=== PATIENT | female | born 1975 | race African-American/Black ===

== ENCOUNTER → 2020-04-18 10:49 | Outpatient (CLI) | payer OTHER, SELFPAY ==
--- NOTE | ~2020-04-18 | XR_ITS ---
EXAMINATION: XR chest 2V 04/18/2020 11:08 INDICATION: Cough PROCEDURE: 2 view chest COMPARISON: Comparison to multiple prior studies sequentially, with oldest reviewed study dated 07/11. FINDINGS: The lungs are clear. The cardiomediastinal silhouette is within normal limits. There are no pleural effusions. There is no pneumothorax suspected. IMPRESSION: 1: NO ACUTE CARDIOPULMONARY DISEASE. Reviewed, dictated and finalized at location A.
== END ==
PROVIDERS: PCP Family Medicine; Visit Provider Nurse Practitioner Family
DX: R05 Cough (principal)
CPT/HCPCS: 71046

== ENCOUNTER 2020-07-01 06:05 | Observation (INO) | payer OTHER, SELFPAY ==
[2020-07-01] VITALS (34 sets, daily range): BP systolic 106–155; BP diastolic 76–113; PULSE 51–70; RESP 12–19; TEMP 36.3–36.8; O2SAT 97–100; BMI 29.3
--- NOTE | ~2020-07-01 | CT_ITS ---
EXAMINATION: CT brain wo con EXAM DATE: 07/01/2020 13:46 INDICATION: Numbness and tingling right side of the body. Right paresthesia. TECHNIQUE: Spiral CT of the head was performed without contrast. Axial, coronal and sagittal images were reviewed. The dose-length product (DLP) for this examination was 605.33 mGy-cm. The exposure w as tailored according to patient size, and iterative reconstruction (ASIR) was used as additional dos e reduction technique. Comparison is made to prior examination from 06/18/2018. FINDINGS: There is no acute intraparenchymal hemorrhage. No evidence of intraparenchymal brain mass lesion. No evidence of acute infarction. There is no mass effect or midline shift. The ventricles are normal in size. There are no extra-axial collections. There are no acute calvarial fractures. T he orbits are unremarkable. Soft tissue is unremarkable. Right ethmoid osteoma. Mildly enhanced ve ssels from CT performed earlier. IMPRESSION: 1. Unremarkable head CT examination. Reviewed, dictated and finalized at location A. F MARKETING OFFICER
--- NOTE | ~2020-07-01 | CT_ITS ---
EXAMINATION: CTA chest abdomen pelvis EXAM DATE: 07/01/2020 10:32 INDICATION: Chest pain, radiating to back, abdomen. TECHNIQUE: Spiral CT of the chest, abdomen and pelvis was performed following intravenous injection o f 100 mL Omnipaque 350. Axial, coronal and sagittal images were reviewed. Coronal maximum intensity pixel images of chest reviewed. The dose-length product (DLP) for this examination was 1092.85 mGy- cm. The exposure was tailored according to patient size (auto mA exposure control), and iterative re construction (ASIR) was used as additional dose reduction technique. Comparison is made to prior exam ination from 2011. FINDINGS: CHEST: The aorta is normal in caliber. There are several right middle, right lower lobe nodules 4 mm or less, granulomas unchanged compared to 2012. No central pulmonary emboli. There are no pleural o r pericardial effusions. Tracheobronchial tree is patent. There is no mediastinal, hilar or axill shanda lymphadenopathy. There is no pneumothorax. Heart normal in size. No evidence of coronary ar terial calcification. ABDOMEN PELVIS: The liver, spleen, adrenal glands and pancreas are unremarkable. Gallbladder is unre markable. No biliary obstruction. Portal and splenic veins are patent. Kidneys enhance symmetrical ly. There is no hydronephrosis. The prostate is unremarkable. The bladder is unremarkable. There is no retroperitoneal or pelvic lymphadenopathy. The appendix is normal. The stomach and small bowel are unremarkable. There is expected amount of c olonic stool. No free intraperitoneal gas. There are no osteoblastic or osteolytic lesions identi fied. IMPRESSION: 1. No acute chest, abdomen or pelvis findings. Reviewed, dictated and finalized at location A. SUPERVISOR
--- NOTE | ~2020-07-01 | XR_ITS ---
EXAMINATION: XR chest 1V portable EXAM DATE: 07/01/2020 06:43 INDICATION: Midsternal chest pain. TECHNIQUE: Portable AP frontal chest x-ray was obtained. Comparison is made to prior examination from 04/18/2020. FINDINGS: The lungs are clear. There are no pleural effusions. The cardiomediastinal silhouette is within normal limits. There is no pneumothorax suspected. The bones and soft tissues are unremarkab le. IMPRESSION: Normal chest x-ray exam. Reviewed, dictated and finalized at location A. STANT PROFESSOR OF ANTHROPOLOGY IMPRESSION: Normal chest x-ray exam.
--- NOTE | 2020-07-01 06:18 | ECG_ITS ---
Measurements Intervals Banner Rate: 66 P: 72 DC: 162 QRS: 24 QRSD: 88 T: 129 QT: 413 QTc: 434 Interpretive Statements SINUS RHYTHM POSSIBLE LEFT ATRIAL ENLARGEMENT CANNOT RULE OUT SEPTAL INFARCT, AGE INDETERMINATE ST-T WAVE ABNORMALITY IN LATERAL LEADS- CONSIDER ISCHEMIA BASELINE WANDER- V1, V3-V4 ABNORMAL ECG Electronically Signed On 07-01-2020 10:03:22 OCCUPATIONAL THERAPY SPECIALIST by Quinten Renteria D.O.
--- NOTE | 2020-07-01 06:43 | ED.GENADULT ---
HPI - General Adult General Chief complaint: Chest Pain <Shad Mathew DO - Last Filed: 07/01/20 19:04> Stated complaint: chest pain <Shad Mathew DO - Last Filed: 07/01/20 19:04> Time Seen by Provider: 07/01/20 06:08 <Shad Mathew DO - Last Filed: 07/01/20 19:04> Source: RN notes reviewed <Shad Mathew DO - Last Filed: 07/01/20 19:04> History of Present Illness HPI narrative: Patient presents emergency department from home for chest pain. Patient states for the past 2 days she has had chest pain is been midsternal and radiates into the right lower chest. Patient also notes pain radiating to the right arm states the pain is worse with movement. She reports shortness of breath that started today. Denies any fevers or chills cough nausea vomiting diarrhea or any other symptoms states she last took aspirin last night for the pain <Shad Mathew DO - Last Filed: 07/01/20 19:04> Related Data Home medications: Home Medications Medication Instructions Recorded Confirmed No Home Medications 07/01/20 07/01/20 <Shad Mathew DO - Last Filed: 07/01/20 19:04> Allergies/adverse reactions: Allergies Allergy/AdvReac Type Severity Reaction Status Date / Time amoxicillin Allergy Mild Unknown Verified 02/07/20 14:42 Cephalosporins Allergy Unknown Unknown Verified 02/07/20 14:42 ketorolac Allergy Unknown Unknown Verified 02/07/20 14:42 Penicillins Allergy Unknown Unknown Verified 02/07/20 14:42 clarithromycin AdvReac Intermediate GI Verified 02/07/20 14:42 <Shad Mathew DO - Last Filed: 07/01/20 19:04> Review of Systems Review of Systems: Narrative: Gen.: Denies fevers or chills Eyes: Denies eye pain or visual change ENT: Denies congestion Respiratory: Denies cough, reports shortness of breath CV: See HPI GI: Denies abdominal pain nausea, emesis or diarrhea denies burning, urgency, frequency or hematuria Musculoskeletal: Denies back pain or muscle pain Neuro: Denies numbness, tingling, weakness or focal weakness Skin: Denies rash Except as documented, all other systems reviewed and negative <Shad Mathew, DO - Last Filed: 07/01/20 19:04> [facility] Past Medical History Medical History: Medical History (Updated 07/01/20 @ 17:59 by Erica Bunn MD) Anxiety Asthma GERD (gastroesophageal reflux disease) Hypertension Hypertension Major depressive disorder, single episode, unspecified <Shad Mathew DO - Last Filed: 07/01/20 19:04> Surgical History Surgical History: Surgical History (Updated 07/01/20 @ 14:37 by Olesya Elizondo NP) H/O section X3 H/O: hysterectomy History of back surgery X5 History of carpal tunnel release Bilaterally S/P cubital tunnel release Bilateral <Shad Mathew, DO - Last Filed: 07/01/20 19:04> Family History Family History: Family History Mother Diabetes mellitus Hypertension Father Diabetes mellitus Hypertension <Shad Mathew, DO - Last Filed: 07/01/20 19:04> Social History Social History: Social History (Updated 07/01/20 @ 14:41 by Olesya Elizondo NP) Social History: She smokes A pack a cigarettes a day. 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 She is . She has 3 children. She is a full code and desires to have her is a durable power litigation attorney associate for healthcare. She does not use alcohol marijuana or illicit drugs. Years smoked: 20 Smoking status: Current every day smoker Alcohol intake: never Substance use: never Occupation/Education: occupation Spiritual care concerns: No <Shad Mathew DO - Last Filed: 07/01/20 19:04> Exam Narrative: Exam Narrative: APPEARANCE: No acute distress, nontoxic, resting in bed EYES: EOMI HEENT: Normocephalic, atraumatic, OMM RESPIRATORY: No
[2020-07-01 06:47] LABS: Basophils Absolute Auto 0.1 K/mm3 (0.0-0.1); Basophils Percent Auto 0.7 % (0.2-1.2); Eosinophils Percent Auto 0.6 % (0-4.4); Hematocrit 41.5 % (37.0-47.0); Hemoglobin 13.9 g/dL (12.0-15.0); Immature Granulocyte Absolute 0.03 K/mm3 (0.00-0.031); Immature Granulocyte Percent A 0.4 % (0-0.5); Lymphocytes Absolute Auto 3.59 K/mm3 (0.9-3.2); Lymphocytes Percent Auto 50.6 % (18.3-44.2); Mean Corpuscular HGB Conc 33.5 g/dl (32-36); Mean Corpuscular Hemoglobin 30.2 pg (26-34); Mean Corpuscular Volume 90.2 fl (80-100); Mean Platelet Volume 11.5 fl (7.4-10.4); Monocytes Absolute Auto 0.4 K/mm3 (0.1-0.6); Monocytes Percent Auto 5.6 % (2.6-8.5); Neutrophils Percent Auto 42.1 % (45.5-73.1); Platelet Count Result 214 k/mm3 (150-375); Red Cell Distribution Width 12.1 % (11.5-14.5); White Blood Count 7.1 K/mm3 (4.5-10.0)
[2020-07-01 07:09] LABS: Anion Gap 7 mmol/L (8-16); Blood Urea Nitrogen 16 mg/dL (7-17); Carbon Dioxide 26 mmol/L (22-30); Chloride 108 mmol/L (98-107); Estimated CRCL calculation 98 ml/min; Estimated Glomerular Filt Rate > 60; Glucose 92 mg/dL (65-105); Potassium 4.1 mmol/L (3.4-5.0); Sodium 141 mmol/L (137-145)
[2020-07-01 07:21] LABS: Troponin I < 0.012 ng/mL (0.000-0.034)
[2020-07-01 07:45] LABS: Alanine Aminotransferase 15 U/L (4-35); Alkaline Phosphatase 84 U/L (38-126); Aspartate Amino Transferase 21 U/L (14-36); Bilirubin,Total 0.6 mg/dL (0.2-1.3); Lipase 92 U/L (23-300)
[2020-07-01 07:50] LABS: INR 0.9; Prothrombin Time 13.2 Seconds (11.1-14.7)
[2020-07-01 07:51] LABS: Partial Thromboplastin Time 24.7 SECONDS (22.3-36.8)
[2020-07-01 09:57] LABS: Troponin I < 0.012 ng/mL (0.000-0.034)
[2020-07-01] MEDS: NITROGLYCERIN SL 0.4 MG TABLET SUBLINGUAL (11:35)
[2020-07-01 12:52] LABS: Troponin I < 0.012 ng/mL (0.000-0.034)
[2020-07-01] MEDS: NICOTINE (*PBKC) 21 MG PATCH 1 PATCH TRANSDERM (14:06)
--- NOTE | 2020-07-01 14:26 | PM.IMHP ---
H&P: HPI History of Present Illness Date/Time: 07/01/20 14:26 Chief complaint: Chest Pain, Parestesia Narrative: Lore Jacobs is a 44 year old female who came in with multiple complaints. She lives at home with her . The patient stated that she has had multiple body ache and that she was checked for covid 19 did check you joint her per see center for this past Friday and still has not gotten her results. She has not had any fever chills. But she has felt some heaviness in her chest. She has been complaining of right arm and right leg pain and heaviness. She does have a history of having asthma and hypertension. The patient complained of having numbness and tingling to her right arm and right lower extremity. She has reproductive pain to her right upper quadrant. She is also complaining of neck pain that radiates down to her right arm. She has been having this chest pain for at least 2 days that is midsternal radiates down her right lower chest and right arm. She has not had any cough no nausea vomiting. She still does continue to smoke a half pack a cigarettes a day. She has not tried anything [id number] except for an aspirin. She does have a history of having anxiety as well. Cannot rule out septal infarction age indeterminate. ST T-wave abnormality in lateral leads consider ischemia. However patient's previous EKG from 2012 had the same read. EKG was abnormal cardiology has been consulted for the abdominal EKG. Head CT was unremarkable. He chest abdomen pelvis CT a no acute chest abdominal or pelvis abdominal finding. She has not had any sick contacts or been around anybody that was positive for COVID. Patient was admitted/placed into observation on the date of service 07/01/2020 Review of Systems Review of Systems: All systems reviewed & are unremarkable except as noted in HPI and below Constitutional: Constitutional: Reports as per HPI and Reports no additional constitutional complaints Eyes: Eyes: Reports as per HPI and Reports no additional eye complaints ENT: Reports system reviewed and no additional complaints, except as documented and Reports Normal hearing present Cardiovascular: Cardiovascular: Reports no additional cardiovascular complaints Respiratory: Respiratory: Reports no additional respiratory complaints and Reports no additional respiratory complaints Gastrointestinal: Gastrointestinal: Reports as per HPI and Reports no additional gastrointestinal complaints Musculoskeletal: Musculoskeletal: Reports no additional musculoskeletal complaints Integumentary/Breasts: Skin/Breast: Reports system reviewed and no additional complaints, except as docu and Reports as per HPI Neurologic: Reports system reviewed and no additional complaints, except as documented, Reports as per HPI and Reports Normal hearing present Psychiatric: Psychiatric: Reports no additional psychiatric complaints and Reports as per HPI Endocrine: Endocrine: Reports no additional endocrine complaints Hematologic/Lymphatic: Hematologic/Lymphatic: Reports no additional hematologic/lymphatic complaints Allergic/Immunologic: Allergic/Immunologic: Reports no additional allergic/immunologic complaints PMF Past Medical History Medical History (Updated 07/01/20 @ 14:52 by Olesya Elizondo NP) Anxiety Asthma GERD (gastroesophageal reflux disease) Hypertension Hypertension Major depressive disorder, single episode, unspecified Surgical History Surgical History (Updated 07/01/20 @ 14:37 by Olesya Elizondo NP) H/O section X3 H/O: hysterectomy History of back surgery X5 History of carpal tunnel release Bilaterally S/P cubital tunnel release Bilateral Family History Family History Mother Diabetes mellitus Hypertension Father Diabetes mellitus Hypertension Social History Social History (Updated 07/01/20 @ 14:41 by Olesya Elizondo NP)
--- NOTE | 2020-07-01 15:01 | PC.NURSE ---
This patient, Lore Jacobs, was admitted to IMU Room 212-01. Patient/family oriented to hospital policies and general routines including ID bracelet, bed and alarms, visiting hours, pain management, procedures, bathroom and other care routines, personal items, smoking policy, room service/diet, and visiting hours. Information on how to activate the Rapid Response Team has been discussed. Patient/Family are encouraged to report perceived risks to care and to ask questions if they do not understand what they are told or what they should do.
--- NOTE | 2020-07-01 17:44 | PC.NURSE ---
Patient left AMA at 1700. Paperwork signed and placed in chart, IV removed, manager monitoring removed. Olesya Elizondo NP notified.
== END 2020-07-01 14:15 | disposition left against medical advice (07) ==
LOC: ANHED 08:04 → ANHIMU 13:31
PROVIDERS: Emergency Medicine; Admitting Provider Internal Medicine; Emergency Provider General Practice; PCP Family Medicine; Visit Provider Internal Medicine
DX: R07.9 Chest pain, unspecified (principal); R06.02 Shortness of breath; Z20.828 Contact with and (suspected) exposure to other viral communicable diseases; F41.9 Anxiety disorder, unspecified; J45.909 Unspecified asthma, uncomplicated; K21.9 Gastro-esophageal reflux disease without esophagitis; I10 Essential (primary) hypertension; F32.9 Major depressive disorder, single episode, unspecified; F17.210 Nicotine dependence, cigarettes, uncomplicated; R10.9 Unspecified abdominal pain; M54.2 Cervicalgia; R20.2 Paresthesia of skin; R94.31 Abnormal electrocardiogram [ECG] [EKG]
CPT/HCPCS: 36415; 70450; 71045; 71275; 74174; 80048; 80076; 83690; 84484; 85025; 85380; 85610; 85730; 93005; 96374; 99285; A9270; G0378; J0131; Q9967

== ENCOUNTER 2020-08-14 07:28 | Inpatient (IN) | payer OTHER, SELFPAY ==
[2020-08-14] VITALS (19 sets, daily range): BP systolic 128–139; BP diastolic 75–109; PULSE 52–94; RESP 10–20; TEMP 36.1–36.7; O2SAT 97–100; BMI 30.6
--- NOTE | ~2020-08-14 | XR_ITS ---
EXAMINATION: XR abdomen obstructive series DATE: 08/15/2020 07:43 INDICATION: Small bowel obstruction TECHNIQUE: Supine and upright views of the abdomen. FINDINGS: Comparison to 08/14/2020 The visualized lung parenchyma is normal.. There is a nonspecific bowel gas pattern with single dilat ed small bowel loop in the right mid abdomen.. Gas and stool are seen throughout the colon to the lev el of the rectum. There is no free air. NG tube in the stomach. There is contrast in the gallbladder , likely vicarious excretion of contrast from recent CT examination. IMPRESSION: 1. Nonspecific bowel gas pattern. Reviewed, dictated and finalized at location A. OWS SYSTEMS ADMINISTRATOR
--- NOTE | ~2020-08-14 | XR_ITS ---
SMALL BOWEL SERIES ONLY INDICATION: Small bowel obstruction TECHNIQUE: Serial plain films and fluoroscopic spot films are performed following oral demonstration of thin barium. COMPARISON: Comparison to multiple prior studies sequentially, with oldest reviewed study dated 11/2020. FINDINGS: Barium was followed sequentially through the small bowel. The mucosal pattern is unremarka ble. There is persistent mild narrowing in the mid small bowel, although no significant obstruction o f flow of contrast. Transit time through small bowel is less than 30 minutes. IMPRESSION: 1: Persistent narrowing of the mid small bowel without obstruction, possibly secondary to stricture or adhesions. Reviewed, dictated and finalized at location A. OPERATIONS SPECIALIST IMPRESSION: 1: Persistent narrowing of the mid small bowel without obstruction, possibly s econdary to stricture or adhesions.
--- NOTE | ~2020-08-14 | XR_ITS ---
XR abdomen obstructive series 08/15/2020 15:15 Indication: Small bowel narrowing noted on recent small bowel series. Evaluate for passage of contras t. Procedure: Supine and upright views of the abdomen Comparison: Comparison to multiple prior studies sequentially, with oldest reviewed study dated 11/30. Findings: There is residual barium in the stomach, small bowel, colon and rectum. No significant orlin l dilation. Evaluation of calcifications limited by lack contrast. Lung bases unremarkable. Heart siz e normal. Impression: 1: Nonobstructive bowel gas pattern with large amount of residual barium throughout the abdomen. Reviewed, dictated and finalized at location A. EL ELASTIC OPERATOR ZIGZAG Impression: 1: Nonobstructive bowel gas pattern with large amount of residual barium throug hout the abdomen.
--- NOTE | ~2020-08-14 | XR_ITS ---
EXAMINATION: XR abdomen NG/feed tube insert DATE: 08/14/2020 09:51 INDICATION: Nasogastric tube placement. TECHNIQUE: An upright view of the abdomen was obtained. COMPARISON: CT abdomen and pelvis 08/31 FINDINGS: The lower abdomen is excluded. There are multiple dilated loops of small bowel. The colon i s decompressed. The nasogastric tube tip is in the stomach. IMPRESSION: 1. Nasogastric tube tip in the stomach. 2. Dilated small bowel, consistent with small bowel obstruction. Reviewed, dictated and finalized at location A. UCTION MATERIAL HANDLER
--- NOTE | ~2020-08-14 | US_ITS ---
EXAMINATION: US right upper quadrant EXAM DATE: 08/15/2020 15:34 INDICATION: Recent epigastric abd pain. TECHNIQUE: Multiple grayscale and Doppler images of the abdomen right upper quadrant were obtained (b y a technologist who performed the scan) and subsequently reviewed. Comparison is made to prior exami nation from 09/09/2017. FINDINGS: The pancreatic head and body are normal in appearance. The pancreatic tail is not visualized. The l iver has normal echogenicity and contour. There are no focal liver lesions identified. There is no evidence of intrahepatic biliary duct dilation. Portal venous flow was seen in the hepatopedal, nor mal direction and has normal Doppler waveform. No right-sided hydronephrosis. Common bile duct measures 3 mm, which is normal. The gallbladder wall is normal in thickness, with ex pected amount of distention. No sonographic evidence of pericholecystic fluid. There is no cholelit hiases. Technologist performing exam reports patient did not demonstrate sonographic Real's sign. Please note that this sign is less reliable in patients who have received pain medication. IMPRESSION: 1. Unremarkable abdominal ultrasound exam. Reviewed, dictated and finalized at location A. PHONE ADVICE NURSE
--- NOTE | ~2020-08-14 | CT_ITS ---
EXAMINATION: CT abdomen pelvis w con DATE: 08/14/2020 08:32 INDICATION: Upper abdominal pain TECHNIQUE: Computed tomography (CT) of the abdomen and pelvis was performed with 100 cc Omnipaque 350 intravenous contrast. The dose-length product was 760.17 mGy-cm. Automated exposure control and iter ative reconstruction technique were employed. COMPARISON: CT dated 07/01/2020. FINDINGS: Heart size is normal. No significant pleural or pericardial effusion. There is dilated smal l bowel with air-fluid levels. The small bowel proximally and distally are decompressed with possible transition site in the proximal small bowel on series 3 image 38 and in the distal small bowel on se dwayne 3 image 136 anteriorly. No evidence for pneumatosis or free air. Small amount of mesenteric flui d. Appendix is unremarkable. Small subcentimeter hypodensity of the liver, most likely benign. The spleen, pancreas, adrenal gland s and kidneys are unremarkable. Gallbladder is present. There is degenerative spondylosis at L4-5. Mi ld osteoarthritis of the hips. IMPRESSION: 1. Small bowel obstruction, possibly closed loop. Dr. Benjamin Malone discussed with Dr. Shad Mathew DO at 08/14/2020 08:40 LAWN SPECIALIST. Reviewed, dictated and finalized at location A. SPECIALIST
--- NOTE | ~2020-08-14 | XR_ITS ---
EXAMINATION: XR abdomen obstructive series DATE: 08/16/2020 09:13 INDICATION: Small bowel obstruction. TECHNIQUE: Upright and supine views of the abdomen on 3 radiographs were obtained. COMPARISON: CT abdomen and pelvis 08/14/2020 FINDINGS: There are no dilated loops of bowel. There is oral contrast in the colon and appendix. No f ree intraperitoneal gas. IMPRESSION: 1. Normal bowel gas pattern. Reviewed, dictated and finalized at location A. EWORKER
--- NOTE | ~2020-08-14 | CT_ITS ---
EXAMINATION: CT abdomen pelvis w con DATE: 08/17/2020 09:59 INDICATION: Abdominal pain. TECHNIQUE: Computed tomography (CT) of the abdomen and pelvis was performed with 100 mL Omnipaque 350 intravenous contrast. Automated exposure control and iterative reconstruction technique were employe d. The dose-length product was 866.54 mGy-cm. COMPARISON: CT abdomen and pelvis 08/14/2020 FINDINGS: The visualized portions of the lung bases demonstrate minimal atelectasis. No pleural effus ion. The heart size is normal. No pericardial effusion. There is a 4 mm cyst in the liver. The gallbl adder, spleen, pancreas, adrenal glands, and kidneys are normal. There are no dilated loops of bowel. The appendix is normal. There are no pathologically enlarged lymph nodes. There is no free intraperi toneal fluid. There is severe lumbar spondylosis. IMPRESSION: 1. No etiology for the patient's symptoms. Reviewed, dictated and finalized at location A. ASSESSOR
--- NOTE | 2020-08-14 07:41 | ED.GENADULT ---
HPI - General Adult General Chief complaint: Abdominal Pain Stated complaint: ABD pain Time Seen by Provider: 08/14/20 07:30 Source: RN notes reviewed History of Present Illness HPI narrative: Patient presents to emergency department from home for abdominal pain. States symptoms began approximately 1-1/2 days ago. The pain is located in the epigastric region and does not radiate described as sharp and stabbing and worsened last night associated with nausea but denies any vomiting states she did develop mild diarrhea this morning patient denies any fevers or chills chest pain shortness of breath or any other symptoms states she took Gaviscon last night for pain with minimal relief Related Data Home Medications Medication Instructions Recorded Confirmed albuterol sulfate INHALATION 08/14/20 estradiol mg 08/14/20 fluticasone propion-salmeterol INHALATION 08/14/20 [Advair HFA] lisinopril 08/14/20 omeprazole 08/14/20 Allergies Allergy/AdvReac Type Severity Reaction Status Date / Time amoxicillin Allergy Intermediate Rash Verified 08/14/20 07:51 Cephalosporins Allergy Intermediate Rash Verified 08/14/20 07:51 Penicillins Allergy Intermediate Rash Verified 08/14/20 07:51 ketorolac AdvReac Intermediate Nausea and Verified 08/14/20 07:51 Vomiting clarithromycin AdvReac Mild GI Verified 08/14/20 07:51 Review of Systems Review of Systems: Narrative: Gen.: Denies fevers or chills ENT: Denies congestion Respiratory: Denies shortness of breath or cough CV: Denies chest pain or palpitations GI: See HPI denies burning, urgency, frequency or hematuria Musculoskeletal: Denies back pain or muscle pain Neuro: Denies numbness, tingling, weakness or focal weakness Skin: Denies rash Except as documented, all other systems reviewed and negative PMFSH Past Medical History Medical History Anxiety Asthma GERD (gastroesophageal reflux disease) Hypertension Hypertension Major depressive disorder, single episode, unspecified Surgical History Surgical History H/O section X3 H/O: hysterectomy History of back surgery X5 History of carpal tunnel release Bilaterally S/P cubital tunnel release Bilateral Family History Family History Mother Diabetes mellitus Hypertension Father Diabetes mellitus Hypertension Social History Social History Social History: She smokes A pack a cigarettes a day. 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 She has 3 children. She is a full code and desires to have her is a durable power graffiti cleaner for healthcare. She does not use alcohol marijuana or illicit drugs. Years smoked: 20 Smoking status: Current every day smoker Alcohol intake: never Substance use: never Gender identity (if verbalized by the patient): Female Spiritual care concerns: No Exam Narrative: Exam Narrative: APPEARANCE: Moderate distress from pain nontoxic, resting in bed HEENT: Normocephalic, atraumatic, OMM RESPIRATORY: No respiratory distress, clear to auscultation bilaterally with no rhonchi wheezing or rales CARDIOVASCULAR: RRR s murmur ABDOMINAL: Soft, nondistended tender palpation diffusely throughout abdomen with increased tenderness in epigastric right upper quadrant no rebound or guarding MUSCULOSKELETAl: Moves all extremities. No clubbing, cyanosis or edema. NEURO: Awake and alert. Following commands, speech normal, no focal deficits SKIN:: Warm, dry. Normal Color PSYCHIATRIC: Normal affect/mood Course Course Emergency Course: Patient states pain is improved at this time patient states that over the past week she has been having rhinorrhea and a mild cough intermitte
[2020-08-14] MEDS: ONDANSETRON INJ 4 MG/2 ML VIAL IV PUSH (08:07)
[2020-08-14] MEDS: SODIUM CHLORIDE 0.9% IV 1,000 ML 999 ML IV CONT (08:07)
[2020-08-14] MEDS: MORPHINE SULFATE (*CRX) 4 MG/ML INJ IV PUSH ×5 (08:07→21:35)
[2020-08-14 08:09] LABS: Basophils Percent Auto 0.4 % (0.2-1.2); Eosinophils Percent Auto 0.1 % (0-4.4); Hematocrit 46.8 % (37.0-47.0); Hemoglobin 15.3 g/dL (12.0-15.0); Immature Granulocyte Absolute 0.04 K/mm3 (0.00-0.031); Immature Granulocyte Percent A 0.4 % (0-0.5); Lymphocytes Absolute Auto 2.58 K/mm3 (0.9-3.2); Lymphocytes Percent Auto 23.5 % (18.3-44.2); Mean Corpuscular HGB Conc 32.7 g/dl (32-36); Mean Corpuscular Hemoglobin 29.7 pg (26-34); Mean Corpuscular Volume 90.9 fl (80-100); Mean Platelet Volume 11.4 fl (7.4-10.4); Monocytes Absolute Auto 0.7 K/mm3 (0.1-0.6); Monocytes Percent Auto 6.7 % (2.6-8.5); Neutrophils Absolute Auto 7.6 K/mm3 (1.3-6.7); Neutrophils Percent Auto 68.9 % (45.5-73.1); Platelet Count Result 229 k/mm3 (150-375); Red Blood Count 5.15 M/mm3 (4.2-5.4); Red Cell Distribution Width 12.4 % (11.5-14.5)
[2020-08-14 08:21] LABS: Alanine Aminotransferase 19 U/L (4-35); Albumin Level 4.6 g/dL (3.5-5.1); Alkaline Phosphatase 88 U/L (38-126); Anion Gap 6 mmol/L (8-16); Aspartate Amino Transferase 24 U/L (14-36); Bilirubin,Total 0.8 mg/dL (0.2-1.3); Blood Urea Nitrogen 13 mg/dL (7-17); Calcium 9.6 mg/dL (8.4-10.2); Carbon Dioxide 31 mmol/L (22-30); Chloride 104 mmol/L (98-107); Estimated CRCL calculation 85 ml/min; Estimated Glomerular Filt Rate > 60; Glucose 111 mg/dL (65-105); Lipase 52 U/L (23-300); Potassium 3.8 mmol/L (3.4-5.0); Sodium 141 mmol/L (137-145)
[2020-08-14 09:09] LABS: Add Urine Microscopic? YES; Appearance Urine Clear (Clear); Bilirubin Urine Negative (Negative); Blood Urine Negative (Negative); Color Urine Yellow (Yellow); Glucose Urine UA Negative (Negative); Ketones Urine Negative (Negative); Leukocyte Esterase Ur Negative LEU/UL (Negative); Mucus Urine Heavy /lpf; Nitrate Urine Negative (Negative); Protein Urine 2+ mg/dL (Negative); Squamous Epithelial Cell Urine Moderate /hpf (Few)
[2020-08-14 09:14] LABS: Specific Grav Ur 1.034 (1.001-1.035)
[2020-08-14] MEDS: PANTOPRAZOLE SODIUM IV 40 MG VIAL IV PUSH (09:17)
[2020-08-14] MEDS: BENZOCAINE/TETRACAINE SPRAY (*SP) 56 ML AEROSOL 1 SPRAY (09:54)
--- NOTE | 2020-08-14 11:23 | PM.CNGS ---
Assessment and Plan Assessment and plan (1) Small bowel obstruction: Code(s): K56.609 - Unspecified intestinal obstruction, unspecified as to partial versus complete obstruction Status: Acute Assessment and Plan: CT scan reviewed and discussed with the patient in detail. There is evidence of a small bowel obstruction, possible closed-loop obstruction. No evidence of pneumatosis or free air. Patient's symptoms have improved some already in the ER and she reportedly had two small bowel movements this morning. She does have a history of multiple abdominal surgeries and she reported that her OBGYN mentioned a significant amount of scar tissue during her last oophorectomy. Etiology is likely to be adhesions. We will continue with conservative management initially, including NG tube decompression, bowel rest, IV fluids, analgesics, and antiemetics. We will continue to monitor with serial abdominal exams and imaging. Will decipher further plan depending on how the patient progresses. I did discuss with the patient that if she does not improve and there is rising suspicion of a closed loop obstruction, then she will require exploratory surgery. Thank you for allowing us to see the patient in consultation and we will continue to follow along with you. (2) Suspected 2019-nCoV infection: Code(s): Z20.822 - Contact with and (suspected) exposure to COVID-19 Status: Acute Assessment and Plan: Symptoms of congestion and shortness of breath over the past week. COVID-19 ordered in the ER and test pending. Continue precautions. (3) Hypertension: Code(s): I10 - Essential (primary) hypertension Status: Chronic (4) Anxiety: Code(s): F41.9 - Anxiety disorder, unspecified Status: Chronic (5) Major depressive disorder, single episode, unspecified: Code(s): F32.9 - Major depressive disorder, single episode, unspecified Status: Chronic (6) GERD (gastroesophageal reflux disease): Qualifiers: Esophagitis presence: esophagitis presence not specified Qualified Code(s): K21.9 - Gastro-esophageal reflux disease without esophagitis Code(s): K21.9 - Gastro-esophageal reflux disease without esophagitis Status: Chronic (7) IBS (irritable bowel syndrome): Code(s): K58.9 - Irritable bowel syndrome without diarrhea Status: Acute Additional Plan Discussed the patient's case and plan of care with Dr. Landry. History of Present Illness Consult details Consult date: 08/14/20 Reason for consult: other (Small bowel obstruction) Requesting physician: Shad Mathew DO Narrative: This is a 44-year-old female who presented to the emergency department with complaints of abdominal pain and nausea. She reports a history of irritable bowel syndrome that causes intermittent mild abdominal pain. She reportedly has not felt well for the past week and attributed her abdominal pain initially to IBS. Last night, around 7:00 p.m. her generalized abdominal pain became more severe and was cramping in nature. This is different than any pain she has had in the past. She also reports associated nausea, but no vomiting, and bloating. She then presented to the emergency department for further evaluation. CT scan of the abdomen and pelvis showed evidence of a small-bowel obstruction, possible closed loop obstruction. Labs revealed a white blood cell count of 11,000 and lactic acid 1.0. Our service was contacted by the ED physician for surgical evaluation of the small bowel obstruction. NG tube was placed in the ED and placement was confirmed with abdominal x-ray. The patient is now being seen in the ER. She reports slight improvement in her abdominal pain and bloating. She is still feeling nauseous, but has not vomited. Denies flatus or BM yesterday, although she reports taking a Dulcolax suppository last night and having 2 very small liquid bowel movements this morning prior
[2020-08-14] MEDS: SODIUM CHLORIDE 0.9% IV 1,000 ML 125 ML IV CONT ×2 (12:00→21:43)
--- NOTE | 2020-08-14 15:02 | PM.IMHP ---
H&P: HPI History of Present Illness Date/Time: 08/14/20 15:02 Chief Complaint: Abdominal pain Narrative: Lore Jacobs is a 44 year old female Who came in with multiple complaints. She lives at home with her . The patient was here on 07/01/2020 where she had complained of chest pain and over troponins were negative. The patient signed out against medical advice at that time. She stated she never did follow-up with her chest pain. Today the patient came in with epigastric pain that did not radiate it was sharp and stabbing. It was worsened during the night. She felt nauseated but did not vomit. She tried Gaviscon last night in it gave her minimal relief. She felt like it was mostly her acid reflux. The patient has been feeling constipated and took a suppository last night had a very small bowel movement. NG tube was placed into the stomach. Patient had dilated small bowel consistent with small-bowel obstruction. Surgery has been consulted and conservative measures . IV fluids were started with Zofran she was also given Protonix and morphine. Patient is being admitted to inpatient services on the date of service of 08/14/2020. Review of Systems Review of Systems: All systems reviewed & are unremarkable except as noted in HPI and below Constitutional: Constitutional: Reports as per HPI and Reports no additional constitutional complaints Eyes: Eyes: Reports as per HPI and Reports no additional eye complaints ENT: Reports system reviewed and no additional complaints, except as documented and Reports Normal hearing present Cardiovascular: Cardiovascular: Reports no additional cardiovascular complaints Respiratory: Respiratory: Reports no additional respiratory complaints and Reports no additional respiratory complaints Gastrointestinal: Gastrointestinal: Reports as per HPI and Reports no additional gastrointestinal complaints Musculoskeletal: Musculoskeletal: Reports no additional musculoskeletal complaints Integumentary/Breasts: Skin/Breast: Reports system reviewed and no additional complaints, except as docu and Reports as per HPI Neurologic: Reports system reviewed and no additional complaints, except as documented, Reports as per HPI and Reports Normal hearing present Psychiatric: Psychiatric: Reports no additional psychiatric complaints and Reports as per HPI Endocrine: Endocrine: Reports no additional endocrine complaints Hematologic/Lymphatic: Hematologic/Lymphatic: Reports no additional hematologic/lymphatic complaints Allergic/Immunologic: Allergic/Immunologic: Reports no additional allergic/immunologic complaints PMFSH Past Medical History Medical History Anxiety Asthma GERD (gastroesophageal reflux disease) Hypertension Hypertension IBS (irritable bowel syndrome) Major depressive disorder, single episode, unspecified Surgical History Surgical History (Updated 08/14/20 @ 15:18 by Olesya Elizondo NP) H/O section X3 H/O: hysterectomy Open partial hysterectomy followed by left salpingo-oophorectomy and eventually right salpingo-oophorectomy. Total of 3 surgeries. History of back surgery X3 History of carpal tunnel release Bilaterally History of laparoscopy x 2 exploratory laparoscopy due to abdominal pain in her 20's with no reported significant findings. Family History Family History Mother Diabetes mellitus Hypertension Father Diabetes mellitus Hypertension Social History Social History Social History: She smokes A pack a cigarettes a day. 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 She is . She has 3 children. She is a full code and desires to have her to be her decision-maker if needed. She does not use alcohol marijuana o
--- NOTE | 2020-08-14 15:34 | PC.NURSE ---
[id number] This patient, Lore Jacobs, was admitted to 3 [facility] Surg Room 300-01. Patient/family oriented to hospital policies and general routines including ID bracelet, bed and alarms, visiting hours, pain management, procedures, bathroom and other care routines, personal items, smoking policy, room service/diet, and visiting hours. Information on how to activate the Rapid Response Team has been discussed. Patient/Family are encouraged to report perceived risks to care and to ask questions if they do not understand what they are told or what they should do.
[2020-08-14 18:50] LABS: SARS-CoV-2 RNA PCR Negative
[2020-08-14] MEDS: FAMOTIDINE 20 MG/2 ML VIAL IV PUSH (21:29)
[2020-08-14] MEDS: NICOTINE (*PBKC) 14 MG PATCH 1 PATCH TRANSDERM (21:29)
[2020-08-15] MEDS: MORPHINE SULFATE (*CRX) 4 MG/ML INJ IV PUSH ×2 (01:35→04:18)
[2020-08-15 01:41] LABS: Glucose Point of Care 82 (65-105)
[2020-08-15 04:59] VITALS: BP 129/78; PULSE 52; RESP 16; TEMP 36.6; O2SAT 98
[2020-08-15 06:00] VITALS: BP 137/82; PULSE 60; RESP 16; TEMP 36.4; O2SAT 97
[2020-08-15] MEDS: SODIUM CHLORIDE 0.9% IV 1,000 ML 125 ML IV CONT (06:06)
[2020-08-15] MEDS: diphenhydrAMINE HCl INJ 50 MG/ML VIAL 25 MG IV PUSH (06:24)
[2020-08-15 06:45] LABS: Basophils Percent Auto 0.6 % (0.2-1.2); Eosinophils Percent Auto 0.4 % (0-4.4); Hematocrit 39.1 % (37.0-47.0); Hemoglobin 12.4 g/dL (12.0-15.0); Immature Granulocyte Absolute 0.02 K/mm3 (0.00-0.031); Immature Granulocyte Percent A 0.3 % (0-0.5); Lymphocytes Absolute Auto 3.38 K/mm3 (0.9-3.2); Lymphocytes Percent Auto 48.1 % (18.3-44.2); Mean Corpuscular HGB Conc 31.7 g/dl (32-36); Mean Corpuscular Hemoglobin 29.5 pg (26-34); Mean Corpuscular Volume 92.9 fl (80-100); Mean Platelet Volume 12.1 fl (7.4-10.4); Monocytes Absolute Auto 0.6 K/mm3 (0.1-0.6); Monocytes Percent Auto 7.8 % (2.6-8.5); Neutrophils Percent Auto 42.8 % (45.5-73.1); Platelet Count Result 201 k/mm3 (150-375); Red Blood Count 4.21 M/mm3 (4.2-5.4); Red Cell Distribution Width 12.6 % (11.5-14.5)
[2020-08-15 07:09] LABS: Alanine Aminotransferase 15 U/L (4-35); Albumin Level 3.7 g/dL (3.5-5.1); Alkaline Phosphatase 65 U/L (38-126); Anion Gap 3 mmol/L (8-16); Aspartate Amino Transferase 27 U/L (14-36); Bilirubin,Total 0.8 mg/dL (0.2-1.3); Blood Urea Nitrogen 11 mg/dL (7-17); Carbon Dioxide 30 mmol/L (22-30); Chloride 108 mmol/L (98-107); Estimated CRCL calculation 85 ml/min; Estimated Glomerular Filt Rate > 60; Glucose 77 mg/dL (65-105); Potassium 3.8 mmol/L (3.4-5.0); Sodium 141 mmol/L (137-145)
[2020-08-15 07:12] LABS: Glucose Point of Care 84 (65-105)
[2020-08-15 08:00] VITALS: PULSE 60; RESP 16; O2SAT 97
[2020-08-15] MEDS: FAMOTIDINE 20 MG/2 ML VIAL IV PUSH (09:07)
[2020-08-15] MEDS: NICOTINE (*PBKC) 14 MG PATCH 1 PATCH TRANSDERM (09:07)
[2020-08-15] MEDS: PANTOPRAZOLE SODIUM IV 40 MG VIAL IV PUSH (09:08)
[2020-08-15 09:35] LABS: Magnesium 2.3 mg/dL (1.6-2.3)
--- NOTE | 2020-08-15 10:52 | PM.PNGS ---
Progress Note: A&P Assessment and Plan (1) Small bowel obstruction: Code(s): K56.609 - Unspecified intestinal obstruction, unspecified as to partial versus complete obstruction Status: Acute Assessment and Plan: Patient still having pain and bowel function this morning. Abdominal x-ray this morning shows normal bowel gas pattern. Will get a gastrografin SBFT today to further assess the obstruction. (2) Suspected 2019-nCoV infection: Code(s): Z20.822 - Contact with and (suspected) exposure to COVID-19 Status: Acute Assessment and Plan: COVID test negative. Resolved. (3) Hypertension: Code(s): I10 - Essential (primary) hypertension Status: Chronic (4) Anxiety: Code(s): F41.9 - Anxiety disorder, unspecified Status: Chronic (5) Major depressive disorder, single episode, unspecified: Code(s): F32.9 - Major depressive disorder, single episode, unspecified Status: Chronic (6) GERD (gastroesophageal reflux disease): Qualifiers: Esophagitis presence: esophagitis presence not specified Qualified Code(s): K21.9 - Gastro-esophageal reflux disease without esophagitis Code(s): K21.9 - Gastro-esophageal reflux disease without esophagitis Status: Chronic (7) IBS (irritable bowel syndrome): Code(s): K58.9 - Irritable bowel syndrome without diarrhea Status: Acute Additional Plan Discussed the plan of care with Dr. Landry. Subjective Subjective Date/Time Seen: 08/15/20 09:30 Patient reports: no new complaints, still having pain, no flatus and no bowel movement Interval history: Patient seen this morning and states she feels about the same as yesterday. Still having the same amount of abdominal pain, rating it at 7/10 on pain scale. Still feeling bloated. Denies flatus or BM. No other complaints at this time. NG with 225 cc output overnight. Review of Systems Review of Systems: All systems reviewed & are unremarkable except as noted in HPI and below Exam Const: General: comfortable, no acute distress, alert and awake Orientation/consciousness: patient oriented x3 Resp: Effort & Inspection: no respiratory distress Auscultation: clear to auscultation bilaterally Cardio: Rate: regular rate Rhythm: regular rhythm GI: Inspection: other (mildly distended) GI Palp: Yes Soft to palpation, Yes Tenderness to palpation present (GI) (diffusely tender throughout), No Guarding due to palpation present (GI) and No Rebound tenderness present Auscultation: absent bowel sounds Skin: General skin exam: normal color Neuro: General: moves all extremities and no focal motor deficits Extrem: General: no clubbing, cyanosis or edema Psych: Appearance: grossly normal Mental Status: mental status grossly normal Affect: normal affect Insight: Good insight present (Psych) Judgement: Good judgement present (Psych) Objective Data Vital Signs Vital Signs: Vital Signs - 24 hr 08/14/20 11:30 08/14/20 12:00 08/14/20 16:23 Temperature 98.1 F 98.1 F Pulse Rate 74 56 L 56 L Respiratory Rate 16 14 14 Blood Pressure 137/75 137/75 Pulse Oximetry 100 100 08/14/20 22:00 08/15/20 04:59 08/15/20 06:00 Temperature 98 F 98 F 97.6 F Pulse Rate 52 L 52 L 60 Respiratory Rate 16 16 16 Blood Pressure 129/78 129/78 137/82 Pulse Oximetry 98 98 97 Intake/Output Intake/Output: Intake & Output 08/12/20 08/13/20 08/14/20 08/15/20 23:59 23:59 23:59 23:59 Intake Total 1950 1020 Output Total 225 Balance 1950 795 Meds/Results Medications: Active Medications Generic Name Dose Route Start Last Admin Trade Name Freq PRN Reason Stop Dose Admin Famotidine 20 mg 08/14/20 21:00 08/15/20 09:07 Famotidine 20 Mg/2 Ml Vial IV PUSH 20 mg Q12HR MORE Administration Hydralazine HCl 10 mg 08/14/20 15:36 Hydralazine Hcl 20 Mg/Ml Vial IV PUSH Q8H PRN Blood Pressure - High Hydromorphone HCl 1 mg 08/15/20 04:4
[2020-08-15] MEDS: HYDROmorphone HCL INJ (*CRX) 1 MG/ML SYR IV PUSH ×4 (12:40→20:39)
[2020-08-15 14:00] VITALS: BP 135/78; PULSE 63; RESP 16; TEMP 36.7; O2SAT 98
--- NOTE | 2020-08-15 14:06 | PM.IMPN ---
Progress Note: A&P Assessment and Plan (1) Complete small bowel obstruction: Code(s): K56.601 - Complete intestinal obstruction, unspecified as to cause Status: Acute Assessment and Plan: THE PATIENT HAS NG TUBE IN PLACE. Surgery has been consulted. Most likely conservative care. Continue with Chloraseptic spray and ice chips only. Pain management and IV fluids. x-ray the abdomen obstructive series was ordered. 08/15/20 14:06 Patient is a 44-year-old female with history open hysterectomy and IBS, presented to emergency department with a complaint abdominal pain and nausea, epigastric pain stable pain is persistent for 1 and half and was worse last night and patient presented emergency department for further evaluation patient had a CT scan of abdomen showed Small bowel obstruction, possibly closed loop. Patient was placed on NG tube for decompression, patient was seen by general surgery team suspect patient may have a partial small-bowel obstruction recommending conservative management with decompression with NG tube, NPO, IV hydration and pain management, this morning patient states pain is persisting nausea is improving, not passing any gas and no BM, denies any fever or chills. Plan is to continue present management in hope the small-bowel obstruction resolved without surgery, (2) Suspected 2019-nCoV infection: Code(s): Z20.822 - Contact with and (suspected) exposure to COVID-19 Status: Acute Assessment and Plan: Patient was placed on droplet isolation. awaiting test results. (3) Major depressive disorder, single episode, unspecified: Code(s): F32.9 - Major depressive disorder, single episode, unspecified Status: Chronic Assessment and Plan: She is not currently on any medications. (4) Hypertension: Code(s): I10 - Essential (primary) hypertension Status: Chronic Assessment and Plan: P.r.n. hydralazine she is NPO. (5) Anxiety: Code(s): F41.9 - Anxiety disorder, unspecified Status: Chronic Assessment and Plan: Continue with p.r.n. Ativan. (6) Tobacco abuse: Code(s): Z72.0 - Tobacco use Status: Acute Assessment and Plan: Continue nicotine patch. Subjective Date/time seen: 08/15/20 14:06 Patient is a 44-year-old female with history open hysterectomy and IBS, presented to emergency department with a complaint abdominal pain and nausea, epigastric pain stable pain is persistent for 1 and half and was worse last night and patient presented emergency department for further evaluation patient had a CT scan of abdomen showed Small bowel obstruction, possibly closed loop. Patient was placed on NG tube for decompression, patient was seen by general surgery team suspect patient may have a partial small-bowel obstruction recommending conservative management with decompression with NG tube, NPO, IV hydration and pain management, this morning patient states pain is persisting nausea is improving, not passing any gas and no BM, denies any fever or chills. Plan is to continue present management in hope the small-bowel obstruction resolved without surgery, Review of Systems Review of Systems: All systems reviewed & are unremarkable except as noted in HPI and below Exam Narrative: Exam Narrative: Moderately obese Patient is comfortable, NAD HEENT: eyes are clear and none icteric LUNGS:CTA HEART: RR S1S2 ABD: Bowel sounds are faint and diffusely tender Lower extremities: no edema SKIN: nonjaundiced Neuro: grossly intact. Objective Data Vital Signs Vital Signs: Vital Signs - 24 hr 08/14/20 16:23 08/14/20 22:00 08/15/20 04:59 Temperature 98.1 F 98 F 98 F Pulse Rate 56 L 52 L 52 L Respiratory Rate 14 16 16 Blood Pressure 137/75 129/78 129/78 Pulse Oximetry 98 98 08/15/20 06:00 08/15/20 08:00 Temperature 97.6 F Pulse Rate 60 60 Respiratory Rate 16 16 Blood Pres
[2020-08-15 22:00] VITALS: BP 155/95; PULSE 52; RESP 16; TEMP 36.7; O2SAT 98
[2020-08-16 06:00] VITALS: BP 154/85; PULSE 58; RESP 16; TEMP 36.9; O2SAT 100
[2020-08-16] MEDS: SODIUM CHLORIDE 0.9% IV 1,000 ML 75 ML IV CONT ×3 (06:16→19:42)
[2020-08-16 06:21] LABS: Hematocrit 38.3 % (37.0-47.0); Hemoglobin 12.5 g/dL (12.0-15.0); Mean Corpuscular HGB Conc 32.6 g/dl (32-36); Mean Corpuscular Hemoglobin 29.5 pg (26-34); Mean Corpuscular Volume 90.3 fl (80-100); Mean Platelet Volume 11.7 fl (7.4-10.4); Platelet Count Result 186 k/mm3 (150-375); Red Blood Count 4.24 M/mm3 (4.2-5.4); Red Cell Distribution Width 11.9 % (11.5-14.5)
[2020-08-16 06:27] LABS: Magnesium 1.9 mg/dL (1.6-2.3)
[2020-08-16 06:39] LABS: Anion Gap 4 mmol/L (8-16); Blood Urea Nitrogen 5 mg/dL (7-17); Calcium 8.5 mg/dL (8.4-10.2); Carbon Dioxide 30 mmol/L (22-30); Chloride 105 mmol/L (98-107); Estimated CRCL calculation 85 ml/min; Estimated Glomerular Filt Rate > 60; Glucose 78 mg/dL (65-105); Potassium 3.6 mmol/L (3.4-5.0); Sodium 139 mmol/L (137-145)
[2020-08-16] MEDS: NICOTINE (*PBKC) 14 MG PATCH 1 PATCH TRANSDERM (09:17)
[2020-08-16] MEDS: PANTOPRAZOLE SODIUM IV 40 MG VIAL IV PUSH (09:17)
[2020-08-16] MEDS: POTASSIUM CHLORIDE 20 MEQ TABLET 40 MEQ PO (09:18)
--- NOTE | 2020-08-16 11:52 | PM.PNGS ---
Progress Note: A&P Assessment and Plan (1) Small bowel obstruction: Code(s): K56.609 - Unspecified intestinal obstruction, unspecified as to partial versus complete obstruction Status: Acute Assessment and Plan: Still having some symptoms of obstruction. Not tolerating clears very well. Will continue clears today and give a Dulcolax suppository. If symptoms are persisting, will get a repeat CT tomorrow AM and determine if surgical exploration is needed. Subjective Subjective Date/Time Seen: 08/16/20 11:52 Interval history: Patient still feels bloated and somewhat nauseated. Had a couple small diarrhea BM's but nothing significant. She is getting up and walking. Still having abdominal pain. Exam GI: Inspection: obesity GI Palp: Yes Tenderness to palpation present (GI) (generalized tenderness to palpation) Objective Data Vital Signs Vital Signs: Vital Signs - 24 hr 08/15/20 14:00 08/15/20 22:00 08/16/20 06:00 Temperature 36.7 C 36.7 C 36.9 C Pulse Rate 63 52 L 58 L Respiratory Rate 16 16 16 Blood Pressure 135/78 155/95 H 154/85 H Pulse Oximetry 98 98 100 Intake/Output Intake/Output: Intake & Output 08/13/20 08/14/20 08/15/20 08/16/20 23:59 23:59 23:59 23:59 Intake Total 1950 2510 1220 Output Total 1000 Balance 1950 1510 1220 Meds/Results Medications: Active Medications Generic Name Dose Route Start Last Admin Trade Name Freq PRN Reason Stop Dose Admin Bisacodyl 10 mg 08/16/20 11:46 Bisacodyl 10 Mg Suppository RECTAL 08/16/20 11:47 ONCE ONE Hydralazine HCl 10 mg 08/14/20 15:36 Hydralazine Hcl 20 Mg/Ml Vial IV PUSH Q8H PRN Blood Pressure - High Sodium Chloride 1,000 mls @ 75 mls/hr 08/14/20 09:10 08/16/20 06:19 Normal Saline Iv IV CONT 75 mls/hr .[id number] MORE Administration Lorazepam 0.5 mg 08/14/20 15:38 Lorazepam Inj (*Crx) 2 Mg/Ml Vial IV PUSH Q6H PRN Anxiety Nicotine 1 patch 08/14/20 15:05 08/16/20 09:17 Nicotine (*Pbkc) 14 Mg Patch TRANSDERM 1 patch QAM MORE Administration Ondansetron HCl 4 mg 08/14/20 09:06 Ondansetron Inj 4 Mg/2 Ml Vial IV PUSH Q4H PRN Nausea Pantoprazole Sodium 40 mg 08/15/20 09:00 08/16/20 09:17 Pantoprazole Sodium Iv 40 Mg Vial IV PUSH 40 mg QAM MORE Administration Phenol 1 spray 08/14/20 14:57 Phenol/Sod Pheno Lamar Cain (*Bkc) MUCOUS MEM PRN PRN Sore Throat Polyethylene Glycol 17 gm 08/16/20 11:51 Polyethylene Glycol 3350 17 Gm Powd.Pack PO 08/16/20 11:52 ONCE ONE Radiology Results: ITS Impressions Abdomen/Pelvis CT 08/14/20 08:34 IMPRESSION: 1. Small bowel obstruction, possibly closed loop. Dr. Benjamin Malone discussed with Dr. Shad Mathew DO at 08/14/2020 08:40 TOURIST AGENT. Small Bowel X-Ray 08/15/20 13:05 IMPRESSION: 1: Persistent narrowing of the mid small bowel without obstruction, possibly secondary to stricture or adhesions. Upper Quadrant Ultrasound 08/15/20 15:38 IMPRESSION: 1. Unremarkable abdominal ultrasound exam. Abdomen X-Ray 08/16/20 09:15 IMPRESSION: 1. Normal bowel gas pattern. Labs Labs: Laboratory Results - last 24 hr 08/16/20 08/16/20 08/16/20 05:55 05:55 05:55 WBC 6.0 RBC 4.24 Hgb 12.5 Hct 38.3 MCV 90.3 MCH 29.5 MCHC 32.6 RDW 11.9 Plt Count 186 MPV 11.7 H Sodium 139 Potassium 3.6 Chloride 105 Carbon Dioxide 30 Anion Gap 4 L BUN 5 L D Creatinine 0.80 Estim Creat Clear Calc 85 Estimated GFR > 60 Glucose 78 Calcium 8.5 Magnesium 1.9 Quality VTE Prophylaxis VTE prophylaxis: mechanical ordered
--- NOTE | 2020-08-16 13:30 | PM.IMPN ---
Progress Note: A&P Assessment and Plan (1) Complete small bowel obstruction: Code(s): K56.601 - Complete intestinal obstruction, unspecified as to cause Status: Acute Assessment and Plan: THE PATIENT HAS NG TUBE IN PLACE. Surgery has been consulted. Most likely conservative care. Continue with Chloraseptic spray and ice chips only. Pain management and IV fluids. x-ray the abdomen obstructive series was ordered. 08/16/20 13:30 Patient is a 44-year-old female with history open hysterectomy and IBS, presented to emergency department with a complaint abdominal pain and nausea, epigastric pain stable pain is persistent for 1 and half and was worse last night and patient presented emergency department for further evaluation patient had a CT scan of abdomen showed Small bowel obstruction, possibly closed loop. Patient was placed on NG tube for decompression, patient was seen by general surgery team suspect patient may have a partial small-bowel obstruction recommending conservative management with decompression with NG tube, NPO, IV hydration and pain management. today / patient still complaints of abdominal pain and unable to tolerate PO though abdominal x-ray does not show any obstruction, she was seen by the surgery team and patient was given suppository, will continue clear liquids and monitor, if symptoms do not improve surgery will repeat CT of scan of abdomen and further recommendation to follow. (2) Suspected 2019-nCoV infection: Code(s): Z20.822 - Contact with and (suspected) exposure to COVID-19 Status: Acute Assessment and Plan: Patient was placed on droplet isolation. awaiting test results. (3) Major depressive disorder, single episode, unspecified: Code(s): F32.9 - Major depressive disorder, single episode, unspecified Status: Chronic Assessment and Plan: She is not currently on any medications. (4) Hypertension: Code(s): I10 - Essential (primary) hypertension Status: Chronic Assessment and Plan: P.r.n. hydralazine she is NPO. (5) Anxiety: Code(s): F41.9 - Anxiety disorder, unspecified Status: Chronic Assessment and Plan: Continue with p.r.n. Ativan. (6) Tobacco abuse: Code(s): Z72.0 - Tobacco use Status: Acute Assessment and Plan: Continue nicotine patch. Subjective Date/time seen: 08/16/20 13:30 Patient is a 44-year-old female with history open hysterectomy and IBS, presented to emergency department with a complaint abdominal pain and nausea, epigastric pain stable pain is persistent for 1 and half and was worse last night and patient presented emergency department for further evaluation patient had a CT scan of abdomen showed Small bowel obstruction, possibly closed loop. Patient was placed on NG tube for decompression, patient was seen by general surgery team suspect patient may have a partial small-bowel obstruction recommending conservative management with decompression with NG tube, NPO, IV hydration and pain management. today 08/16 patient still complaints of abdominal pain and unable to tolerate PO though abdominal x-ray does not show any obstruction, she was seen by the surgery team and patient was given suppository, will continue clear liquids and monitor, if symptoms do not improve surgery will repeat CT of scan of abdomen and further recommendation to follow. Review of Systems Review of Systems: All systems reviewed & are unremarkable except as noted in HPI and below Exam Narrative: Exam Narrative: Moderately obese Patient is comfortable, NAD HEENT: eyes are clear and none icteric LUNGS:CTA HEART: RR S1S2 ABD: Bowel sounds are faint and diffusely tender Lower extremities: no edema SKIN: nonjaundiced Neuro: grossly intact. Objective Data Vital Signs Vital Signs: Vital Signs - 24 hr 08/15/20 14:00 08/15/20 22:00 08/16/20 06:00 Temperatu
[2020-08-16 14:00] VITALS: BP 143/73; PULSE 61; RESP 18; TEMP 37.1; O2SAT 100
[2020-08-16] MEDS: BISACODYL 10 MG SUPPOSITORY RECTAL (14:40)
[2020-08-16] MEDS: polyethylene glycoL 3350 17 GM POWD.PACK PO (14:40)
[2020-08-16 20:00] VITALS: O2SAT 100
[2020-08-16 22:00] VITALS: BP 137/74; PULSE 57; RESP 16; TEMP 36.3; O2SAT 100
[2020-08-17 05:45] VITALS: BP 131/87; PULSE 62; RESP 16; TEMP 36.6; O2SAT 99
[2020-08-17 06:47] LABS: Hematocrit 38.7 % (37.0-47.0); Hemoglobin 12.8 g/dL (12.0-15.0); Mean Corpuscular HGB Conc 33.1 g/dl (32-36); Mean Corpuscular Volume 90.8 fl (80-100); Mean Platelet Volume 11.8 fl (7.4-10.4); Platelet Count Result 192 k/mm3 (150-375); Red Blood Count 4.26 M/mm3 (4.2-5.4); Red Cell Distribution Width 11.9 % (11.5-14.5); White Blood Count 5.5 K/mm3 (4.5-10.0)
[2020-08-17 07:05] LABS: Anion Gap 5 mmol/L (8-16); Blood Urea Nitrogen 4 mg/dL (7-17); Calcium 8.5 mg/dL (8.4-10.2); Carbon Dioxide 29 mmol/L (22-30); Chloride 106 mmol/L (98-107); Estimated CRCL calculation 96 ml/min; Estimated Glomerular Filt Rate > 60; Glucose 81 mg/dL (65-105); Potassium 3.4 mmol/L (3.4-5.0); Sodium 140 mmol/L (137-145)
[2020-08-17] MEDS: NICOTINE (*PBKC) 14 MG PATCH 1 PATCH TRANSDERM (08:16)
[2020-08-17] MEDS: PANTOPRAZOLE SODIUM IV 40 MG VIAL IV PUSH (08:17)
[2020-08-17] MEDS: SODIUM CHLORIDE 0.9% IV 1,000 ML 75 ML IV CONT (08:19)
[2020-08-17] MEDS: POTASSIUM CHLORIDE 20 MEQ TABLET 40 MEQ PO (09:00)
--- NOTE | 2020-08-17 09:15 | PM.PNGS ---
Progress Note: A&P Assessment and Plan (1) Small bowel obstruction: Code(s): K56.609 - Unspecified intestinal obstruction, unspecified as to partial versus complete obstruction Status: Acute Assessment and Plan: Still having obstructive symptoms today. I discussed this with Dr. Landry. Will get a CT scan abd/pelvis stat. Will also make the patient NPO while awaiting CT results in case she requires exploratory surgery today. Subjective Subjective Date/Time Seen: 08/17/20 09:00 Patient reports: still having pain and nausea Interval history: Patient seen this morning. Still having abdominal pain, patient feels even more than yesterday and now the entire central abdomen. Still complaining of bloating and nausea as well, no vomiting. Reports very little flatus and only two very small liquid BMs after suppository yesterday. Review of Systems Review of Systems: All systems reviewed & are unremarkable except as noted in HPI and below Exam Const: General: alert, awake and uncomfortable Orientation/consciousness: patient oriented x3 GI: Inspection: other (mildly distended) GI Palp: Yes Soft to palpation, Yes Tenderness to palpation present (GI) (tender in all quadrants), No Guarding due to palpation present (GI) and No Rebound tenderness present Auscultation: normal bowel sounds Neuro: General: moves all extremities and no focal motor deficits Extrem: General: no clubbing, cyanosis or edema Psych: Appearance: grossly normal Mental Status: mental status grossly normal Speech and movement: Normal speech and movement present Affect: normal affect Attitude: cooperative Thought process: Normal thought process present Insight: Good insight present (Psych) Judgement: Good judgement present (Psych) Objective Data Vital Signs Vital Signs: Vital Signs - 24 hr 08/16/20 14:00 08/16/20 20:00 08/16/20 22:00 Temperature 98.7 F 97.3 F L Pulse Rate 61 57 L Respiratory Rate 18 16 Blood Pressure 143/73 H 137/74 Pulse Oximetry 100 100 100 08/17/20 05:45 Temperature 98 F Pulse Rate 62 Respiratory Rate 16 Blood Pressure 131/87 Pulse Oximetry 99 Intake/Output Intake/Output: Intake & Output 08/14/20 08/15/20 08/16/20 08/17/20 23:59 23:59 23:59 23:59 Intake Total 1950 2510 3210 1200 Output Total 1000 Balance 1950 1510 3210 1200 Meds/Results Medications: Active Medications Generic Name Dose Route Start Last Admin Trade Name Freq PRN Reason Stop Dose Admin Hydralazine HCl 10 mg 08/14/20 15:36 Hydralazine Hcl 20 Mg/Ml Vial IV PUSH Q8H PRN Blood Pressure - High Sodium Chloride 1,000 mls @ 100 mls/hr 08/14/20 09:10 08/17/20 08:19 Normal Saline Iv IV CONT 75 mls/hr .Q10H MORE Administration Lorazepam 0.5 mg 08/14/20 15:38 Lorazepam Inj (*Crx) 2 Mg/Ml Vial IV PUSH Q6H PRN Anxiety Nicotine 1 patch 08/14/20 15:05 08/17/20 08:16 Nicotine (*Pbkc) 14 Mg Patch TRANSDERM 1 patch QAM MORE Administration Ondansetron HCl 4 mg 08/14/20 09:06 Ondansetron Inj 4 Mg/2 Ml Vial IV PUSH Q4H PRN Nausea Pantoprazole Sodium 40 mg 08/15/20 09:00 08/17/20 08:17 Pantoprazole Sodium Iv 40 Mg Vial IV PUSH 40 mg QAM MORE Administration Phenol 1 spray 08/14/20 14:57 Phenol/Sod Pheno Sherwood Cain (*Bkc) MUCOUS MEM PRN PRN Sore Throat Radiology Results: ITS Impressions Abdomen/Pelvis CT 08/14/20 08:34 IMPRESSION: 1. Small bowel obstruction, possibly closed loop. Dr. Benjamin Malone discussed with Dr. Shad Mathew, at 08/14/2020 08:40 EQUIPMENT WASHER. Small Bowel X-Ray 08/15/20 13:05 IMPRESSION: 1: Persistent narrowing of the mid small bowel without obstruction, possibly secondary to stricture or adhesions. Upper Quadrant Ultrasound 08/15/20 15:38 IMPRESSION: 1. Unremarkable abdominal ultrasound exam. Abdomen X-Ray 08/16/20 09:15 IMPRESSION: 1. Normal bowel gas pattern. La
[2020-08-17 09:26] LABS: Magnesium 1.9 mg/dL (1.6-2.3)
--- NOTE | 2020-08-17 09:48 | PC.NURSE ---
to CT per w/c
--- NOTE | 2020-08-17 13:55 | PM.IMPN ---
Progress Note: A&P Assessment and Plan (1) Complete small bowel obstruction: Code(s): K56.601 - Complete intestinal obstruction, unspecified as to cause Status: Acute Assessment and Plan: THE PATIENT HAS NG TUBE IN PLACE. Surgery has been consulted. Most likely conservative care. Continue with Chloraseptic spray and ice chips only. Pain management and IV fluids. x-ray the abdomen obstructive series was ordered. 08/17/20 13:55 Patient is a 44-year-old female with history open hysterectomy and IBS, presented to emergency department with a complaint abdominal pain and nausea, epigastric pain stable pain is persistent for 1 and half and was worse last night and patient presented emergency department for further evaluation patient had a CT scan of abdomen showed Small bowel obstruction, possibly closed loop. Patient was placed on NG tube for decompression, patient was seen by general surgery team suspect patient may have a partial small-bowel obstruction recommending conservative management with decompression with NG tube, NPO, IV hydration and pain management. on 08/16 patient still complained of abdominal pain and unable to tolerate PO though abdominal x-ray did not show any obstruction, she was seen by the surgery team and patient was given suppository and had small loose BM. 08/17 patient still complains of abdominal pain has not had any BM, patient was seen by surgery team and order CT scan of the abdomen which is essentially normal without any sign obstruction, continued clear liquids, will start the patient on [place] 5/325 1 tab every 6 hours as needed, encourage patient to ambulate, will continue to monitor and further recommendation to follow (2) Suspected 2019-nCoV infection: Code(s): Z20.822 - Contact with and (suspected) exposure to COVID-19 Status: Acute Assessment and Plan: Patient was placed on droplet isolation. awaiting test results. (3) Major depressive disorder, single episode, unspecified: Code(s): F32.9 - Major depressive disorder, single episode, unspecified Status: Chronic Assessment and Plan: She is not currently on any medications. (4) Hypertension: Code(s): I10 - Essential (primary) hypertension Status: Chronic Assessment and Plan: P.r.n. hydralazine she is NPO. (5) Anxiety: Code(s): F41.9 - Anxiety disorder, unspecified Status: Chronic Assessment and Plan: Continue with p.r.n. Ativan. (6) Tobacco abuse: Code(s): Z72.0 - Tobacco use Status: Acute Assessment and Plan: Continue nicotine patch. Subjective Date/time seen: 08/17/20 13:55 Patient is a 44-year-old female with history open hysterectomy and IBS, presented to emergency department with a complaint abdominal pain and nausea, epigastric pain stable pain is persistent for 1 and half and was worse last night and patient presented emergency department for further evaluation patient had a CT scan of abdomen showed Small bowel obstruction, possibly closed loop. Patient was placed on NG tube for decompression, patient was seen by general surgery team suspect patient may have a partial small-bowel obstruction recommending conservative management with decompression with NG tube, NPO, IV hydration and pain management. on 08/16 patient still complained of abdominal pain and unable to tolerate PO though abdominal x-ray did not show any obstruction, she was seen by the surgery team and patient was given suppository and had small loose BM. 08/17 patient still complains of abdominal pain has not had any BM, patient was seen by surgery team and order CT scan of the abdomen which is essentially normal without any sign obstruction, continued clear liquids, will start the patient on Prole 5/325 1 tab every 6 hours as needed, encourage patient to ambulate, will continue to monitor and further recommendation to follow Review of Systems
[2020-08-17] MEDS: DICYCLOMINE HCL 10 MG CAPSULE 20 MG PO ×3 (13:57→20:11)
--- NOTE | 2020-08-17 13:59 | PC.NURSE ---
notified Dr Johnson of pt c/o abd pain, instructed to try bentyl first then order norco 5/325 1 q 6 hr prn give if no relief from bentyl.
[2020-08-17 14:00] VITALS: BP 131/86; PULSE 91; RESP 14; TEMP 36.1; O2SAT 98
[2020-08-17 22:00] VITALS: BP 136/82; PULSE 83; RESP 18; TEMP 36.4; O2SAT 99
[2020-08-18] MEDS: SODIUM CHLORIDE 0.9% IV 1,000 ML 50 ML IV CONT (01:40)
[2020-08-18 05:41] VITALS: BP 117/76; PULSE 63; RESP 18; TEMP 36.3; O2SAT 97
[2020-08-18 05:48] LABS: Hematocrit 39.2 % (37.0-47.0); Hemoglobin 12.8 g/dL (12.0-15.0); Mean Corpuscular HGB Conc 32.7 g/dl (32-36); Mean Corpuscular Hemoglobin 29.4 pg (26-34); Mean Corpuscular Volume 89.9 fl (80-100); Mean Platelet Volume 11.4 fl (7.4-10.4); Platelet Count Result 210 k/mm3 (150-375); Red Blood Count 4.36 M/mm3 (4.2-5.4); White Blood Count 5.5 K/mm3 (4.5-10.0)
[2020-08-18 06:06] LABS: Anion Gap 7 mmol/L (8-16); Blood Urea Nitrogen 7 mg/dL (7-17); Calcium 8.5 mg/dL (8.4-10.2); Carbon Dioxide 26 mmol/L (22-30); Chloride 109 mmol/L (98-107); Estimated CRCL calculation 76 ml/min; Estimated Glomerular Filt Rate > 60; Glucose 100 mg/dL (65-105); Potassium 4.1 mmol/L (3.4-5.0); Sodium 142 mmol/L (137-145)
[2020-08-18 06:30] LABS: Magnesium 1.9 mg/dL (1.6-2.3)
--- NOTE | 2020-08-18 07:54 | PM.PNGS ---
Progress Note: A&P Assessment and Plan (1) Small bowel obstruction: Code(s): K56.609 - Unspecified intestinal obstruction, unspecified as to partial versus complete obstruction Status: Acute Assessment and Plan: Advance to soft diet this AM OK to discharge around lunchtime if tolerating diet Recommended soft diet for 1-2 weeks then resume regular diet (2) IBS (irritable bowel syndrome): Code(s): K58.9 - Irritable bowel syndrome without diarrhea Status: Acute Assessment and Plan: Bentyl PRN Subjective Subjective Date/Time Seen: 08/18/20 07:54 Feeling better today. Pain resolved. Passing flatus. Tolerating full liquids. No bloating or nausea. Exam GI: Inspection: non-distended GI Palp: Yes Soft to palpation, Yes Tenderness to palpation present (GI) (mild epigastric tenderness) and No Guarding due to palpation present (GI) Auscultation: normal bowel sounds Objective Data Vital Signs Vital Signs: Vital Signs - 24 hr 08/17/20 14:00 08/17/20 22:00 08/18/20 05:41 Temperature 36.1 C L 36.4 C L 36.3 C L Pulse Rate 91 83 63 Respiratory Rate 14 18 18 Blood Pressure 131/86 136/82 117/76 Pulse Oximetry 98 99 97 Intake/Output Intake/Output: Intake & Output 08/15/20 08/16/20 08/17/20 08/18/20 23:59 23:59 23:59 23:59 Intake Total 2510 3210 3590 250 Output Total 1000 Balance 1510 3210 3590 250 Meds/Results Medications: Active Medications Generic Name Dose Route Start Last Admin Trade Name Freq PRN Reason Stop Dose Admin Hydrocodone Bitart/Acetaminophen 1 tab 08/17/20 13:52 Hydrocodone/Acetaminophen (*Crx) 5-325 Mg Tablet PO Q6H PRN Pain Rated 4-6 Dicyclomine HCl 20 mg 08/17/20 13:00 08/17/20 20:11 Dicyclomine Hcl 10 Mg Capsule PO 20 mg QID MORE Administration Hydralazine HCl 10 mg 08/14/20 15:36 Hydralazine Hcl 20 Mg/Ml Vial IV PUSH Q8H PRN Blood Pressure - High Lorazepam 0.5 mg 08/14/20 15:38 Lorazepam Inj (*Crx) 2 Mg/Ml Vial IV PUSH Q6H PRN Anxiety Nicotine 1 patch 08/14/20 15:05 08/17/20 08:16 Nicotine (*Pbkc) 14 Mg Patch TRANSDERM 1 patch QAM MORE Administration Ondansetron HCl 4 mg 08/14/20 09:06 Ondansetron Inj 4 Mg/2 Ml Vial IV PUSH Q4H PRN Nausea Pantoprazole Sodium 40 mg 08/15/20 09:00 08/17/20 08:17 Pantoprazole Sodium Iv 40 Mg Vial IV PUSH 40 mg QAM MORE Administration Phenol 1 spray 08/14/20 14:57 Phenol/Sod Pheno [place] Cain (*Bkc) MUCOUS MEM PRN PRN Sore Throat Radiology Results: ITS Impressions Small Bowel X-Ray 08/15/20 13:05 IMPRESSION: 1: Persistent narrowing of the mid small bowel without obstruction, possibly secondary to stricture or adhesions. Upper Quadrant Ultrasound 08/15/20 15:38 IMPRESSION: 1. Unremarkable abdominal ultrasound exam. Abdomen X-Ray 08/16/20 09:15 IMPRESSION: 1. Normal bowel gas pattern. Abdomen/Pelvis CT 08/17/20 10:13 IMPRESSION: 1. No etiology for the patient's symptoms. Labs Labs: Laboratory Results - last 24 hr 08/17/20 08/18/20 08/18/20 05:55 05:31 05:31 WBC 5.5 RBC 4.36 Hgb 12.8 Hct 39.2 MCV 89.9 MCH 29.4 MCHC 32.7 RDW 12.0 Plt Count 210 MPV 11.4 H Sodium 142 Potassium 4.1 Chloride 109 H Carbon Dioxide 26 Anion Gap 7 L BUN 7 Creatinine 0.90 Estim Creat Clear Calc 76 Estimated GFR > 60 Glucose 100 Calcium 8.5 Magnesium 1.9 08/18/20 05:31 WBC RBC Hgb Hct MCV MCH MCHC RDW Plt Count MPV Sodium Potassium Chloride Carbon Dioxide Anion Gap BUN Creatinine Estim Creat Clear Calc Estimated GFR Glucose Calcium Magnesium 1.9 Quality VTE Prophylaxis VTE prophylaxis: mechanical ordered
[2020-08-18] MEDS: PANTOPRAZOLE SODIUM IV 40 MG VIAL IV PUSH (08:39)
[2020-08-18] MEDS: DICYCLOMINE HCL 10 MG CAPSULE 20 MG PO ×2 (08:39→12:26)
[2020-08-18] MEDS: NICOTINE (*PBKC) 14 MG PATCH 1 PATCH TRANSDERM (08:39)
--- NOTE | 2020-08-18 11:44 | PM.DS ---
DS: Admitting Diagnosis Admitting Diagnosis Admitting Diagnosis: Abdominal pain DS: Discharge Diagnosis Discharge Diagnosis (1) Complete small bowel obstruction: Code(s): K56.601 - Complete intestinal obstruction, unspecified as to cause Status: Acute Assessment and Plan: THE PATIENT HAS NG TUBE IN PLACE. Surgery has been consulted. Most likely conservative care. Continue with Chloraseptic spray and ice chips only. Pain management and IV fluids. x-ray the abdomen obstructive series was ordered. 08/17/20 13:55 Patient is a 44-year-old female with history open hysterectomy and IBS, presented to emergency department with a complaint abdominal pain and nausea, epigastric pain stable pain is persistent for 1 and half and was worse last night and patient presented emergency department for further evaluation patient had a CT scan of abdomen showed Small bowel obstruction, possibly closed loop. Patient was placed on NG tube for decompression, patient was seen by general surgery team suspect patient may have a partial small-bowel obstruction recommending conservative management with decompression with NG tube, NPO, IV hydration and pain management. on 08/16 patient still complained of abdominal pain and unable to tolerate PO though abdominal x-ray did not show any obstruction, she was seen by the surgery team and patient was given suppository and had small loose BM. 08/17 patient still complains of abdominal pain has not had any BM, patient was seen by surgery team and order CT scan of the abdomen which is essentially normal without any sign obstruction, continued clear liquids, will start the patient on [place] 5/325 1 tab every 6 hours as needed, encourage patient to ambulate, will continue to monitor and further recommendation to follow (2) Suspected 2019-nCoV infection: Code(s): Z20.822 - Contact with and (suspected) exposure to COVID-19 Status: Acute Assessment and Plan: Patient was placed on droplet isolation. awaiting test results. (3) Major depressive disorder, single episode, unspecified: Code(s): F32.9 - Major depressive disorder, single episode, unspecified Status: Chronic Assessment and Plan: She is not currently on any medications. (4) Hypertension: Code(s): I10 - Essential (primary) hypertension Status: Chronic Assessment and Plan: P.r.n. hydralazine she is NPO. (5) Anxiety: Code(s): F41.9 - Anxiety disorder, unspecified Status: Chronic Assessment and Plan: Continue with p.r.n. Ativan. (6) Tobacco abuse: Code(s): Z72.0 - Tobacco use Status: Acute Assessment and Plan: Continue nicotine patch. DS: Summary Hospital Course Reason for hospitalization: Chief Complaint: Abdominal pain Narrative: Lore Jacobs is a 44 year old female Who came in with multiple complaints. She lives at home with her . The patient was here on 07/01/2020 where she had complained of chest pain and over troponins were negative. The patient signed out against medical advice at that time. She stated she never did follow-up with her chest pain. Today the patient came in with epigastric pain that did not radiate it was sharp and stabbing. It was worsened during the night. She felt nauseated but did not vomit. She tried Gaviscon last night in it gave her minimal relief. She felt like it was mostly her acid reflux. The patient has been feeling constipated and took a suppository last night had a very small bowel movement. NG tube was placed into the stomach. Patient had dilated small bowel consistent with small-bowel obstruction. Surgery has been consulted and conservative measures . IV fluids were started with Zofran she was also given Protonix and morphine. Patient is being admitted to inpatient services on the date of service of 08/14/2020. Hospital Course: Patient is a 44-year-old fem
== END 2020-08-18 13:40 | disposition home or self-care (01) | DRG 390 ==
LOC: ANHED 09:24 → ANH3MEDSUR 10:25
PROVIDERS: Admitting Provider Family Medicine; Emergency Provider Emergency Medicine; PCP Family Medicine; Visit Provider Family Medicine
DX: K56.600 Partial intestinal obstruction, unspecified as to cause (principal); K58.9 Irritable bowel syndrome, unspecified; Z20.822 Contact with and (suspected) exposure to COVID-19; I10 Essential (primary) hypertension; F41.9 Anxiety disorder, unspecified; F32.9 Major depressive disorder, single episode, unspecified; K21.9 Gastro-esophageal reflux disease without esophagitis; J45.909 Unspecified asthma, uncomplicated; F17.210 Nicotine dependence, cigarettes, uncomplicated; Z90.710 Acquired absence of both cervix and uterus
CPT/HCPCS: 36415; 74019; 74177; 74250; 76705; 80048; 80053; 81001; 83605; 83690; 83735; 85025; 85027; 96361; 96374; 96375; 96376; 99285; A9270; C9113; C9803; G0378; J1170; J1200; J2270; J2405; J7030; Q9967; U0003

== ENCOUNTER → 2020-08-24 16:51 | Outpatient (CLI) | payer OTHER, SELFPAY ==
--- NOTE | ~2020-08-24 | XR_ITS ---
EXAMINATION: XR abdomen/kub 1V DATE: 08/24/2020 17:18 INDICATION: Unspecified abdominal pain TECHNIQUE: A supine view of the abdomen on 2 radiographs was obtained. COMPARISON: 08/16/2020 FINDINGS: Normal bowel gas pattern with small to moderate amount of colonic stool and no dilated gas-filled loo ps of bowel to suggest obstruction. Unchanged pattern of phleboliths in the pelvis. Lung bases are cl ear. Heart size within normal limits for AP technique. Severe lower lumbar spondylosis. IMPRESSION: 1. Normal bowel gas pattern. Reviewed, dictated and finalized at location A. CARETAKER
--- NOTE | ~2020-08-24 | XR_ITS ---
EXAMINATION: XR chest 2V DATE: 08/24/2020 17:18 INDICATION: Cough. TECHNIQUE: Frontal and lateral views of the chest were obtained. COMPARISON: Chest 2 views 04/18/2020 FINDINGS: The chest demonstrates clear lungs without pneumonia, pleural effusion, or pneumothorax. Th e heart size is normal. IMPRESSION: 1. No acute cardiopulmonary disease. Reviewed, dictated and finalized at location A. TING PLATE SETTER
== END ==
PROVIDERS: PCP Family Medicine; Visit Provider Nurse Practitioner Family
DX: R10.9 Unspecified abdominal pain (principal); R05 Cough
CPT/HCPCS: 71046; 74018

== ENCOUNTER 2020-08-26 09:01 | Outpatient (CLI) | payer OTHER, SELFPAY ==
--- NOTE | 2020-08-26 | ECG_ITS ---
Measurements Intervals [place] Rate: 55 P: 72 ME: 176 QRS: 20 QRSD: 90 T: 180 QT: 445 QTc: 426 Interpretive Statements SINUS BRADYCARDIA LEFT VENTRICULAR HYPERTROPHY AND ST-T CHANGE ST-T WAVE ABNORMALITY IN ANTEROLAT/HIGH LAT LEADS- CONSIDER ISCHEMIA ABNORMAL ECG Electronically Signed On 08-26-2020 15:10:05 ELECTRICAL LINEMAN by Quinten Renteria D.O.
== END 2020-08-26 09:02 | disposition home or self-care (01) ==
PROVIDERS: PCP Family Medicine; Visit Provider Nurse Practitioner Family
DX: R94.31 Abnormal electrocardiogram [ECG] [EKG] (principal)
CPT/HCPCS: 93005

== ENCOUNTER 2020-08-31 17:30 | Emergency (ER) | payer OTHER, SELFPAY ==
[2020-08-31] VITALS (12 sets, daily range): BP systolic 111–172; BP diastolic 82–115; PULSE 54–75; RESP 11–24; TEMP 36.4; O2SAT 97–100
--- NOTE | ~2020-08-31 | CT_ITS ---
EXAMINATION: CT abdomen pelvis w con INDICATION: Abdominal pain TECHNIQUE: Computed tomographic images of the abdomen and pelvis were obtained after the administrati on of 100 cc of Omnipaque 350 intravenous contrast. The dose-length product (DLP) was 812.03 mGy-cm. Automated exposure control and iterative reconstruction technique were employed. COMPARISON: 08/17/2020, 05/14/2012 FINDINGS: A 4 mm nodule of the right lower lobe is consistent with old granulomatous disease. There i s mild atelectasis of the lung bases. The heart size is normal. There is a 4 mm cyst of the right hep atic lobe. The spleen, pancreas, gallbladder, and adrenal glands are normal. The kidneys are unremark able. No pathologically enlarged abdominal or pelvic lymph nodes are identified. There is no free int raperitoneal gas or evidence of bowel obstruction. The appendix is normal. There is severe lumbar spo ndylosis. A fat-containing umbilical hernia is noted. IMPRESSION: 1. No CT correlate for the patient's symptoms. Reviewed, dictated and finalized at location A. OR'S ASSISTANT
--- NOTE | ~2020-08-31 | XR_ITS ---
EXAMINATION: XR chest 2V DATE: 08/31/2020 18:08 INDICATION: Chest pain, history of asthma and hypertension TECHNIQUE: PA and lateral views of the chest are obtained. COMPARISON: 08/24/2020 FINDINGS: The lungs are free of acute opacities. There is no pleural effusion or pneumothorax. The ca rdiomediastinal silhouette is normal. There is mild thoracic spondylosis. IMPRESSION: 1. No acute cardiopulmonary abnormality. Reviewed, dictated and finalized at location A. NISTRATOR OF HOME HEALTH
--- NOTE | 2020-08-31 17:34 | ECG_ITS ---
Measurements Intervals [place] Rate: 59 P: 61 TN: 179 QRS: 8 QRSD: 97 T: 130 QT: 407 QTc: 405 Interpretive Statements SINUS BRADYCARDIA POSSIBLE LEFT ATRIAL ENLARGEMENT CANNOT RULE OUT SEPTAL INFARCT, AGE INDETERMINATE BORDERLINE ST-T WAVE ABNORMALITY- ANTEROLAT/HIGH LAT LEADS ABNORMAL ECG Electronically Signed On 08-31-2020 18:04:10 DOLL EYE SETTER by Quinten Renteria D.O.
[2020-08-31 17:56] LABS: Basophils Absolute Auto 0.1 K/mm3 (0.0-0.1); Basophils Percent Auto 0.8 % (0.2-1.2); Eosinophils Percent Auto 0.5 % (0-4.4); Hemoglobin 14.7 g/dL (12.0-15.0); Immature Granulocyte Absolute 0.01 K/mm3 (0.00-0.031); Immature Granulocyte Percent A 0.2 % (0-0.5); Lymphocytes Absolute Auto 2.85 K/mm3 (0.9-3.2); Lymphocytes Percent Auto 45.7 % (18.3-44.2); Mean Corpuscular HGB Conc 32.7 g/dl (32-36); Mean Corpuscular Hemoglobin 29.8 pg (26-34); Mean Corpuscular Volume 91.1 fl (80-100); Monocytes Absolute Auto 0.4 K/mm3 (0.1-0.6); Monocytes Percent Auto 6.1 % (2.6-8.5); Neutrophils Absolute Auto 2.9 K/mm3 (1.3-6.7); Neutrophils Percent Auto 46.7 % (45.5-73.1); Platelet Count Result 215 k/mm3 (150-375); Red Blood Count 4.94 M/mm3 (4.2-5.4); Red Cell Distribution Width 12.1 % (11.5-14.5); White Blood Count 6.2 K/mm3 (4.5-10.0)
[2020-08-31 18:05] LABS: INR 0.9; Prothrombin Time 12.5 Seconds (11.1-14.7)
[2020-08-31 18:06] LABS: Partial Thromboplastin Time 26.1 SECONDS (22.3-36.8)
[2020-08-31 18:08] LABS: Anion Gap 5 mmol/L (8-16); Blood Urea Nitrogen 16 mg/dL (7-17); Calcium 9.1 mg/dL (8.4-10.2); Carbon Dioxide 25 mmol/L (22-30); Chloride 109 mmol/L (98-107); Estimated CRCL calculation 85 ml/min; Estimated Glomerular Filt Rate > 60; Glucose 128 mg/dL (65-105); Potassium 3.8 mmol/L (3.4-5.0); Sodium 139 mmol/L (137-145)
[2020-08-31 18:21] LABS: Troponin I < 0.012 ng/mL (0.000-0.034)
[2020-08-31 21:10] LABS: Troponin I < 0.012 ng/mL (0.000-0.034)
[2020-08-31] MEDS: BELLADONNA ALK/PHENOB ELIX 10 ML, MAG HYDROX/ALUMINUM HYD/SIMETH 30 ML, LIDOCAINE HCL 2... PO (22:02)
--- NOTE | 2020-08-31 22:14 | ED.CHESTPAIN ---
HPI - Chest Pain General Chief Complaint: Chest Pain Stated Complaint: CHEST PAIN, SOB Time Seen by Provider: 08/31/20 21:08 Source: patient Mode of arrival: ambulatory Limitations: no limitations History of Present Illness HPI narrative: A 45-year-old female presents to the emergency department [facility] with complaints of chest and abdominal pain. Patient states that been going on for the past month or so and has been getting progressively worse. She states initially it was intermittent but now feels more constant. Patient notes that it feels like its radiating from the center of her chest over under her right breast. She does state that the pain feels deeper than her breast tissue. She denies any certain triggers for this or anything that relieves her pain. Related Data Home Medications Medication Instructions Recorded Confirmed Advair HFA 2 puff INHALATION DAILY PRN 08/14/20 08/23/20 albuterol sulfate 2 puff INHALATION Q4H PRN 08/14/20 08/23/20 estradiol 2 mg PO DAILY 08/14/20 08/23/20 lisinopril 5 mg PO DAILY 08/14/20 08/23/20 omeprazole 40 mg PO DAILY 08/14/20 08/23/20 Allergies Allergy/AdvReac Type Severity Reaction Status Date / Time amoxicillin Allergy Intermediate Rash Verified 08/23/20 08:10 Cephalosporins Allergy Intermediate Rash Verified 08/23/20 08:10 Penicillins Allergy Intermediate Rash Verified 08/23/20 08:10 ketorolac AdvReac Intermediate Nausea and Verified 08/23/20 08:10 Vomiting clarithromycin AdvReac Mild GI Verified 08/23/20 08:10 Review of Systems Review of Systems: Narrative: CONSTITUTIONAL: Denies fever, chills, or sweats. EYES: Denies visual changes, redness, or discharge. ENT: Denies rhinorrhea, congestion, sore throat, or otalgia. CARDIOVASCULAR: Endorses chest pain. RESPIRATORY: Denies cough or dyspnea. GASTROINTESTINAL: Denies abdominal pain, nausea, vomiting, or diarrhea. GENITOURINARY: Denies dysuria or hematuria. SKIN: Denies rash or itching. MUSCULOSKELETAL: Denies back pain, joint pain, or myalgia. NEUROLOGIC: Denies headache, numbness, dizziness, or weakness. PSYCHIATRIC: Denies anxiety or depression. [facility] Past Medical History Medical History Anxiety Asthma BMI 29.0-29.9,adult GERD (gastroesophageal reflux disease) Hypertension Hypertension IBS (irritable bowel syndrome) Major depressive disorder, single episode, unspecified Tobacco abuse Surgical History Surgical History H/O section X3 H/O: hysterectomy Open partial hysterectomy followed by left salpingo-oophorectomy and eventually right salpingo-oophorectomy. Total of 3 surgeries. History of back surgery X3 History of carpal tunnel release Bilaterally History of laparoscopy x 2 exploratory laparoscopy due to abdominal pain in her 20's with no reported significant findings. Family History Family History Mother Diabetes mellitus Hypertension Father Diabetes mellitus Hypertension Social History Social History Social History: She smokes A pack a cigarettes a day. 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 She is . She has 3 children. She is a full code and desires to have her to be her decision-maker if needed. She does not use alcohol marijuana or illicit drugs. Years smoked: 20 Smoking status: Current every day smoker Alcohol intake: never Substance use: never Gender identity (if verbalized by the patient): Female Spiritual care concerns: No Exam Narrative: Exam Narrative: GENERAL: Well-appearing, well-nourished, and in no acute distress. HEAD: Normocephalic, atraumatic. EYES: PERRLA and EOMI. ENT: Nares clear, no rhinorrhea or epistaxis. Mucous membranes moist. Oropharynx without
[2020-08-31 22:18] LABS: Lipase 121 U/L (23-300)
[2020-08-31 22:22] LABS: D Dimer 0.37 ug/mL (<0.48)
--- NOTE | 2020-08-31 23:16 | PC.NURSE ---
0258- Report given to Herson CALHOUN
[2020-08-31] MEDS: DICYCLOMINE HCL INJ 20 MG/2 ML VIAL IM (23:21)
--- NOTE | 2020-08-31 23:21 | PC.NURSE ---
Report received from UNIQUE Treviño. Pt resting on stretcher, NSR via monitor. Pt states the GI cocktail has helped her quite a bit with her pain. States continues to have pain, points to epigastric abdomen and right upper quadrant, traveling around to her back.
== END 2020-09-01 00:20 | disposition home or self-care (01) ==
PROVIDERS: Emergency Medicine; Emergency Provider Emergency Medicine; Family Provider Family Medicine; PCP Family Medicine
DX: K21.9 Gastro-esophageal reflux disease without esophagitis (principal); R07.89 Other chest pain; J45.909 Unspecified asthma, uncomplicated; I10 Essential (primary) hypertension; K58.9 Irritable bowel syndrome, unspecified; F17.210 Nicotine dependence, cigarettes, uncomplicated; R00.1 Bradycardia, unspecified; R94.31 Abnormal electrocardiogram [ECG] [EKG]
CPT/HCPCS: 36415; 71046; 74177; 80048; 83690; 84484; 85025; 85380; 85610; 85730; 93005; 96372; 99284; A9270; J0500; Q9967

== ENCOUNTER 2020-09-22 07:23 | Outpatient (CLI) | payer OTHER, SELFPAY ==
--- NOTE | 2020-09-22 07:28 | ECG_ITS ---
Measurements Intervals [place] Rate: 56 P: 78 [place]: 163 QRS: 37 QRSD: 97 T: 162 QT: 453 QTc: 441 Interpretive Statements SINUS BRADYCARDIA POSSIBLE LEFT ATRIAL ENLARGEMENT LEFT VENTRICULAR HYPERTROPHY AND ST-T CHANGE ST-T WAVE ABNORMALITY IN ANTEROLAT/HIGH LAT LEADS- CONSIDER ISCHEMIA BASELINE ARTIFACT- I, III, AVR, AVL ABNORMAL ECG Electronically Signed On 09-22-2020 8:01:28 FARROWING MANAGER by Quinten Renteria D.O.
--- NOTE | 2020-09-22 07:28 | ECHO_ITS ---
Patient Info Name: Lore Jacobs Age: 45 years : 1975 Gender: Female Ht: 67 in Wt: 185 lbs BSA: 2.01 m2 HR: 55 bpm BP: 134 / 92 mmHg Technical Quality: Good Exam Date: 09/22/2020 7:47 AM Exam Location: [facility] Patient Status: Outpatient Admit Date: 09/22/2020 Staff Ordering Physician: Ynes Jackson NP Head Of Business Development: Concetta Maria RDCS Attending Provider: Ynes Jackson NP Referring Physician: Manuel MARIE; Exam Type: CA echo doppler color flow Study Info Indications R94.31 - Abnormal electrocardiogram ECG EKG Complete two-dimensional, color flow and Doppler transthoracic echocardiogram is performed. Summary 1. Complete two-dimensional, color flow and Doppler transthoracic echocardiogram is performed. 2. Left ventricular chamber dimension is normal. 3. Left ventricular systolic function is hyperdynamic, estimated at >70%. 4. The left ventricular diastolic function is grade II diastolic dysfunction. 5. E/e' 9 is minimally elevated. 6. Global longitudinal strain is normal at -22.1%. 7. No pulmonary hypertension, estimated pulmonary arterial systolic pressure is 27 mmHg. Left Ventricle E/e' 9 is minimally elevated. Global longitudinal strain is normal at -22.1%. Left ventricular chamber dimension is normal. Left ventricular systolic function is hyperdynamic, estimated at >70%. The left ventricular diastolic function is grade II diastolic dysfunction. Right Ventricle Right ventricular chamber dimension is normal. Right ventricular systolic function is normal. Left Atria Left atrial chamber dimension is normal. Right Atria Right atrial chamber dimension is normal. Aortic Valve The aortic valve is trileaflet. There is no aortic valve stenosis. There is no aortic valve regurgitation. Pulmonic Valve There is no pulmonic regurgitation. Mitral Valve There is no mitral valve stenosis. There is no mitral valve regurgitation. Tricuspid Valve There is no tricuspid valve regurgitation. No pulmonary hypertension, estimated pulmonary arterial systolic pressure is 27 mmHg. Pericardium/Pleural There is no pericardial effusion. Inferior Vena Cava Normal inferior vena cava with >50% collapse upon inspiration consistent with normal right atrial pressure, 5 mmHg. Aorta The aortic root size at the sinus of Valsalva is normal. Left Ventricular Outflow Tract Name Value Normal LVOT 2D LVOT Diameter 2.0 cm LVOT Doppler LVOT Peak Gradient 4 mmHg LVOT Mean Gradient 3 mmHg LVOT VTI 26 cm LVOT VTI/AV VTI Ratio 0.9 LVOT Stroke Volume 85 ml LVOT CO 4.3 l/min LVOT CI 2.2 l/min/m2 Pulmonic Valve Name Value Normal RVOT Doppler
== END 2020-09-22 07:24 | disposition home or self-care (01) ==
PROVIDERS: Family Provider Family Medicine; PCP Family Medicine; Visit Provider Nurse Practitioner Family
DX: R06.02 Shortness of breath (principal); R94.31 Abnormal electrocardiogram [ECG] [EKG]
CPT/HCPCS: 93005; 93306

== ENCOUNTER 2020-11-28 09:06 | Outpatient (CLI) | payer OTHER, SELFPAY ==
--- NOTE | 2020-12-13 14:25 | WPDHOMESLEEP ---
Sleep Study - Home Unattended Date of Study: 11/28/20 Ordering Provider: Quinten Renteria DO Interpreting Provider: Becky Stuart MD Home Sleep Study Type: Apnea Link Air Height: 1.7 m Weight: 87.543 kg Body Mass Index: 30.2 Neck Circumference (inches): 15 Purcell: 8 Reason for Sleep Study Daytime fatigue, excessive sleepiness Sleep History Lore Jacobs is a 45 year old female with difficulty sleeping well at night. She never sleeps through the night. She is tired the next day. She snores loudly. Her has witnessed her having apneic episodes. This is be going on for years. Her parents both have sleep apnea. She was prescribed Ambien years ago but did not continue to take it because it made her extremely sleepy. She frequently awakens at night with heartburn, belching or coughing. She occasionally awakens from sleep feeling short of breath. She occasionally has trouble sleep with a cold. She occasionally wakes up gasping for breath during the night and has breathing problems at night observed by others. She frequently sweats excessively at night. She occasionally notices her heart pounding or beating irregularly at night. She rarely falls asleep in the day, never involuntarily or while driving. She does not have loss of muscle tone was strong emotion. She occasionally has daytime difficulties due to excessive sleepiness. She does not feel paralyzed on waking or falling asleep. She rarely has vivid dreamlike scenes upon awakening or falling asleep. She has never for a to go to sleep. She rarely has nightmares and rarely remembers her dreams. She does not have racing thoughts. She does occasionally feel sad or depressed. She occasionally has anxiety. She occasionally has muscular tension and notices parts of her body jerking. She occasionally kicks at night. She occasionally has crawling and aching feelings in her legs and leg pain during the night. She occasionally has morning jaw pain. She occasionally grinds her teeth during sleep. She constantly is bothered by pain during the day. She occasionally is awakened by pain at night. She constantly wakes up feeling stiff in the morning with sore achy muscles and pain in the neck and spine. She has memory problems, sexual problems, bowel disturbances, headaches and fatigue. She takes and acids regularly. Normal bedtime is between 10 and 11:00 p.m. falling asleep within a 1/2 hour typically waking at least 3 times at night staying awake between 10 minutes and an hour. She will read to try to fall asleep again. She has lack of libido and wonders if part of this is menopause. She wakes the morning between 330 and 5:00 a.m.. On the weekends she goes to bed between 10 and 11:00 p.m. and also wakes between 3:30 am and 6:00 a.m. she does not take naps. A short nap is not refreshing. She is drowsy in the morning for 3 hours or longer. Habits: Tobacco 1 pack a day. Caffeine daily. Alcohol on occasion. No recreational drugs. [facility] Past Medical History Medical History Anxiety Asthma BMI 29.0-29.9,adult GERD (gastroesophageal reflux disease) Hypertension Hypertension IBS (irritable bowel syndrome) Major depressive disorder, single episode, unspecified Tobacco abuse Surgical History Surgical History H/O section X3 H/O: hysterectomy Open partial hysterectomy followed by left salpingo-oophorectomy and eventually right salpingo-oophorectomy. Total of 3 surgeries. History of back surgery X3 History of carpal tunnel release Bilaterally History of laparoscopy x 2 exploratory laparoscopy due to abdominal pain in her 20's with no reported significant findings. Family History Family History Mother Diabetes mellitus Hypertension Father Diabetes mellitus Hypertension Sibling No proble
[2020-12-13 17:48] VITALS: BMI 30.2
== END 2020-11-28 09:07 | disposition home or self-care (01) ==
LOC: ANHCSM 09:07
PROVIDERS: PCP Family Medicine; Visit Provider Internal Medicine Cardiovascular Disease
DX: G47.33 Obstructive sleep apnea (adult) (pediatric) (principal); G47.10 Hypersomnia, unspecified
CPT/HCPCS: 95806

== ENCOUNTER → 2020-12-29 12:05 | Outpatient (CLI) | payer OTHER, SELFPAY ==
--- NOTE | 2021-01-17 12:40 | WPDSLEEPSTUD ---
Sleep Study Date of Study: 01/02/21 Ordering Provider: Quinten Renteria DO Interpreting Physician: Becky Stuart MD Sleep Study Type: CPAP Titration Height: 1.7 m Weight: 88.451 kg Body Mass Index: 30.5 Neck Circumference (inches): 15 Simms: 4 Reason for Sleep Study Home sleep test 11/28/2020; mild obstructive sleep apnea, AHI 9.4, desaturation 88%; 76% obstructive, 24% centrals; She presents for CPAP titration Sleep History Lore Jacobs is a 45 year old female with difficulty sleeping well at night. She never sleeps through the night. She is tired the next day. She snores loudly. Her has witnessed her having apneic episodes. This is be going on for years. Her parents both have sleep apnea. She was prescribed Ambien years ago but did not continue to take it because it made her extremely sleepy. She frequently awakens at night with heartburn, belching or coughing. She occasionally awakens from sleep feeling short of breath. She occasionally has trouble sleep with a cold. She occasionally wakes up gasping for breath during the night and has breathing problems at night observed by others. She frequently sweats excessively at night. She occasionally notices her heart pounding or beating irregularly at night. She rarely falls asleep in the day, never involuntarily or while driving. She does not have loss of muscle tone was strong emotion. She occasionally has daytime difficulties due to excessive sleepiness. She does not feel paralyzed on waking or falling asleep. She rarely has vivid dreamlike scenes upon awakening or falling asleep. She has never for a to go to sleep. She rarely has nightmares and rarely remembers her dreams. She does not have racing thoughts. She does occasionally feel sad or depressed. She occasionally has anxiety. She occasionally has muscular tension and notices parts of her body jerking. She occasionally kicks at night. She occasionally has crawling and aching feelings in her legs and leg pain during the night. She occasionally has morning jaw pain. She occasionally grinds her teeth during sleep. She constantly is bothered by pain during the day. She occasionally is awakened by pain at night. She constantly wakes up feeling stiff in the morning with sore achy muscles and pain in the neck and spine. She has memory problems, sexual problems, bowel disturbances, headaches and fatigue. She takes and acids regularly. Normal bedtime is between 10 and 11:00 p.m. falling asleep within a 1/2 hour typically waking at least 3 times at night staying awake between 10 minutes and an hour. She will read to try to fall asleep again. She has lack of libido and wonders if part of this is menopause. She wakes the morning between 330 and 5:00 a.m.. On the weekends she goes to bed between 10 and 11:00 p.m. and also wakes between 3:30 am and 6:00 a.m. she does not take naps. A short nap is not refreshing. She is drowsy in the morning for 3 hours or longer. Habits: Tobacco 1 pack a day. Caffeine daily. Alcohol on occasion. No recreational drugs. [facility] Past Medical History Medical History (Updated 01/17/21 @ 12:43 by Becky Stuart MD) Anxiety Asthma BMI 29.0-29.9,adult GERD (gastroesophageal reflux disease) Hypertension Hypertension IBS (irritable bowel syndrome) Major depressive disorder, single episode, unspecified SAMANTHA (obstructive sleep apnea) Tobacco abuse Surgical History Surgical History (Reviewed 01/01/21 @ 08:38 by Janina Bradford [facility]) H/O section X3 H/O: hysterectomy Open partial hysterectomy followed by left salpingo-oophorectomy and eventually right salpingo-oophorectomy. Total of 3 surgeries. History of back surgery X3 History of carpal tunnel release Bilaterally History of laparoscopy x 2 exploratory laparoscopy due to abdominal pain in her 20's with no reported significant findings. Family History Family History (Reviewed 01/01/21 @ 08:38 by Janina Bardales
[2021-01-17 12:42] VITALS: BMI 30.5
== END ==
PROVIDERS: PCP Family Medicine; Visit Provider Internal Medicine Cardiovascular Disease
DX: G47.33 Obstructive sleep apnea (adult) (pediatric) (principal)
CPT/HCPCS: 95811

== ENCOUNTER → 2020-12-30 02:03 | Outpatient (CLI) | payer OTHER, SELFPAY ==
[2020-12-30 19:56] LABS: SARS-CoV-2 RNA PCR Negative
== END ==
PROVIDERS: PCP Family Medicine; Visit Provider Internal Medicine Critical Care Medicine
DX: Z01.812 Encounter for preprocedural laboratory examination (principal); Z20.822 Contact with and (suspected) exposure to COVID-19
CPT/HCPCS: C9803; U0003; U0005

== ENCOUNTER 2021-06-20 07:59 | Emergency (ER) | payer OTHER, SELFPAY ==
--- NOTE | ~2021-06-20 | XR_ITS ---
EXAMINATION: XR chest 2V DATE: 06/20/2021 08:18 INDICATION: Midsternal chest pain. TECHNIQUE: Frontal and lateral views of the chest were obtained. COMPARISON: Chest 2 views 08/31/2020, CT abdomen and pelvis 08/31/2020 FINDINGS: The chest demonstrates clear lungs without pneumonia, pleural effusion, or pneumothorax. Th e heart size is normal. IMPRESSION: 1. No acute cardiopulmonary disease. Reviewed, dictated and finalized at location A. RVISORY CIVIL ENGINEER
--- NOTE | ~2021-06-20 | US_ITS ---
EXAMINATION: US abdomen limited DATE: 06/20/2021 09:10 INDICATION: Right upper quadrant abdominal pain. TECHNIQUE: Multiple grayscale and Doppler ultrasound images of the abdomen were obtained. COMPARISON: CT abdomen and pelvis 08/31/2020 FINDINGS: The visualized portions of the head and body of the pancreas are normal. The liver is kori l without focal lesion. No liver surface nodularity. There is normal flow in main portal vein. The ga llbladder is normal in size. No gallstones or gallbladder wall thickening. There was no sonographic M urphy sign. The common duct is normal and measures 5 mm. IMPRESSION: 1. Normal right upper quadrant ultrasound. Reviewed, dictated and finalized at location A. NDARY EDUCATION PROFESSOR
--- NOTE | 2021-06-20 08:03 | ECG_ITS ---
Measurements Intervals [place] Rate: 85 P: 60 CT: 168 QRS: 9 QRSD: 94 T: 126 QT: 345 QTc: 411 Interpretive Statements SINUS RHYTHM POSSIBLE LEFT ATRIAL ENLARGEMENT LEFT VENTRICULAR HYPERTROPHY AND ST-T CHANGE BORDERLINE ST-T WAVE ABNORMALITY- ANTEROLAT/HIGH LAT LEADS BORDERLINE ECG Electronically Signed On 06-20-2021 12:17:55 LURE MAKER by Quinten Renteria D.O.
[2021-06-20 08:30] VITALS: BP 123/82; PULSE 87; RESP 18; TEMP 36.6; O2SAT 100
--- NOTE | 2021-06-20 08:37 | PC.NURSE ---
Pt states she is a difficult stick to obtain IV access. This RN attempted to gain IV access but was unsuccessful. Having another RN attempt at this time.
[2021-06-20] MEDS: MAG HYDROX/AL HYDROX/SIMETH 30 ML UDC PO (08:44)
[2021-06-20] MEDS: LIDOCAINE HCL 2% VISC SOLN 15 ML UDC 20 ML PO (08:44)
[2021-06-20 09:02] LABS: Basophils Absolute Auto 0.1 K/mm3 (0.0-0.1); Basophils Percent Auto 0.6 % (0.2-1.2); Eosinophils Percent Auto 0.3 % (0-4.4); Hematocrit 42.7 % (37.0-47.0); Hemoglobin 13.6 g/dL (12.0-15.0); Immature Granulocyte Absolute 0.03 K/mm3 (0.00-0.031); Immature Granulocyte Percent A 0.4 % (0-0.5); Lymphocytes Absolute Auto 2.71 K/mm3 (0.9-3.2); Lymphocytes Percent Auto 34.7 % (18.3-44.2); Mean Corpuscular HGB Conc 31.9 g/dl (32-36); Mean Corpuscular Hemoglobin 29.8 pg (26-34); Mean Corpuscular Volume 93.6 fl (80-100); Mean Platelet Volume 11.5 fl (7.4-10.4); Monocytes Absolute Auto 0.6 K/mm3 (0.1-0.6); Monocytes Percent Auto 8.2 % (2.6-8.5); Neutrophils Absolute Auto 4.4 K/mm3 (1.3-6.7); Neutrophils Percent Auto 55.8 % (45.5-73.1); Platelet Count Result 186 k/mm3 (150-375); Red Blood Count 4.56 M/mm3 (4.2-5.4); Red Cell Distribution Width 12.9 % (11.5-14.5); White Blood Count 7.8 K/mm3 (4.5-10.0)
[2021-06-20] MEDS: SODIUM CHLORIDE 0.9% IV 1,000 ML 999 ML IV CONT (09:06)
[2021-06-20 09:10] LABS: Anion Gap 8 mmol/L (8-16); Blood Urea Nitrogen 21 mg/dL (7-17); Calcium 9.5 mg/dL (8.4-10.2); Carbon Dioxide 25 mmol/L (22-30); Chloride 108 mmol/L (98-107); Estimated CRCL calculation 83 ml/min; Estimated Glomerular Filt Rate > 60; Glucose 117 mg/dL (65-110); Potassium 4.2 mmol/L (3.4-5.0); Sodium 141 mmol/L (137-145)
[2021-06-20 09:13] LABS: Alanine Aminotransferase 25 U/L (4-35); Albumin Level 4.4 g/dL (3.5-5.1); Alkaline Phosphatase 54 U/L (38-126); Aspartate Amino Transferase 37 U/L (14-36); Bilirubin,Total 0.9 mg/dL (0.2-1.3); Lipase 63 U/L (23-300)
[2021-06-20 09:16] LABS: INR 0.9; Partial Thromboplastin Time 23.2 SECONDS (22.3-36.8); Prothrombin Time 12.3 Seconds (11.1-14.7)
[2021-06-20 09:21] LABS: Troponin I 0.028 ng/mL (0.000-0.034)
[2021-06-20 09:50] VITALS: PULSE 82; RESP 16; O2SAT 100
[2021-06-20 10:01] VITALS: BP 113/78; PULSE 94; RESP 21; O2SAT 99
[2021-06-20 10:31] VITALS: BP 115/74; PULSE 73; RESP 17; O2SAT 100
--- NOTE | 2021-06-20 10:50 | ED.CHESTPAIN ---
HPI - Chest Pain General Chief Complaint: Chest Pain Stated Complaint: CP Time Seen by Provider: 06/20/21 08:27 Source: patient History of Present Illness HPI narrative: Patient presents with chest pain that radiates to her right axilla and neck. She has had pain for the past few days however is worse this morning so she came to the ER for evaluation. Pain is reproducible with palpation of her chest reports mild association with shortness of breath denies any nausea vomiting or diaphoresis. She denies prior history of blood clots recent hospitalizations or surgeries she denies seeing a family history of cardiac disease. Denies recent cough, congestion, fevers. Related Data Home Medications Medication Instructions Recorded Confirmed albuterol sulfate 2 puff INHALATION Q4H PRN 08/14/20 05/30/21 Allergies Allergy/AdvReac Type Severity Reaction Status Date / Time amoxicillin Allergy Intermediate Rash Verified 05/30/21 08:45 Cephalosporins Allergy Intermediate Rash Verified 05/30/21 08:45 Penicillins Allergy Intermediate Rash Verified 05/30/21 08:45 ketorolac AdvReac Intermediate Nausea and Verified 05/30/21 08:45 Vomiting clarithromycin AdvReac Mild GI Verified 05/30/21 08:45 Review of Systems Review of Systems: CONSTITUTIONAL: Denies fever, chills, or sweats. EYES: Denies visual changes, redness, or discharge. ENT: Denies rhinorrhea, congestion, sore throat, or otalgia. CARDIOVASCULAR: Denies palpitations, or edema. RESPIRATORY: Denies cough GASTROINTESTINAL: Denies abdominal pain, nausea, vomiting, or diarrhea. GENITOURINARY: Denies dysuria or hematuria. SKIN: Denies rash or itching. MUSCULOSKELETAL: Denies back pain, joint pain, or myalgia. NEUROLOGIC: Denies headache, numbness, dizziness, or weakness. PSYCHIATRIC: Denies anxiety or depression. All systems reviewed & are unremarkable except as noted in HPI and below PMFSH Past Medical History Medical History Anxiety Asthma Back pain with history of spinal surgery BMI 29.0-29.9,adult BMI 30.0-30.9,adult BMI 31.0-31.9,adult GERD (gastroesophageal reflux disease) Hypertension Hypertension IBS (irritable bowel syndrome) Major depressive disorder, single episode, unspecified SAMANTHA (obstructive sleep apnea) Tobacco abuse Surgical History Surgical History H/O section X3 H/O: hysterectomy Open partial hysterectomy followed by left salpingo-oophorectomy and eventually right salpingo-oophorectomy. Total of 3 surgeries. History of back surgery X3 History of carpal tunnel release Bilaterally History of laparoscopy x 2 exploratory laparoscopy due to abdominal pain in her 20's with no reported significant findings. Family History Family History Mother Diabetes mellitus Hypertension Heart disease COVID-19 Father Diabetes mellitus Hypertension Heart disease COVID-19 Sibling COVID-19 Social History Social History Social History: She smokes A pack a cigarettes a day. 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 She is . She has 3 children. She is a full code and desires to have her to be her decision-maker if needed. She does not use alcohol marijuana or illicit drugs. 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
[2021-06-20 11:50] LABS: Troponin I 0.022 ng/mL (0.000-0.034)
[2021-06-20 12:25] VITALS: BP 120/83; PULSE 71; RESP 16; O2SAT 100
== END 2021-06-20 12:25 | disposition home or self-care (01) ==
PROVIDERS: Emergency Provider Emergency Medicine; PCP Family Medicine
DX: R07.9 Chest pain, unspecified (principal); F17.210 Nicotine dependence, cigarettes, uncomplicated; J45.909 Unspecified asthma, uncomplicated; K21.9 Gastro-esophageal reflux disease without esophagitis; I10 Essential (primary) hypertension; G47.30 Sleep apnea, unspecified
CPT/HCPCS: 36415; 71046; 76705; 80048; 80076; 83690; 84484; 85025; 85610; 85730; 93005; 96360; 96361; 99284; A9270; J7030

== ENCOUNTER → 2021-07-04 11:09 | Outpatient (CLI) | payer OTHER, SELFPAY ==
--- NOTE | ~2021-07-04 | XR_ITS ---
XR lumbar spine 2-3V 07/04/2021 11:33 Indication: Low back pain Procedure: 3 views lumbar spine Comparison: 08/22/2005 Findings: There is disc narrowing at L4-5 and L5-S1. There is facet degenerative change at these leve ls as well. Vertebral body heights are maintained. No fracture, subluxation or spondylolisthesis. Ped icles intact. Mild levocurvature of the lumbar spine. Sacral foramen are symmetric. Impression: 1: Moderate lower lumbar spondylosis. Reviewed, dictated and finalized at location A. ILE TECHNICIAN Impression: 1: Moderate lower lumbar spondylosis.
== END ==
PROVIDERS: PCP Family Medicine; Visit Provider Nurse Practitioner Family
DX: M47.817 Spondylosis without myelopathy or radiculopathy, lumbosacral region (principal)
CPT/HCPCS: 72100

== ENCOUNTER → 2021-08-07 08:44 | Outpatient (CLI) | payer OTHER, SELFPAY ==
--- NOTE | ~2021-08-07 | MR_ITS ---
EXAMINATION: MR lumbar spine wo con DATE: 08/07/2021 09:19 INDICATION: Lumbar radiculopathy. TECHNIQUE: Magnetic resonance imaging (MRI) of the lumbar spine was performed without intravenous con trast. Sequences included sagittal T2-weighted FSE, sagittal T2-weighted FS FSE, sagittal T1-weighted FSE, and axial T2-weighted FSE. COMPARISON: Lumbar spine MRI 08/27/2018 FINDINGS: There is 3 degrees levocurvature of lumbar spine. Vertebral body heights are normal. There is severely decreased disc height at L4-L5 and moderately decreased disc height at L5-S1. The distal spinal cord signal intensity is normal. The conus medullaris is at L1-L2. The following disc levels a re specifically discussed: L1-L2: The disc does not extend beyond the endplate margin. There is mild bilateral facet joint osteo arthritis. There is no neural foraminal stenosis. There is no central canal stenosis. L2-L3: The disc is mildly bulging. There is mild bilateral facet joint osteoarthritis. There is mild right neural foraminal stenosis. There is mild central canal stenosis. L3-L4: The disc is bulging. There is mild bilateral facet joint osteoarthritis. There is mild bilater al neural foraminal stenosis. There is mild central canal stenosis. L4-L5: The disc is bulging and has an annular fissure. There is severe bilateral facet joint osteoart hritis. There is moderate bilateral neural foraminal stenosis. There is mild central canal stenosis w ith posterior decompression. L5-S1: The disc is bulging and has an annular fissure. There is moderate bilateral facet joint osteoa rthritis. There is moderate bilateral neural foraminal stenosis. There is mild central canal stenosis . IMPRESSION: 1. Severe lumbar spondylosis with worsened disc height loss and improved left lateral recess stenosis at L4-L5 when compared to 08/27/2018. Reviewed, dictated and finalized at location B. E ENGINEER IMPRESSION: 1. Severe lumbar spondylosis with worsened disc height loss and improved left l ateral recess stenosis at L4-L5 when compared to 08/27/2018.
== END ==
PROVIDERS: PCP Family Medicine; Visit Provider Nurse Practitioner Family
DX: M54.16 Radiculopathy, lumbar region (principal); M47.816 Spondylosis without myelopathy or radiculopathy, lumbar region; R29.890 Loss of height
CPT/HCPCS: 72148

== ENCOUNTER → 2021-08-16 07:08 | Outpatient (CLI) | payer OTHER, SELFPAY ==
[2021-08-16 20:56] LABS: SARS-CoV-2 RNA PCR Negative
== END ==
PROVIDERS: PCP Family Medicine; Visit Provider Physician Assistant Medical
DX: R68.89 Other general symptoms and signs (principal)
CPT/HCPCS: C9803; U0003; U0005

== ENCOUNTER 2021-09-18 09:40 | Outpatient (CLI) | payer OTHER, SELFPAY ==
--- NOTE | ~2021-09-18 | XR_ITS ---
XR_CERV2-3V_CR DATE: 09/18/2021 10:21 INDICATION: Neck pain TECHNIQUE: AP, open-mouth, lateral, swimmer views COMPARISON: None FINDINGS: There is straightening of the cervical spine. There is mild levoscoliosis of the cervical a nd upper thoracic spine. There is minimal anterolisthesis at C3-4 and C4-5. There is minimal degenerative spurring anteriorly at C4-5 and C6-7. Cervical interspaces are preserved. No fracture or dislocation or locked facet. No prevertebral soft tissue swelling. IMPRESSION: Mild levoscoliosis of cervical and upper thoracic spine Straightening of the cervical spine which may be due to muscle spasm Minimal anterolisthesis at C3-4 and C4-5 Minimal anterior degenerative spurring at C4-5 and C6-7 Reviewed, dictated and finalized at Location A. Reviewed, dictated and finalized at location A. SERVICE COORDINATOR
== END 2021-09-18 09:41 ==
PROVIDERS: PCP Family Medicine; Visit Provider Nurse Practitioner Family
DX: M54.2 Cervicalgia (principal); M41.82 Other forms of scoliosis, cervical region; M53.82 Other specified dorsopathies, cervical region; M43.12 Spondylolisthesis, cervical region; M77.8 Other enthesopathies, not elsewhere classified
CPT/HCPCS: 72040

== ENCOUNTER 2021-11-26 12:22 | Emergency (ER) | payer OTHER, SELFPAY ==
--- NOTE | ~2021-11-26 | XR_ITS ---
EXAMINATION: XR chest 2V DATE: 11/26/2021 12:36 INDICATION: Right chest pain. TECHNIQUE: Frontal and lateral views of the chest were obtained. COMPARISON: Chest 2 views 06/20/2021 FINDINGS: The chest demonstrates clear lungs without pneumonia, pleural effusion, or pneumothorax. Th e heart size is normal. IMPRESSION: 1. No acute cardiopulmonary disease. Reviewed, dictated and finalized at location B.
--- NOTE | ~2021-11-26 | CT_ITS ---
EXAMINATION: CTA chest PE protocol EXAM DATE: 11/26/2021 14:52 INDICATION: Right-sided chest pain with elevated d-dimer. Nausea. TECHNIQUE: Spiral CTA of the chest (pulmonary arteries) was performed with 100 cc Omnipaque 350 intr avenous contrast injection. Images were acquired during the pulmonary arterial phase. Coronal maxi mum intensity projection 3D-reconstructions were created by the technologist on dedicated workstation . Axial, coronal and sagittal reformatted images were reviewed. The dose-length product (DLP) for t his examination was 440.23 mGy-cm. The exposure was tailored according to patient size (auto mA exp osure control), and iterative reconstruction (ASIR) was used as additional dose reduction technique. Comparison is made to prior examination from 07/01/2020. FINDINGS: Pulmonary arteries are well opacified and without intraluminal filling defects. No thora cic aortic dissection. The lungs are clear. There are no pleural or pericardial effusions. Trach eobronchial tree is patent. There is no mediastinal, hilar or axillary lymphadenopathy. There is no pneumothorax. Heart normal in size. No evidence of coronary arterial calcification. Upper abd omen is unremarkable. There is thoracic spondylosis without osteoblastic or osteolytic lesions iden tified. IMPRESSION: 1. No pulmonary emboli or acute cardiac pulmonary findings. Reviewed, dictated and finalized at location A.
--- NOTE | 2021-11-26 12:24 | ECG_ITS ---
Measurements Intervals [place] Rate: 82 P: 60 NE: 161 QRS: -5 QRSD: 96 T: 123 QT: 346 QTc: 404 Interpretive Statements SINUS RHYTHM POSSIBLE LEFT ATRIAL ENLARGEMENT [-0.1mV P WAVE IN V1/V2] SEPTAL MYOCARDIAL INFARCTION , PROBABLY OLD [40+ ms Q WAVE IN V1/V2] NONSPECIFIC T-WAVE ABNORMALITY COMPARED TO ECG 06/20/2021 08:09:[address] SEGMENT ABNORMALITIES IMPROVED Electronically Signed On 11-26-2021 15:00:12 CDT by Tom Pérez M.D.
[2021-11-26 12:27] VITALS: BP 146/92; PULSE 81; RESP 16; TEMP 35.6; O2SAT 100
[2021-11-26 12:48] LABS: Basophils Absolute Auto 0.1 K/mm3 (0.0-0.1); Basophils Percent Auto 0.7 % (0.2-1.2); Eosinophils Percent Auto 0.3 % (0-4.4); Hematocrit 44.5 % (37.0-47.0); Hemoglobin 14.2 g/dL (12.0-15.0); Immature Granulocyte Absolute 0.02 K/mm3 (0.00-0.031); Immature Granulocyte Percent A 0.3 % (0-0.5); Lymphocytes Absolute Auto 3.32 K/mm3 (0.9-3.2); Lymphocytes Percent Auto 45.2 % (18.3-44.2); Mean Corpuscular HGB Conc 31.9 g/dl (32-36); Mean Corpuscular Volume 94.1 fl (80-100); Mean Platelet Volume 11.2 fl (7.4-10.4); Monocytes Absolute Auto 0.4 K/mm3 (0.1-0.6); Monocytes Percent Auto 5.7 % (2.6-8.5); Neutrophils Absolute Auto 3.5 K/mm3 (1.3-6.7); Neutrophils Percent Auto 47.8 % (45.5-73.1); Platelet Count Result 249 k/mm3 (150-375); Red Blood Count 4.73 M/mm3 (4.2-5.4); Red Cell Distribution Width 12.1 % (11.5-14.5); White Blood Count 7.3 K/mm3 (4.5-10.0)
[2021-11-26 12:59] LABS: Alanine Aminotransferase 25 U/L (4-35); Albumin Level 4.5 g/dL (3.5-5.1); Alkaline Phosphatase 82 U/L (38-126); Anion Gap 8 mmol/L (8-16); Aspartate Amino Transferase 31 U/L (14-36); Bilirubin,Total 0.9 mg/dL (0.2-1.3); Blood Urea Nitrogen 15 mg/dL (7-17); Calcium 8.8 mg/dL (8.4-10.2); Carbon Dioxide 21 mmol/L (22-30); Chloride 110 mmol/L (98-107); Estimated CRCL calculation 78 ml/min; Estimated Glomerular Filt Rate > 60; Glucose 126 mg/dL (65-110); Lipase 106 U/L (23-300); Potassium 3.9 mmol/L (3.4-5.0); Sodium 139 mmol/L (137-145)
[2021-11-26 13:05] LABS: Partial Thromboplastin Time 25.9 SECONDS (22.3-36.8); Prothrombin Time 12.4 Seconds (11.1-14.7)
[2021-11-26 13:08] VITALS: BP 129/91; PULSE 81; PULSE 82; RESP 16; O2SAT 98
[2021-11-26 13:11] LABS: Troponin I < 0.012 ng/mL (0.000-0.034)
[2021-11-26] MEDS: ASPIRIN 81 MG CHEWABLE TABLET 324 MG PO (13:13)
--- NOTE | 2021-11-26 13:32 | ED.CHESTPAIN ---
HPI - Chest Pain General Chief Complaint: Chest Pain Stated Complaint: Chest Pain Time Seen by Provider: 11/26/21 13:09 Source: patient Mode of arrival: ambulatory Limitations: no limitations History of Present Illness HPI narrative: Patient is a 46-year-old female who presents to the ED with report of right-sided chest pain. Patient reports the pain began yesterday afternoon around 3 PM. She reports she has had similar pain in the past. She has been evaluated for this pain in the ED which was previously attributed to her acid reflux. The pain is intermittent and only last for a few seconds at a time. She describes the pain as an aching in her right-sided chest. Today around 8 AM, the pain began to radiate around to her right mid back and up to her right neck, which prompted her to come to the ED. No shortness of breath, cough, nausea, diaphoresis. No fever, chills, abdominal pain, BLE pain or edema. Patient has Hx of HTN and is a smoker. Related Data Home Medications Medication Instructions Recorded Confirmed albuterol sulfate 2 puff INHALATION Q4H PRN 08/14/20 10/18/21 Allergies Allergy/AdvReac Type Severity Reaction Status Date / Time amoxicillin Allergy Intermediate Rash Verified 11/26/21 13:09 Cephalosporins Allergy Intermediate Rash Verified 11/26/21 13:09 Penicillins Allergy Intermediate Rash Verified 11/26/21 13:09 ketorolac AdvReac Intermediate Nausea and Verified 11/26/21 13:09 Vomiting clarithromycin AdvReac Mild GI Verified 11/26/21 13:09 Review of Systems Review of Systems: CONSTITUTIONAL: Denies fever, chills, sweats. CARDIOVASCULAR: Reports R chest pain, into R mid back/R neck. Denies BLE edema. RESPIRATORY: Denies cough or dyspnea. GASTROINTESTINAL: Denies abdominal pain, nausea, vomiting. MUSCULOSKELETAL: Denies BLE pain. NEUROLOGIC: Denies headache, numbness, or weakness. All systems reviewed & are unremarkable except as noted in HPI and below PMFSH Past Medical History Medical History Anxiety Asthma Back pain with history of spinal surgery BMI 29.0-29.9,adult BMI 30.0-30.9,adult BMI 31.0-31.9,adult BMI 33.0-33.9,adult COVID-19 GERD (gastroesophageal reflux disease) Hypertension Hypertension IBS (irritable bowel syndrome) Major depressive disorder, single episode, unspecified SAMANTHA (obstructive sleep apnea) Tobacco abuse Surgical History Surgical History H/O section X3 H/O: hysterectomy Open partial hysterectomy followed by left salpingo-oophorectomy and eventually right salpingo-oophorectomy. Total of 3 surgeries. History of back surgery X3 History of carpal tunnel release Bilaterally History of laparoscopy x 2 exploratory laparoscopy due to abdominal pain in her 20's with no reported significant findings. Family History Family History Mother Diabetes mellitus Hypertension Heart disease COVID-19 Father Diabetes mellitus Hypertension Heart disease COVID-19 Sibling COVID-19 Social History Social History Social History: She smokes A pack a cigarettes a day. 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 She is . She has 3 children. She is a full code and desires to have her to be her decision-maker if needed. She does not use alcohol marijuana or illicit drugs. 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
[2021-11-26 14:11] LABS: D Dimer 0.52 ug/mL (<0.48)
[2021-11-26] MEDS: MAG HYDROX/AL HYDROX/SIMETH 30 ML UDC PO (14:18)
[2021-11-26] MEDS: LIDOCAINE HCL 2% VISC SOLN 15 ML UDC 20 ML PO (14:18)
[2021-11-26 15:17] VITALS: BP 130/93; PULSE 70; RESP 22; O2SAT 99
[2021-11-26 15:43] LABS: Troponin I < 0.012 ng/mL (0.000-0.034)
[2021-11-26 16:10] VITALS: BP 116/70; PULSE 74; RESP 23; O2SAT 99
== END 2021-11-26 16:12 | disposition home or self-care (01) ==
PROVIDERS: Emergency Medicine; Physician Assistant; Emergency Provider Emergency Medicine; PCP Family Medicine
DX: R07.9 Chest pain, unspecified (principal); J45.909 Unspecified asthma, uncomplicated; K21.9 Gastro-esophageal reflux disease without esophagitis; Z86.16 Personal history of COVID-19; I10 Essential (primary) hypertension; K58.9 Irritable bowel syndrome, unspecified; G47.33 Obstructive sleep apnea (adult) (pediatric); F17.210 Nicotine dependence, cigarettes, uncomplicated; R94.31 Abnormal electrocardiogram [ECG] [EKG]
CPT/HCPCS: 36415; 71046; 71275; 80053; 83690; 84484; 85025; 85380; 85610; 85730; 93005; 96365; 99284; A9270; J0131; Q9967

== ENCOUNTER 2022-02-02 14:04 | Observation (INO) | payer OTHER, SELFPAY ==
[2022-02-02] VITALS (40 sets, daily range): BP systolic 93–136; BP diastolic 67–105; PULSE 63–96; RESP 10–25; TEMP 36.2–36.5; O2SAT 94–100
--- NOTE | ~2022-02-02 | XR_ITS ---
EXAMINATION: XR chest 2V DATE: 02/02/2022 14:37 INDICATION: Left-sided chest pain TECHNIQUE: PA and lateral views of the chest are obtained. COMPARISON: 11/26/2021 FINDINGS: The lungs are free of acute opacities. There is no pleural effusion or pneumothorax. The ca rdiomediastinal silhouette is normal. There is mild thoracic spondylosis. IMPRESSION: 1. No acute cardiopulmonary abnormality. Reviewed, dictated and finalized at location A.
--- NOTE | ~2022-02-02 | US_ITS ---
EXAMINATION: US abdomen limited DATE: 02/02/2022 15:25 INDICATION: Abdominal pain. TECHNIQUE: Multiple grayscale and Doppler ultrasound images of limited portions of the abdomen were o btained. COMPARISON: 06/20/2021, CT abdomen and pelvis 08/31/2020. FINDINGS: The head and body of the pancreas are normal. The pancreatic tail is obscured by bowel gas. The liver is echogenic. No surface nodularity. Normal hepatopetal flow in the main portal vein. The gallbladder is normal with no abnormal wall thickening, pericholecystic fluid or stones. The normal c ommon bile duct measures 0.3 cm. There was no sonographic Real sign. IMPRESSION: 1. Steatosis. Reviewed, dictated and finalized at location K. IMPRESSION: 1. Steatosis.
--- NOTE | ~2022-02-02 | CT_ITS ---
EXAMINATION: CT abdomen pelvis w con DATE: 02/02/2022 20:26 INDICATION: abd pain TECHNIQUE: Computed tomography (CT) of the abdomen and pelvis was performed with 100 mL Omnipaque-300 intravenous contrast. Automated exposure control and iterative reconstruction technique were employe d. The dose-length product was 990.45 mGy-cm. COMPARISON: 08/31/2020. FINDINGS: Lower thorax: Unremarkable Liver: Normal. Biliary/Gallbladder: Gallbladder is normal. No bile duct dilation. Pancreas: No mass or duct dilation. Spleen: Normal. Adrenals:No mass. Kidneys: No mass, stone, or hydronephrosis. GI tract: No small or large bowel dilation. Normal appendix. Minimal scattered diverticuli without ev idence of diverticulitis. Mesentery/Peritoneum: No ascites, mass, or free air. Retroperitoneum: No mass. Pelvis: Pelvic organs are within normal limits. Uterus absent. Soft Tissues: Soft tissues and body wall unremarkable. Bones: No acute osseous finding. IMPRESSION: No acute abdominopelvic process. Reviewed, dictated and finalized at location K.
--- NOTE | 2022-02-02 14:05 | ECG_ITS ---
Measurements Intervals Ailey Rate: 101 P: 55 AK: 140 QRS: 4 QRSD: 100 T: 79 QT: 350 QTc: 454 Interpretive Statements SINUS TACHYCARDIA POSSIBLE LEFT ATRIAL ENLARGEMENT [-0.1mV P WAVE IN V1/V2] NONSPECIFIC ST & T-WAVE ABNORMALITY ABNORMAL RHYTHM ECG COMPARED TO ECG 11/26/2021 12:28:29 SLIGHTLY DIFFERENT LEAD POSITION V2 Electronically Signed On 02-03-2022 7:08:54 CDT by Tom Pérez M.D.
[2022-02-02 14:25] LABS: Basophils Absolute Auto 0.1 K/mm3 (0.0-0.1); Basophils Percent Auto 0.9 % (0.2-1.2); Eosinophils Percent Auto 0.2 % (0-4.4); Hematocrit 44.4 % (37.0-47.0); Hemoglobin 14.3 g/dL (12.0-15.0); Immature Granulocyte Absolute 0.02 K/mm3 (0.00-0.031); Immature Granulocyte Percent A 0.3 % (0-0.5); Lymphocytes Absolute Auto 2.88 K/mm3 (0.9-3.2); Lymphocytes Percent Auto 43.4 % (18.3-44.2); Mean Corpuscular HGB Conc 32.2 g/dl (32-36); Mean Corpuscular Hemoglobin 29.2 pg (26-34); Mean Corpuscular Volume 90.8 fl (80-100); Mean Platelet Volume 10.9 fl (7.4-10.4); Monocytes Absolute Auto 0.5 K/mm3 (0.1-0.6); Monocytes Percent Auto 7.4 % (2.6-8.5); Neutrophils Absolute Auto 3.2 K/mm3 (1.3-6.7); Neutrophils Percent Auto 47.8 % (45.5-73.1); Platelet Count Result 273 k/mm3 (150-375); Red Blood Count 4.89 M/mm3 (4.2-5.4); Red Cell Distribution Width 12.2 % (11.5-14.5); White Blood Count 6.6 K/mm3 (4.5-10.0)
--- NOTE | 2022-02-02 14:27 | PC.NURSE ---
Pt reports midsternal radiating chest pain x 1 day. States she has a hx of gerd and recently started Optavia.
--- NOTE | 2022-02-02 14:31 | ED.CHESTPAIN ---
HPI - Chest Pain General Chief Complaint: Chest Pain Stated Complaint: chest pain that began yesterday Time Seen by Provider: 02/02/22 14:21 Source: RN notes reviewed History of Present Illness HPI narrative: Patient presents emergency department from home for chest pain. Patient states she has had lower midsternal chest pain has been constant since yesterday afternoon. The pain is described as a burning and pressure nature states he does radiate left side of her abdomen into her left arm states that she has a history of GERD and has had similar episodes with her GERD before in the past tried taking Maalox on 2 hours ago with no relief states she is on a PPI she denies any fevers or chills shortness of breath nausea vomiting or diarrhea states she does have upper abdominal pain Related Data Allergies Allergy/AdvReac Type Severity Reaction Status Date / Time amoxicillin Allergy Intermediate Rash Verified 12/03/21 07:47 Cephalosporins Allergy Intermediate Rash Verified 12/03/21 07:47 Penicillins Allergy Intermediate Rash Verified 12/03/21 07:47 ketorolac AdvReac Intermediate Nausea and Verified 12/03/21 07:47 Vomiting clarithromycin AdvReac Mild GI Verified 12/03/21 07:47 Review of Systems Review of Systems: Gen.: Denies fevers or chills ENT: Denies congestion Respiratory: Denies shortness of breath or cough CV: Reports chest pain GI: Reports upper abdominal pain denies nausea vomiting or diarrhea Musculoskeletal: Denies back pain or muscle pain Neuro: Denies numbness, tingling, weakness or focal weakness Skin: Denies rash Except as documented, all other systems reviewed and negative [facility] Past Medical History Medical History Anxiety Asthma Back pain with history of spinal surgery BMI 29.0-29.9,adult BMI 30.0-30.9,adult BMI 31.0-31.9,adult BMI 33.0-33.9,adult COVID-19 GERD (gastroesophageal reflux disease) Hypertension Hypertension IBS (irritable bowel syndrome) Major depressive disorder, single episode, unspecified SAMANTHA (obstructive sleep apnea) Tobacco abuse Surgical History Surgical History H/O section X3 H/O: hysterectomy Open partial hysterectomy followed by left salpingo-oophorectomy and eventually right salpingo-oophorectomy. Total of 3 surgeries. History of back surgery X3 History of carpal tunnel release Bilaterally History of laparoscopy x 2 exploratory laparoscopy due to abdominal pain in her 20's with no reported significant findings. Family History Family History Mother Diabetes mellitus Hypertension Heart disease COVID-19 Father Diabetes mellitus Hypertension Heart disease COVID-19 Sibling COVID-19 Social History Social History Social History: She smokes A pack a cigarettes a day. 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 She is . She has 3 children. She is a full code and desires to have her to be her decision-maker if needed. She does not use alcohol marijuana or illicit drugs. 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
[2022-02-02 14:35] LABS: Alanine Aminotransferase 27 U/L (6-35); Albumin Level 4.9 g/dL (3.5-5.1); Alkaline Phosphatase 92 U/L (38-126); Anion Gap 8 mmol/L (8-16); Aspartate Amino Transferase 39 U/L (14-36); Bilirubin,Total 0.7 mg/dL (0.2-1.3); Blood Urea Nitrogen 18 mg/dL (7-17); Calcium 9.3 mg/dL (8.4-10.2); Carbon Dioxide 24 mmol/L (22-30); Chloride 107 mmol/L (98-107); Estimated CRCL calculation 78 ml/min; Estimated Glomerular Filt Rate > 60; Glucose 121 mg/dL (65-110); Lipase 102 U/L (23-300); Potassium 4.5 mmol/L (3.4-5.0); Sodium 139 mmol/L (137-145)
[2022-02-02 14:37] LABS: Prothrombin Time 13.1 Seconds (11.1-14.7)
[2022-02-02 14:38] LABS: Partial Thromboplastin Time 26.2 SECONDS (22.3-36.8)
[2022-02-02 14:46] LABS: Troponin I < 0.012 ng/mL (0.000-0.034)
[2022-02-02] MEDS: MORPHINE SULFATE (*CRX) 2 MG/ML INJ IV PUSH (15:56)
[2022-02-02 17:33] LABS: D Dimer 0.45 ug/mL (<0.48)
[2022-02-02 17:56] LABS: Troponin I 0.013 ng/mL (0.000-0.034)
--- NOTE | 2022-02-02 19:23 | PC.NURSE ---
Report received from UNIQUE Reza. This nurse assumed care of patient at this time.
--- NOTE | 2022-02-02 19:53 | PC.NURSE ---
Pt has hx of hysterectomy.
--- NOTE | 2022-02-02 20:06 | PC.NURSE ---
Patient taken to CT via stretcher.
[2022-02-02] MEDS: MORPHINE SULFATE (*CRX) 4 MG/ML INJ IV PUSH (20:22)
[2022-02-02 21:07] LABS: Troponin I 0.016 ng/mL (0.000-0.034)
--- NOTE | 2022-02-02 22:30 | ADMGEN ---
This patient, Lore Jacobs, was admitted to Medical Room 261-01. Patient/family oriented to hospital policies and general routines including ID bracelet, bed and alarms, visiting hours, pain management, procedures, bathroom and other care routines, personal items, smoking policy, room service/diet, and visiting hours. Information on how to activate the Rapid Response Team has been discussed. Patient/Family are encouraged to report perceived risks to care and to ask questions if they do not understand what they are told or what they should do.
[2022-02-03] VITALS: PULSE 59
--- NOTE | 2022-02-03 01:47 | PM.IMHP ---
H&P: HPI History of Present Illness Date/Time: 02/03/22 01:47 Chief Complaint: Epigastric pain. Narrative: This is a 46-year-old female with past medical history significant for GERD, hypertension, irritable bowel syndrome, major depressive disorder, obstructive sleep apnea, tobacco dependence. Patient presents to the emergency room due to retrosternal chest pain and epigastric pain with radiation on to the throat made worse after ingesting meals patient received a GI cocktail in the emergency room which alleviated symptoms. Patient states that she has GERD and this is burning pain denies any nausea, vomiting, diarrhea, no dizziness, no diaphoresis, no shortness of breath, no cough, no sputum production, no chills, no fevers. Preliminary workup has been essentially nonrevealing. Review of Systems Review of Systems: Retrosternal chest pain Constitutional: Constitutional: Denies chills, Denies fever(s), Denies malaise and Denies night sweats Eyes: Eyes: Denies change in vision ENT: Denies dysphagia, Denies vertigo, Denies dizziness and Denies odynophagia Cardiovascular: Cardiovascular: Reports chest pain, Denies syncope, Denies irregular heart rhythm, Denies lightheadedness, Denies radiating jaw, neck or arm pain, Denies palpitations and Denies dyspnea on exertion Respiratory: Respiratory: Denies chest congestion, Denies cough and Denies excessive phlegm production Gastrointestinal: Gastrointestinal: Reports abdominal pain (Epigastric), Reports dyspepsia, Reports heartburn, Denies diarrhea, Denies nausea and Denies vomiting Genitourinary: Genitourinary: Denies dysuria Musculoskeletal: Musculoskeletal: Denies arthralgias and Denies joint swelling Integumentary/Breasts: Skin/Breast: Denies rash Neurologic: Denies focal weakness and Denies Sensory deficit (Neuro) Psychiatric: Psychiatric: Reports no additional psychiatric complaints and Reports as per HPI Endocrine: Endocrine: Denies cold intolerance, Denies fatigue, Denies flushing, Denies heat intolerance, Denies polyphagia, Denies polydipsia and Denies palpitations Hematologic/Lymphatic: Hematologic/Lymphatic: Reports no additional hematologic/lymphatic complaints and Reports as per HPI Allergic/Immunologic: Allergic/Immunologic: Reports no additional allergic/immunologic complaints and Reports as per HPI [facility] Past Medical History Medical History (Updated 02/03/22 @ 13:30 by South Sorto MD) Anxiety Asthma Back pain with history of spinal surgery BMI 29.0-29.9,adult BMI 30.0-30.9,adult BMI 31.0-31.9,adult BMI 33.0-33.9,adult COVID-19 GERD (gastroesophageal reflux disease) Hypertension Hypertension IBS (irritable bowel syndrome) Major depressive disorder, single episode, unspecified Nausea SAMANTHA (obstructive sleep apnea) Tobacco abuse Surgical History Surgical History H/O section X3 H/O: hysterectomy Open partial hysterectomy followed by left salpingo-oophorectomy and eventually right salpingo-oophorectomy. Total of 3 surgeries. History of back surgery X3 History of carpal tunnel release Bilaterally History of laparoscopy x 2 exploratory laparoscopy due to abdominal pain in her 20's with no reported significant findings. Family History Family History Mother Diabetes mellitus Hypertension Heart disease COVID-19 Father Diabetes mellitus Hypertension Heart disease COVID-19 Sibling COVID-19 Social History Social History Social History: She smokes A pack a cigarettes a day. 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 She is . She has 3 children. She is a full code and desires to have her to be her decision-maker if needed. She does not use alcohol marijuana or illicit drugs
[2022-02-03 04:00] VITALS: PULSE 64
[2022-02-03 05:41] LABS: Basophils Absolute Auto 0.1 K/mm3 (0.0-0.1); Basophils Percent Auto 1.2 % (0.2-1.2); Eosinophils Absolute Auto 0.1 K/mm3 (0-0.3); Hemoglobin 13.5 g/dL (12.0-15.0); Immature Granulocyte Absolute 0.01 K/mm3 (0.00-0.031); Immature Granulocyte Percent A 0.2 % (0-0.5); Lymphocytes Percent Auto 48.6 % (18.3-44.2); Mean Corpuscular HGB Conc 32.1 g/dl (32-36); Mean Corpuscular Hemoglobin 29.3 pg (26-34); Mean Corpuscular Volume 91.3 fl (80-100); Mean Platelet Volume 11.4 fl (7.4-10.4); Monocytes Absolute Auto 0.6 K/mm3 (0.1-0.6); Monocytes Percent Auto 12.1 % (2.6-8.5); Neutrophils Absolute Auto 1.9 K/mm3 (1.3-6.7); Neutrophils Percent Auto 36.9 % (45.5-73.1); Platelet Count Result 240 k/mm3 (150-375); Red Cell Distribution Width 12.4 % (11.5-14.5); White Blood Count 5.1 K/mm3 (4.5-10.0)
[2022-02-03 05:49] LABS: Alanine Aminotransferase 24 U/L (6-35); Albumin Level 4.3 g/dL (3.5-5.1); Alkaline Phosphatase 77 U/L (38-126); Anion Gap 5 mmol/L (8-16); Aspartate Amino Transferase 31 U/L (14-36); Bilirubin,Total 0.5 mg/dL (0.2-1.3); Blood Urea Nitrogen 16 mg/dL (7-17); Calcium 8.6 mg/dL (8.4-10.2); Carbon Dioxide 25 mmol/L (22-30); Chloride 108 mmol/L (98-107); Estimated CRCL calculation 84 ml/min; Estimated Glomerular Filt Rate > 60; Glucose 93 mg/dL (65-110); Potassium 4.5 mmol/L (3.4-5.0); Sodium 138 mmol/L (137-145)
[2022-02-03 06:00] VITALS: BP 118/75; PULSE 65; RESP 21; TEMP 36.4; O2SAT 100
[2022-02-03 08:00] VITALS: PULSE 65
[2022-02-03] MEDS: FAMOTIDINE 20 MG TABLET 40 MG PO (09:23)
--- NOTE | 2022-02-03 09:26 | PC.NURSE ---
pt agreeable to taking pepcid but would like to wait on other PO meds at this time, will continue to monitor
[2022-02-03] MEDS: ACETAMINOPHEN 325 MG TABLET 650 MG PO (13:27)
[2022-02-03] MEDS: CYCLOBENZAPRINE HCL 10 MG TABLET PO (13:27)
--- NOTE | 2022-02-03 13:27 | WPDGICN ---
Assessment and Plan Assessment and plan (1) Abdominal pain, epigastric: Code(s): R10.13 - Epigastric pain Status: Acute Assessment and Plan: probably GI related, cardiac work up in progress egd tomorrow to assess if esophagitis, ulcer, etc on ppi (2) Hypertension: Qualifiers: Hypertension type: essential hypertension Qualified Code(s): I10 - Essential (primary) hypertension Code(s): I10 - Essential (primary) hypertension Status: Chronic Assessment and Plan: on meds (3) Chest pain: Qualifiers: Chest pain type: other chest pain Qualified Code(s): R07.89 - Other chest pain Code(s): R07.9 - Chest pain, unspecified Status: Acute Assessment and Plan: improving (4) Nausea: Code(s): R11.0 - Nausea Status: Acute GI Consult Note Consult date/time: 02/03/22 13:27 Reason for consult: gerd, chest pain HPI: Lore Jacobs is a 46 year old female with history of GERD on omeprazole once daily (last EGD years ago), HTN who came to the hospital with worsening lower midsternal chest pain with radiation to left arm, jaw and shoulder. The pain is described as a burning and pressure nature, similar to GERD symptom but maalox did not help. Cardiac work up thus far negative, she also had some nausea. Review of Systems Review of Systems: Gen.: Denies fevers or chills ENT: Denies congestion Respiratory: Denies shortness of breath or cough CV: Reports chest pain GI: Reports upper abdominal pain denies nausea vomiting or diarrhea Musculoskeletal: Denies back pain or muscle pain Neuro: Denies numbness, tingling, weakness or focal weakness Skin: Denies rash Except as documented, all other systems reviewed and negative Eyes: Eyes: Denies blurry vision Integumentary/Breasts: Skin/Breast: Denies unusual bruising Psychiatric: Psychiatric: Denies anxiety PMFSH Past Medical History Medical History (Updated 02/03/22 @ 13:30 by South Sorto MD) Anxiety Asthma Back pain with history of spinal surgery BMI 29.0-29.9,adult BMI 30.0-30.9,adult BMI 31.0-31.9,adult BMI 33.0-33.9,adult COVID-19 GERD (gastroesophageal reflux disease) Hypertension Hypertension IBS (irritable bowel syndrome) Major depressive disorder, single episode, unspecified Nausea SAMANTHA (obstructive sleep apnea) Tobacco abuse Surgical History Surgical History H/O section X3 H/O: hysterectomy Open partial hysterectomy followed by left salpingo-oophorectomy and eventually right salpingo-oophorectomy. Total of 3 surgeries. History of back surgery X3 History of carpal tunnel release Bilaterally History of laparoscopy x 2 exploratory laparoscopy due to abdominal pain in her 20's with no reported significant findings. Family History Family History Mother Diabetes mellitus Hypertension Heart disease COVID-19 Father Diabetes mellitus Hypertension Heart disease COVID-19 Sibling COVID-19 Social History Social History Social History: She smokes A pack a cigarettes a day. 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 She is . She has 3 children. She is a full code and desires to have her to be her decision-maker if needed. She does not use alcohol marijuana or illicit drugs. 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
--- NOTE | 2022-02-03 13:43 | PM.IMPN ---
Progress Note: A&P Assessment and Plan (1) Abdominal pain, epigastric: Code(s): R10.13 - Epigastric pain Status: Acute Assessment and Plan: Atypical presentation with epigastric pain radiating to the neck and shoulder. Suspect GI etiology Pain is reproducible on exam ACS not suspected. Troponin negative x3 Appreciate GI consultation CT of the abdomen/pelvis with no acute process Plan for EGD tomorrow (2) GERD (gastroesophageal reflux disease): Qualifiers: Esophagitis presence: esophagitis presence not specified Qualified Code(s): K21.9 - Gastro-esophageal reflux disease without esophagitis Code(s): K21.9 - Gastro-esophageal reflux disease without esophagitis Status: Chronic Assessment and Plan: See above Continue protonix Improvement following GI cocktail (3) IBS (irritable bowel syndrome): Code(s): K58.9 - Irritable bowel syndrome without diarrhea Status: Acute Assessment and Plan: No issues at this time Appreciate GI consultation (4) Tobacco abuse: Code(s): Z72.0 - Tobacco use Status: Acute Assessment and Plan: Patient smokes 1 pack per day Continue to reinforce smoking cessation (5) Back pain with history of spinal surgery: Code(s): M54.9 - Dorsalgia, unspecified; Z98.890 - Other specified postprocedural states Status: Acute Assessment and Plan: No acute issues Supportive care Subjective Date/time seen: 02/03/22 13:43 Interval history: Date of service: 02/03/2022 Lore Jacobs is a 46-year-old female with a history of asthma, anxiety, GERD, hypertension, IBS-C, SAMANTHA, and tobacco abuse who is seen in follow-up for epigastric pain. Yesterday she developed epigastric pain that radiated around to her side and to her back and then went up to her left side neck and arm. She has had symptoms like this in the past and has been worked up for cardiac issues but has been told this is related to GERD. She reports frequent symptoms of acid reflux. She states her symptoms are similar at this time. She states her pain is typically worse with meals. She does endorse nausea but denies vomiting. She states she is typically constipated. She did take magnesium citrate and had a bowel movement yesterday. She denies any blood in her stool including dark or tarry stools. Denies hematemesis. She has been NPO and states she is starting a would like to have something to eat. She states her arm and neck pain are nearly resolved at this time. She continues to endorse epigastric pain and tenderness. She denies fevers or chills. Denies shortness breath, cough. No palpitations. Denies swelling in her extremities. She is able to ambulate without difficulty. Review of Systems Review of Systems: All systems reviewed & are unremarkable except as noted in HPI and below Exam Narrative: General: Well-nourished, well-appearing 46-year-old female, sitting up in bed, comfortable, NARD Neuro: awake, alert and oriented x4, speech clear, no focal neuro deficits noted HEENMT: normocephalic, atraumatic, EOMI, sclerae anicteric Respiratory: clear to auscultation bilaterally, nonlabored breathing Cardio: regular rate, regular rhythm with S1-S2 Chest: tender to palpation in lower sternal/upper epigastric region Abdomen: nondistended, normoactive bowel sounds, soft, tender to palpation in epigastric and periumbilical region Extremities: no edema, erythema, or tenderness to palpation, DP pulses 2+ bilaterally Skin: no rashes or lesions, warm and dry Psych: appropriate mood and affect, judgment and insight intact Objective Data Vital Signs Vital Signs: Vital Signs - 24 hr 02/02/22 14:20 02/02/22 15:20 02/02/22 15:30 Temperature 97.7 F Pulse Rate 96 79 83 Respiratory Rate 16 15 17 Blood Pressure 102/68 Pulse Oximetry 99 100 98 Oxygen Delivery 02/02/22 15:45 02/02/22 15:51 02/02/22
[2022-02-03 14:00] VITALS: BP 103/68; PULSE 65; RESP 16; TEMP 36.2; O2SAT 100
[2022-02-03 19:57] VITALS: BP 100/71; PULSE 69; RESP 17; TEMP 35.8; O2SAT 99
[2022-02-03] MEDS: HYDROcodone/acetaminophen (*CRX) 5-325 MG TABLET 1 TAB PO (20:53)
[2022-02-04] VITALS (8 sets, daily range): BP systolic 96–133; BP diastolic 62–87; PULSE 55–99; RESP 16–20; TEMP 35.9–36.6; O2SAT 98–100
[2022-02-04 05:25] LABS: Hematocrit 41.6 % (37.0-47.0); Hemoglobin 13.3 g/dL (12.0-15.0); Mean Corpuscular Hemoglobin 29.6 pg (26-34); Mean Corpuscular Volume 92.7 fl (80-100); Mean Platelet Volume 11.1 fl (7.4-10.4); Platelet Count Result 212 k/mm3 (150-375); Red Blood Count 4.49 M/mm3 (4.2-5.4); Red Cell Distribution Width 12.4 % (11.5-14.5); White Blood Count 5.5 K/mm3 (4.5-10.0)
[2022-02-04 05:42] LABS: Anion Gap 5 mmol/L (8-16); Blood Urea Nitrogen 23 mg/dL (7-17); Calcium 8.6 mg/dL (8.4-10.2); Carbon Dioxide 25 mmol/L (22-30); Chloride 110 mmol/L (98-107); Estimated CRCL calculation 75 ml/min; Estimated Glomerular Filt Rate > 60; Glucose 105 mg/dL (65-110); Potassium 4.9 mmol/L (3.4-5.0); Sodium 140 mmol/L (137-145)
[2022-02-04] MEDS: lisinopriL 10 MG TABLET PO (08:35)
[2022-02-04] MEDS: DULoxetine HCL 20 MG CAPSULE.DR PO (08:35)
[2022-02-04] MEDS: PANTOPRAZOLE 40 MG TABLET PO (08:36)
[2022-02-04] MEDS: FAMOTIDINE 20 MG TABLET 40 MG PO (08:36)
--- NOTE | 2022-02-04 12:01 | PM.IMPN ---
Progress Note: A&P Assessment and Plan (1) Abdominal pain, epigastric: Code(s): R10.13 - Epigastric pain Status: Acute Assessment and Plan: Atypical presentation with epigastric pain radiating to the neck and shoulder. Suspect GI etiology, however very atypical presentation Pain is reproducible on exam ACS less likely. Troponin negative x3. EKG reviewed and appears unremarkable. She is established with Dr. Renteria and reports attempted a stress test several months ago but not able to be completed. Appreciate GI consultation CT of the abdomen/pelvis with no acute process Planning for EGD this afternoon If EGD is unremarkable, will need to consider alternative source including cardiac etiology and would pursue Cardiology consult (2) GERD (gastroesophageal reflux disease): Qualifiers: Esophagitis presence: esophagitis presence not specified Qualified Code(s): K21.9 - Gastro-esophageal reflux disease without esophagitis Code(s): K21.9 - Gastro-esophageal reflux disease without esophagitis Status: Chronic Assessment and Plan: See above Continue protonix (3) IBS (irritable bowel syndrome): Code(s): K58.9 - Irritable bowel syndrome without diarrhea Status: Acute Assessment and Plan: No issues at this time Appreciate GI consultation (4) Tobacco abuse: Code(s): Z72.0 - Tobacco use Status: Acute Assessment and Plan: Patient smokes 1 pack per day Reports she quit smoking on 01/28/22. She has been using CBD cigarettes as an alternative Continue to reinforce smoking cessation (5) Back pain with history of spinal surgery: Code(s): M54.9 - Dorsalgia, unspecified; Z98.890 - Other specified postprocedural states Status: Acute Assessment and Plan: No acute issues Supportive care Subjective Date/time seen: 02/04/22 12:01 Interval history: Date of service: 02/03/2022 Lore Jacobs is a 46-year-old female with a history of asthma, anxiety, GERD, hypertension, IBS-C, SAMANTHA, and tobacco abuse who is seen in follow-up for epigastric pain radiating around to the left shoulder and flank and occasionally down the left arm. She describes this pain as a constant ache which she rates as 3/10 with intermittent stabbing pain that lasts for several minutes. She does endorse nausea today but no emesis. She states that she did start a new diet regimen 1 week ago consisting of a low carb, low sugar, high-protein diet. She denies palpitations or shortness of breath. She denies dizziness, lightheadedness, weakness. She had a normal bowel movement this morning. Review of Systems Review of Systems: All systems reviewed & are unremarkable except as noted in HPI and below Exam Narrative: General: Well-nourished, well-appearing 46-year-old female, sitting up in bed, comfortable, NARD Neuro: awake, alert and oriented x4, speech clear, no focal neuro deficits noted HEENMT: normocephalic, atraumatic, EOMI, sclerae anicteric Respiratory: clear to auscultation bilaterally, nonlabored breathing Cardio: regular rate, regular rhythm with S1-S2 Chest: reproducible pain with palpation of lower sternal/upper epigastric region Abdomen: nondistended, normoactive bowel sounds, soft, tender to palpation in epigastric and periumbilical region Extremities: no edema, erythema, or tenderness to palpation, DP pulses 2+ bilaterally Skin: no rashes or lesions, warm and dry Psych: appropriate mood and affect, judgment and insight intact Objective Data Vital Signs Vital Signs: Vital Signs - 24 hr 02/03/22 14:00 02/03/22 19:57 02/03/22 20:00 Temperature 97.2 F L 96.5 F L Pulse Rate 65 69 Respiratory Rate 16 17 Blood Pressure 103/68 100/71 Pulse Oximetry 100 99 Oxygen Delivery Room Air 02/04/22 04:38 02/04/22 08:40 Temperature 97.8 F Pulse Rate 76 Respiratory Rate 17 Blood Pressure 118/74 Pulse Oximetry 9
[2022-02-04] MEDS: LACTATED RINGERS 1,000 ML 150 ML IV CONT (14:21)
--- NOTE | 2022-02-04 15:08 | WPDANESEPPF ---
Anes - Initial Pre Proc Eval Procedure: Operation Date: 02/04/22 15:30 Proposed Procedures p Esophagogastroduodenoscopy - [place] MD Date/Time: 02/04/22 15:08 Surgeon: Lizzeth Victoria PA-C Pre Op Diagnosis: Epigastric Abdominal Pain Intractable Patient Data Age: 46 Gender: F Height: 1.7 m Weight: 84.3 kg Last Vital Signs Temp 36.1 C L 02/04/22 14:22 Pulse 62 02/04/22 14:22 Resp 20 02/04/22 14:22 BP 96/62 L 02/04/22 14:22 Pulse Ox 100 02/04/22 14:22 O2 Del Method Room Air 02/04/22 14:22 Allergies Allergy/AdvReac Type Severity Reaction Status Date / Time amoxicillin Allergy Intermediate Rash Verified 02/02/22 22:24 Cephalosporins Allergy Intermediate Rash Verified 02/02/22 22:24 Penicillins Allergy Intermediate Rash Verified 02/02/22 22:24 ketorolac AdvReac Intermediate Nausea and Verified 02/02/22 22:24 Vomiting clarithromycin AdvReac Mild GI Verified 02/02/22 22:24 Home Medications Medication Instructions Recorded Confirmed Type lisinopril 10 mg tablet 10 mg PO DAILY #90 tabs 04/12/21 02/02/22 Rx omeprazole 40 mg capsule,delayed 40 mg PO DAILY #90 caps 04/12/21 02/02/22 Rx release cyclobenzaprine 10 mg tablet 10 mg PO TID PRN muscle spasm #90 07/04/21 02/02/22 Rx tabs duloxetine 20 mg capsule,delayed 20 mg PO DAILY #90 caps 07/04/21 02/02/22 Rx release famotidine 40 mg tablet 40 mg PO DAILY #90 tabs 07/04/21 02/02/22 Rx diclofenac sodium 50 mg 50 mg PO DAILY 02/02/22 02/03/22 History tablet,delayed release Laboratory Tests 02/04/22 02/04/22 05:17 05:17 WBC 5.5 K/mm3 K/mm3 (4.5-10.0) RBC 4.49 M/mm3 M/mm3 (4.2-5.4) Hgb 13.3 g/dL g/dL (12.0-15.0) Hct 41.6 % % (37.0-47.0) MCV 92.7 fl fl (80-100) MCH 29.6 pg pg (26-34) MCHC 32.0 g/dl g/dl (32-36) RDW 12.4 % % (11.5-14.5) Plt Count 212 k/mm3 k/mm3 (150-375) MPV 11.1 fl H fl (7.4-10.4) Sodium 140 mmol/L mmol/L (137-145) Potassium 4.9 mmol/L mmol/L (3.4-5.0) Chloride 110 mmol/L H mmol/L (98-107) Carbon Dioxide 25 mmol/L mmol/L (22-30) Anion Gap 5 mmol/L L mmol/L (8-16) BUN 23 mg/dL H mg/dL (7-17) Creatinine 0.90 mg/dL mg/dL (0.7-1.0) Estim Creat Clear Calc 75 ml/min ml/min Estimated GFR > 60 (59 - ) Glucose 105 mg/dL mg/dL (65-110) Calcium 8.6 mg/dL mg/dL (8.4-10.2) Patient hx anesthesia problems: none Family hx anesthesia problems: none Results Review: All pre-operative results and documents have been reviewed as part of the pre-operative evaluation. [facility] Past Medical History Medical History Anxiety Asthma Back pain with history of spinal surgery BMI 29.0-29.9,adult BMI 30.0-30.9,adult BMI 31.0-31.9,adult BMI 33.0-33.9,adult COVID-19 GERD (gastroesophageal reflux disease) Hypertension Hypertension IBS (irritable bowel syndrome) Major depressive disorder, single episode, unspecified Nausea SAMANTHA (obstructive sleep apnea) Tobacco abuse Surgical History Surgical History H/O section X3 H/O: hysterectomy Open partial hysterectomy followed by left salpingo-oophorectomy and eventually right salpingo-oophorectomy. Total of 3 surgeries. History of back surgery X3 History of carpal tunnel release Bilaterally History of laparoscopy x 2 exploratory laparoscopy due to abdominal pain in her 20's with no reported significant findings. Family History Family History Mother Diabetes mellitus Hypertension Heart disease COVID-19 Father Diabetes mellitus Hypertension Heart disease COVID-19 Sibling COVID-19 Social History Social History So
[2022-02-04] MEDS: BENZOCAINE (*SP) 60 ML SPRAY CAN (HURRICAINE) 1 SPRAY MUCOUS MEM (15:58)
[2022-02-04] MEDS: BELLADONNA ALK/PHENOB ELIX 10 ML, MAG HYDROX/ALUMINUM HYD/SIMETH 30 ML, LIDOCAINE HCL 2... PO (20:30)
[2022-02-05 05:09] VITALS: BP 104/73; PULSE 68; RESP 20; TEMP 36.7; O2SAT 99
[2022-02-05 05:44] LABS: Hemoglobin 13.2 g/dL (12.0-15.0); Mean Corpuscular Hemoglobin 29.7 pg (26-34); Mean Corpuscular Volume 90.1 fl (80-100); Mean Platelet Volume 11.3 fl (7.4-10.4); Platelet Count Result 203 k/mm3 (150-375); Red Blood Count 4.44 M/mm3 (4.2-5.4); Red Cell Distribution Width 12.2 % (11.5-14.5); White Blood Count 5.9 K/mm3 (4.5-10.0)
[2022-02-05 06:01] LABS: Anion Gap 5 mmol/L (8-16); Blood Urea Nitrogen 14 mg/dL (7-17); Calcium 8.5 mg/dL (8.4-10.2); Carbon Dioxide 26 mmol/L (22-30); Chloride 109 mmol/L (98-107); Estimated CRCL calculation 75 ml/min; Estimated Glomerular Filt Rate > 60; Glucose 93 mg/dL (65-110); Potassium 4.6 mmol/L (3.4-5.0); Sodium 140 mmol/L (137-145)
[2022-02-05] MEDS: BELLADONNA ALK/PHENOB ELIX 10 ML, MAG HYDROX/ALUMINUM HYD/SIMETH 30 ML, LIDOCAINE HCL 2... PO (07:45)
[2022-02-05] MEDS: PANTOPRAZOLE 40 MG TABLET PO (08:46)
[2022-02-05] MEDS: DULoxetine HCL 20 MG CAPSULE.DR PO (08:46)
[2022-02-05] MEDS: FAMOTIDINE 20 MG TABLET 40 MG PO (08:46)
[2022-02-05] MEDS: lisinopriL 10 MG TABLET PO (08:47)
--- NOTE | 2022-02-05 10:40 | PM.CNCAR ---
Assessment and Plan Assessment and plan (1) Chest pain: Code(s): R07.9 - Chest pain, unspecified Status: Acute Assessment and Plan: [place] r/o by serial troponin and EKG. This is due to heartburn/gastritis. No further cardiac workup needed. (2) Obstructive sleep apnea: Code(s): G47.33 - Obstructive sleep apnea (adult) (pediatric) Status: Acute Assessment and Plan: Advise to use CPAP regularly. F/U with me in 1-2 weeks. (3) History of tobacco use: Code(s): Z87.891 - Personal history of nicotine dependence Status: Acute Assessment and Plan: Counseled regarding smoking cessation. (4) Hypertension: Qualifiers: Hypertension type: essential hypertension Qualified Code(s): I10 - Essential (primary) hypertension Code(s): I10 - Essential (primary) hypertension Status: Chronic Assessment and Plan: Stable. History of Present Illness History of Present Illness Consult date/time: 02/05/22 10:40 Consult reason: chest pain Reason For Visit: Epigastric Abdominal Pain Intractable Narrative: 46 yr old woman who is my regular cardiology patient presented to ED for chest pain. She has a history of hypertension, SAMANTHA, GERD. States she had heartburn in November and again a few days ago prompting her to come in to ER. States pain would come up in to her chest as sharp pain radiating to jaw, and left shoulder and arm, worse upon lying down. She had EGD yesterday that showed gastritic. Reports that in last few months she noted HOWE walking less than 1 block but more limited by chronic back pain which she had 3 surgeries. Admits to snoring, waking up and daytime sleepiness. She smokes 1/3 ppd quit last week. Denies orthopnea, PND, edema, palpitations, dizziness. Cardiovascular Procedures Rand Tacker:: 10/18/20 CTA of heart at [facility]: Normal coronaries with calcium score 0. 5 mm nodule in RLL with left pulm artery enlarged, r/o pulm stenosis. Echo/MUGA:: 09/22/20 Echo: EF >70%, grade II diastolic dysfunction (E/e' 9). Electrophysiology:: 09/22/20 EKG: Sinus bradycardia at 56 bpm, LVH with ST-T change, ST-T abnormality consider anterolat/high lat ischemia. Stress Tests:: 11/28/20 Sleep study: Mod SAMANTHA with desaturation to 88%. Review of Systems Review of Systems: All systems reviewed & are unremarkable except as noted in HPI and below Constitutional: Constitutional: Reports as per HPI, Denies chills and Denies fever(s) Cardiovascular: Cardiovascular: Reports as per HPI, Reports chest pain, Denies leg edema and Denies lightheadedness Respiratory: Respiratory: Reports as per HPI and Denies dyspnea Gastrointestinal: Gastrointestinal: Reports as per HPI and Reports heartburn Genitourinary: Genitourinary: Reports as per HPI and Denies dysuria Musculoskeletal: Musculoskeletal: Reports as per HPI Neurologic: Reports as per HPI, Denies dizziness and Denies syncope PMFSH Past Medical History Medical History Anxiety Asthma Back pain with history of spinal surgery BMI 29.0-29.9,adult BMI 30.0-30.9,adult BMI 31.0-31.9,adult BMI 33.0-33.9,adult COVID-19 GERD (gastroesophageal reflux disease) Hypertension Hypertension IBS (irritable bowel syndrome) Major depressive disorder, single episode, unspecified Nausea SAMANTHA (obstructive sleep apnea) Tobacco abuse Surgical History Surgical History H/O section X3 H/O: hysterectomy Open partial hysterectomy followed by left salpingo-oophorectomy and eventually right salpingo-oophorectomy. Total of 3 surgeries. History of back surgery X3 History of carpal tunnel release Bilaterally History of laparoscopy x 2 exploratory laparoscopy due to abdominal pain in her 20's with no reported significant findings. Family History Family History Mother Diabete
--- NOTE | 2022-02-05 11:33 | WPDANESPN ---
Anes - Prog Note Post-Op Date/Time: 02/05/22 11:33 Cardiovascular status: normal Respiratory status: normal Airway patency: baseline Mental status: baseline Post-Op hydration status: normal Vital Signs: Last Vital Signs Temp 36.7 C 02/05/22 05:09 Pulse 68 02/05/22 05:09 Resp 20 02/05/22 05:09 BP 104/73 02/05/22 05:09 Pulse Ox 99 02/05/22 05:09 O2 Del Method Room Air 02/05/22 07:56 Pain Score (VAS): /10 I/O: Intake & Output 02/04/22 02/05/22 02/05/22 23:59 07:59 15:59 Intake Total 860 290 440 Output Total 700 Balance 860 290 -260 Laboratory Tests 02/05/22 05:32 02/05/22 05:32 02/05/22 02/05/22 05:32 05:32 WBC 5.9 RBC 4.44 Hgb 13.2 Hct 40.0 MCV 90.1 MCH 29.7 MCHC 33.0 RDW 12.2 Plt Count 203 MPV 11.3 H Sodium 140 Potassium 4.6 Chloride 109 H Carbon Dioxide 26 Anion Gap 5 L BUN 14 D Creatinine 0.90 Estim Creat Clear Calc 75 Estimated GFR > 60 Glucose 93 Calcium 8.5 Patient Feedback: Patient satisfied with anesthetic care.
[2022-02-05 14:05] VITALS: BP 94/59; PULSE 60; RESP 18; TEMP 36.3; O2SAT 100
--- NOTE | 2022-02-05 15:07 | PM.DS ---
DS: Admitting Diagnosis Discharge Date 02/05/2022 Admitting Diagnosis Epigastric pain DS: Discharge Diagnosis Discharge Diagnosis (1) Abdominal pain, epigastric: Code(s): R10.13 - Epigastric pain Status: Acute Assessment and Plan: Atypical presentation with epigastric pain radiating to the neck and shoulder. GI etiology most likely. ACS less likely. Troponin negative x3. EKG reviewed and appeared unremarkable. She is established with Dr. Renteria and reports attempted a stress test several months ago but not able to be completed for unclear reasons. Seen in consultation by GI CT of the abdomen/pelvis with no acute process EGD showed mild gastritis for which she will continue taking omeprazole and avoid NSAIDs. Seen in consultation by cardiology. Symptoms felt to be consistent with gastritis. No further cardiac workup needed. (2) GERD (gastroesophageal reflux disease): Qualifiers: Esophagitis presence: esophagitis presence not specified Qualified Code(s): K21.9 - Gastro-esophageal reflux disease without esophagitis Code(s): K21.9 - Gastro-esophageal reflux disease without esophagitis Status: Chronic Assessment and Plan: See above Continue omeprazole. (3) IBS (irritable bowel syndrome): Code(s): K58.9 - Irritable bowel syndrome without diarrhea Status: Acute Assessment and Plan: No issues (4) Tobacco abuse: Code(s): Z72.0 - Tobacco use Status: Acute Assessment and Plan: Patient smokes 1 pack per day Reports she quit smoking on 01/28/22. She has been using CBD cigarettes as an alternative Complete smoking cessation was reinforced. (5) Back pain with history of spinal surgery: Code(s): M54.9 - Dorsalgia, unspecified; Z98.890 - Other specified postprocedural states Status: Acute Assessment and Plan: No acute issues Supportive care DS: Summary Hospital Course Hospital Course: Date of admission: 02/02/2022 Date of discharge: 02/05/2022 Lore Jacobs is a 46-year-old female with a history of asthma, anxiety, GERD, hypertension, IBS-C, SAMANTHA, and tobacco abuse who presented to the emergency department on 02/02/2022 with complaints of epigastric pain radiating around to the left shoulder, neck, left arm, and flank. On presentation to the ED, her vital signs were stable, CBC and BMP unremarkable, troponin negative, and CT a/p with no acute process. She was admitted to the hospitalist service for further evaluation and management when seen in consultation by Gastroenterology and Cardiology. She underwent EGD which revealed mild gastritis. Given her atypical symptom presentation, she was evaluated by Cardiology as well to ensure that ischemic evaluation was not required. Troponins were negative and symptoms were felt to be secondary to GERD/gastritis. Discussed dietary and lifestyle modifications and she will continue taking omeprazole. She will contact her PCP for follow-up within 1 week. 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 She was feeling improved and was eager for discharge home. Given overall improvement, she was determined to no longer require inpatient care and was discharged in hemodynamically stable condition on 02/05/2022. Status at Discharge Functional status at discharge: independent ambulation Overall status at discharge: patient is progressing back to baseline Time Spent with Patient Time attestation: Total time spent providing and/or coordinating discharge services: 45 minutes Time spent: Greater than 30 minutes Exam Narrative: General: Well-nourished, well-appearing 46-year-old female, sitting up in bed, comfortable, NARD Neuro: awake, alert and oriented x4, speech clear, no focal neuro deficits noted HEENMT: normocephalic, atraumatic, EOMI, sclerae anicteric Respiratory: clear to auscultat
== END 2022-02-05 16:20 | disposition home or self-care (01) ==
LOC: ANHED 21:22 → ANH2MED 21:39
PROVIDERS: Internal Medicine Gastroenterology; Admitting Provider Internal Medicine; Emergency Provider Emergency Medicine; PCP Family Medicine; Visit Provider Physician Assistant
PROC: 0DJ08ZZ Inspection of Upper Intestinal Tract, Via Natural or Artificial Opening Endoscopic (ICD-10-PCS; CPT 43235; principal; 2022-02-04 15:30)
DX: R07.9 Chest pain, unspecified (principal); R10.13 Epigastric pain; K29.70 Gastritis, unspecified, without bleeding; J45.909 Unspecified asthma, uncomplicated; K21.9 Gastro-esophageal reflux disease without esophagitis; Z86.16 Personal history of COVID-19; I10 Essential (primary) hypertension; G47.33 Obstructive sleep apnea (adult) (pediatric); F17.210 Nicotine dependence, cigarettes, uncomplicated; K58.9 Irritable bowel syndrome, unspecified; M54.9 Dorsalgia, unspecified; G56.23 Lesion of ulnar nerve, bilateral upper limbs; F41.9 Anxiety disorder, unspecified
CPT/HCPCS: 43239; 36415; 71046; 74177; 76705; 80048; 80053; 81025; 83690; 84484; 85025; 85027; 85380; 85610; 85730; 88305; 93005; 96365; 96375; 96376; 99285; A9270; G0378; J0131; J2001; J2270; J2704; J7120; Q9967

== ENCOUNTER 2022-09-06 06:54 | Emergency (ER) | payer OTHER, SELFPAY ==
--- NOTE | ~2022-09-06 | CT_ITS ---
EXAMINATION: CT abdomen pelvis w con DATE: 09/06/2022 08:26 INDICATION: Abdominal pain TECHNIQUE: Computed tomography (CT) of the abdomen and pelvis was performed with 100 mL Omnipaque-350 intravenous contrast. Automated exposure control and iterative reconstruction technique were employe d. The dose-length product was 990.89 mGy-cm. COMPARISON: 02/02/2022 FINDINGS: Lung bases are clear. Heart size is normal. No pericardial or pleural effusion. Liver, gallbladder, s pleen, pancreas, bilateral adrenal glands and kidneys are normal. There is mild colonic diverticulosi s with a sigmoid predominance. There is no adjacent inflammatory change to suggest diverticulitis. Small bowel and appendix are normal. Bladder is normal. The uterus is not identified and has likely b een surgically resected. No free intraperitoneal gas or fluid. No pathologically enlarged abdominal o r pelvic lymphadenopathy. Prominent metallic streak artifact associated with an anterior spinal fusio n with interbody bone graft cages and anterior plate and screws at both L4-L5 and L5-S1. Likely benig n chronic small sclerotic lesion at the right sacral ala which is minimally changed since 02/05/2014. IMPRESSION: 1. Mild diverticulosis without acute intra-abdominal/pelvic process. Reviewed, dictated and finalized at location B. E BOTTOM WORKER
--- NOTE | ~2022-09-06 | XR_ITS ---
Clinical Indication: Chest pain PA and lateral views of the chest: Comparison: 02/02/2022 Findings: The lungs are clear, without evidence of focal consolidation or pleural effusion. Cardiome diastinal silhouette is within normal limits. Bones and soft tissues are unremarkable. Impression: Normal chest. Reviewed, dictated and finalized at location . METER OPERATOR Impression: Normal chest.
[2022-09-06 06:57] VITALS: BP 134/73; PULSE 80; RESP 23; TEMP 36.6; O2SAT 100
--- NOTE | 2022-09-06 07:00 | ECG_ITS ---
Measurements Intervals [place] Rate: 65 P: 59 [place]: 156 QRS: -4 QRSD: 99 T: 142 QT: 415 QTc: 435 Interpretive Statements SINUS RHYTHM WITH SINUS ARRHYTHMIA POSSIBLE LEFT ATRIAL ENLARGEMENT DELAYED PRECORDIAL R/S TRANSITION LEFT VENTRICULAR HYPERTROPHY AND ST-T CHANGE BORDERLINE ST-T WAVE ABNORMALITY- ANTEROLATERAL LEADS BASELINE ARTIFACT- I, II, III, AVR, AVL, AVF, V5-V6 BORDERLINE ECG COMPARED TO ECG 02/02/2022 14:10:09 SINUS RHYTHM NOW PRESENT SINUS ARRHYTHMIA NOW PRESENT LEFT VENTRICULAR HYPERTROPHY NOW PRESENT ST (T WAVE) DEVIATION NOW PRESENT Electronically Signed On 09-06-2022 8:01:16 FOUNDRY WORKER APPRENTICE by Quinten Renteria D.O.
--- NOTE | 2022-09-06 07:11 | ED.CHESTPAIN ---
HPI - Chest Pain General Chief Complaint: Chest Pain Stated Complaint: pain Time Seen by Provider: 09/06/22 07:09 Source: RN notes reviewed History of Present Illness HPI narrative: Patient presents emergency department from home for epigastric abdominal pain. Patient states that she has a history of chronic GERD she states that approximately 5 days ago she developed nausea and vomiting and not been eating as well. States that this seemed to flared up her GERD pain became worse last night the pain was located in the epigastric region described as burning in nature does not radiate. She denies any fevers or chills she denies any shortness of breath she denies any current vomiting or diarrhea but does note nausea states that she has been taking her medications as prescribed Related Data Home Medications Medication Instructions Recorded Confirmed tramadol 50 mg tablet 50 mg PO Q6H PRN 04/05/22 04/05/22 Allergies Allergy/AdvReac Type Severity Reaction Status Date / Time amoxicillin Allergy Intermediate Rash Verified 09/06/22 07:19 Cephalosporins Allergy Intermediate Rash Verified 09/06/22 07:19 Penicillins Allergy Intermediate Rash Verified 09/06/22 07:19 ketorolac AdvReac Intermediate Nausea and Verified 09/06/22 07:19 Vomiting clarithromycin AdvReac Mild GI Verified 09/06/22 07:19 Review of Systems Review of Systems: Gen.: Denies fevers or chills ENT: Denies congestion Respiratory: Denies shortness of breath or cough CV: Denies chest pain or palpitations GI: See HPI Musculoskeletal: Denies back pain or muscle pain Neuro: Denies numbness, tingling, weakness or focal weakness Skin: Denies rash Except as documented, all other systems reviewed and negative [facility] Past Medical History Medical History Anxiety Asthma Back pain with history of spinal surgery BMI 29.0-29.9,adult BMI 30.0-30.9,adult BMI 31.0-31.9,adult BMI 33.0-33.9,adult COVID-19 GERD (gastroesophageal reflux disease) Hypertension Hypertension IBS (irritable bowel syndrome) Major depressive disorder, single episode, unspecified Nausea SAMANTHA (obstructive sleep apnea) Tobacco abuse Surgical History Surgical History H/O section X3 H/O: hysterectomy Open partial hysterectomy followed by left salpingo-oophorectomy and eventually right salpingo-oophorectomy. Total of 3 surgeries. History of back surgery X3 History of carpal tunnel release Bilaterally History of laparoscopy x 2 exploratory laparoscopy due to abdominal pain in her 20's with no reported significant findings. Family History Family History Mother Diabetes mellitus Hypertension Heart disease COVID-19 Father Diabetes mellitus Hypertension Heart disease COVID-19 Sibling COVID-19 Social History Social History Social History: She smokes A pack a cigarettes a day. 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 She is . She has 3 children. She is a full code and desires to have her to be her decision-maker if needed. She does not use alcohol marijuana or illicit drugs. 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
[2022-09-06] MEDS: SODIUM CHLORIDE 0.9% IV 1,000 ML 999 ML IV CONT (07:38)
[2022-09-06] MEDS: ONDANSETRON INJ 4 MG/2 ML VIAL IV PUSH (07:38)
[2022-09-06 07:53] LABS: Alanine Aminotransferase 60 U/L (6-35); Albumin Level 4.3 g/dL (3.5-5.1); Alkaline Phosphatase 91 U/L (38-126); Anion Gap 4 mmol/L (8-16); Aspartate Amino Transferase 48 U/L (14-36); Bilirubin,Total 0.6 mg/dL (0.2-1.3); Blood Urea Nitrogen 9 mg/dL (7-17); Calcium 8.6 mg/dL (8.4-10.2); Carbon Dioxide 29 mmol/L (22-30); Chloride 105 mmol/L (98-107); Estimated CRCL calculation 86 ml/min; Estimated Glomerular Filt Rate > 60; Glucose 102 mg/dL (65-110); Lipase 81 U/L (23-300); Potassium 3.8 mmol/L (3.4-5.0); Sodium 138 mmol/L (137-145)
[2022-09-06 07:54] LABS: Prothrombin Time 12.3 Seconds (11.1-14.7)
[2022-09-06 07:56] LABS: Partial Thromboplastin Time 24.8 SECONDS (22.3-36.8)
[2022-09-06 08:04] LABS: Troponin I < 0.012 ng/mL (0.000-0.034)
[2022-09-06 08:06] VITALS: PULSE 61; RESP 20; O2SAT 100
[2022-09-06 08:07] LABS: Basophils Percent Auto 0.5 % (0.2-1.2); Eosinophils Percent Auto 0.2 % (0-4.4); Hematocrit 42.7 % (37.0-47.0); Hemoglobin 13.8 g/dL (12.0-15.0); Immature Granulocyte Absolute 0.01 K/mm3 (0.00-0.031); Immature Granulocyte Percent A 0.2 % (0-0.5); Lymphocytes Absolute Auto 2.47 K/mm3 (0.9-3.2); Lymphocytes Percent Auto 60.1 % (18.3-44.2); Mean Corpuscular HGB Conc 32.3 g/dl (32-36); Mean Corpuscular Hemoglobin 28.5 pg (26-34); Mean Corpuscular Volume 88.2 fl (80-100); Mean Platelet Volume 11.9 fl (7.4-10.4); Monocytes Absolute Auto 0.4 K/mm3 (0.1-0.6); Monocytes Percent Auto 8.8 % (2.6-8.5); Neutrophils Absolute Auto 1.2 K/mm3 (1.3-6.7); Neutrophils Percent Auto 30.2 % (45.5-73.1); Platelet Count Result 196 k/mm3 (150-375); Red Blood Count 4.84 M/mm3 (4.2-5.4); Red Cell Distribution Width 12.5 % (11.5-14.5); White Blood Count 4.1 K/mm3 (4.5-10.0)
[2022-09-06 08:26] LABS: Influenza A QL RT-PCR Positive (Negative); Influenza B QL RT-PCR Negative (Negative); SARS-CoV-2 RNA PCR Negative
[2022-09-06 10:01] VITALS: BP 109/75; PULSE 56; RESP 17; O2SAT 100
[2022-09-06] MEDS: MORPHINE SULFATE (*CRX) 2 MG/ML INJ IV PUSH (10:34)
[2022-09-06 10:40] LABS: Troponin I < 0.012 ng/mL (0.000-0.034)
[2022-09-06 11:15] VITALS: PULSE 62; RESP 18; O2SAT 99
== END 2022-09-06 11:17 | disposition home or self-care (01) ==
PROVIDERS: Family Medicine; Emergency Provider Emergency Medicine; PCP Family Medicine
DX: J10.1 Influenza due to other identified influenza virus with other respiratory manifestations (principal); R10.13 Epigastric pain; Z20.822 Contact with and (suspected) exposure to COVID-19; I10 Essential (primary) hypertension; K21.9 Gastro-esophageal reflux disease without esophagitis; K58.9 Irritable bowel syndrome, unspecified; G47.33 Obstructive sleep apnea (adult) (pediatric); Z86.16 Personal history of COVID-19; Z90.711 Acquired absence of uterus with remaining cervical stump; Z90.722 Acquired absence of ovaries, bilateral; Z90.79 Acquired absence of other genital organ(s); F17.210 Nicotine dependence, cigarettes, uncomplicated; K57.90 Diverticulosis of intestine, part unspecified, without perforation or abscess without bleeding; R94.31 Abnormal electrocardiogram [ECG] [EKG]; I51.7 Cardiomegaly
CPT/HCPCS: 36415; 71046; 74177; 80053; 83690; 84484; 85025; 85610; 85730; 87636; 93005; 96360; 96374; 96375; 99284; A9270; J2270; J2405; J7030; Q9967

== ENCOUNTER 2022-09-11 13:28 | Outpatient (CLI) | payer OTHER, SELFPAY ==
--- NOTE | ~2022-09-11 | MR_ITS ---
MRI of the lumbar spine Clinical History: Radiculopathy Technique: Axial T2-weighted images, and sagittal T1-weighted, T2-weighted, and T2 fat-sat images wer e acquired. Following intravenous administration of 19 cc MultiHance gadolinium, T1-weighted fat-sat imaging was performed in the axial and sagittal planes. COMPARISON: 08/07/2021 Findings: There is anterior fusion hardware from L4 through S1, with associated susceptibility artifa ct in these regions. No acute fracture or sublocation seen. No bone marrow signal abnormality identif ied, outside the areas of susceptibility artifact. At L1-L2, there is no disc bulge or herniation. There is mild facet joint hypertrophy. No spinal randal l stenosis or neural foraminal narrowing. At L2-L3, there is no disc bulge or herniation. There is minimal facet joint hypertrophy. No spinal c anal stenosis or neural foraminal narrowing. At L3-L4, there is minimal disc bulge. No spinal canal stenosis or neural foraminal narrowing. At L4-L5, there is no disc bulge or herniation. There is left hemilaminectomy. No spinal canal stenos is. There is probable mild bilateral neural foraminal narrowing. At L5-S1, there is no disc bulge or herniation. No spinal canal stenosis. There is probable moderate to advanced bilateral neural foraminal narrowing, right worse than left. Paravertebral soft tissues are unremarkable. No abnormal postcontrast enhancement identified. Impression: Anterior fusion changes from L4 through S1, as detailed above, with associated left L4 hemilaminectom y. Probable moderate to advanced bilateral neural foraminal narrowing at L5-S1. Mild bilateral neural foraminal narrowing at L4-L5. Reviewed, dictated and finalized at [facility]. GE MASTER ANALYST Impression: Anterior fusion changes from L4 through S1, as detailed above, with associated left L4 hemilaminectomy. Probable moderate to advanced bilateral neural foraminal narrowing at L5-S1. Mild bilateral neural foraminal narrowing at L4-L5.
== END 2022-09-11 13:29 ==
PROVIDERS: PCP Family Medicine
DX: M48.061 Spinal stenosis, lumbar region without neurogenic claudication (principal); M54.16 Radiculopathy, lumbar region; Z98.1 Arthrodesis status
CPT/HCPCS: 72158; A9577

== ENCOUNTER 2022-10-02 11:41 | Emergency (ER) | payer OTHER, SELFPAY ==
--- NOTE | ~2022-10-02 | CT_ITS ---
EXAMINATION: CT lumbar spine wo con DATE: 10/02/2022 13:07 INDICATION: Back pain. Status post lumbar fusion in April. TECHNIQUE: Computed tomography (CT) of the lumbar spine was performed without intravenous contrast. T he dose-length product was 969.86 mGy-cm. COMPARISON: None FINDINGS: Status post anterior fusion at L4-5 and L5-S1 with placement of prosthetic disc devices at these levels. There is a left L5 hemilaminectomy. Vertebral body heights are maintained. There are en dplate degenerative changes at L5-S1 causing bilateral neural foraminal narrowing, right greater than left. There is mild levocurvature of the lumbar spine. No significant paraspinal soft tissue abnorma lity. Surgical hardware appears to be intact without evidence for loosening. IMPRESSION: 1. Postsurgical changes consistent with fusion at L4-S1 with left L5 hemilaminectomy. 2: Bilateral neural foraminal narrowing at L5-S1, right greater than left. Reviewed, dictated and finalized at location B. 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 Postsurgical changes consistent with fusion at L4-S1 with left L5 hemilamine ctomy. 2: Bilateral neural foraminal narrowing at L5-S1, right greater than left.
[2022-10-02 11:43] VITALS: BP 146/102; PULSE 89; RESP 18; TEMP 36.7; O2SAT 98
[2022-10-02] MEDS: HYDROmorphone HCL INJ (*CRX) 1 MG/ML SYR IV PUSH (13:28)
[2022-10-02] MEDS: diazePAM INJ (*CRX) 10 MG/2 ML SYRINGE 2.5 MG IV PUSH (13:28)
[2022-10-02] MEDS: ONDANSETRON INJ 4 MG/2 ML VIAL IV PUSH (13:28)
--- NOTE | 2022-10-02 13:48 | ED.BACK ---
HPI - Back Pain/Injury General Chief Complaint: Back Pain/Injury Stated Complaint: back pain Time Seen by Provider: 10/02/22 12:10 Source: patient Mode of arrival: wheelchair Limitations: no limitations History of Present Illness HPI Narrative: 47-year-old with a history of chronic low back pain here with complaints of back pain since yesterday. Patient's states he had multiple surgeries in the lower back saw her neurosurgeon In [facility] a week ago was doing fine , all off a sudden started to have severe pain in the lower back , denies any trauma or lifting , denies any bladder or bowel problems , no numbness in the legs .She states she is on diclofenac and cyclobenzaprine. Related Data Home Medications Medication Instructions Recorded Confirmed tramadol 50 mg tablet 50 mg PO Q6H PRN 04/05/22 04/05/22 Allergies Allergy/AdvReac Type Severity Reaction Status Date / Time amoxicillin Allergy Intermediate Rash Verified 10/02/22 11:47 Cephalosporins Allergy Intermediate Rash Verified 10/02/22 11:47 Penicillins Allergy Intermediate Rash Verified 10/02/22 11:47 ketorolac AdvReac Intermediate Nausea and Verified 10/02/22 11:47 Vomiting clarithromycin AdvReac Mild GI Verified 10/02/22 11:47 Review of Systems Review of Systems: All systems reviewed & are unremarkable except as noted in HPI and below Constitutional: Constitutional: Reports no additional constitutional complaints Eyes: Eyes: Reports no additional eye complaints ENT: Reports system reviewed and no additional complaints, except as documented Cardiovascular: Cardiovascular: Reports no additional cardiovascular complaints Respiratory: Respiratory: Reports no additional respiratory complaints Gastrointestinal: Gastrointestinal: Reports no additional gastrointestinal complaints Musculoskeletal: Musculoskeletal: Reports as per HPI Integumentary/Breasts: Skin/Breast: Reports system reviewed and no additional complaints, except as docu PMFSH Past Medical History Medical History Anxiety Asthma Back pain with history of spinal surgery BMI 29.0-29.9,adult BMI 30.0-30.9,adult BMI 31.0-31.9,adult BMI 33.0-33.9,adult COVID-19 GERD (gastroesophageal reflux disease) Hypertension Hypertension IBS (irritable bowel syndrome) Major depressive disorder, single episode, unspecified Nausea SAMANTHA (obstructive sleep apnea) Tobacco abuse Surgical History Surgical History H/O section X3 H/O: hysterectomy Open partial hysterectomy followed by left salpingo-oophorectomy and eventually right salpingo-oophorectomy. Total of 3 surgeries. History of back surgery X3 History of carpal tunnel release Bilaterally History of laparoscopy x 2 exploratory laparoscopy due to abdominal pain in her 20's with no reported significant findings. Family History Family History Mother Diabetes mellitus Hypertension Heart disease COVID-19 Father Diabetes mellitus Hypertension Heart disease COVID-19 Sibling COVID-19 Social History Social History Social History: She smokes A pack a cigarettes a day. 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 She is . She has 3 children. She is a full code and desires to have her to be her decision-maker if needed. She does not use alcohol marijuana or illicit drugs. Smoking packs per day: 1 Smoking cigarettes per day: 20.0 Years smoked: 20 Smoking pack-years: 20.00 Smoking status: Former smoker Tobacco type: cigarettes Second hand tobacco smoke exposure: No Smoking end date: 01/28/22 Alcohol intake: never Substance use: never Substance use type: does not use Living arrangements: with family Occupation/Educat
[2022-10-02 14:36] VITALS: BP 138/60; PULSE 70; RESP 12; O2SAT 96
== END 2022-10-02 14:37 | disposition home or self-care (01) ==
PROVIDERS: Emergency Provider Family Medicine; PCP Family Medicine
DX: M54.50 Low back pain, unspecified (principal); Z87.891 Personal history of nicotine dependence; F41.9 Anxiety disorder, unspecified; J45.909 Unspecified asthma, uncomplicated; K21.9 Gastro-esophageal reflux disease without esophagitis; I10 Essential (primary) hypertension; F32.9 Major depressive disorder, single episode, unspecified; Z86.16 Personal history of COVID-19
CPT/HCPCS: 72131; 96374; 96375; 99284; J1100; J1170; J2405; J3360

== ENCOUNTER 2022-12-09 11:03 | Emergency (ER) | payer OTHER, SELFPAY ==
--- NOTE | ~2022-12-09 | US_ITS ---
EXAMINATION: US venous doppler LE DATE: 12/09/2022 14:06 INDICATION: Chest pain TECHNIQUE: Grayscale ultrasound images without and with compression and Doppler ultrasound images of the right lower extremity veins were obtained. COMPARISON: None. FINDINGS: The visualized portions of right common femoral vein, profunda (deep) femoral vein, femoral vein, pop liteal vein, peroneal trunk, posterior tibial veins, peroneal veins, gastrocnemius vein and greater s aphenous vein outflow are patent. IMPRESSION: 1. No deep venous thrombosis in the right lower limb. Reviewed, dictated and finalized at location B.
--- NOTE | ~2022-12-09 | XR_ITS ---
Clinical Indication: Chest pain PA and lateral views of the chest: Comparison: 09/06/2022 Findings: The lungs are clear, without evidence of focal consolidation or pleural effusion. Cardiome diastinal silhouette is within normal limits. Bones and soft tissues are unremarkable. Impression: Normal chest. Reviewed, dictated and finalized at location . Impression: Normal chest.
--- NOTE | ~2022-12-09 | CT_ITS ---
EXAMINATION: CTA chest PE protocol DATE: 12/09/2022 15:01 INDICATION: right chest pain TECHNIQUE: Computed tomography angiography (CTA) of the chest was performed with 100 mL Omnipaque-350 intravenous contrast timed to evaluate the pulmonary arteries. Coronal maximum intensity projection 3D-reconstructions were created by the technologist. The dose-length product (DLP) was 461.19 mGy-cm. Automated exposure control and iterative reconstruction technique were employed. COMPARISON: X-ray chest, same date. FINDINGS: Lung parenchyma and airways: Mild dependent atelectasis. Pleura: Unremarkable. Thoracic inlet, axillae and chest wall: Unremarkable. Thoracic aorta: Normal. Mediastinum: Normal. Heart and pericardium: Normal. Coronary artery calcifications: Absent. Upper abdomen: No significant finding. Subcentimeter hypodensity in the right liver lobe, too small t o characterize but likely represents a cyst. Bones: No acute osseous finding. Pulmonary arteries: Study quality: Adequate. No pulmonary emboli detected. IMPRESSION: No CT evidence of acute pulmonary embolus. No acute thoracic process detected. Reviewed, dictated and finalized at location K.
--- NOTE | 2022-12-09 11:08 | ECG_ITS ---
Measurements Intervals [place] Rate: 80 P: 58 SD: 169 QRS: 3 QRSD: 92 T: 171 QT: 382 QTc: 443 Interpretive Statements SINUS RHYTHM POSSIBLE LEFT ATRIAL ENLARGEMENT CANNOT RULE OUT SEPTAL INFARCT, AGE INDETERMINATE VOLTAGE CRITERIA FOR LVH ST-T WAVE ABNORMALITY IN LAT/HIGH LAT LEADS- CONSIDER ISCHEMIA ABNORMAL ECG COMPARISON TO PRIOR ECG 09-06-22 7:05 NO SIGNIFICANT CHANGES Electronically Signed On 12-09-2022 11:31:07 CDT by Quinten Renteria D.O.
[2022-12-09 11:31] VITALS: BP 124/84; PULSE 79; RESP 14; TEMP 36.4; O2SAT 98
[2022-12-09 11:36] LABS: Basophils Percent Auto 0.6 % (0.2-1.2); Eosinophils Percent Auto 0.4 % (0-4.4); Hematocrit 40.6 % (37.0-47.0); Hemoglobin 13.1 g/dL (12.0-15.0); Immature Granulocyte Absolute 0.04 K/mm3 (0.00-0.031); Immature Granulocyte Percent A 0.6 % (0-0.5); Lymphocytes Percent Auto 34.9 % (18.3-44.2); Mean Corpuscular HGB Conc 32.3 g/dl (32-36); Mean Corpuscular Hemoglobin 29.2 pg (26-34); Mean Corpuscular Volume 90.4 fl (80-100); Mean Platelet Volume 11.1 fl (7.4-10.4); Monocytes Absolute Auto 0.6 K/mm3 (0.1-0.6); Monocytes Percent Auto 8.8 % (2.6-8.5); Neutrophils Absolute Auto 3.9 K/mm3 (1.3-6.7); Neutrophils Percent Auto 54.7 % (45.5-73.1); Platelet Count Result 262 k/mm3 (150-375); Red Blood Count 4.49 M/mm3 (4.2-5.4); Red Cell Distribution Width 12.8 % (11.5-14.5); White Blood Count 7.2 K/mm3 (4.5-10.0)
[2022-12-09 11:55] LABS: Alanine Aminotransferase 42 U/L (6-35); Albumin Level 4.6 g/dL (3.5-5.1); Alkaline Phosphatase 91 U/L (38-126); Anion Gap 7 mmol/L (8-16); Aspartate Amino Transferase 39 U/L (14-36); Bilirubin,Total 0.6 mg/dL (0.2-1.3); Blood Urea Nitrogen 15 mg/dL (7-17); Calcium 9.4 mg/dL (8.4-10.2); Carbon Dioxide 28 mmol/L (22-30); Chloride 103 mmol/L (98-107); Estimated CRCL calculation 86 ml/min; Estimated Glomerular Filt Rate > 60; Glucose 87 mg/dL (65-110); Lipase 39 U/L (23-300); Sodium 138 mmol/L (137-145)
[2022-12-09 11:56] LABS: Prothrombin Time 13.2 Seconds (11.1-14.7)
[2022-12-09 11:57] LABS: Partial Thromboplastin Time 29.6 SECONDS (22.3-36.8)
[2022-12-09 12:13] LABS: Troponin I < 0.012 ng/mL (0.000-0.034)
[2022-12-09 13:22] VITALS: BP 126/87; PULSE 80; RESP 19; O2SAT 100
[2022-12-09 13:31] VITALS: BP 129/91; PULSE 70; RESP 20; O2SAT 97
[2022-12-09 13:33] VITALS: PULSE 71; O2SAT 97
[2022-12-09] MEDS: MORPHINE SULFATE (*CRX) 4 MG/ML INJ IV PUSH (14:16)
[2022-12-09] MEDS: ONDANSETRON INJ 4 MG/2 ML VIAL IV PUSH (14:16)
--- NOTE | 2022-12-09 14:37 | ED.CHESTPAIN ---
HPI - Chest Pain General Chief Complaint: Chest Pain Stated Complaint: chest pain Time Seen by Provider: 12/09/22 13:12 Source: patient and RN notes reviewed Mode of arrival: ambulatory Limitations: no limitations History of Present Illness HPI narrative: This is a 47 year old female with history of chronic back issues s/p laminectomy 1 week ago at [facility]. She reports right anterior chest pain yesterday. This pain is worse with movement. She also reports mild shortness of breath. She denies cough, fever, chills, nausea or vomiting. She also reports is not worse with eating. She has not taken any medication today. She reports that her back has some pink drainage but she discussed with her surgeon. She has appointment this week. She also reports right leg pain that has been intermittent since her surgery. She denies any pain today. She is concerned for PE. Related Data Allergies Allergy/AdvReac Type Severity Reaction Status Date / Time amoxicillin Allergy Intermediate Rash Verified 12/09/22 13:32 Cephalosporins Allergy Intermediate Rash Verified 12/09/22 13:32 Penicillins Allergy Intermediate Rash Verified 12/09/22 13:32 ketorolac AdvReac Intermediate Nausea and Verified 12/09/22 13:32 Vomiting clarithromycin AdvReac Mild GI Verified 12/09/22 13:32 Review of Systems Constitutional: Constitutional: Denies weakness Cardiovascular: Cardiovascular: Denies syncope, Denies rapid heart rate, Denies irregular heart rhythm, Denies leg edema and Denies dyspnea Respiratory: Respiratory: Denies chest congestion, Denies hemoptysis, Denies excessive phlegm production and Reports dyspnea Gastrointestinal: Gastrointestinal: Denies abdominal pain, Denies hematochezia, Reports heartburn (chronic), Denies diarrhea and Denies vomiting Genitourinary: Genitourinary: Denies hematuria and Denies dysuria Musculoskeletal: Musculoskeletal: Denies joint swelling, Denies loss of height and Denies muscle weakness Neurologic: Denies syncope, Denies focal weakness and Denies weakness PMFSH Past Medical History Medical History Anxiety Asthma Back pain with history of spinal surgery BMI 29.0-29.9,adult BMI 30.0-30.9,adult BMI 31.0-31.9,adult BMI 33.0-33.9,adult COVID-19 GERD (gastroesophageal reflux disease) Hypertension Hypertension IBS (irritable bowel syndrome) Major depressive disorder, single episode, unspecified Nausea SAMANTHA (obstructive sleep apnea) Tobacco abuse Surgical History Surgical History H/O section X3 H/O: hysterectomy Open partial hysterectomy followed by left salpingo-oophorectomy and eventually right salpingo-oophorectomy. Total of 3 surgeries. History of back surgery X3 History of carpal tunnel release Bilaterally History of laparoscopy x 2 exploratory laparoscopy due to abdominal pain in her 20's with no reported significant findings. Family History Family History Mother Diabetes mellitus Hypertension Heart disease COVID-19 Lung cancer Father Diabetes mellitus Hypertension Heart disease COVID-19 Sibling COVID-19 Social History Social History Social History: She smokes A pack a cigarettes a day. 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 She is . She has 3 children. She is a full code and desires to have her to be her decision-maker if needed. She does not use alcohol marijuana or illicit drugs. Smoking packs per day: 1 Smoking cigarettes per day: 20.0 Years smoked: 20 Smoking pack-years: 20.00 Smoking status: Current some day smoker Tobacco type: cigarettes Second hand tobacco smoke exposure: No Smoking end date: 01/28/22 Alcohol intake: current Substance
[2022-12-09 15:08] LABS: Troponin I < 0.012 ng/mL (0.000-0.034)
[2022-12-09 15:40] VITALS: BP 113/97; PULSE 68; RESP 18; O2SAT 100
== END 2022-12-09 15:41 | disposition home or self-care (01) ==
PROVIDERS: Emergency Medicine; Emergency Provider General Practice; PCP Family Medicine
DX: R07.9 Chest pain, unspecified (principal); Z98.890 Other specified postprocedural states; J45.909 Unspecified asthma, uncomplicated; I10 Essential (primary) hypertension; K21.9 Gastro-esophageal reflux disease without esophagitis; K58.9 Irritable bowel syndrome, unspecified; G47.33 Obstructive sleep apnea (adult) (pediatric); F17.210 Nicotine dependence, cigarettes, uncomplicated; Z90.711 Acquired absence of uterus with remaining cervical stump; Z90.79 Acquired absence of other genital organ(s); Z90.722 Acquired absence of ovaries, bilateral; Z86.16 Personal history of COVID-19; R94.31 Abnormal electrocardiogram [ECG] [EKG]
CPT/HCPCS: 36415; 71046; 71275; 80053; 83690; 84484; 85025; 85380; 85610; 85730; 93005; 93971; 96374; 96375; 99284; J2270; J2405; Q9967

== ENCOUNTER 2023-01-24 19:30 | Emergency (ER) | payer OTHER, SELFPAY ==
[2023-01-24] VITALS (11 sets, daily range): BP systolic 109–188; BP diastolic 71–110; PULSE 72–91; RESP 15–24; TEMP 36.4; O2SAT 97–100
--- NOTE | ~2023-01-24 | CT_ITS ---
EXAMINATION: CT brain wo con DATE: 01/24/2023 21:15 INDICATION: tingling to R arm/face . TECHNIQUE: Computed tomography (CT) of the head was performed without intravenous contrast. The mA wa s adjusted according to patient size. Iterative reconstruction technique was employed. The dose-lengt h product was 681.00 mGy-cm. COMPARISON: 07/01/2020. FINDINGS: No acute intracranial hemorrhage or extra-axial fluid collection. No hydrocephalus, mass, or herniation. No acute ischemic infarct. Unremarkable dural venous sinus attenuation. No acute osseous abnormality. The aerated spaces are clear. Empty sella. Right ethmoid osteoma IMPRESSION: No acute intracranial process. Reviewed, dictated and finalized at location K.
--- NOTE | ~2023-01-24 | XR_ITS ---
EXAMINATION: XR chest 2V Exam Date/Time: 01/24/2023 20:09 CDT HISTORY: MID STERNAL CHEST PAIN THAT RADIATES TO RIGHT BREAST 1 WK Comparison: 12/09/2022. RESULT: Lines, tubes, and devices: None. Lungs and pleura: Clear. Cardiomediastinal silhouette: Stable. Other: No acute osseous or upper abdominal finding. IMPRESSION: No acute cardiopulmonary process. Reviewed, dictated and finalized at location K.
--- NOTE | 2023-01-24 19:32 | ECG_ITS ---
Measurements Intervals [place] Rate: 85 P: 62 IN: 174 QRS: 14 QRSD: 102 T: 128 QT: 337 QTc: 403 Interpretive Statements SINUS RHYTHM POSSIBLE LEFT ATRIAL ENLARGEMENT [-0.1mV P WAVE IN V1/V2] SEPTAL MYOCARDIAL INFARCTION , OF INDETERMINATE AGE [40+ ms Q WAVE IN V1/V2] MODERATE T-WAVE ABNORMALITY, CONSIDER LATERAL ISCHEMIA [-0.1+ mV T WAVE IN I/aVL/V5/V6] ABNORMAL ECG NO PREVIOUS ECG AVAILABLE FOR COMPARISON Electronically Signed On 01-25-2023 9:14:34 CDT by Tom Miranda M.D.
[2023-01-24 20:03] LABS: Basophils Percent Auto 0.5 % (0.2-1.2); Eosinophils Absolute Auto 0.1 K/mm3 (0-0.3); Eosinophils Percent Auto 0.7 % (0-4.4); Hematocrit 40.5 % (37.0-47.0); Immature Granulocyte Absolute 0.02 K/mm3 (0.00-0.031); Immature Granulocyte Percent A 0.2 % (0-0.5); Lymphocytes Percent Auto 46.4 % (18.3-44.2); Mean Corpuscular HGB Conc 32.1 g/dl (32-36); Mean Corpuscular Hemoglobin 28.9 pg (26-34); Mean Platelet Volume 11.1 fl (7.4-10.4); Monocytes Absolute Auto 0.5 K/mm3 (0.1-0.6); Monocytes Percent Auto 6.3 % (2.6-8.5); Neutrophils Absolute Auto 3.9 K/mm3 (1.3-6.7); Neutrophils Percent Auto 45.9 % (45.5-73.1); Platelet Count Result 262 k/mm3 (150-375); Red Cell Distribution Width 12.7 % (11.5-14.5); White Blood Count 8.4 K/mm3 (4.5-10.0)
[2023-01-24 20:19] LABS: INR 0.9; Prothrombin Time 12.6 Seconds (11.1-14.7)
[2023-01-24 20:20] LABS: Partial Thromboplastin Time 25.4 SECONDS (22.3-36.8)
[2023-01-24 20:24] LABS: Troponin I < 0.012 ng/mL (0.000-0.034)
--- NOTE | 2023-01-24 21:48 | ED.CHESTPAIN ---
HPI - Chest Pain General Chief Complaint: Chest Pain <Anyi Avalos MD - Last Filed: 01/25/23 21:16> Stated Complaint: chest pain, GERD <Anyi Avalos MD - Last Filed: 01/25/23 21:16> Time Seen by Provider: 01/24/23 19:53 <Anyi Avalos MD - Last Filed: 01/25/23 21:16> History of Present Illness HPI narrative: Patient presenting with chest pain on her right breast that she has had multiple times in the past, and which is attributed to GERD for which she is getting endoscopy with GI soon, she had been seen recently for this a few weeks ago, and had had a CTA that was normal at that time. She also has history of panic attacks. She has had numerous work-ups for chest pain in the past that have been unremarkable, no new symptoms other than when they happen, she was feeling slightly anxious and short of breath, and felt some tingling to her right arm and face, which is largely resolved. She has had similar symptoms in the past. No family history of strokes. <Anyi Avalos MD - Last Filed: 01/25/23 21:16> Related Data Allergies/Adverse Reactions: Allergies Allergy/AdvReac Type Severity Reaction Status Date / Time No Known Allergies Allergy Verified 01/25/23 01:19 <Anyi Avalos MD - Last Filed: 01/25/23 21:16> Review of Systems Review of Systems: CONST: No fever. HEENT: Tingling of face C/V: Chest pain RESP: No cough GI: No abdominal : No dysuria. M/S: No joint pain. SKIN: No rash. NEURO: Tingling of right arm PSYCH: Anxiety <Anyi Avalos MD - Last Filed: 01/25/23 21:16> [facility] Past Medical History Medical History: Medical History (Updated 01/24/23 @ 21:58 by Anyi Avalos MD) Anxiety GERD (gastroesophageal reflux disease) <Anyi Avalos MD - Last Filed: 01/25/23 21:16> Exam Narrative: EXAMINATION OF ORGAN SYSTEMS/BODY AREAS: Constitutional: Vital signs per nursing GENERAL:[No acute distress, non-toxic appearing.] HEAD: Normal with no signs of head trauma. EYES: EOMI, conjunctiva normal, PERRL ENT: Hearing grossly intact, no facial asymmetry LUNGS: Nonlabored breathing. CTAB HEART: [Regular rate and rhythm], normal and equal pulses bilateral ABD: [Soft], [nontender to palpation] BACK: No tenderness to back, incision c/d/i EXT: Normal range of motion SKIN: [No rashes or lesions.] NEURO: [Alert and oriented x 3. normal/equal strength/sensation to BUE, face; slight weakness/pain to BLE which is chronic / due to recent laminectomy/fusion surgery.] PSYCH: Normal affect <Anyi Avalos MD - Last Filed: 01/25/23 21:16> Course Vital Signs Vital signs: Vital Signs Temperature 97.5 F L 01/24/23 19:36 Pulse Rate 91 01/24/23 19:36 Respiratory Rate 20 01/24/23 19:36 Blood Pressure 188/101 H 01/24/23 19:36 Pulse Oximetry 99 01/24/23 19:36 Oxygen Delivery Room Air 01/24/23 19:36 Temperature 97.5 F L 01/24/23 19:36 Pulse Rate 82 01/25/23 02:14 Respiratory Rate 16 01/25/23 02:14 Blood Pressure 138/78 01/25/23 02:14 Pulse Oximetry 100 01/25/23 02:14 Oxygen Delivery Room Air 01/24/23 19:36 <Anyi Avalos MD - Last Filed: 01/25/23 21:16> Vital Signs Temperature 97.5 F L 01/24/23 19:36 Pulse Rate 91 01/24/23 19:36 Respiratory Rate 20 01/24/23 19:36 Blood Pressure 188/101 H 01/24/23 19:36 Pulse Oximetry 99 01/24/23 19:36 Oxygen Delivery Room Air 01/24/23 19:36 Temperature 97.5 F L 01/24/23 19:36 Pulse Rate 82 01/25/23 02:14 Respiratory Rate 16 01/25/23 02:14 Blood Pressure 138/78 01/25/23 02:14 Pulse Oximetry 100 01/25/23 02:14 Oxygen Delivery Room Air 01/24/23 19:36 <Robin Monsivais MD - Last Filed: 01/25/23 01:22> MDM - Chest Pain MDM Narrative Medical decision making narrative: Patient with history of anxiety/panic attacks, chest pain, back pain with multiple spine surgeries, presenting here chest pain x1wk, R sided tingling of arm and face. On exam patien
[2023-01-24 23:27] LABS: Alanine Aminotransferase 23 U/L (6-35); Albumin Level 4.7 g/dL (3.5-5.1); Alkaline Phosphatase 89 U/L (38-126); Anion Gap 8 mmol/L (8-16); Aspartate Amino Transferase 39 U/L (14-36); Bilirubin,Total 0.8 mg/dL (0.2-1.3); Blood Urea Nitrogen 13 mg/dL (7-17); Carbon Dioxide 28 mmol/L (22-30); Chloride 105 mmol/L (98-107); Estimated CRCL calculation 87 ml/min; Estimated Glomerular Filt Rate > 60; Glucose 109 mg/dL (65-110); Lipase 137 U/L (23-300); Potassium 3.9 mmol/L (3.4-5.0); Sodium 141 mmol/L (137-145)
[2023-01-25] MEDS: BELLADONNA ALK/PHENOB ELIX 10 ML, MAG HYDROX/ALUMINUM HYD/SIMETH 30 ML, LIDOCAINE HCL 2... PO (00:45)
[2023-01-25 02:14] VITALS: BP 138/78; PULSE 82; RESP 16; O2SAT 100
== END 2023-01-25 02:15 | disposition home or self-care (01) ==
PROVIDERS: Emergency Medicine; Emergency Provider Emergency Medicine
DX: R07.9 Chest pain, unspecified (principal); K21.9 Gastro-esophageal reflux disease without esophagitis; F41.0 Panic disorder [episodic paroxysmal anxiety]; R94.31 Abnormal electrocardiogram [ECG] [EKG]
CPT/HCPCS: 36415; 70450; 71046; 80053; 83690; 84484; 85025; 85610; 85730; 93005; 99284; A9270

== ENCOUNTER → 2023-01-31 07:56 | Outpatient (CLI) | payer OTHER, SELFPAY ==
--- NOTE | ~2023-01-31 | XR_ITS ---
Cervical Spine: AP, lateral, open-mouth views Clinical History: Pain Findings: The normal lordotic curve is maintained. The vertebral bodies and posterior elements appea r intact. There are minimal degenerative disc changes in the cervical spine. Pre-vertebral soft tissu es are unremarkable. Impression: . Minimal scattered degenerative disc changes. Reviewed, dictated and finalized at [facility]. Impression: . Minimal scattered degenerative disc changes.
== END ==
PROVIDERS: PCP Family Medicine; Visit Provider Nurse Practitioner Family
DX: R20.2 Paresthesia of skin (principal); M54.2 Cervicalgia
CPT/HCPCS: 72040

== ENCOUNTER 2023-02-05 00:25 | Day surgery (SDC) | payer OTHER, SELFPAY ==
[2023-01-28 09:09] VITALS: BMI 32.1
[2023-02-05 08:06] VITALS: BP 103/79; PULSE 98; RESP 18; TEMP 36.2; O2SAT 100
[2023-02-05] MEDS: LACTATED RINGERS 1,000 ML 150 ML IV CONT (08:18)
--- NOTE | 2023-02-05 09:04 | PM.HPGS ---
History of Present Illness History of Present Illness Consent: Risks, benefits, and alternatives have been discussed and questions answered. Patient agrees to proceed with procedure. Chief complaint: GERD Narrative: Lore Jacobs is a 47 year old female with non-cardiac chest with radiation to rt chest sometimes after eating certain meals, she has been in ER several times and cardiac work up negative. She had EGD 1 year ago with only mild gastritis without other findings, no celiac. She is taking ppi twice daily but still intermittent chest discomfort. Ultrasound and CT scan a/p no major findings, normal GB. Liver enzymes and lipase normal. Review of Systems Constitutional: Constitutional: Denies headache(s) and Denies weakness Eyes: Eyes: Denies blurry vision ENT: Reports Normal hearing present, Denies headache(s) and Denies neck pain Cardiovascular: Cardiovascular: Denies chest pain and Denies dyspnea Respiratory: Respiratory: Denies dyspnea Gastrointestinal: Gastrointestinal: Reports no additional gastrointestinal complaints Genitourinary: Genitourinary: Denies dysuria Musculoskeletal: Musculoskeletal: Denies neck pain Integumentary/Breasts: Skin/Breast: Denies dry skin Neurologic: Reports Normal hearing present, Denies headache(s) and Denies weakness Psychiatric: Psychiatric: Denies anxiety Endocrine: Endocrine: Denies change in body appearance Hematologic/Lymphatic: Hematologic/Lymphatic: Denies easy bleeding Allergic/Immunologic: Allergic/Immunologic: Denies urticaria PMFSH Past Medical History Medical History (Updated 02/05/23 @ 09:06 by [place] Sort[place] MD) Anxiety Anxiety Asthma Back pain with history of spinal surgery BMI 29.0-29.9,adult BMI 30.0-30.9,adult BMI 31.0-31.9,adult BMI 33.0-33.9,adult COVID-19 GERD (gastroesophageal reflux disease) GERD (gastroesophageal reflux disease) Hypertension Hypertension IBS (irritable bowel syndrome) Major depressive disorder, single episode, unspecified Nausea Non-cardiac chest pain SAMANTHA (obstructive sleep apnea) Tobacco abuse Surgical History Surgical History H/O section X3 H/O: hysterectomy Open partial hysterectomy followed by left salpingo-oophorectomy and eventually right salpingo-oophorectomy. Total of 3 surgeries. History of back surgery X3 History of carpal tunnel release Bilaterally History of laparoscopy x 2 exploratory laparoscopy due to abdominal pain in her 20's with no reported significant findings. Family History Family History Mother Diabetes mellitus Hypertension Heart disease COVID-19 Lung cancer Father Diabetes mellitus Hypertension Heart disease COVID-19 Sibling COVID-19 Social History Social History (Updated 01/29/23 @ 13:15 by Olesya Dumont MA) Social History: She smokes A pack a cigarettes a day. 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 She is . She has 3 children. She is a full code and desires to have her to be her decision-maker if needed. She does not use alcohol marijuana or illicit drugs. Smoking packs per day: 0.5 Smoking cigarettes per day: 10.0 Years smoked: 20 Smoking pack-years: 10.00 Smoking status: Light tobacco smoker Tobacco type: cigarettes Second hand tobacco smoke exposure: No Smoking end date: 01/28/22 Alcohol intake: current Alcohol use details: occasional Substance use: never Substance use type: does not use Lack of Transportation: No Lack of Food: Never True Current Housing: I Have Housing Concerned About Future Housing: No Difficulty Paying Gas/Electric Bills: No Difficulty Paying for Meds: No Currently Unemployed: No Education: Trade/Vocational Certificate Difficulty w/ Childcare or Family Care: No Living arrangement
[2023-02-05] MEDS: BENZOCAINE (*SP) 60 ML SPRAY CAN (HURRICAINE) 1 SPRAY MUCOUS MEM (09:09)
[2023-02-05 09:22] VITALS: BP 115/86; PULSE 103; RESP 30; O2SAT 100
[2023-02-05 09:32] VITALS: BP 116/86; PULSE 98; RESP 20; O2SAT 98
[2023-02-05 09:42] VITALS: BP 108/76; PULSE 88; RESP 23; O2SAT 99
== END 2023-02-05 09:44 | disposition home or self-care (01) ==
PROVIDERS: PCP Family Medicine; Visit Provider Internal Medicine Gastroenterology
PROC: 0DJ08ZZ Inspection of Upper Intestinal Tract, Via Natural or Artificial Opening Endoscopic (ICD-10-PCS; CPT 43235; principal; 2023-02-05 09:30)
DX: K29.50 Unspecified chronic gastritis without bleeding (principal); K21.9 Gastro-esophageal reflux disease without esophagitis; I10 Essential (primary) hypertension; G47.33 Obstructive sleep apnea (adult) (pediatric); F41.9 Anxiety disorder, unspecified; F32.9 Major depressive disorder, single episode, unspecified; F17.210 Nicotine dependence, cigarettes, uncomplicated; Z79.51 Long term (current) use of inhaled steroids
CPT/HCPCS: 43239; 88305; J2704; J7120

== ENCOUNTER → 2023-02-14 09:35 | Outpatient (CLI) | payer OTHER, SELFPAY ==
--- NOTE | ~2023-02-14 | MR_ITS ---
EXAMINATION: MR brain/brain stem wo con DATE: 02/14/2023 10:18 INDICATION: Right facial numbness and tingling. TECHNIQUE: Magnetic resonance imaging (MRI) of the brain and brainstem was performed without intraven ous contrast. COMPARISON: Head CT 01/24/2023 FINDINGS: There is an empty sella. There are scattered areas of nonspecific increased T2-weighted sig nal intensity in the cerebral white matter, which is within normal limits for the patient's age. Ther e is no intracranial hemorrhage, acute infarction, or abnormal intracranial mass lesion. The ventricl es are normal in size. The paranasal sinuses are clear. The orbits are normal. The mastoid air cells are normal. IMPRESSION: 1. No etiology for the patient's symptoms. Reviewed, dictated and finalized at location A.
== END ==
PROVIDERS: PCP Nurse Practitioner Family; Visit Provider Nurse Practitioner Family
DX: R20.0 Anesthesia of skin (principal)
CPT/HCPCS: 70551

== ENCOUNTER 2023-03-06 07:25 | Outpatient (CLI) | payer OTHER, SELFPAY ==
--- NOTE | ~2023-03-06 | NM_ITS ---
EXAMINATION: NM hepatobiliary wo pharm DATE: 03/06/2023 10:03 INDICATION: Other chest pain COMPARISON: None. TECHNIQUE: 5.1 mCi Tc-99m mebrofenin (Choletec) was administered intravenously. Scintigraphic images of the abdomen were obtained for one hour. At the 1 hour time point, the patient drank 8 oz Ensure, and imaging was continued for 60 minutes. Gallbladder ejection fraction was calculated by the technol ogist. FINDINGS: There is normal clearance of radiotracer from the blood pool. There is homogeneous tracer u ptake by the liver. Activity progresses to the bowel and gallbladder. The gallbladder ejection fract ion (GBEF) is 87%. Note that with this technique, normal GBEF >= 33%. IMPRESSION: 1. Normal hepatobiliary scan. Reviewed, dictated and finalized at location A.
== END 2023-03-06 07:26 | disposition home or self-care (01) ==
PROVIDERS: PCP Nurse Practitioner Family; Visit Provider Nurse Practitioner
DX: R07.89 Other chest pain (principal)
CPT/HCPCS: 78226; A9537

== ENCOUNTER → 2023-04-01 08:42 | Outpatient (CLI) | payer OTHER, SELFPAY ==
--- NOTE | ~2023-04-01 | MR_ITS ---
EXAMINATION: MR cervical spine wo con DATE: 04/01/2023 09:20 INDICATION: Cervical radiculopathy. TECHNIQUE: Magnetic resonance imaging (MRI) of the cervical spine was performed without intravenous c ontrast. COMPARISON: Cervical spine MRI 10/07/2017 FINDINGS: There is 11 degrees levoscoliosis of cervicothoracic spine. Vertebral body heights and inte rvertebral disc heights are normal. The spinal cord signal intensity is normal. There is an empty tracy la. The following disc levels are specifically discussed: C2-C3: The disc does not extend beyond the endplate margin. There is mild right uncovertebral joint o steoarthritis. There is mild bilateral facet joint osteoarthritis. There is no neural foraminal steno sis. There is no central canal stenosis. C3-C4: There is a central protrusion. There is mild bilateral uncovertebral joint osteoarthritis. The re is no facet joint osteoarthritis. There is mild bilateral neural foraminal stenosis. There is no c entral canal stenosis. C4-C5: The disc is bulging. There is moderate right and mild left uncovertebral joint osteoarthritis. There is no facet joint osteoarthritis. There is mild bilateral neural foraminal stenosis. There is mild central canal stenosis. C5-C6: The disc is bulging with superimposed central extrusion. There is mild bilateral uncovertebral joint osteoarthritis. There is mild bilateral facet joint osteoarthritis. There is mild bilateral ne ural foraminal stenosis. There is mild central canal stenosis. C6-C7: The disc is bulging with superimposed central extrusion. There is mild bilateral uncovertebral joint osteoarthritis. There is no facet joint osteoarthritis. There is no neural foraminal stenosis. There is mild central canal stenosis. C7-T1: The disc does not extend beyond the endplate margin. There is no uncovertebral joint osteoarth ritis. There is mild bilateral facet joint osteoarthritis. There is no neural foraminal stenosis. The re is no central canal stenosis. IMPRESSION: 1. Mild cervical spondylosis, stable from 10/07/2017. Reviewed, dictated and finalized at location A.
== END ==
DX: M54.12 Radiculopathy, cervical region (principal); M43.02 Spondylolysis, cervical region
CPT/HCPCS: 72141

== ENCOUNTER 2023-04-29 13:09 | Outpatient (CLI) | payer OTHER, SELFPAY ==
--- NOTE | 2023-04-29 15:00 | NEURO_ITS ---
Impression: # Complains of upper extremities pain. # Normal motor and sensory Nerve Conduction Study. # NORMAL Needle/EMG exam including proximal muscles. # Clinical correlation recommended. Nerve Conduction Studies Anti Sensory Summary Table Stim Site NR Peak (ms) P-T Amp (?V) Site1 Site2 Delta-P (ms) Dist (cm) Behzad (m/s) Left Median Anti Sensory (2-3nd Digit) Wrist 2.9 82.8 Wrist 2-3nd Digit 2.9 14.0 48 Wrist 2.9 83.8 Wrist 2-3nd Digit 2.9 14.0 48 Right Median Anti Sensory (2-3nd Digit) Wrist 2.8 73.4 Wrist 2-3nd Digit 2.8 14.0 50 Wrist 2.8 79.6 Wrist 2-3nd Digit 2.8 14.0 50 Left Radial Anti Sensory (Base 1st Digit) Wrist 2.0 44.9 Wrist Base 1st Digit 2.0 0.0 Right Radial Anti Sensory (Base 1st Digit) Wrist 2.3 33.5 Wrist Base 1st Digit 2.3 0.0 Left Ulnar Anti Sensory (5th Digit) Wrist 2.6 61.7 Wrist 5th Digit 2.6 14.0 54 Right Ulnar Anti Sensory (5th Digit) Wrist 2.5 83.9 Wrist 5th Digit 2.5 14.0 56 Motor Summary Table Stim Site NR Onset (ms) O-P Amp (mV) Site1 Site2 Delta-0 (ms) Dist (cm) Behzad (m/s) Left Median Motor (Abd Poll Brev) Wrist 2.4 9.2 Elbow Wrist 4.9 29.0 59 Elbow 7.3 7.2 Right Median Motor (Abd Poll Brev) Wrist 2.7 11.7 Elbow Wrist 4.9 29.0 59 Elbow 7.6 4.5 Left Ulnar Motor (Abd Dig Minimi) Wrist 2.7 7.5 A Elbow Wrist 5.3 30.0 57 A Elbow 8.0 5.2 Right Ulnar Motor (Abd Dig Minimi) Wrist 2.7 6.8 A Elbow Wrist 5.3 30.0 57 A Elbow 8.0 4.4 F Wave Studies NR F-Lat (ms) L-R F-Lat (ms) Left Median (Mrkrs) (Abd Poll Brev) 26.11 1.02 Right Median (Mrkrs) (Abd Poll Brev) 27.14 1.02 Left Ulnar (Mrkrs) (Abd Dig Min) 25.99 1.87 Right Ulnar (Mrkrs) (Abd Dig Min) 27.87 1.87 EMG Side Muscle Nerve Root Ins Act Fibs Amp Dur Recrt Comment Right 1stDorInt Ulnar C8-T1 Nml Nml Nml Nml Nml Right Ext Indicis Radial (Post Int) C7-8 Nml Nml Nml Nml Nml Right Ext Digitorum Radial (Post Int) C7-8 Nml Nml Nml Nml Nml Right BrachioRad Radial C5-6 Nml Nml Nml Nml Nml Right PronatorTeres Median C6-7 Nml Nml Nml Nml Nml Right Abd Poll Brev Median C8-T1 Nml Nml Nml Nml Nml Left 1stDorInt Ulnar C8-T1 Nml Nml Nml Nml Nml Left Ext Indicis Radial (Post Int) C7-8 Nml Nml Nml Nml Nml Left Ext Digitorum Radial (Post Int) C7-8 Nml Nml Nml Nml Nml Left BrachioRad Radial C5-6 Nml Nml Nml Nml Nml Left PronatorTeres Median C6-7 Nml Nml Nml Nml Nml Left Abd Poll Brev Median C8-T1 Nml Nml Nml Nml Nml Right Biceps Musculocut C5-6 Nml Nml Nml Nml Nml Right Triceps Radial C6-7-8 Nml Nml Nml Nml Nml Right Deltoid Axillary C5-6 Nml Nml Nml Nml Nml Left Biceps Musculocut C5-6 Nml Nml Nml Nml Nml Left Triceps Radial C6-7-8 Nml Nml Nml Nml Nml Left Deltoid Axillary C5-6 Nml Nml Nml Nml Nml MTDD
== END 2023-04-29 13:10 | disposition home or self-care (01) ==
LOC: ANHNEURO 13:13
DX: M54.12 Radiculopathy, cervical region (principal)
CPT/HCPCS: 95886; 95911

== ENCOUNTER 2023-06-27 11:59 | Emergency (ER) | payer OTHER, SELFPAY ==
[2023-06-27] VITALS (21 sets, daily range): BP systolic 91–133; BP diastolic 66–96; PULSE 67–98; RESP 12–26; TEMP 36.6; O2SAT 94–100
--- NOTE | ~2023-06-27 | XR_ITS ---
Clinical Indication: Chest pain PA and lateral views of the chest: Comparison: 01/24/2023 Findings: The lungs are clear, without evidence of focal consolidation or pleural effusion. Cardiome diastinal silhouette is within normal limits. Bones and soft tissues are unremarkable. Impression: Normal chest. Reviewed, dictated and finalized at location . LRY MODEL MAKER Impression: Normal chest.
--- NOTE | 2023-06-27 12:00 | ECG_ITS ---
Measurements Intervals [place] Rate: 88 P: 55 MN: 164 QRS: -5 QRSD: 91 T: 123 QT: 357 QTc: 434 Interpretive Statements SINUS RHYTHM POSSIBLE LEFT ATRIAL ENLARGEMENT DELAYED PRECORDIAL R/S TRANSITION LEFT VENTRICULAR HYPERTROPHY WITH ST-T CHANGE BASELINE WANDER- AVR, AVL, AVF, V1-V6 BORDERLINE ECG COMPARED TO ECG 12/09/2022 11:12:38 NO SIGNIFICANT CHANGES Electronically Signed On 06-28-2023 16:16:43 DEDICATED DRIVER by Quinten Renteria D.O.
--- NOTE | 2023-06-27 12:10 | PC.NURSE ---
patient requesting blood work to be done when she gets to treatment room.
[2023-06-27 13:19] LABS: Basophils Absolute Auto 0.1 K/mm3 (0.0-0.1); Basophils Percent Auto 0.7 % (0.2-1.2); Eosinophils Percent Auto 0.4 % (0-4.4); Hematocrit 46.7 % (37.0-47.0); Hemoglobin 14.6 g/dL (12.0-15.0); Immature Granulocyte Absolute 0.03 K/mm3 (0.00-0.031); Immature Granulocyte Percent A 0.4 % (0-0.5); Lymphocytes Absolute Auto 3.19 K/mm3 (0.9-3.2); Lymphocytes Percent Auto 43.6 % (18.3-44.2); Mean Corpuscular HGB Conc 31.3 g/dl (32-36); Mean Corpuscular Hemoglobin 28.9 pg (26-34); Mean Corpuscular Volume 92.3 fl (80-100); Mean Platelet Volume 10.9 fl (7.4-10.4); Monocytes Absolute Auto 0.5 K/mm3 (0.1-0.6); Monocytes Percent Auto 7.4 % (2.6-8.5); Neutrophils Absolute Auto 3.5 K/mm3 (1.3-6.7); Neutrophils Percent Auto 47.5 % (45.5-73.1); Platelet Count Result 291 k/mm3 (150-375); Red Blood Count 5.06 M/mm3 (4.2-5.4); Red Cell Distribution Width 13.2 % (11.5-14.5); White Blood Count 7.3 K/mm3 (4.5-10.0)
[2023-06-27 13:36] LABS: Prothrombin Time 13.1 Seconds (11.1-14.7)
[2023-06-27 13:37] LABS: Partial Thromboplastin Time 25.8 SECONDS (22.3-36.8)
[2023-06-27 13:38] LABS: Alanine Aminotransferase 29 U/L (6-35); Albumin Level 4.9 g/dL (3.5-5.1); Alkaline Phosphatase 89 U/L (38-126); Anion Gap 9 mmol/L (8-16); Aspartate Amino Transferase 32 U/L (14-36); Bilirubin,Total 0.8 mg/dL (0.2-1.3); Blood Urea Nitrogen 18 mg/dL (7-17); Calcium 9.8 mg/dL (8.4-10.2); Carbon Dioxide 28 mmol/L (22-30); Chloride 104 mmol/L (98-107); Estimated CRCL calculation 70 ml/min; Estimated Glomerular Filt Rate > 60; Glucose 101 mg/dL (65-110); Lipase 145 U/L (23-300); Potassium 3.9 mmol/L (3.4-5.0); Sodium 141 mmol/L (137-145)
[2023-06-27 13:47] LABS: Troponin I < 0.012 ng/mL (0.000-0.034)
[2023-06-27] MEDS: MAG HYDROX/AL HYDROX/SIMETH 30 ML UDC PO (15:32)
[2023-06-27 16:33] LABS: Troponin I < 0.012 ng/mL (0.000-0.034)
--- NOTE | 2023-06-27 16:34 | ED.CHESTPAIN ---
HPI - Chest Pain General Chief Complaint: Chest Pain Stated Complaint: chest pain Time Seen by Provider: 06/27/23 14:58 Source: patient, RN notes reviewed and old records reviewed Mode of arrival: ambulatory Limitations: no limitations History of Present Illness HPI narrative: This is a 47 year old female with history of chronic pain syndrome, GERD, atypical chest pain who presents for evaluation of chest pain. Patient states last night developed midsternal chest pain. She describes pain has ache. she has had this pain before in the past. She states she does have GERD that she has been diagnosed with when she comes to ER with this pain. She is also reports feeling acid going into her throat now. She reports pain radiating from right shoulder and neck down her right arm. She reports she has been having that pain since her back surgery. She has been referred by her surgeon to Dr. Bloom to assess this pain. She reports her pain seems to be bothering her more last night so she is unsure if it is her chronic pain or something new. She denies cough , fever, nausea, vomiting, shortness of breath. Related Data Allergies Allergy/AdvReac Type Severity Reaction Status Date / Time amoxicillin Allergy Intermediate Rash Verified 06/09/23 07:51 Cephalosporins Allergy Intermediate Rash Verified 06/09/23 07:51 Penicillins Allergy Intermediate Rash Verified 06/09/23 07:51 ketorolac AdvReac Intermediate Nausea and Verified 06/09/23 07:51 Vomiting clarithromycin AdvReac Mild GI Verified 06/09/23 07:51 Review of Systems Constitutional: Constitutional: Denies weakness Cardiovascular: Cardiovascular: Reports chest pain, Denies syncope, Denies rapid heart rate, Denies irregular heart rhythm, Denies leg edema, Reports radiating jaw, neck or arm pain and Denies dyspnea Respiratory: Respiratory: Denies chest congestion, Denies hemoptysis, Denies excessive phlegm production and Denies dyspnea Gastrointestinal: Gastrointestinal: Reports abdominal pain (chronic), Denies hematochezia, Denies diarrhea and Denies vomiting Genitourinary: Genitourinary: Denies hematuria and Denies dysuria Musculoskeletal: Musculoskeletal: Reports back pain (chronic), Denies joint swelling, Denies loss of height and Denies muscle weakness Neurologic: Denies syncope, Denies focal weakness, Reports numbness (chronic) and Denies weakness PMF Past Medical History Medical History (Updated 06/28/23 @ 00:00 by Juanita Daramses) Anxiety Anxiety Asthma Back pain with history of spinal surgery BMI 29.0-29.9,adult BMI 30.0-30.9,adult BMI 31.0-31.9,adult BMI 33.0-33.9,adult COVID-19 Folliculitis GERD (gastroesophageal reflux disease) GERD (gastroesophageal reflux disease) Hypertension Hypertension IBS (irritable bowel syndrome) Major depressive disorder, single episode, unspecified Nausea Non-cardiac chest pain SAMANTHA (obstructive sleep apnea) Tobacco abuse Surgical History Surgical History H/O section X3 H/O: hysterectomy Open partial hysterectomy followed by left salpingo-oophorectomy and eventually right salpingo-oophorectomy. Total of 3 surgeries. History of back surgery X3 History of carpal tunnel release Bilaterally History of laparoscopy x 2 exploratory laparoscopy due to abdominal pain in her 20's with no reported significant findings. Family History Family History Mother Diabetes mellitus Hypertension Heart disease COVID-19 Lung cancer Father Diabetes mellitus Hypertension Heart disease COVID-19 Sibling COVID-19 Social History Social History Social History: She smokes A pack a cigarettes a day. 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 She is . She has 3 children. She is a full code
== END 2023-06-27 16:56 | disposition home or self-care (01) ==
PROVIDERS: Emergency Provider General Practice; PCP Family Medicine
DX: R07.89 Other chest pain (principal); I10 Essential (primary) hypertension; F17.210 Nicotine dependence, cigarettes, uncomplicated
CPT/HCPCS: 36415; 71046; 80053; 83690; 84484; 85025; 85610; 85730; 93005; 99284; A9270

== ENCOUNTER 2023-07-03 17:07 | Emergency (ER) | payer OTHER, SELFPAY ==
[2023-07-03] VITALS (7 sets, daily range): BP systolic 121–134; BP diastolic 74–91; PULSE 57–80; RESP 13–24; TEMP 36.1; O2SAT 96–100
--- NOTE | ~2023-07-03 | XR_ITS ---
XR chest 2V DATE: 07/03/2023 17:36 INDICATION: Intermittent right-sided stabbing chest pain TECHNIQUE: PA and lateral views COMPARISON: 06/27/2023 2 view chest FINDINGS: Normal heart size. No hilar or mediastinal enlargement. No pulmonary infiltrate or consolid ation, pleural effusion or pulmonary vascular congestion or pneumothorax. Scoliosis and degenerative spurring of the thoracic spine. IMPRESSION: No active cardiopulmonary disease Reviewed, dictated and finalized at location A. RY MIXER
--- NOTE | 2023-07-03 17:09 | ECG_ITS ---
Measurements Intervals [place] Rate: 74 P: 62 AL: 180 QRS: 12 QRSD: 91 T: 145 QT: 398 QTc: 442 Interpretive Statements SINUS RHYTHM POSSIBLE LEFT ATRIAL ENLARGEMENT LEFT VENTRICULAR HYPERTROPHY WITH ST-T CHANGES ST-T WAVE ABNORMALITY IN ANTERIOR LEADS- CONSIDER ISCHEMIA BASELINE ARTIFACT- I, II, AVR, V2 ABNORMAL ECG COMPARED TO ECG 06/27/2023 12:08:11 NO SIGNIFICANT CHANGES Electronically Signed On 07-03-2023 20:03:18 SUPERVISOR [employer]INTERING [employer]ANT by Quinten Renteria D.O.
--- NOTE | 2023-07-03 17:23 | ED.CHESTPAIN ---
HPI - Chest Pain General Chief Complaint: Chest Pain Stated Complaint: pain to middle chest and right side Time Seen by Provider: 07/03/23 17:14 Source: patient Mode of arrival: ambulatory Limitations: no limitations History of Present Illness HPI narrative: This is a 47 year old female that presents to the ER for chest pain. Ongoing over the last several hours. Reports a sharp stabbing chest pain. Also some burning chest pain. Reports history of GERD. She takes Omeprazole twice daily for this. Reports she does follow with cardiology and has had imaging showing no CAD in the last couple of years. Also reports right sided mid back pain that is worse with movement. Unsure if she maybe pulled a muscle. Denies fever, cough, shortness of breath or lower extremity edema. Related Data Allergies Allergy/AdvReac Type Severity Reaction Status Date / Time amoxicillin Allergy Intermediate Rash Verified 07/03/23 17:15 Cephalosporins Allergy Intermediate Rash Verified 07/03/23 17:15 Penicillins Allergy Intermediate Rash Verified 07/03/23 17:15 ketorolac AdvReac Intermediate Nausea and Verified 07/03/23 17:15 Vomiting clarithromycin AdvReac Mild GI Verified 07/03/23 17:15 Review of Systems Review of Systems: CONSTITUTIONAL: Denies fever CARDIOVASCULAR: Reports chest pain. Denies edema. RESPIRATORY: Denies cough or dyspnea. GASTROINTESTINAL: Reports abdominal pain. Denies nausea, vomiting, or diarrhea. All systems reviewed & are unremarkable except as noted in HPI and below PMFSH Past Medical History Medical History (Updated 07/03/23 @ 21:43 by Annie Krause PA-C) Anxiety Anxiety Asthma Back pain with history of spinal surgery BMI 29.0-29.9,adult BMI 30.0-30.9,adult BMI 31.0-31.9,adult BMI 33.0-33.9,adult COVID-19 Folliculitis GERD (gastroesophageal reflux disease) GERD (gastroesophageal reflux disease) Hypertension Hypertension IBS (irritable bowel syndrome) Major depressive disorder, single episode, unspecified Nausea Non-cardiac chest pain SAMANTHA (obstructive sleep apnea) Tobacco abuse Surgical History Surgical History H/O section X3 H/O: hysterectomy Open partial hysterectomy followed by left salpingo-oophorectomy and eventually right salpingo-oophorectomy. Total of 3 surgeries. History of back surgery X3 History of carpal tunnel release Bilaterally History of laparoscopy x 2 exploratory laparoscopy due to abdominal pain in her 20's with no reported significant findings. Family History Family History Mother Diabetes mellitus Hypertension Heart disease COVID-19 Lung cancer Father Diabetes mellitus Hypertension Heart disease COVID-19 Sibling COVID-19 Social History Social History Social History: She smokes A pack a cigarettes a day. 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 She is . She has 3 children. She is a full code and desires to have her to be her decision-maker if needed. She does not use alcohol marijuana or illicit drugs. Smoking packs per day: 0.5 Smoking cigarettes per day: 10.0 Years smoked: 20 Smoking pack-years: 10.00 Smoking status: Current some day smoker Tobacco type: cigarettes Second hand tobacco smoke exposure: No Smoking end date: 01/28/22 Alcohol intake: current Alcohol use details: occasional Substance use: never Substance use type: does not use Lack of Transportation: No Lack of Food: Never True Current Housing: I Have Housing Concerned About Future Housing: No Difficulty Paying Gas/Electric Bills: No Difficulty Paying for Meds: No Currently Unemployed: No Education: Trade/Vocational Certificate Difficulty w/ Childcare or Family Care: No Living arrangements: with fa
[2023-07-03 17:26] LABS: Basophils Absolute Auto 0.1 K/mm3 (0.0-0.1); Basophils Percent Auto 0.9 % (0.2-1.2); Eosinophils Percent Auto 0.4 % (0-4.4); Hematocrit 40.5 % (37.0-47.0); Immature Granulocyte Absolute 0.01 K/mm3 (0.00-0.031); Immature Granulocyte Percent A 0.1 % (0-0.5); Lymphocytes Absolute Auto 3.56 K/mm3 (0.9-3.2); Lymphocytes Percent Auto 50.6 % (18.3-44.2); Mean Corpuscular HGB Conc 32.1 g/dl (32-36); Mean Corpuscular Hemoglobin 29.3 pg (26-34); Mean Corpuscular Volume 91.2 fl (80-100); Mean Platelet Volume 11.2 fl (7.4-10.4); Monocytes Absolute Auto 0.4 K/mm3 (0.1-0.6); Monocytes Percent Auto 6.1 % (2.6-8.5); Neutrophils Percent Auto 41.9 % (45.5-73.1); Platelet Count Result 225 k/mm3 (150-375); Red Blood Count 4.44 M/mm3 (4.2-5.4); Red Cell Distribution Width 12.8 % (11.5-14.5)
[2023-07-03] MEDS: FAMOTIDINE 20 MG/2 ML VIAL IV PUSH (18:16)
[2023-07-03] MEDS: PANTOPRAZOLE SODIUM IV 40 MG VIAL IV PUSH (18:16)
[2023-07-03 18:42] LABS: Prothrombin Time 13.4 Seconds (11.1-14.7)
[2023-07-03 18:44] LABS: Alanine Aminotransferase 19 U/L (6-35); Albumin Level 3.7 g/dL (3.5-5.1); Alkaline Phosphatase 78 U/L (38-126); Anion Gap 10 mmol/L (8-16); Aspartate Amino Transferase 25 U/L (14-36); Bilirubin,Total 0.5 mg/dL (0.2-1.3); Blood Urea Nitrogen 14 mg/dL (7-17); Calcium 8.6 mg/dL (8.4-10.2); Carbon Dioxide 22 mmol/L (22-30); Chloride 111 mmol/L (98-107); Estimated CRCL calculation 87 ml/min; Estimated Glomerular Filt Rate > 60; Glucose 95 mg/dL (65-110); Lipase 114 U/L (23-300); Partial Thromboplastin Time 26.7 SECONDS (22.3-36.8); Potassium 3.5 mmol/L (3.4-5.0); Sodium 143 mmol/L (137-145)
[2023-07-03 18:47] LABS: D Dimer 0.43 ug/mL (<0.48)
[2023-07-03 18:56] LABS: Troponin I < 0.012 ng/mL (0.000-0.034)
[2023-07-03 20:56] LABS: Troponin I < 0.012 ng/mL (0.000-0.034)
[2023-07-03] MEDS: ACETAMINOPHEN 500 MG TABLET 1000 MG PO (20:58)
== END 2023-07-03 22:04 | disposition home or self-care (01) ==
PROVIDERS: Emergency Medicine; Emergency Provider Physician Assistant; PCP Family Medicine
DX: R07.89 Other chest pain (principal); I10 Essential (primary) hypertension; J45.909 Unspecified asthma, uncomplicated; K58.9 Irritable bowel syndrome, unspecified; K21.9 Gastro-esophageal reflux disease without esophagitis; G47.33 Obstructive sleep apnea (adult) (pediatric); F32.9 Major depressive disorder, single episode, unspecified; F41.9 Anxiety disorder, unspecified; F17.210 Nicotine dependence, cigarettes, uncomplicated; Z90.711 Acquired absence of uterus with remaining cervical stump; Z90.722 Acquired absence of ovaries, bilateral; Z90.79 Acquired absence of other genital organ(s); Z79.85 Long-term (current) use of injectable non-insulin antidiabetic drugs; R94.31 Abnormal electrocardiogram [ECG] [EKG]; I51.7 Cardiomegaly
CPT/HCPCS: 36415; 71046; 80053; 83690; 84484; 85025; 85380; 85610; 85730; 93005; 96374; 96375; 99284; A9270; C9113

== ENCOUNTER 2023-07-15 09:59 | Outpatient (CLI) | payer OTHER, SELFPAY ==
--- NOTE | ~2023-07-15 | CT_ITS ---
CT of the Abdomen and Pelvis: Indication: Abdominal pain Technique: 2.5 mm axial scans were obtained through the abdomen and pelvis following intravenous adm inistration of 100 cc of Omnipaque 350. Dose reduction technique was used on this scan by utilizing a utomated exposure control and iterative reconstruction technique. The dose-length product (DLP) was 1 021.04 mGy-cm. COMPARISON: 09/06/2022 Findings: Scans through the lung bases are unremarkable. The liver, spleen, pancreas, gallbladder, adrenals and kidneys are within normal limits. No evidence of aortic aneurysm. No lymphadenopathy. No bowel obstruction or bowel wall thickening. There is no evidence to suggest acute appendicitis. Images through the pelvis were performed. Urinary bladder unremarkable. No pelvic mass seen. No ascit es. Impression: No significant abnormalities seen. Reviewed, dictated and finalized at [facility]. YARD WORKER Impression: No significant abnormalities seen.
== END 2023-07-15 10:00 | disposition home or self-care (01) ==
PROVIDERS: PCP Family Medicine; Visit Provider Nurse Practitioner Family
DX: R10.11 Right upper quadrant pain (principal); M54.9 Dorsalgia, unspecified
CPT/HCPCS: 74177; Q9967

== ENCOUNTER 2023-10-13 09:35 | Outpatient (CLI) | payer OTHER, SELFPAY ==
--- NOTE | ~2023-10-13 | MR_ITS ---
EXAMINATION: MR brain/brain stem wo/w con DATE: 10/13/2023 10:21 INDICATION: Anesthesia of skin. Right sided tingling. TECHNIQUE: Magnetic resonance imaging (MRI) of the brain and brainstem was performed without and with 19 mL MultiHance intravenous contrast. COMPARISON: Brain MRI 02/14/2023 FINDINGS: There is an empty sella. There is no intracranial hemorrhage, acute infarction, or abnormal intracranial mass lesion. The ventricles are normal in size. There is mild mucosal thickening in the ethmoid sinuses. The orbits are normal. The mastoid air cells are normal. IMPRESSION: 1. No etiology for the patient's symptoms. Reviewed, dictated and finalized at location E. K ANNOUNCER
== END 2023-10-13 09:36 ==
PROVIDERS: PCP Student in an Organized Health Care Education/Training Program; Visit Provider Student in an Organized Health Care Education/Training Program
DX: R20.0 Anesthesia of skin (principal)
CPT/HCPCS: 70553; A9577

== ENCOUNTER 2023-10-16 10:29 | Emergency (ER) | payer OTHER, SELFPAY ==
--- NOTE | ~2023-10-16 | XR_ITS ---
EXAMINATION: XR chest 2V DATE: 10/16/2023 10:59 INDICATION: Midline chest pain TECHNIQUE: PA and lateral views of the chest are obtained. COMPARISON: 07/03/2023 FINDINGS: The lungs are free of acute opacities. No pleural effusion or pneumothorax. The cardiomedia stinal silhouette is normal. There is moderate thoracic spondylosis. IMPRESSION: 1. No acute cardiopulmonary abnormality. Reviewed, dictated and finalized at location L. LLE TEACHER
[2023-10-16 10:32] VITALS: BP 127/97; PULSE 82; RESP 20; TEMP 36.6; O2SAT 100
--- NOTE | 2023-10-16 10:32 | ECG_ITS ---
Measurements Intervals [place] Rate: 78 P: 58 HI: 173 QRS: -1 QRSD: 88 T: 130 QT: 383 QTc: 437 Interpretive Statements SINUS RHYTHM LEFT ATRIAL ENLARGEMENT LEFT VENTRICULAR HYPERTROPHY AND ST-T CHANGE BORDERLINE T WAVE ABNORMALITY- ANTEROLATERAL LEADS BORDERLINE ECG COMPARED TO ECG 07/03/2023 17:16:26 NO SIGNIFICANT CHANGES Electronically Signed On 10-16-2023 10:40:20 PIPE ASSEMBLY WORKER by Quinten Renteria D.O.
[2023-10-16 10:48] LABS: Basophils Percent Auto 0.6 % (0.2-1.2); Eosinophils Percent Auto 0.3 % (0-4.4); Hematocrit 44.2 % (37.0-47.0); Hemoglobin 14.1 g/dL (12.0-15.0); Immature Granulocyte Absolute 0.01 K/mm3 (0.00-0.031); Immature Granulocyte Percent A 0.2 % (0-0.5); Lymphocytes Absolute Auto 3.33 K/mm3 (0.9-3.2); Lymphocytes Percent Auto 53.7 % (18.3-44.2); Mean Corpuscular HGB Conc 31.9 g/dl (32-36); Mean Corpuscular Hemoglobin 29.3 pg (26-34); Mean Corpuscular Volume 91.7 fl (80-100); Mean Platelet Volume 11.4 fl (7.4-10.4); Monocytes Absolute Auto 0.4 K/mm3 (0.1-0.6); Monocytes Percent Auto 6.6 % (2.6-8.5); Neutrophils Absolute Auto 2.4 K/mm3 (1.3-6.7); Neutrophils Percent Auto 38.6 % (45.5-73.1); Platelet Count Result 222 k/mm3 (150-375); Red Blood Count 4.82 M/mm3 (4.2-5.4); Red Cell Distribution Width 12.9 % (11.5-14.5); White Blood Count 6.2 K/mm3 (4.5-10.0)
[2023-10-16 10:59] LABS: INR 0.9; Partial Thromboplastin Time 26.3 SECONDS (22.3-36.8)
[2023-10-16 11:03] LABS: Alanine Aminotransferase 22 U/L (6-35); Albumin Level 4.6 g/dL (3.5-5.1); Alkaline Phosphatase 88 U/L (38-126); Anion Gap 6 mmol/L (8-16); Aspartate Amino Transferase 32 U/L (14-36); Blood Urea Nitrogen 21 mg/dL (7-17); Calcium 9.6 mg/dL (8.4-10.2); Carbon Dioxide 30 mmol/L (22-30); Chloride 104 mmol/L (98-107); Estimated CRCL calculation 70 ml/min; Estimated Glomerular Filt Rate > 60; Glucose 133 mg/dL (65-110); Lipase 117 U/L (23-300); Potassium 3.9 mmol/L (3.4-5.0); Sodium 140 mmol/L (137-145)
[2023-10-16 11:14] LABS: Troponin I < 0.012 ng/mL (0.000-0.034)
[2023-10-16 13:08] VITALS: PULSE 73; O2SAT 98
[2023-10-16 13:11] VITALS: BP 106/86; PULSE 77; RESP 18; O2SAT 99
[2023-10-16 13:16] VITALS: BP 113/86; PULSE 70; RESP 23; O2SAT 100
--- NOTE | 2023-10-16 13:23 | ED.CHESTPAIN ---
HPI - Chest Pain General Chief Complaint: Chest Pain Stated Complaint: chest pain Time Seen by Provider: 10/16/23 13:06 History of Present Illness HPI narrative: Patient is a 48-year-old female with history of GERD, migraines, multiple prior back surgeries here today with chest pain. She states that the chest pains been ongoing since Friday. She notes that it was initially located midsternal radiating to the right side. This is very typical low for her presentation of flares of her acid reflux. She states that she takes protonix twice daily and for the last 10 days was also prescribed Pepcid by her primary care doctor. She states she has presented to the emergency department several times for this in the past, received a cardiac workup which is unremarkable and discharged home. She notes what prompted her visit today is that it seemed to radiate to her left side which is unusual for her. She has been experiencing some intermittent dizziness, facial numbness, lightheadedness. She has been experiencing this for some time and is currently following with a neurologist. She had a brain MRI on Friday which she is awaiting the results for. She has had a prior endoscopy by Dr. James. She additionally follows with Dr. Cardoso from Cardiology and had a prior outpatient cardiac workup which was unremarkable in the past. No cough, congestion, fever, chills. No abdominal pain. Related Data Allergies Allergy/AdvReac Type Severity Reaction Status Date / Time amoxicillin Allergy Intermediate Rash Verified 10/16/23 13:13 Cephalosporins Allergy Intermediate Rash Verified 10/16/23 13:13 Penicillins Allergy Intermediate Rash Verified 10/16/23 13:13 ketorolac AdvReac Intermediate Nausea and Verified 10/16/23 13:13 Vomiting clarithromycin AdvReac Mild GI Verified 10/16/23 13:13 Review of Systems Review of Systems: All systems reviewed & are unremarkable except as noted in HPI and below PMFSH Past Medical History Medical History Anxiety Anxiety Asthma Back pain with history of spinal surgery BMI 29.0-29.9,adult BMI 30.0-30.9,adult BMI 31.0-31.9,adult BMI 33.0-33.9,adult COVID-19 Folliculitis GERD (gastroesophageal reflux disease) GERD (gastroesophageal reflux disease) Hypertension Hypertension IBS (irritable bowel syndrome) Major depressive disorder, single episode, unspecified Nausea Non-cardiac chest pain SAMANTHA (obstructive sleep apnea) Tobacco abuse Surgical History Surgical History H/O section X3 H/O: hysterectomy Open partial hysterectomy followed by left salpingo-oophorectomy and eventually right salpingo-oophorectomy. Total of 3 surgeries. History of back surgery X3 History of carpal tunnel release Bilaterally History of laparoscopy x 2 exploratory laparoscopy due to abdominal pain in her 20's with no reported significant findings. Family History Family History Mother Diabetes mellitus Hypertension Heart disease COVID-19 Lung cancer Father Diabetes mellitus Hypertension Heart disease COVID-19 Sibling COVID-19 Social History Social History Social History: She smokes A pack a cigarettes a day. 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 She has 3 children. She is a full code and desires to have her to be her decision-maker if needed. She does not use alcohol marijuana or illicit drugs. Smoking packs per day: 0.5 Smoking cigarettes per day: 10.0 Years smoked: 20 Smoking pack-years: 10.00 Smoking status: Current some day smoker Tobacco type: cigarettes Second hand tobacco smoke exposure: No Smoking end date: 01/28/22 Alcohol intake: current Alcohol use details: occasional
[2023-10-16 13:31] VITALS: BP 108/85; PULSE 72; RESP 17; O2SAT 99
[2023-10-16] MEDS: BELLADONNA ALK/PHENOB ELIX 10 ML, MAG HYDROX/ALUMINUM HYD/SIMETH 30 ML, LIDOCAINE HCL 2... PO (14:20)
--- NOTE | 2023-10-16 14:28 | ECG_ITS ---
Measurements Intervals [place] Rate: 65 P: 58 ND: 178 QRS: 9 QRSD: 93 T: 177 QT: 443 QTc: 461 Interpretive Statements SINUS RHYTHM POSSIBLE LEFT ATRIAL ENLARGEMENT LEFT VENTRICULAR HYPERTROPHY WITH ST-T CHANGE CANNOT RULE OUT SEPTAL INFARCT, AGE INDETERMINATE ST-T WAVE ABNORMALITY IN ANTEROLATERAL LEADS- CONSIDER ISCHEMIA ABNORMAL ECG COMPARED TO ECG 10/16/2023 10:35:22 NO SIGNIFICANT CHANGES Electronically Signed On 10-16-2023 14:53:58 IMMIGRATION ASSOCIATE by Quinten Renteria D.O.
[2023-10-16] MEDS: SUCRALFATE SUSP 100 MG/ML 10 ML UDC 1000 MG PO (14:39)
[2023-10-16 14:42] LABS: Troponin I < 0.012 ng/mL (0.000-0.034)
[2023-10-16 15:15] VITALS: PULSE 59; RESP 17; O2SAT 100
== END 2023-10-16 15:58 | disposition home or self-care (01) ==
PROVIDERS: Emergency Provider Student in an Organized Health Care Education/Training Program; PCP Student in an Organized Health Care Education/Training Program
DX: K21.9 Gastro-esophageal reflux disease without esophagitis (principal); R07.89 Other chest pain; R10.13 Epigastric pain; I10 Essential (primary) hypertension; F17.210 Nicotine dependence, cigarettes, uncomplicated
CPT/HCPCS: 36415; 71046; 80053; 83690; 84484; 85025; 85610; 85730; 93005; 99284; A9270

== ENCOUNTER 2023-11-10 14:08 | Outpatient (CLI) | payer OTHER, SELFPAY ==
--- NOTE | ~2023-11-10 | XR_ITS ---
Lumbosacral Spine: AP and lateral views Clinical History: Pain Findings: The normal lordotic curve is maintained. No acute fracture or subluxation seen. There is an terior interbody fusion extending from L4 through S1. Remaining disc spaces are preserved. Facet join ts are intact. The sacroiliac joints are normally outlined. Impression: Anterior and interbody fusion from L4 through S1. Reviewed, dictated and finalized at location . Impression: Anterior and interbody fusion from L4 through S1.
--- NOTE | ~2023-11-10 | XR_ITS ---
XR sacrum coccyx min 2V DATE: 11/10/2023 14:39 INDICATION: Pain TECHNIQUE: AP, angled AP, lateral views COMPARISON: None FINDINGS: Osteopenia. Status post anterior and interbody spinal fusion at L4-5 and L5-S1. No fracture or dislocation or bone destruction of the sacrum is evident. Mild osteitis pubis. The sacroiliac joints are intact, without apparent erosive change or ankylosis. IMPRESSION: Status post anterior and interbody spinal fusion at L4-5 and L5-S1 Mild osteitis pubis Osteopenia Reviewed, dictated and finalized at location B.
== END 2023-11-10 14:09 ==
PROVIDERS: PCP Family Medicine; Visit Provider Physician Assistant
DX: M53.3 Sacrococcygeal disorders, not elsewhere classified (principal); M54.50 Low back pain, unspecified; Z98.1 Arthrodesis status; M86.8X8 Other osteomyelitis, other site; M85.89 Other specified disorders of bone density and structure, multiple sites
CPT/HCPCS: 72100; 72220

== ENCOUNTER 2023-11-17 09:37 | Outpatient (CLI) | payer OTHER, SELFPAY ==
--- NOTE | 2023-11-17 09:45 | ECHO_ITS ---
Patient Info Name: Lore Jacobs Age: 48 years : 1975 Gender: Female Ht: 67 in Wt: 210 lbs BSA: 2.16 m2 HR: 70 bpm BP: 122 / 96 mmHg Technical Quality: Fair Exam Date: 11/17/2023 9:53 AM Exam Location: [facility] Lab Patient Status: Outpatient Admit Date: 11/17/2023 Staff Ordering Physician: Quinten Renteria DO [employer] Bever[employer] Service Manager: Concetta Maria RDCS Attending Provider: Quinten Renteria DO Referring Physician: Dexter MASSEY; Exam Type: CA echo dop color flow w con Study Info Indications R01.1 - Cardiac murmur, unspecified Complete two-dimensional, color flow and Doppler transthoracic echocardiogram is performed with contrast to opacify the left ventricle and to improve the deliniation of the left ventricle endocardial borders. Contrast/Agitated Saline Contrast/Ag. Saline: Definity Amount: 2.00 ml Administered By: Concetta Maria RDCS New IV Access: Antecubital Space and Left Site Condition: IV removed, Site dressing applied and No extravasation Summary 1. Definity contrast administered improved wall motion interpretation. 2. Left ventricular chamber dimension is normal. 3. Left ventricular systolic function is hyperdynamic, estimated at >70%. 4. There is moderate concentric increased left ventricular wall thickness. 5. The left ventricular diastolic function is grade I diastolic dysfunction. 6. E/e' 9 is minimally elevated. 7. No pulmonary hypertension, estimated pulmonary arterial systolic pressure is 17 mmHg. Left Ventricle E/e' 9 is minimally elevated. Definity contrast administered improved wall motion interpretation. Left ventricular chamber dimension is normal. Left ventricular systolic function is hyperdynamic, estimated at >70%. There is moderate concentric increased left ventricular wall thickness. The left ventricular diastolic function is grade I diastolic dysfunction. Right Ventricle Right ventricular systolic function is normal and with normal TAPSE 2.3 cm. Right ventricular chamber dimension is normal. Left Atria Left atrial chamber dimension is normal. Right Atria Right atrial chamber dimension is normal. Aortic Valve The aortic valve is trileaflet. There is no aortic valve stenosis. There is no aortic valve regurgitation. Pulmonic Valve There is no pulmonic regurgitation. Mitral Valve There is no mitral valve stenosis. There is no mitral valve regurgitation. Tricuspid Valve There is no tricuspid valve regurgitation. No pulmonary hypertension, estimated pulmonary arterial systolic pressure is 17 mmHg. Pericardium/Pleural There is no pericardial effusion. Inferior Vena Cava Normal inferior vena cava with >50% collapse upon inspiration consistent with normal right atrial pressure, 5 mmHg. Aorta The aortic root size at the sinus of Valsalva is normal. Left Ventricular Outflow Tract Name Value Normal LVOT 2D LVOT Diameter 1.88 cm LVOT Doppler LVOT Peak Gradient 9 mmHg LVOT Mean Gradient 6 mmHg LVOT VTI 34.44 cm LVOT VTI/AV VTI Ratio 0.91 LVOT Stroke Volume 95.84 ml LVOT CO
[2023-11-17] MEDS: PERFLUTREN LIPID MICROSPHERES 1.5 ML VIAL DILUTED TO 10 ML TOTAL VOLUME IV PUSH (10:50)
--- NOTE | 2023-11-17 11:24 | IVDEFINITY ---
Prior to administration of IV Definity the patient was educated on the risks and benefits of the imaging enhancing agent including potential adverse side effects. The patient verbalized understanding. Allergies were verified. No exclusion criteria were identified and at least one of the following inclusion criteria were met: 1) physician request, 2) patient technically difficult to image (per the [place] [employer] guidelines of two or more segments not discernable within the apical view), or 3) questionable left ventricular function. ?
== END 2023-11-17 09:38 | disposition home or self-care (01) ==
PROVIDERS: PCP Family Medicine; Visit Provider Internal Medicine Cardiovascular Disease
DX: R01.1 Cardiac murmur, unspecified (principal)
CPT/HCPCS: C8929; Q9957

== ENCOUNTER 2023-11-24 07:57 | Outpatient (CLI) | payer OTHER, SELFPAY ==
[2023-11-24 08:39] LABS: Rheumatoid Factor < 12.0 IU/ML (<12)
[2023-11-24 08:39] LABS: CRP < 0.5 mg/dL (<1.0)
[2023-11-24 08:46] LABS: Erythrocyte Sedimentation Rate 22 mm/hr (0-20)
== END 2023-11-24 07:58 | disposition home or self-care (01) ==
LOC: ANHLAB 07:58
PROVIDERS: PCP Family Medicine; Visit Provider Anesthesiology Pain Medicine
DX: M79.18 Myalgia, other site (principal); M54.9 Dorsalgia, unspecified
CPT/HCPCS: 36415; 85652; 86038; 86140; 86430

== ENCOUNTER 2024-02-05 12:08 | Outpatient (CLI) | payer OTHER, MEDICARE, SELFPAY ==
--- NOTE | ~2024-02-05 | XR_ITS ---
XR hip RT min 2V Ordering provider: Jose Carlos More MD History: . M25.551 - Pain in right hip . Comparison: December 13, 2016 FINDINGS: BONES: No acute fracture or dislocation. HIP JOINT SPACES: Normal. SACROILIAC JOINT SPACES/LUMBAR SPINE: The sacroiliac joint spaces are normal. Postoperative changes o f the visualized lower lumbar spine. PUBIC SYMPHYSIS: Normal. SOFT TISSUES: Normal. IMPRESSION: No acute osseous abnormality pelvis and right hip. Reviewed, dictated and finalized at location A.
== END 2024-02-05 12:09 ==
PROVIDERS: PCP Anesthesiology Pain Medicine; Visit Provider Anesthesiology Pain Medicine
DX: M25.551 Pain in right hip (principal); R20.0 Anesthesia of skin
CPT/HCPCS: 73502

== ENCOUNTER 2024-02-11 08:33 | Outpatient (CLI) | payer OTHER, MEDICARE, SELFPAY ==
--- NOTE | ~2024-02-11 | MR_ITS ---
EXAMINATION: MR hip RT wo con, MR hip LT wo con DATE: 02/11/2024 09:40 INDICATION: Low back pain and bilateral hip pain and clicking TECHNIQUE: 1. Magnetic resonance imaging (MRI) of the right hip was performed without intravenous contrast. Sequ ences included full-field axial PD-weighted FS FSE and T1-weighted FSE, coronal of the pelvis with PD -weighted FS FSE, T2-weighted FSE and T1-weighted FSE, small field of view of the right hip with axi al PD-weighted FS FSE, sagittal PD-weighted FS FSE, coronal PD-weighted FS FSE and coronal T2 weight ed FSE. Additional radial T1-weighted FGR oriented orthogonal to the acetabular rim were obtained for evaluation of the labrum. 2. MRI of the left hip was performed without intravenous contrast. Sequences included small field of view of the left hip with axial PD-weighted FS FSE, sagittal PD-weighted FS FSE, coronal PD-weighted FS FSE and coronal T2 weighted FSE. Additional radial T1-weighted FGR oriented orthogonal to the ac etabular rim were obtained for evaluation of the labrum. COMPARISON: None FINDINGS: Bones/labrum/cartilage: Alignment is normal. Metallic magnetic field artifact associated with anterior plate and screw fixati on for lower cervical anterior spinal fusion from L4-S1. No fracture, avascular necrosis or pathologi c marrow replacing process. At the left hip the left acetabular labrum is diminutive, partially replaced by marginal osteophytes along the rim of the acetabulum likely related to chronic degeneration but without discrete tear. The re is mild osteoarthritis with nonuniform partial-thickness cartilage loss most prominent at the supe rolateral aspect of the joint space. Similar appearance to the contralateral right acetabular labrum which also appears small and partiall y replaced by marginal osteophytes along the acetabulum. There is a small chondral fissure at the cho ndral labral junction at the 12:00 position of the superolateral right acetabulum. Additional mild pa rtial-thickness cartilage loss with nonuniform joint space narrowing most prominent at the anterior a nd posterior margins of the right hip joint space. Fluid: Symmetric physiologic amount of fluid within both hip joints. Increased fluid signal overlying the bi lateral greater trochanters consistent with mild bilateral trochanteric bursitis, right slightly more prominent than left. Soft tissues: Normal and symmetric muscle bulk and signal in the pelvis and visualized proximal thighs. The iliopso as, gluteal and proximal hamstring tendons are normal. The uterus is not identified and has likely be en surgically resected. There are a few diverticula without adjacent inflammatory stranding along the sigmoid colon. Normal appendix. Limited evaluation of visceral organs of the pelvis is otherwise unr emarkable. No pathologically enlarged pelvic/inguinal lymphadenopathy. IMPRESSION: 1. Mild bilateral hip osteoarthritis with likely chronic labral degeneration partially replaced by ma rginal osteophytes along the rims of both acetabula. 2. Mild bilateral trochanteric bursitis, right greater than left. Reviewed, dictated and finalized at location B. IMPRESSION: 1. Mild bilateral hip osteoarthritis with likely chronic labral degeneration pa rtially replaced by marginal osteophytes along the rims of both acetabula. 2. Mild bilateral trochanteric bursitis, right greater than left.
== END 2024-02-11 08:34 ==
PROVIDERS: PCP Anesthesiology Pain Medicine; Visit Provider Anesthesiology Pain Medicine
DX: M54.42 Lumbago with sciatica, left side (principal); R20.0 Anesthesia of skin; G89.29 Other chronic pain; M16.0 Bilateral primary osteoarthritis of hip; M71.552 Other bursitis, not elsewhere classified, left hip; M71.551 Other bursitis, not elsewhere classified, right hip
CPT/HCPCS: 73721

== ENCOUNTER 2024-02-27 14:30 | Outpatient (RCR) | payer OTHER, MEDICARE, SELFPAY ==
--- NOTE | 2023-12-10 10:18 | OPREHPOC ---
Outpatient Therapy Plan of Care This is a Multidisciplinary Plan of Care that may contain components documented by all disciplines (PT, OT, and ST.) PT Problem 1 PT Problem #1 Knowledge Deficit PT Goal 1 Goal *indep with HEP Target Visit 10 PT Problem 2 PT Problem #2 Pain PT Goal 1 Goal 1* pain rating at the worst of 7/10 2* self assessment Oswestry rating of 60% limitation in activity 3* pt report sleeping tolerance of 3 hours/time Target Visit 10 PT Problem 3 PT Problem #3 Impaired Functional Mobility PT Goal 1 Goal increase strength to improve mobility skills: 1* pt perform sitting ball exercises x 15 reps with good stability of trunk 2* pt perform 20 reps of mat strengthening exercises 3* 2 minute walking test distance of 275' 4* pain rating of 6/10 after 2 minute walking test Target Visit 10 PT Problem 4 PT Problem #4 Impaired Flexibility PT Goal 1 Goal increase flexibility to improve position of trunk and mobility hamstring length with supine SLR 1* R 45' 2* L 45' pt perform 3 reps without an increase in pain 3* supine R hip flexion to 100' 4* supine L hip flexion to 100' 5* supine R hip IR 6* supine L hip IR Target Visit 10
--- NOTE | 2023-12-10 10:18 | PTOPEVAL1 ---
Assessment and note entered by Gabi Rodriges, PT Evaluation Information Assessment Status Evaluation Diagnosis fibromyalgia, chronic pain syndrome Onset few months ago Subjective Information chronic pain, started back again under pain management treatment few months ago; started therapy for pain management techniques; have had PT in the past, but was always before surgeries and was not very helpful at that time; did traction before surgery and hurt; have a treadmill at home, try to walk 1-2 x/ day, 5-10 minutes; have inversion table at home, used few times, before surgery, not help and sold it; Activity: do not work outside of home/disabled; able to perform light home tasks and self care-- increase time and increase pain; son and assist with home tasks; Reported Pain Level Pain Score 7: Self Report Additional Pain Score Comments pain range in the past week 5-10/10; so bad over the weekend, could not get out bed; bilateral low back and intermittent radicular pain into both LE's to feet; knees sore and hurt increase pain: stand few minutes, sit 10-15 minutes; walk ~ 150'; decrease pain: lie down, heat/ice, taking cyclobenzaprene, extra strength tylenol; home stim unit sleep few hours at a time; Assessment PT Clinical Summary Lore has the diagnosis of chronic pain, fibromyalgia. Her self assessment Oswestry rating of 74% limitation in activity tolerance. She reports decrease tolerances with sit, stand, walk and sleeping. Family assist her with home tasks. She is not working due to pain. Her medical history includes lumbar surgery x 5 and under the care of pain management at this time . With the evaluation: 2 minute walking test distance of 200' with increase pain to 8/10; stands with increased lumbar lordosis and curvature of her spine--L trunk forward rotation; pain is increased with standing extension more than flexion, and R an
--- NOTE | 2023-12-17 14:11 | PCPTNOTE ---
Patient called & cancelled scheduled appointment for 12/18/23 due to being sick.
--- NOTE | 2023-12-23 16:26 | PCPTNOTE ---
Patient called & cancelled scheduled appointment this date due to being sick.
--- NOTE | 2024-01-14 10:51 | PCPTNOTE ---
pt called and canceled today's appt due to having a flat tire on her car.
--- NOTE | 2024-01-19 13:33 | PCPTNOTE ---
LATE entry: discussed pt with BINDU Cortez on 01-16-24; add electrical stim to plan of treatment.
--- NOTE | 2024-01-27 08:13 | PCPTNOTE ---
Pt canceled todays appt due to open sore.
--- NOTE | 2024-02-03 11:59 | PCPTNOTE ---
Pt canceled due to illness.
--- NOTE | 2024-02-05 11:53 | OPREHPOC ---
Outpatient Therapy Plan of Care This is a Multidisciplinary Plan of Care that may contain components documented by all disciplines (PT, OT, and ST.) PT Problem 1 PT Problem #1 Knowledge Deficit PT Goal 1 Goal *indep with HEP Target Visit 14 Progress Met Comment 02-05-24 progress goal met; continue to progress HEP with aquatic and land exercises PT Goal 2 Target Visit 14 PT Problem 2 PT Problem #2 Pain PT Goal 1 Goal 1* pain rating at the worst of 7/10 2* self assessment Oswestry rating of 60% limitation in activity 3* pt report sleeping tolerance of 3 hours/time Target Visit 14 Progress Not Met Comment 02-05-24 progress goals not met continue towards goals PT Goal 2 Target Visit 14 PT Problem 3 PT Problem #3 Impaired Functional Mobil PT Goal 1 Goal increase strength to improve mobility skills: 1* pt perform sitting ball exercises x 15 reps with good stability of trunk 2* pt perform 20 reps of mat strengthening exercises 3* 2 minute walking test distance of 275' 4* pain rating of 6/10 after 2 minute walking test Target Visit 14 Progress Not Met Comment 02-05-24 progress goals not met; # 3 improved to 230' continue towards goals PT Goal 2 Target Visit 14 PT Problem 4 PT Problem #4 Impaired Flexibility PT Goal 1 Goal increase flexibility to improve position of trunk and mobility hamstring length with supine SLR 1* R 45' 2* L 45' pt perform 3 reps without an increase in pain 3* supine R hip flexion to 100' 4* supine L hip flexion to 100'
--- NOTE | 2024-02-05 11:53 | PTOPPROG ---
Assessment and note entered by Gabi Rodriges, PT Progress Report Assessment Status Progress Diagnosis fibromyalgia, chronic pain syndrome Onset few months ago Subjective Information feel like the stretches and ball exercises are helping, not as tight, but still have pain; past few days have been dizzy- passed out and had some numbness over R side- face, arm and leg; have had to cancel because sick and not feeling well; want to continue therapy for water exercises; to have MRI of L hip and xray of R hip; PAIN: range in the past week 5-10/10 increase pain: yard work, more activity, more house work decrease pain: lie down and rest in bed; heat, ice home stim unit; reported sleeping tolerance 2 hours at time, due to pain, wake up and change positions; always tired; Assessment PT Clinical Summary Lore has received 8 PT sessions. She called and canceled 5 appointments, due to illness-- sinus infection and pneumonia. Today, she is having dizziness and numbness over her R side- face, arm and leg. Compared to the initial evaluation: pain rating is the same at 5-10/10; self assessment Oswestry is the same at 74% limitation in activity level; reported sleeping tolerance is same at 2 hours/ time; continues to have pain and tightness over both hips with flexion and IR motions and hamstring stretching; 2 minute walking test distance increase from 200' to 230', with pain increase to 7/10; Education for home exercise program. Lore has had only 1 aquatic session, due to canceling. The goals were partially met. Continue PT, to schedule for aquatic treatments. She is to continue with her land exercises at home --mat and on ball. Plan of Care Interventions Aquatic Therapy,Manual Therapy,Patient/Caregiver Education,Therapeutic Activities,Therapeutic Exercise Other Interventions erlin, ONUR PT Services Indicated Yes Treatment Frequency and 1-2x/wk for 6 visits
--- NOTE | 2024-02-24 15:00 | PCPTNOTE ---
Pt canceled due to receiving injections yesterday.
--- NOTE | 2024-03-05 14:45 | PCPTNOTE ---
pt called and canceled today's appt due to illness.
--- NOTE | 2024-03-08 15:14 | PCPTNOTE ---
pt called and canceled today's reeval due to illness.
--- NOTE | 2024-03-12 11:58 | PCPTNOTE ---
This treatment is being continued on visit number [id number]. Please see documentation on both accounts to view progress. Completed interventions, outcomes, and problems have been marked as Inactive to facilitate the copying of the Care plan routine for recurring accounts.
== END 2024-03-09 12:46 | disposition home or self-care (01) ==
LOC: ANHPT 14:30
PROVIDERS: PCP Family Medicine; Visit Provider Anesthesiology Pain Medicine
DX: M79.7 Fibromyalgia (principal); G89.4 Chronic pain syndrome
CPT/HCPCS: 97014; 97110; 97113; 97140; 97162; 97530; G0283

== ENCOUNTER 2024-03-13 07:31 | Emergency (ER) | payer OTHER, MEDICARE, SELFPAY ==
--- NOTE | ~2024-03-13 | XR_ITS ---
EXAMINATION: XR lumbar spine 2-3V DATE: 03/13/2024 08:34 INDICATION: Low back pain radiating down right leg. TECHNIQUE: 3 views of lumbar spine were obtained. COMPARISON: Lumbar spine radiograph 11/10/2023 FINDINGS: Bone alignment is normal. There are changes of anterior fusion procedures at L4-L5 and L5-S 1 with anterior plates and screws. Vertebral body heights are normal. Intervertebral disc heights are normal. There are endplate osteophytes at most levels. There is multilevel mild facet joint osteoart hritis. IMPRESSION: 1. Mild lumbar spondylosis. 2. Anterior fusion procedures at L4-L5 and L5-S1. Reviewed, dictated and finalized at location A.
[2024-03-13 07:32] VITALS: BP 120/79; PULSE 94; RESP 20; O2SAT 100
[2024-03-13] MEDS: diazePAM (*CRX) 5 MG TABLET PO (08:51)
[2024-03-13] MEDS: KETOROLAC (*BKC) 60 MG/2 ML VIAL IM (08:51)
[2024-03-13 09:30] VITALS: BP 132/80; PULSE 78; RESP 16; TEMP 36.6; O2SAT 100
--- NOTE | 2024-03-13 09:51 | ED.BACK ---
HPI - Back Pain/Injury General Chief Complaint: Back Pain/Injury Stated Complaint: lower back pain Time Seen by Provider: 03/13/24 08:03 History of Present Illness HPI Narrative: Patient is a 48-year-old female who presents ER with back pain. Right-sided. History of fusion in the past. Her mother is currently ill and she had been helping lift her up which caused a flare of her discomfort. She has not been taking her diclofenac at home but has been taking Tylenol. No new numbness or tingling going down the legs. She does see pain management. Denies fevers or chills or sweats. No difficulty with urination/defecation. Related Data Allergies Allergy/AdvReac Type Severity Reaction Status Date / Time amoxicillin Allergy Intermediate Rash Verified 03/13/24 07:32 Cephalosporins Allergy Intermediate Rash Verified 03/13/24 07:32 Penicillins Allergy Intermediate Rash Verified 03/13/24 07:32 ketorolac AdvReac Intermediate Nausea and Verified 03/13/24 07:32 Vomiting clarithromycin AdvReac Mild GI Verified 03/13/24 07:32 Review of Systems Review of Systems: All systems reviewed & are unremarkable except as noted in HPI and below Constitutional: Constitutional: Reports no additional constitutional complaints Cardiovascular: Cardiovascular: Reports no additional cardiovascular complaints Respiratory: Respiratory: Reports no additional respiratory complaints Musculoskeletal: Musculoskeletal: Reports back pain, Denies arthralgias and Denies joint swelling PMFSH Past Medical History Medical History Anxiety Anxiety Asthma Back pain with history of spinal surgery Bronchitis COVID-19 Folliculitis GERD (gastroesophageal reflux disease) GERD (gastroesophageal reflux disease) Hypertension Hypertension IBS (irritable bowel syndrome) Major depressive disorder, single episode, unspecified Nausea Neck pain Non-cardiac chest pain SAMANTHA (obstructive sleep apnea) Tobacco abuse Surgical History Surgical History H/O section X3 H/O: hysterectomy Open partial hysterectomy followed by left salpingo-oophorectomy and eventually right salpingo-oophorectomy. Total of 3 surgeries. History of back surgery X3 History of carpal tunnel release Bilaterally History of laparoscopy x 2 exploratory laparoscopy due to abdominal pain in her 20's with no reported significant findings. Family History Family History Mother Diabetes mellitus Hypertension Heart disease COVID-19 Lung cancer Father Diabetes mellitus Hypertension Heart disease COVID-19 Sibling COVID-19 Social History Social History Social History: She smokes A pack a cigarettes a day. 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 She is . She has 3 children. She is a full code and desires to have her to be her decision-maker if needed. She does not use alcohol marijuana or illicit drugs. Smoking packs per day: 0.5 Smoking cigarettes per day: 10.0 Years smoked: 20 Smoking pack-years: 10.00 Smoking status: Former smoker Tobacco type: cigarettes Second hand tobacco smoke exposure: No Smoking end date: 01/28/22 Alcohol intake: current Alcohol use details: occasional Substance use: never Substance use type: does not use Do You Feel Safe in your Home?: Yes Lack of Transportation: No Lack of Food: Never True Current Housing: I Have Housing Concerned About Future Housing: No Difficulty Paying Gas/Electric Bills: No Difficulty Paying for Meds: No Currently Unemployed: No Education: Trade/Vocational Certificate Difficulty w/ Childcare or Family Care: No Living arrangements: with family Occupation/Education: [email or web address]
[2024-03-13 10:52] VITALS: BP 128/68; PULSE 76; RESP 16; TEMP 36.7; O2SAT 100
== END 2024-03-13 10:53 | disposition home or self-care (01) ==
PROVIDERS: Emergency Provider Emergency Medicine; PCP Family Medicine
DX: M54.9 Dorsalgia, unspecified (principal); G89.29 Other chronic pain; J45.909 Unspecified asthma, uncomplicated; I10 Essential (primary) hypertension; K21.9 Gastro-esophageal reflux disease without esophagitis; K58.9 Irritable bowel syndrome, unspecified; M79.7 Fibromyalgia; G47.33 Obstructive sleep apnea (adult) (pediatric); Z98.1 Arthrodesis status; Z86.16 Personal history of COVID-19; Z87.891 Personal history of nicotine dependence; Z90.711 Acquired absence of uterus with remaining cervical stump; Z90.79 Acquired absence of other genital organ(s); Z90.722 Acquired absence of ovaries, bilateral; Z79.899 Other long term (current) drug therapy
CPT/HCPCS: 72100; 96372; 99283; A9270; J1885

== ENCOUNTER 2024-04-08 19:42 | Observation (INO) | payer OTHER, MEDICARE, SELFPAY ==
--- NOTE | ~2024-04-08 | NM_ITS ---
EXAMINATION: NM dick stress w perfusion DATE: 04/09/2024 09:43 CDT INDICATION: Chest pain TECHNIQUE: Rest images were obtained following intravenous administration of 11.3 mCi Tc99m tetrofosm in (Myoview). The patient was infused intravenously with Lexiscan (regadenoson). Then, 34 mCi Tc99m t etrofosmin (Myoview) was administered intravenously, and stress images were obtained. Data was recons tructed into short axis and horizontal and vertical long axis SPECT images. Gated SPECT images were a lso obtained. COMPARISON: None. FINDINGS: There is no definite reversible or fixed perfusion abnormality to suggest ischemia or infar ction. There is no segmental wall motion abnormality. Left ventricular ejection fraction measures 4 7%. IMPRESSION: 1. No definite ischemia or infarct. 2. Global hypokinesis with decreased left ventricular ejection fraction measuring 47%. Reviewed, dictated and finalized at location B. IMPRESSION: 1. No definite ischemia or infarct. 2. Global hypokinesis with decreased left ventricular ejection fraction measuri ng 47%.
--- NOTE | ~2024-04-08 | XR_ITS ---
EXAMINATION: XR chest 2V DATE: 04/08/2024 20:11 INDICATION: Chest pain. Shortness of breath. TECHNIQUE: Frontal and lateral views of the chest were obtained. COMPARISON: Chest 2 view 10/16/2023 FINDINGS: There is no pneumonia, pleural effusion, or pneumothorax. The heart size is normal. IMPRESSION: 1. No acute cardiopulmonary disease. Reviewed, dictated and finalized at location A.
--- NOTE | 2024-04-08 19:46 | ECG_ITS ---
Test Date: 2024-04-08 19:53:54 Measurements Intervals [place] Rate: 106 P: 70 ME: 144 QRS: 14 QRSD: 94 T: 90 QT: 327 QTc: 435 Interpretive Statements SINUS TACHYCARDIA LEFT ATRIAL ENLARGEMENT [-0.15mV P WAVE IN V1/V2] NONSPECIFIC ST AND T-WAVE ABNORMALITY ABNORMAL ECG No previous ECG available for comparison Electronically Signed On 04-09-2024 07:34:23 CDT by Tom Pérez M.D.
[2024-04-08 19:52] VITALS: BP 143/99; RESP 18; TEMP 36.3; O2SAT 100
[2024-04-08 20:11] LABS: Basophils Absolute Auto 0.1 K/mm3 (0.0-0.1); Basophils Percent Auto 0.7 % (0.2-1.2); Eosinophils Percent Auto 0.4 % (0-4.4); Hematocrit 43.5 % (37.0-47.0); Hemoglobin 14.5 g/dL (12.0-15.0); Immature Granulocyte Absolute 0.02 K/mm3 (0.00-0.031); Immature Granulocyte Percent A 0.2 % (0-0.5); Lymphocytes Absolute Auto 3.75 K/mm3 (0.9-3.2); Lymphocytes Percent Auto 44.9 % (18.3-44.2); Mean Corpuscular HGB Conc 33.3 g/dl (32-36); Mean Corpuscular Hemoglobin 30.9 pg (26-34); Mean Corpuscular Volume 92.6 fl (80-100); Mean Platelet Volume 10.9 fl (7.4-10.4); Monocytes Absolute Auto 0.6 K/mm3 (0.1-0.6); Monocytes Percent Auto 7.1 % (2.6-8.5); Neutrophils Absolute Auto 3.9 K/mm3 (1.3-6.7); Neutrophils Percent Auto 46.7 % (45.5-73.1); Platelet Count Result 232 k/mm3 (150-375); White Blood Count 8.4 K/mm3 (4.5-10.0)
[2024-04-08 20:21] LABS: Alanine Aminotransferase 25 U/L (6-35); Albumin Level 4.8 g/dL (3.5-5.1); Alkaline Phosphatase 75 U/L (38-126); Anion Gap 11 mmol/L (4-12); Aspartate Amino Transferase 34 U/L (14-36); Bilirubin,Total 0.7 mg/dL (0.2-1.3); Blood Urea Nitrogen 13 mg/dL (7-17); Calcium 9.9 mg/dL (8.4-10.2); Carbon Dioxide 26 mmol/L (22-30); Chloride 102 mmol/L (98-107); Estimated CRCL calculation 52 ml/min; Estimated Glomerular Filt Rate 53; Glucose 99 mg/dL (65-110); Lipase 108 U/L (23-300); Potassium 3.5 mmol/L (3.4-5.0); Sodium 139 mmol/L (137-145)
[2024-04-08 20:23] LABS: INR 0.9; Partial Thromboplastin Time 26.2 Seconds (22.3-36.8); Prothrombin Time 12.7 Seconds (11.1-14.7)
[2024-04-08 20:32] LABS: Troponin I 0.016 ng/mL (0.000-0.034)
--- NOTE | 2024-04-08 21:53 | ED.CHESTPAIN ---
HPI - Chest Pain General Chief Complaint: Chest Pain <Kai Marr PA-C - Last Filed: 04/09/24 02:38> Stated Complaint: chest pain, SOB <Kai Marr PA-C - Last Filed: 04/09/24 02:38> Time Seen by Provider: 04/08/24 21:27 <Kai Marr PA-C - Last Filed: 04/09/24 02:38> Source: patient <RINA Marie Last Filed: 04/09/24 02:38> Mode of arrival: ambulatory <RINA Marie Last Filed: 04/09/24 02:38> Limitations: no limitations <RINA Marie Last Filed: 04/09/24 02:38> History of Present Illness HPI narrative: This is a 48-year-old female with PMH of HTN who presents to the ED for chief complaint of intermittent chest pain since yesterday evening. Patient states that the pain is midsternal radiates somewhat to the left and somewhat to the right. Denies any association with exertion. States that she has had multiple family members sick and in the hospital which has been very stressful for her. Patient reports that she has had shortness of breath today and she thought it may just be her asthma. She tried an albuterol inhaler with no relief. Denies any recent illness, fevers, chills, syncope, nausea, vomit, abdominal pain, cough. <RINA Marie Last Filed: 04/09/24 02:38> Related Data Home Medications: Home Medications Medication Instructions Recorded Confirmed milnacipran 100 mg tablet 50 mg PO BID 03/26/24 04/09/24 alprazolam 1 mg tablet 1 mg PO DAILY PRN Anxiety 04/09/24 04/09/24 cholecalciferol (vitamin D3) 1,250 50,000 unit PO WEEKLY 04/09/24 04/09/24 mcg (50,000 unit) capsule fluticasone 250 mcg-salmeterol 50 1 inh inhalation DAILY 04/09/24 04/09/24 mcg/dose blistr powdr for inhalation (Advair Diskus) naltrexone 4.5 mg capsule 4.5 mg PO DAILY 04/09/24 04/09/24 ubrogepant 50 mg tablet (Ubrelvy) 50 mg PO DAILY PRN Migraine 04/09/24 04/09/24 Headache <Kai Marr PA-C - Last Filed: 04/09/24 02:38> Allergies/Adverse Reactions: Allergies Allergy/AdvReac Type Severity Reaction Status Date / Time amoxicillin Allergy Intermediate Rash Verified 03/26/24 09:57 Cephalosporins Allergy Intermediate Rash Verified 03/26/24 09:57 Penicillins Allergy Intermediate Rash Verified 03/26/24 09:57 ketorolac AdvReac Intermediate Nausea and Verified 03/26/24 09:57 Vomiting clarithromycin AdvReac Mild GI Verified 03/26/24 09:57 <RINA Marie Last Filed: 04/09/24 02:38> Review of Systems Review of Systems: All systems as dictated in HPI <Kai Marr PA-C - Last Filed: 04/09/24 02:38> [facility] Past Medical History Medical History: Medical History Anxiety Anxiety Asthma Back pain with history of spinal surgery Bronchitis COVID-19 Elevated glucose Folliculitis GERD (gastroesophageal reflux disease) GERD (gastroesophageal reflux disease) Hypertension Hypertension IBS (irritable bowel syndrome) Major depressive disorder, single episode, unspecified Nausea Neck pain Non-cardiac chest pain SAMANTHA (obstructive sleep apnea) Small bowel obstruction Tobacco abuse Ulnar neuropathy of both upper extremities <RINA Marie Last Filed: 04/09/24 02:38> Surgical History Surgical History: Surgical History H/O section X3 H/O: hysterectomy Open partial hysterectomy followed by left salpingo-oophorectomy and eventually right salpingo-oophorectomy. Total of 3 surgeries. History of back surgery X3 History of carpal tunnel release Bilaterally History of laparoscopy x 2 exploratory laparoscopy due to abdominal pain in her 20's with no reported significant findings. <RINA Marie Last Filed: 04/09/24 02:38> Family History Family History: Family History Mother Diabetes mellitus Hypertension Heart disease COVI
[2024-04-08 22:00] LABS: D Dimer 0.45 ug/mL (<0.48)
[2024-04-08 22:14] VITALS: PULSE 90; RESP 14
[2024-04-08] MEDS: IPRATROPIUM 0.5 MG/ALBUTEROL SULFATE 2.5 MG AMPUL.NEB 3 ML INHALATION (22:14)
[2024-04-08 22:25] VITALS: PULSE 90; RESP 24
[2024-04-08 22:36] VITALS: BP 121/81; PULSE 87; RESP 15; O2SAT 98
[2024-04-09] VITALS (10 sets, daily range): BP systolic 119–142; BP diastolic 73–81; PULSE 61–104; RESP 15–18; TEMP 36.4–36.8; O2SAT 98–100; BMI 29.5
--- NOTE | 2024-04-09 | ECHOL_ITS ---
Patient Info Name: Lore Jacobs Age: 48 years : 1975 Gender: Female Ht: 67 in Wt: 188 lbs BSA: 2.03 m2 HR: 61 bpm BP: 119 / 73 mmHg Heart Rhythm: Sinus Rhythm Technical Quality: Good Exam Date: 04/09/2024 11:46 AM Exam Location: Echo Lab Patient Status: Inpatient Admit Date: 04/09/2024 Staff Ordering Physician: Quinten Renteria DO Senior Software Analyst: Karrie George RDCS Attending Provider: Lisette Castellon DO Referring Physician: Dexter MASSEY; Exam Type: CA echo limited w contrast Study Info Indications - assess EF R06.02 - Shortness of breath Limited two-dimensional transthoracic echocardiogram is performed with contrast. Contrast/Agitated Saline Contrast/Ag. Saline: Definity Amount: 2.00 ml Administered By: Karrie George RDCS Existing IV Access: Yes IV Access Condition: patent with no signs of infiltration Summary 1. Limited echocardiogram to assess EF and wall motion abnormalities. 2. Definity contrast administered improved wall motion interpretation. 3. Left ventricular chamber dimension is normal. 4. Left ventricular systolic function is hyperdynamic, estimated at >70%. Left Ventricle The left ventricular diastolic function is indeterminate as it was not assessed. Limited echocardiogram to assess EF and wall motion abnormalities. Definity contrast administered improved wall motion interpretation. Left ventricular chamber dimension is normal. Left ventricular systolic function is hyperdynamic, estimated at >70%. Ventricles Name Value Normal LV Fractional Shortening/Ejection Fraction 2D/MM LV Diastolic Volume (4C MOD) 47 ml LV EF (4C MOD) 78 % LV Diastolic Volume (2C MOD) 39 ml LV EF (2C MOD) 77 % LV Diastolic Volume (BP MOD) 44 ml 46-106 LV Diastolic Volume Index (BP MOD) 22 ml/m2 29-61 LV Systolic Volume (BP MOD) 10 ml 14-42 LV Systolic Volume Index (BP MOD) 5 ml/m2 8-24 LV EF (BP MOD) 78 % 54-74 LV Diastolic Length (4C) 7.9 cm LV Systolic Length (4C) 6.1 cm LV Stroke Volume (4C MOD) 37 ml Report Signatures
--- NOTE | 2024-04-09 | EST_ITS ---
Patient Info Name: Lore Jacobs Age: 48 years : 1975 Gender: Female Ht: 67 in Wt: 188 lbs BSA: 2.03 m2 HR: 62 bpm BP: 130 / 86 mmHg Exam Date: 04/09/2024 8:47 AM Exam Location: Echo Lab Patient Status: Outpatient Admit Date: 04/09/2024 Staff Ordering Physician: Quinten Renteria DO Attending Provider: Lisette Castellon DO Exercise Technologist: Karrie George RDCS Exercise Physician: Quinten Renteria DO Exam Type: CA stress dick w NM Study Info A regadenoson stress test was performed. Summary 1. 1. Negative lexiscan stress test for ischemic ST changes by ECG criteria. 2. 2. Stable hemodynamics throughout the test. 3. 3. Nuclear scan to follow and will be reported separately. Please correlate with it. 4. 4. Patient informed of the above results. Protocol: Lexiscan Stress ECG Details Stage: REST Duration (min): 1 min : 1 sec HR (bpm): 62 SBP (mmHg): 130 DBP (mmHg): 86 Stage: REST Duration (min): 12 min : 16 sec HR (bpm): 90 SBP (mmHg): 130 DBP (mmHg): 86 Stage: STAGE 1 Duration (min): 1 min : 0 sec HR (bpm): 93 SBP (mmHg): 139 DBP (mmHg): 88 Stage: RECOVERY Duration (min): 1 min : 0 sec HR (bpm): 94 SBP (mmHg): 139 DBP (mmHg): 88 Stage: RECOVERY Duration (min): 2 min : 0 sec HR (bpm): 90 SBP (mmHg): 139 DBP (mmHg): 88 Stage: RECOVERY Duration (min): 3 min : 0 sec HR (bpm): --- SBP (mmHg): 103 DBP (mmHg): 83 Stage: RECOVERY Duration (min): 3 min : 9 sec HR (bpm): 88 SBP (mmHg): 103 DBP (mmHg): 83 Rest HR: 90 bpm Peak HR: 101 bpm Rest Sys BP: 130 mmHg Peak Sys BP: 139 mmHg Max Pred HR: 170 bpm % Max Pred HR: 59 % Target HR: 145 bpm Max RPP: 14,039 bpm*mmHg Termination Reason: Completed protocol Cardiac Symptoms: Shortness of breath Total Time: 1 min : 0 sec Rest Joyce BP: 86 mmHg Peak Joyce BP: 88 mmHg Total Dose: 0.4 mg Resting ECG Sinus rhythm. Stress ECG No ST changes. Arrhythmias None. Report Signatures
[2024-04-09 00:05] LABS: Influenza A QL RT-PCR Negative (Negative); Influenza B QL RT-PCR Negative (Negative); RSV RNA, RT-PCR Negative (Negative); SARS-CoV-2 RNA PCR Negative (Negative)
[2024-04-09 00:06] LABS: Troponin I 0.021 ng/mL (0.000-0.034)
--- NOTE | 2024-04-09 00:09 | ECG_ITS ---
Test Date: 2024-04-09 01:11:12 Measurements Intervals Conroy Rate: 75 P: 66 MD: 164 QRS: 27 QRSD: 89 T: 103 QT: 395 QTc: 443 Interpretive Statements SINUS RHYTHM WITH SINUS ARRHYTHMIA POSSIBLE LEFT ATRIAL ENLARGEMENT [-0.1mV P WAVE IN V1/V2] POSSIBLE LEFT VENTRICULAR HYPERTROPHY [VOLTAGE CRITERIA PLUS LAE OR QRS WIDENING] NONSPECIFIC T-WAVE ABNORMALITY ABNORMAL ECG Compared to ECG 04/08/2024 19:53:54 NO SIGNIFICANT CHANGE Electronically Signed On 04-09-2024 07:38:41 CDT by Tom Pérez M.D.
[2024-04-09] MEDS: ASPIRIN 81 MG CHEWABLE TABLET 324 MG PO (01:40)
[2024-04-09] MEDS: NITROGLYCERIN SL 0.4 MG TABLET SUBLINGUAL (03:05)
[2024-04-09] MEDS: MUPIROCIN 2% OINT 22 GM TUBE 1 APPLIC TOPICAL (03:05)
[2024-04-09] MEDS: ONDANSETRON INJ 4 MG/2 ML VIAL IV PUSH (03:18)
[2024-04-09] MEDS: SODIUM CHLORIDE 0.9% IV 500 ML 999 ML IV CONT (03:18)
[2024-04-09] MEDS: MORPHINE SULFATE (*CRX) 4 MG/ML INJ IV PUSH (03:26)
[2024-04-09 03:39] LABS: Troponin I 0.016 ng/mL (0.000-0.034)
--- NOTE | 2024-04-09 04:36 | ADMGEN ---
This patient, Lore Jacobs, was admitted to IMU Room 202-01. Patient/family oriented to hospital policies and general routines including ID bracelet, bed and alarms, visiting hours, pain management, procedures, bathroom and other care routines, personal items, smoking policy, room service/diet, and visiting hours. Information on how to activate the Rapid Response Team has been discussed. Patient/Family are encouraged to report perceived risks to care and to ask questions if they do not understand what they are told or what they should do.
--- NOTE | 2024-04-09 07:53 | PM.CNCAR ---
Assessment and Plan Assessment and plan (1) Chest pain: Code(s): R07.9 - Chest pain, unspecified Status: Acute Assessment and Plan: Could be musculoskeletal. She has been ruled out for LA by serial troponin and EKG. Obtain lexiscan myoview stress test. If normal, no further cardiac workup is needed. (2) Hypertension: Qualifiers: Hypertension type: essential hypertension Qualified Code(s): I10 - Essential (primary) hypertension Code(s): I10 - Essential (primary) hypertension Status: Chronic Assessment and Plan: Stable. (3) SAMANTHA (obstructive sleep apnea): Code(s): G47.33 - Obstructive sleep apnea (adult) (pediatric) Status: Acute Assessment and Plan: Encouraged to use CPAP regularly. History of Present Illness History of Present Illness Consult date/time: 04/09/24 07:53 Reason For Visit: Chest pain Narrative: 48 yr old woman who is my regular cardiology patient presents to ER for chest pain and sob. She has a history of hypertension, SAMANTHA, quit smoking January 2022. States 2 days ago she had more chest ache mid chest radiating to both sides worse with palpation and associated with sob. Reports she has HOWE walking less than 1 block but more limited by chronic back pain which she had 3 surgeries. Admits to snoring, waking up and daytime sleepiness. Denies orthopnea, PND, edema, palpitations, dizziness. 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: Normal coronaries with calcium score 0. 5 mm nodule in RLL with left pulm artery enlarged, r/o pulm stenosis. Echo/MUGA:: 09/22/20 Echo: EF >70%, grade II diastolic dysfunction (E/e' 9). Electrophysiology:: 10/16/23 EKG: Sinus rhythm, LVH with ST-T change, ST-T wave abnormality- consider anterolat ischemia. 09/22/20 EKG: Sinus bradycardia at 56 bpm, LVH with ST-T change, ST-T abnormality consider anterolat/high lat ischemia. Stress Tests:: 11/28/20 Sleep study: Mod SAMANTHA with desaturation to 88%. Review of Systems Review of Systems: All systems reviewed & are unremarkable except as noted in HPI and below Constitutional: Constitutional: Reports as per HPI, Denies chills and Denies fever(s) Cardiovascular: Cardiovascular: Reports as per HPI, Reports chest pain, Denies irregular heart rhythm and Denies lightheadedness Respiratory: Respiratory: Reports as per HPI and Reports dyspnea Gastrointestinal: Gastrointestinal: Reports as per HPI and Denies abdominal pain Genitourinary: Genitourinary: Reports as per HPI and Denies dysuria Musculoskeletal: Musculoskeletal: Reports as per HPI Neurologic: Reports as per HPI, Denies dizziness and Denies syncope [facility] Past Medical History Medical History Anxiety Anxiety Asthma Back pain with history of spinal surgery Bronchitis COVID-19 Elevated glucose Folliculitis GERD (gastroesophageal reflux disease) GERD (gastroesophageal reflux disease) Hypertension Hypertension IBS (irritable bowel syndrome) Major depressive disorder, single episode, unspecified Nausea Neck pain Non-cardiac chest pain SAMANTHA (obstructive sleep apnea) Small bowel obstruction Tobacco abuse Ulnar neuropathy of both upper extremities Surgical History Surgical History H/O section X3 H/O: hysterectomy Open partial hysterectomy followed by left salpingo-oophorectomy and eventually right salpingo-oophorectomy. Total of 3 surgeries. History of back surgery X3 History of carpal tunnel release Bilaterally History of laparoscopy x 2 exploratory laparoscopy due to abdominal pain in her 20's with no reported significant findings. Family History Family History Mother Diabetes mellitus Hypertension Heart disease COVID-19 Lung cancer Father Diabetes mellitus Hypertension Heart disease COVID-19 Sibling C
--- NOTE | 2024-04-09 08:00 | PC.NURSE ---
Pt to nuclear medicine via wheelchair for stress test.
--- NOTE | 2024-04-09 09:43 | PC.NURSE ---
Pt returned from [facility] via wheelchair.
[2024-04-09] MEDS: PERFLUTREN LIPID MICROSPHERES 1.5 ML VIAL DILUTED TO 10 ML TOTAL VOLUME IV PUSH (12:45)
--- NOTE | 2024-04-09 14:23 | IVDEFINITY ---
Prior to administration of IV Definity the patient was educated on the risks and benefits of the imaging enhancing agent including potential adverse side effects. The patient verbalized understanding. Allergies were verified. No exclusion criteria were identified and at least one of the following inclusion criteria were met: 1) physician request, 2) patient technically difficult to image (per the [place] [employer]chocardi[employer] guidelines of two or more segments not discernable within the apical view), or 3) questionable left ventricular function. ?
--- NOTE | 2024-04-09 15:58 | PC.NURSE ---
Dr. Renteria called with results of echocardiogram and he said the patient can discharge from a cardiac standpoint.
--- NOTE | 2024-04-09 16:35 | PM.DS ---
DS: Admitting Diagnosis Discharge Date 04/09/2024 Admitting Diagnosis Chest Discomfort DS: Discharge Diagnosis Discharge Diagnosis (1) Hypertension: Qualifiers: Hypertension type: essential hypertension Qualified Code(s): I10 - Essential (primary) hypertension Code(s): I10 - Essential (primary) hypertension Status: Chronic Plan Chest Discomfort DS: Summary Time Spent with Patient Time attestation: Total time spent providing and/or coordinating discharge services: DS: Data Data Completed and Pending Labs on day of discharge: Labs from last 24 hours 04/09/24 04/08/24 04/08/24 03:08 23:22 20:03 WBC 8.4 RBC 4.70 Hgb 14.5 Hct 43.5 MCV 92.6 MCH 30.9 MCHC 33.3 RDW 13.0 Plt Count 232 MPV 10.9 H Immature Gran % (Auto) 0.2 Neut % (Auto) 46.7 Lymph % (Auto) 44.9 H Pratt % (Auto) 7.1 Eos % (Auto) 0.4 Baso % (Auto) 0.7 Lymph # (Auto) 3.75 H Pratt # (Auto) 0.6 Eos # (Auto) 0.0 Baso # (Auto) 0.1 Abs Immat Gran (auto) 0.02 Absolute Neuts (auto) 3.9 Absolute Nucleated RBC 0.000 Nucleated RBC % 0.0 PT 12.7 INR 0.9 APTT 26.2 D-Dimer 0.45 Sodium 139 Potassium 3.5 Chloride 102 Carbon Dioxide 26 Anion Gap 11 BUN 13 D Creatinine 1.30 H Estim Creat Clear Calc 52 Estimated GFR 53 L Glucose 99 Calcium 9.9 Total Bilirubin 0.7 AST 34 ALT 25 Alkaline Phosphatase 75 Troponin I 0.016 D 0.021 D 0.016 Total Protein 8.0 Albumin 4.8 Lipase 108 Influenza A (RT-PCR) Negative Influenza B (RT-PCR) Negative RSV (RT-PCR) Negative SARS-CoV-2 RNA (RT-PCR) Negative Discharge Plan Discharge Attending physician on discharge: Robin Day Consulting providers: Quinten Renteria Discharging Clinician: Rosalba Frgeoso Anticipated Discharge Date/Time: 04/09/24 16:30 Patient Disposition: Home, Self-Care Activity: as tolerated Diet: heart healthy Patient Instructions: Antibiotic Form, Chest Pain (DC), How to Stop Smoking (DC) Stand Alone Forms: General Discharge Information Follow-up/Referrals: Miki Anderson MD [Primary Care Provider] - 1 Week Discharge Medications: Continued albuterol sulfate 90 mcg/actuation HFA aerosol inhaler 2 puff INHALATION Q4H PRN (Reason: Shortness Of Breath) Qty: 8.5 1RF milnacipran 100 mg tablet 50 mg PO BID cyclobenzaprine 10 mg tablet 10 mg PO TID PRN (Reason: muscle spasm) Qty: 90 0RF diclofenac sodium 75 mg tablet,delayed release (DR/EC) 75 mg PO BID Qty: 60 2RF fluticasone propion-salmeterol [Advair Diskus] 250-50 mcg/dose blister with device 1 inh inhalation DAILY alprazolam 1 mg tablet 1 mg PO DAILY PRN (Reason: Anxiety) cholecalciferol (vitamin D3) 1,250 mcg (50,000 unit) capsule 50,000 unit PO WEEKLY Rx Instructions: takes on Friday Ubrelvy 50 mg tablet 50 mg PO DAILY PRN (Reason: Migraine Headache) naltrexone 4.5 mg capsule 4.5 mg PO DAILY lisinopril-hydrochlorothiazide 10-12.5 mg tablet 1 tablet PO DAILY Qty: 90 1RF Zepbound 5 mg/0.5 mL pen injector 5 mg subcut WEEKLY Qty: 2 3RF Rx Instructions: takes on Wednesdays Date of admission: 04/09/24 01:59 Primary Care Provider: Miki Anderson Admitting Provider: Lisette Castellon Attending physician on admission: Lisette Castellon Condition: Stable
--- NOTE | 2024-04-09 16:41 | PM.SD2 ---
Same Day Admit/Disch: HPI History of Present Illness Chief complaint: Chest pain Narrative: This is a 48-year-old female with PMH of HTN who presents to the ED for chief complaint of intermittent chest pain since the day before she presented. Patient stated that the pain is midsternal radiates somewhat to the left and somewhat to the right. Denied any association with exertion. Pt also reported she had multiple family members sick and in the hospital which has been very stressful for her. Patient also reported that she had shortness of breath earlier and she thought it may just be her asthma. She tried an albuterol inhaler with no relief so she presented to the ER for evaluation. [facility] Past Medical History Medical History Anxiety Anxiety Asthma Back pain with history of spinal surgery Bronchitis COVID-19 Elevated glucose Folliculitis GERD (gastroesophageal reflux disease) GERD (gastroesophageal reflux disease) Hypertension Hypertension IBS (irritable bowel syndrome) Major depressive disorder, single episode, unspecified Nausea Neck pain Non-cardiac chest pain SAMANTHA (obstructive sleep apnea) Small bowel obstruction Tobacco abuse Ulnar neuropathy of both upper extremities Surgical History Surgical History H/O section X3 H/O: hysterectomy Open partial hysterectomy followed by left salpingo-oophorectomy and eventually right salpingo-oophorectomy. Total of 3 surgeries. History of back surgery X3 History of carpal tunnel release Bilaterally History of laparoscopy x 2 exploratory laparoscopy due to abdominal pain in her 20's with no reported significant findings. Family History Family History Mother Diabetes mellitus Hypertension Heart disease COVID-19 Lung cancer Father Diabetes mellitus Hypertension Heart disease COVID-19 Sibling COVID-19 Social History Social History Social History: She smokes A pack a cigarettes a day. 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 She is . She has 3 children. She is a full code and desires to have her to be her decision-maker if needed. She does not use alcohol marijuana or illicit drugs. Smoking packs per day: 0.5 Smoking cigarettes per day: 10.0 Years smoked: 25 Smoking pack-years: 12.50 Smoking status: Current every day smoker Tobacco type: cigarettes Second hand tobacco smoke exposure: No Smoking end date: 01/28/22 Alcohol intake: never Alcohol use details: occasional Substance use: never Substance use type: does not use Do You Feel Safe in your Home?: Yes Lack of Transportation: No Lack of Food: Never True Current Housing: I Have Housing Concerned About Future Housing: No Difficulty Paying Gas/Electric Bills: No Difficulty Paying for Meds: No Currently Unemployed: No Education: Bachelor's Degree Difficulty w/ Childcare or Family Care: No Living arrangements: with family Occupation/Education: unemployed 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 Gender identity (if verbalized by the patient): Female Sexual Orientation (if Verbalized by the Patient): Straight or Heterosexual Spiritual care concerns: No Same Day Admit/Disch: Med Pre-admit Medications Home Medications Medication Instructions Recorded Confirmed Type albuterol sulfate 90 mcg/actuation 2 puff inhalation Q4H PRN 01/29/23 04/09/24 Rx aerosol inhaler Shortness Of Breath #8.5 grams lisinopril 10 1 tablet PO DAILY #90 tabs 10/07/23 04/09/24 Rx mg-hydrochlorothiazide 12.5 mg tablet tirzepatide (weight loss) 5 mg/0.5 5 mg (0.5 mL) subcut WEEKLY #2 mL 03/19/24 04/09/24 Rx mL subcutaneous pen injec
== END 2024-04-09 17:30 | disposition home or self-care (01) ==
LOC: ANHED 04-09 02:38 → ANHIMU 04-09 03:23
PROVIDERS: Emergency Medicine; Admitting Provider Internal Medicine; Emergency Provider Physician Assistant; PCP Family Medicine; Visit Provider Internal Medicine
DX: R07.89 Other chest pain (principal); R94.31 Abnormal electrocardiogram [ECG] [EKG]; R06.02 Shortness of breath; I10 Essential (primary) hypertension; G47.33 Obstructive sleep apnea (adult) (pediatric); J45.909 Unspecified asthma, uncomplicated; Z87.891 Personal history of nicotine dependence
CPT/HCPCS: 36415; 71046; 78452; 80053; 83690; 84484; 85025; 85380; 85610; 85730; 87637; 93005; 93017; 93308; 94640; 96361; 96374; 96375; 99285; A9270; A9502; G0378; J2270; J2405; J2785; J7040; Q9957

== ENCOUNTER 2024-06-22 07:12 | Day surgery (SDC) | payer OTHER, MEDICARE, SELFPAY ==
[2024-06-15 12:37] VITALS: BMI 27.4
--- NOTE | ~2024-06-22 | XR_ITS ---
EXAMINATION: XR fluoroscopy no charge DATE: 06/22/2024 08:23 INDICATION: Sacroiliitis. TECHNIQUE: 20 intraoperative fluoroscopic views of the pelvis were obtained. I was not present. Fluor oscopy exposure time was 20 seconds. COMPARISON: MRI 02/11/2024 FINDINGS: There are changes of anterior fusion procedure in lumbosacral spine. There are needles in t he bilateral sacroiliac joints. IMPRESSION: 1. Weldon in the bilateral sacroiliac joints. Reviewed, dictated and finalized at location A. DESIGN
--- NOTE | 2024-06-22 05:03 | WPDHPUPDATE1 ---
History and Physical Update Update Date/Time: 06/22/24 05:03 History and Physical has been reviewed, including an updated exam of the patient. There are NO changes in the patient's condition. Risks, benefits, and alternatives have been discussed and questions answered. Patient agrees to proceed with procedure.
--- NOTE | 2024-06-22 05:05 | P.OP_ITS ---
Procedure Note - Detailed Date of Procedure 06/22/24 Pre-op Diagnosis Sacroiliitis Post-op Diagnosis Same Procedure Performed bilateral Sacroiliac Joint Steroid Injection under Fluoroscopic Guidance and with Contrast Control. Surgeon Jose Carlos More MD Transmission Technician None Anesthesia Local Description of Procedure INFORMED CONSENT: Risks, benefits and alternatives to the procedure were discussed in detail with the patient who expressed explicit understanding and consent to proceed. Patient was informed verbally and in written form regarding the risks associated with the procedure including the low risk of serious infection, bleeding/bruising, allergic reaction, nerve or organ injury, paralysis, procedural site pain or discomfort, worsening pain and/or mobility, failure to treat and/or disfigurement. The patient expressed explicit understanding and consent to proceed. All materials required for the procedure were available prior to procedure start. Site and side were marked prior to procedure and confirmed in the presence of the patient. PROCEDURE IN DETAIL: The patient was brought to the procedural suite and placed in the prone position. Patient was made comfortable with use of pillows under the head/chest, hips and ankles. Skin overlying the injection site on the affected side(s) was prepared broadly with ChloraPrep applicator and draped in a sterile manner. Aseptic technique was used throughout. The right SI joint was identified in the AP view and contralateral oblique angulation with caudal tilt was utilized to optimize visualization of the inferior and medial joint line representing the posterior portion of the joint. Local anesthesia was established by infiltration with approximately 5 mL of 2% lidocaine via a 1-1/2 inch 27-gauge needle. A 22-gauge 3.5 inch Quincke spinal needle was advanced until the needle entered the inferior third of the joint space approximately 1cm cephalad from its most inferior point. In the AP view, 0.5 mL of Omnipaque 300 contrast medium was injected after negative aspiration for CSF, blood or other bodily fluid, showing appropriate intra-articular spread of contrast without evidence of intravascular, perineural or intrathecal placement. A 1.5 mL solution containing 3 mg of betamethasone in 0.5% PF bupivacaine was injected after repeat negative aspiration. Appropriate spread of the injectate was confirmed with washout of previous injected contrast. No parasthesias were elicited. Needle was removed completely intact without difficulty. The same exact procedure was repeated for all remaining levels on the contralateral side, left SI joint, modified as necessary to accommodate for the new target location with identical findings/results and no evidence of complication. Images were saved and documented in the patient chart. Patient's skin was cleansed and sterile bandage applied. The patient tolerated the procedure well. The patient was transported to the recovery area in stable condition where they were observed for an appropriate amount of time prior to discharge, without evidence of complication. The patient was instructed to avoid excessive activity for the next 48 hours, including climbing and frequent use of stairs. Showers only for 48 hours. They were instructed not to drive or operate heavy machinery for 24 hours. They are to monitor for severe headaches, fevers, chills, night sweats, erythema/swelling at the site or any other signs of infection, bleeding/bruising, bowel or bladder changes as well as new pain, weakness or numbness in the upper or lower extremity. Should they notice these changes, they are instructed to call our office immediately or report directly to the nearest Emergency Department if no answer or if after posted office hours. COMPLICATIONS: None COMMENTS: None CONTRAST WASTED: 29mL Omnipaque 300. Complications No immediate complications Condition Stable Disposition Same day [facility] Billing Surgery - Charge Forward: Surgery Billing
[2024-06-22 07:46] VITALS: BP 138/102; PULSE 86; RESP 16; TEMP 36; O2SAT 100
[2024-06-22 08:15] VITALS: BP 144/105; PULSE 86; RESP 18; O2SAT 96
[2024-06-22] MEDS: BETAMETHASONE SODIUM PHOSPHATE PF INJ 6 MG/ML VIAL INFILTRATE (08:18)
[2024-06-22] MEDS: BUPivacaine HCL 0.5% 10 ML AMP INFILTRATE (08:20)
[2024-06-22 08:21] VITALS: BP 138/92; PULSE 86; RESP 14; O2SAT 96
[2024-06-22 08:26] VITALS: BP 123/95; PULSE 77; RESP 16; O2SAT 98
== END 2024-06-22 08:42 | disposition home or self-care (01) ==
PROVIDERS: PCP Family Medicine; Visit Provider Anesthesiology Pain Medicine
PROC: (CPT 27096; principal; 2024-06-22 08:30)
DX: M46.1 Sacroiliitis, not elsewhere classified (principal)
CPT/HCPCS: 27096 ×2; 99199; G0260

== ENCOUNTER 2024-07-03 08:35 | Outpatient (CLI) | payer OTHER, MEDICARE, SELFPAY ==
--- NOTE | ~2024-07-03 | MR_ITS ---
EXAMINATION: MR lumbar spine wo con DATE: 07/03/2024 09:01 INDICATION: Postlaminectomy syndrome, not elsewhere classified. Low back pain. TECHNIQUE: Magnetic resonance imaging (MRI) of the lumbar spine was performed without intravenous con trast. COMPARISON: Lumbar spine MRI 09/11/2022 FINDINGS: There is 3 degrees levocurvature of lumbar spine. There is 4 mm retrolisthesis of L3 on L4. Vertebral body heights are normal. There are changes of anterior fusion procedure from L4 to S1 with interbody devices and anterior plate and screws. There is mildly decreased disc height at L2-L3 and moderately decreased disc height at L3-L4. The distal spinal cord signal intensity is normal. The con us medullaris is at L1. The following disc levels are specifically discussed: L1-L2: The disc does not extend beyond the endplate margin. There is mild bilateral facet joint osteo arthritis. There is no neural foraminal stenosis. There is no central canal stenosis. L2-L3: The disc is bulging. There is mild bilateral facet joint osteoarthritis. There is mild bilater al neural foraminal stenosis. There is mild central canal stenosis. L3-L4: The disc is bulging with superimposed left central extrusion with 1.8 cm inferior extension to the infrapedicular level of L3. There is severe right and mild left facet joint osteoarthritis. Ther e is mild bilateral neural foraminal stenosis. There is mild central canal stenosis. L4-L5: There is mild right facet joint hypertrophy. There is no neural foraminal stenosis. There is n o central canal stenosis. There is posterior decompression. L5-S1: There is mild bilateral facet joint hypertrophy. There is mild right neural foraminal stenosis . There is mild central canal stenosis. IMPRESSION: 1. Moderate lumbar spondylosis with interval worsening at L3-L4. 2. Anterior fusion procedure from L4 to S1. Reviewed, dictated and finalized at location A. [employer]
== END 2024-07-03 08:36 | disposition home or self-care (01) ==
PROVIDERS: PCP Family Medicine; Visit Provider Anesthesiology Pain Medicine
DX: M96.1 Postlaminectomy syndrome, not elsewhere classified (principal); M43.06 Spondylolysis, lumbar region; Z98.1 Arthrodesis status
CPT/HCPCS: 72148

== ENCOUNTER 2024-08-22 13:59 | Observation (INO) | payer OTHER, MEDICARE, SELFPAY ==
--- NOTE | ~2024-08-22 | XR_ITS ---
CHEST RADIOGRAPH, PA AND LATERAL CLINICAL HISTORY: cp . COMPARISON: 04/08/2024 TECHNIQUE: PA and lateral views of the chest. FINDINGS The cardiomediastinal silhouette is unremarkable. The lungs are clear. Visualized osseous structures and soft tissues are unremarkable. IMPRESSION: No focal infiltrate or effusion. Reviewed, dictated and finalized at location A. R PURIFIER OPERATOR
--- NOTE | 2024-08-22 14:01 | ECG_ITS ---
Test Date: 2024-08-22 14:07:43 Measurements Intervals [place] Rate: 93 P: 61 [place]: 164 QRS: 3 QRSD: 89 T: 99 QT: 334 QTc: 416 Interpretive Statements SINUS RHYTHM WITH SINUS ARRHYTHMIA LEFT ATRIAL ENLARGEMENT [-0.15mV P WAVE IN V1/V2] SEPTAL MYOCARDIAL INFARCTION , OF INDETERMINATE AGE [40+ ms Q WAVE IN V1/V2] MODERATE T-WAVE ABNORMALITY, CONSIDER LATERAL ISCHEMIA [-0.1+ mV T WAVE IN I/aVL/V5/V6] ABNORMAL ECG Electronically Signed On 08-22-2024 15:35:05 CHAIN FORMING MACHINE OPERATOR by Tom Miranda M.D.
[2024-08-22 14:04] VITALS: BP 123/94; PULSE 102; RESP 16; TEMP 36.6; O2SAT 100
[2024-08-22 14:16] LABS: Basophils Absolute Auto 0.1 K/mm3 (0.0-0.1); Basophils Percent Auto 0.7 % (0.2-1.2); Eosinophils Absolute Auto 0.1 K/mm3 (0-0.3); Eosinophils Percent Auto 0.6 % (0-4.4); Hematocrit 45.4 % (37.0-47.0); Immature Granulocyte Absolute 0.02 K/mm3 (0.00-0.031); Immature Granulocyte Percent A 0.2 % (0-0.5); Lymphocytes Absolute Auto 4.36 K/mm3 (0.9-3.2); Lymphocytes Percent Auto 51.6 % (18.3-44.2); Mean Corpuscular Hemoglobin 30.6 pg (26-34); Mean Corpuscular Volume 92.7 fl (80-100); Mean Platelet Volume 11.1 fl (7.4-10.4); Monocytes Absolute Auto 0.6 K/mm3 (0.1-0.6); Monocytes Percent Auto 6.6 % (2.6-8.5); Neutrophils Absolute Auto 3.4 K/mm3 (1.3-6.7); Neutrophils Percent Auto 40.3 % (45.5-73.1); Platelet Count Result 239 k/mm3 (150-375); Red Cell Distribution Width 12.2 % (11.5-14.5); White Blood Count 8.5 K/mm3 (4.5-10.0)
[2024-08-22 14:25] LABS: Alanine Aminotransferase 24 U/L (6-35); Albumin Level 4.8 g/dL (3.5-5.1); Alkaline Phosphatase 94 U/L (38-126); Anion Gap 6 mmol/L (4-12); Aspartate Amino Transferase 28 U/L (14-36); Bilirubin,Total 0.8 mg/dL (0.2-1.3); Blood Urea Nitrogen 16 mg/dL (7-17); Calcium 9.7 mg/dL (8.4-10.2); Carbon Dioxide 30 mmol/L (22-30); Chloride 102 mmol/L (98-107); Estimated Glomerular Filt Rate > 60; Glucose 100 mg/dL (65-110); Lipase 127 U/L (23-300); Potassium 3.9 mmol/L (3.4-5.0); Sodium 138 mmol/L (137-145)
[2024-08-22 14:27] LABS: INR 0.9; Prothrombin Time 12.8 Seconds (11.1-14.7)
[2024-08-22 14:28] LABS: Partial Thromboplastin Time 24.2 Seconds (22.3-36.8)
[2024-08-22 14:37] LABS: Troponin I 0.015 ng/mL (0.000-0.034)
--- NOTE | 2024-08-22 16:02 | ED_ITS ---
HPI - Chest Pain General Chief Complaint: Chest Pain <Annie Krause PA-C - Last Filed: 08/23/24 00:10> Stated Complaint: cp <Annie Krause PA-C - Last Filed: 08/23/24 00:10> Time Seen by Provider: 08/22/24 16:02 <Annie Krause PA-C - Last Filed: 08/23/24 00:10> Focused HPI: This is a 48-year-old female that presents to the emergency department for chest discomfort. Reports she is currently a fibromyalgia flare. Is having a lot of back pain. Over the last couple of days she started to develop some substernal chest tightness and burning pain. This concerned her and prompted her to be seen. Reports multiple previous visits for similar symptoms. GENERAL: Well-appearing, well-nourished, and in no acute distress. HEAD: Normocephalic, atraumatic. CHEST: Clear to auscultation. ?No respiratory distress. HEART: Regular rate and rhythm.? NEURO: ?Alert and oriented x3. Patient screened in triage and initial orders placed.? ?Additional care and disposition to be based upon?diagnostic testing and treatment. <Annie Krause PA-C - Last Filed: 08/23/24 00:10> History of Present Illness HPI narrative: Agree with the above following additions/corrections: Patient presents with chest pain which she describes as left-sided and substernal occuring for approximately 1 week. It slightly worsened today. It was initially 6/10 in severity but now approximately 4/10 severity. However, occurring nearly constantly. She attributes this to her known history of fibromyalgia or her GERD for which she started taking omeprazole a few days ago. She does also note that she is having some radiating pain into her bilateral arms and neck and attributes this to her history of spinal issues. She has had 5 spinal surgeries and is due to see another specialist on Friday. She states this causes chronic numbness in her face. No associated shortness of breath. She has been nauseated no vomiting and again, she attributes this to her GERD. She has also experienced intermittent diaphoresis but she thought this was possibly related to perimenopause/menopause. No prior DVT or PE. Has not appreciated any lower extremity edema. No cough including no hemoptysis. Denies any lower extremity edema. She states she had labs through her primary care physician Dr. Cooper few months ago and these were normal. She had similar symptoms in March of 2024 and notes that she was admitted here for further workup which included an echo and stress test. No prior cardiac catheterization performed. She has seen her mechanical engineering manager Dr. Renteria within the past year. Does not take/does not have NTG. Cardiac risk factors: Hypertension (on lisinopril/hydrochlorothiazide). No history of hyperlipidemia, diabetes mellitus. No prior MO/CVA. She does smoke less than half pack per day. She does have a possible family history as well as her father had a triple bypass, she thinks possibly at approximately age 65. < Shannan Mccain MD - Last Filed: 08/22/24 21:20> Related Data Home Medications: Home Medications ?Medication ?Instructions ?Recorded ?Confirmed ?Last Taken ?Type alprazolam 1 mg tablet 1 mg PO DAILY PRN Anxiety 04/09/24 06/22/24 06/22/24 History cholecalciferol (vitamin D3) 1,250 50,000 unit PO WEEKLY 04/09/24 06/22/24 Unknown History mcg (50,000 unit) capsule <Annie Krause PA-C - Last Filed: 08/23/24 00:10> Allergies/Adverse Reactions: Allergies Allergy/AdvReac Type Severity Reaction Status Date / Time amoxicillin Allergy Intermediate Rash Verified 07/19/24 08:03 Cephalosporins Allergy Intermediate Rash Verified 07/19/24 08:03 Penicillins Allergy Intermediate Rash Verified 07/19/24 08:03 ketorolac AdvReac Intermediate Nausea and Verified 07/19/24 08:03 Vomiting clarithromycin AdvReac Mild GI Verified 07/19/24 08:03 <Annie Krause PA-C - Last Filed: 08/23/24 00:10> Review of Systems 2 Review of Systems: All systems reviewed & are unremarkable except as noted in HPI and below <Annie Krause PA-C - Last Filed: 08/23/24 00:10> PMFSH Past Medical History Medical History: Medical History (Updated 08/23/24 @ 00:10 by Annie Krause PA-C) Fibromyalgia Elevated glucose Bronchitis Folliculitis Non-cardiac chest pain Neck pain Nausea COVID-19 Back pain with history of spinal surgery SAMANTHA (obstructive sleep apnea) Tobacco abuse IBS (irritable bowel syndrome) Small bowel obstruction Anxiety Asthma Major depressive disorder, single episode, unspecified Ulnar neuropathy of both upper extremities GERD (gastroesophageal reflux disease) Hypertension <Annie Krause PA-C - Last Filed: 08/23/24 00:10> Surgical History Surgical History: Surgical History (Updated 08/22/24 @ 21:06 by Shannan Mccain MD) History of laparoscopy x 2 exploratory laparoscopy due to abdominal pain in her 20's with no reported significant findings. History of back surgery X3 (total 5 spinal surgeries) History of carpal tunnel release Bilaterally H/O section X3 H/O: hysterectomy Open partial hysterectomy followed by left salpingo-oophorectomy and eventually right salpingo-oophorectomy. Total of 3 surgeries. <Annie Krause PA-C - Last Filed: 08/23/24 00:10> Family History Family History: Family History Mother Diabetes mellitus Hypertension Heart disease COVID-19 Lung cancer Father Diabetes mellitus Hypertension Heart disease COVID-19 S/P triple vessel bypass, Onset Age: 65 Sibling COVID-19 <Annie Krause PA-C - Last Filed: 08/23/24 00:10> Social History Social History: Social History Social History: She is . She has 3 children. She is a full code and desires to have her to be her decision-maker if needed. She does not use alcohol marijuana or illicit drugs. Smoking packs per day: 0.5 Smoking cigarettes per day: 10.0 Years smoked: 20 Smoking pack-years: 10.00 Smoking status: Current every day smoker Tobacco type: cigarettes Second hand tobacco smoke exposure: No Smoking end date: 01/28/22 Alcohol intake: current Alcohol use details: SOCIALLY Substance use: current Substance use type: marijuana Last use: 06/14/2024 Do You Feel Safe in your Home?: Yes Lack of Transportation: No Lack of Food: Never True Current Housing: I Have Housing Concerned About Future Housing: No Difficulty Paying Gas/Electric Bills: No Difficulty Paying for Meds: No Currently Unemployed: No Education: Bachelor's Degree Difficulty w/ Childcare or Family Care: No Living arrangements: with family Occupation/Education: unemployed 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 Gender identity (if verbalized by the patient): Female Sexual Orientation (if Verbalized by the Patient): Straight or Heterosexual Spiritual care concerns: No <Annie Krause PA-C - Last Filed: 08/23/24 00:10> Exam 2 Narrative: GENERAL: Well-appearing, well-nourished, and in no acute distress. HEAD: Normocephalic, atraumatic. EYES: Non injected, non icteric ENT: Nares clear, no rhinorrhea or epistaxis. NECK: Supple. CHEST: Speaking in full sentences. No respiratory distress. Lungs clear to auscultation bilaterally without appreciable wheezes or crackles. HEART: Regular rate and rhythm. . ABDOMEN: Soft, nondistended. EXTREMITIES: Normal range of motion. No bilateral l ower extremity edema. SKIN: Warm, dry, no rash. NEURO: No focal deficits. Alert and oriented x3. PSYCH: Normal mood and affect. <Shannan Mccain MD - Last Filed: 08/22/24 21:20> Course Vital Signs Vital signs: Vital Signs Temperature 97.9 F 08/22/24 14:04 Pulse Rate 102 H 08/22/24 14:04 Respiratory Rate 16 08/22/24 14:04 Blood Pressure 123/94 H 08/22/24 14:04 Pulse Oximetry 100 08/22/24 14:04 Oxygen Delivery Room Air 08/22/24 14:04 Temperature 98.0 F 08/22/24 17:21 Pulse Rate 79 08/22/24 21:24 Respiratory Rate 15 08/22/24 21:24 Blood Pressure 102/84 08/22/24 21:24 Pulse Oximetry 98 08/22/24 21:24 Oxygen Delivery Room Air 08/22/24 18:57 <Annie Krause PA-C - Last Filed: 08/23/24 00:10> Vital Signs Temperature 97.9 F 08/22/24 14:04 Pulse Rate 102 H 08/22/24 14:04 Respiratory Rate 16 08/22/24 14:04 Blood Pressure 123/94 H 08/22/24 14:04 Pulse Oximetry 100 08/22/24 14:04 Oxygen Delivery Room Air 08/22/24 14:04 Temperature 98.0 F 08/22/24 17:21 Pulse Rate 79 08/22/24 21:24 Respiratory Rate 15 08/22/24 21:24 Blood Pressure 102/84 08/22/24 21:24 Pulse Oximetry 98 08/22/24 21:24 Oxygen Delivery Room Air 08/22/24 18:57 <Shannan Mccain MD - Last Filed: 08/22/24 21:20> MDM - Chest Pain MDM Narrative Medical decision making narrative: Patient presents with chest pain approximately 1 week's duration but slightly worse today. Does radiate into her bilateral arms and neck and is associated with nausea and diaphoresis. She attributed many the symptoms to her known history of GERD, fibromyalgia. And history of spinal surgeries. In the emergency department, she is afebrile with vital signs notable for mild tachycardia and hypertension (elevated DBP) that resolved on subsequent assessment. Had reviewed the EKG when the Physician who signed 2nd EKG which flagged as possible acute MO was given the EKG. We reviewed this together given possible elevation in septal leads however ultimately felt to not meet STEMI criteria and does appear similar to previous. HEART SCORE History 2 highly suspicious 1 moderately suspicious 0 slightly suspicious History score [address] depression/elevation not due to LBBB, LVH, or digoxin [address] depression but LBBB, LVH, nonspecific repolarization changes 0 normal ECG score 1 Age 2 >/= 65 1 45-64 0 <45 Age score 1 Risk factors (HTN, hypercholesterolemia, DM, obesity with BMI >30, current smoker or cessation </=3mo), positive fam hx with parent or sibling with CVD before age 65, atherosclerotic disease (prior MO, PCI/CABG, CVA/TIA, or peripheral arterial disease) 2 >/= 3 risk factors or history of atherosclerotic dz 1 - 1-2 risk factors 0 no known risk factors Risk factor score 2 (HTN, smoking, fam hx) Initial Troponin 2 >3 times normal limit 1 1-3 times normal limit 0 less than or equal to normal limit Troponin score 0 (though first 0.015 and second 0.016). Total HEART Score 5 Although patient has several reasons why she is having symptoms (fibromyalgia, spinal issues/surgeries, and GERD), It is possible that this chest pain represents unstable angina. Discussed with Dr Renteria who felt Possible LVH with ST/T wave changes in high lateral leads but also did not feel it met STEMI critieria. Reasonable to admit as observation status given HEART score, however, to monitor for troponin 6 hour and consideration of possible heart cath tomorrow. In the interim, no need to heparinize though. D-dimer is slightly elevated however, YEARS Algorithm : No Clinical signs of DVT: No Hemoptysis: No PE is most likely diagnosis: No D-dimer >1000ng/mL: No Result: PE Excluded; will not pursue further work up for this. 3rd troponin still negative although again, slightly increasing. Patient discussed with on-call hospitalist attending Dr Clark. Will require IMU admission given heart score. <Shannan Mccain MD - Last Filed: 08/22/24 21:20> Differential Diagnosis Differential diagnosis: Likely stable angina, unstable angina pectoris, atypical chest pain, st elevation myocardial infarction, chest pain, biliary colic and other (GERD) < Shannan Mccain MD - Last Filed: 08/22/24 21:20> Medical Records Data Medical records narrative: Previous work up per review of Dr Renteria's note: 10/18/20 CTA of heart at [facility]: Normal coronaries with calcium score 0. 5 mm nodule in RLL with left pulm artery enlarged, r/o pulm stenosis. 09/22/20 Echo: EF >70%, grade II diastolic dysfunction (E/e' 9). Electrophysiology:: 10/16/23 EKG: Sinus rhythm, LVH with ST-T change, ST-T wave abnormality- consider anterolat ischemia. 09/22/20 EKG: Sinus bradycardia at 56 bpm, LVH with ST-T change, ST-T abnormality consider anterolat/high lat ischemia. 11/28/20 Sleep study: Mod SAMANTHA with desaturation to 88%. ECHO from 04/09/24 shows: Summary 1. Limited echocardiogram to assess EF and wall motion abnormalities. 2. Definity contrast administered improved wall motion interpretation. 3. Left ventricular chamber dimension is normal. 4. Left ventricular systolic function is hyperdynamic, estimated at >70%. < Shannan Mccain MD - Last Filed: 08/22/24 21:20> Lab Data Attestation: I reviewed the patient's lab results. <Shannan Mccain MD - Last Filed: 08/22/24 21:20> Result diagrams: 08/22/24 14:11 08/22/24 14:11 <Annie Krause PA-C - Last Filed: 08/23/24 00:10> Labs: Lab Results 08/22/24 08/22/24 08/22/24 Range/Units 14:11 17:27 19:27 WBC 8.5 (4.5-10.0) K/mm3 RBC 4.90 (4.2-5.4) M/mm3 Hgb 15.0 (12.0-15.0) g/dL Hct 45.4 (37.0-47.0) % MCV 92.7 (80-100) fl MCH 30.6 (26-34) pg MCHC 33.0 (32-36) g/dl RDW 12.2 (11.5-14.5) % Plt Count 239 (150-375) k/mm3 MPV 11.1 H (7.4-10.4) fl Immature Gran % (Auto) 0.2 (0-0.5) % Neut % (Auto) 40.3 L (45.5-73.1) % Lymph % (Auto) 51.6 H (18.3-44.2) % [place] % (Auto) 6.6 (2.6-8.5) % Eos % (Auto) 0.6 (0-4.4) % Baso % (Auto) 0.7 (0.2-1.2) % Lymph # (Auto) 4.36 H (0.9-3.2) K/mm3 [place] # (Auto) 0.6 (0.1-0.6) K/mm3 Eos # (Auto) 0.1 (0-0.3) K/mm3 Baso # (Auto) 0.1 (0.0-0.1) K/mm3 Abs Immat Gran (auto) 0.02 (0.00-0.031) K/mm3 Absolute Neuts (auto) 3.4 (1.3-6.7) K/mm3 Absolute Nucleated RBC 0.000 (0.0-0.012) K/mm3 Nucleated RBC % 0.0 (0.0-0.2) % PT 12.8 (11.1-14.7) Seconds INR 0.9 APTT 24.2 (22.3-36.8) Seconds D-Dimer 0.62 H (<0.48) ug/mL Sodium 138 (137-145) mmol/L Potassium 3.9 (3.4-5.0) mmol/L Chloride 102 (98-107) mmol/L Carbon Dioxide 30 (22-30) mmol/L Anion Gap 6 (4-12) mmol/L BUN 16 (7-17) mg/dL Creatinine 0.84 (0.7-1.0) mg/dL Estim Creat Clear Calc Not Reportable Estimated GFR > 60 (59 - ) Glucose 100 (65-110) mg/dL Calcium 9.7 (8.4-10.2) mg/dL Total Bilirubin 0.8 (0.2-1.3) mg/dL AST 28 (14-36) U/L ALT 24 (6-35) U/L Alkaline Phosphatase 94 (38-126) U/L Troponin I 0.015 0.016 (0.000-0.034) ng/mL Total Protein 8.0 (6.3-8.2) g/dL Albumin 4.8 (3.5-5.1) g/dL Lipase 127 (23-300) U/L 08/22/24 Range/Units 20:23 WBC (4.5-10.0) K/mm3 RBC (4.2-5.4) M/mm3 Hgb (12.0-15.0) g/dL Hct (37.0-47.0) % MCV (80-100) fl MCH (26-34) pg MCHC (32-36) g/dl RDW (11.5-14.5) % Plt Count (150-375) k/mm3 MPV (7.4-10.4) fl Immature Gran % (Auto) (0-0.5) % Neut % (Auto) (45.5-73.1) % Lymph % (Auto) (18.3-44.2) % [place] % (Auto) (2.6-8.5) % Eos % (Auto) (0-4.4) % Baso % (Auto) (0.2-1.2) % Lymph # (Auto) (0.9-3.2) K/mm3 [place] # (Auto) (0.1-0.6) K/mm3 Eos # (Auto) (0-0.3) K/mm3 Baso # (Auto) (0.0-0.1) K/mm3 Abs Immat Gran (auto) (0.00-0.031) K/mm3 Absolute Neuts (auto) (1.3-6.7) K/mm3 Absolute Nucleated RBC (0.0-0.012) K/mm3 Nucleated RBC % (0.0-0.2) % PT (11.1-14.7) Seconds INR APTT (22.3-36.8) Seconds D-Dimer (<0.48) ug/mL Sodium (137-145) mmol/L Potassium (3.4-5.0) mmol/L Chloride (98-107) mmol/L Carbon Dioxide (22-30) mmol/L Anion Gap (4-12) mmol/L BUN (7-17) mg/dL Creatinine (0.7-1.0) mg/dL Estim Creat Clear Calc Estimated GFR (59 - ) Glucose (65-110) mg/dL Calcium (8.4-10.2) mg/dL Total Bilirubin (0.2-1.3) mg/dL AST (14-36) U/L ALT (6-35) U/L Alkaline Phosphatase (38-126) U/L Troponin I 0.019 (0.000-0.034) ng/mL Total Protein (6.3-8.2) g/dL Albumin (3.5-5.1) g/dL Lipase (23-300) U/L <Annie Krause PA-C - Last Filed: 08/23/24 00:10> Lab Results 08/22/24 08/22/24 08/22/24 Range/Units 14:11 17:27 19:27 WBC 8.5 (4.5-10.0) K/mm3 RBC 4.90 (4.2-5.4) M/mm3 Hgb 15.0 (12.0-15.0) g/dL Hct 45.4 (37.0-47.0) % MCV 92.7 (80-100) fl MCH 30.6 (26-34) pg MCHC 33.0 (32-36) g/dl RDW 12.2 (11.5-14.5) % Plt Count 239 (150-375) k/mm3 MPV 11.1 H (7.4-10.4) fl Immature Gran % (Auto) 0.2 (0-0.5) % Neut % (Auto) 40.3 L (45.5-73.1) % Lymph % (Auto) 51.6 H (18.3-44.2) % [place] % (Auto) 6.6 (2.6-8.5) % Eos % (Auto) 0.6 (0-4.4) % Baso % (Auto) 0.7 (0.2-1.2) % Lymph # (Auto) 4.36 H (0.9-3.2) K/mm3 [place] # (Auto) 0.6 (0.1-0.6) K/mm3 Eos # (Auto) 0.1 (0-0.3) K/mm3 Baso # (Auto) 0.1 (0.0-0.1) K/mm3 Abs Immat Gran (auto) 0.02 (0.00-0.031) K/mm3 Absolute Neuts (auto) 3.4 (1.3-6.7) K/mm3 Absolute Nucleated RBC 0.000 (0.0-0.012) K/mm3 Nucleated RBC % 0.0 (0.0-0.2) % PT 12.8 (11.1-14.7) Seconds INR 0.9 APTT 24.2 (22.3-36.8) Seconds D-Dimer 0.62 H (<0.48) ug/mL Sodium 138 (137-145) mmol/L Potassium 3.9 (3.4-5.0) mmol/L Chloride 102 (98-107) mmol/L Carbon Dioxide 30 (22-30) mmol/L Anion Gap 6 (4-12) mmol/L BUN 16 (7-17) mg/dL Creatinine 0.84 (0.7-1.0) mg/dL Estim Creat Clear Calc Not Reportable Estimated GFR > 60 (59 - ) Glucose 100 (65-110) mg/dL Calcium 9.7 (8.4-10.2) mg/dL Total Bilirubin 0.8 (0.2-1.3) mg/dL AST 28 (14-36) U/L ALT 24 (6-35) U/L Alkaline Phosphatase 94 (38-126) U/L Troponin I 0.015 0.016 (0.000-0.034) ng/mL Total Protein 8.0 (6.3-8.2) g/dL Albumin 4.8 (3.5-5.1) g/dL Lipase 127 (23-300) U/L 08/22/24 Range/Units 20:23 WBC (4.5-10.0) K/mm3 RBC (4.2-5.4) M/mm3 Hgb (12.0-15.0) g/dL Hct (37.0-47.0) % MCV (80-100) fl MCH (26-34) pg MCHC (32-36) g/dl RDW (11.5-14.5) % Plt Count (150-375) k/mm3 MPV (7.4-10.4) fl Immature Gran % (Auto) (0-0.5) % Neut % (Auto) (45.5-73.1) % Lymph % (Auto) (18.3-44.2) % [place] % (Auto) (2.6-8.5) % Eos % (Auto) (0-4.4) % Baso % (Auto) (0.2-1.2) % Lymph # (Auto) (0.9-3.2) K/mm3 [place] # (Auto) (0.1-0.6) K/mm3 Eos # (Auto) (0-0.3) K/mm3 Baso # (Auto) (0.0-0.1) K/mm3 Abs Immat Gran (auto) (0.00-0.031) K/mm3 Absolute Neuts (auto) (1.3-6.7) K/mm3 Absolute Nucleated RBC (0.0-0.012) K/mm3 Nucleated RBC % (0.0-0.2) % PT (11.1-14.7) Seconds INR APTT (22.3-36.8) Seconds D-Dimer (<0.48) ug/mL Sodium (137-145) mmol/L Potassium (3.4-5.0) mmol/L Chloride (98-107) mmol/L Carbon Dioxide (22-30) mmol/L Anion Gap (4-12) mmol/L BUN (7-17) mg/dL Creatinine (0.7-1.0) mg/dL Estim Creat Clear Calc Estimated GFR (59 - ) Glucose (65-110) mg/dL Calcium (8.4-10.2) mg/dL Total Bilirubin (0.2-1.3) mg/dL AST (14-36) U/L ALT (6-35) U/L Alkaline Phosphatase (38-126) U/L Troponin I 0.019 (0.000-0.034) ng/mL Total Protein (6.3-8.2) g/dL Albumin (3.5-5.1) g/dL Lipase (23-300) U/L <Shannan Mccain MD - Last Filed: 08/22/24 21:20> Imaging Data Radiologist's impression: Impressions Chest X-Ray 08/22/24 14:37 IMPRESSION: No focal infiltrate or effusion. <Shannan Mccain MD - Last Filed: 08/22/24 21:20> ECG Data EKG #1: Attestation: I personally reviewed and interpreted this ECG as follows: < Shannan Mccain MD - Last Filed: 08/22/24 21:20> ECG completion date: 08/22/24 <Shannan Mccain MD - Last Filed: 08/22/24 21:20> ECG completion time: 14:07 <Shannan Mccain MD - Last Filed: 08/22/24 21:20> Prior ECG tracings: available for review <Shannan Mccain MD - Last Filed: 08/22/24 21:20> Interpretation: Normal sinus rhythm at a rate of 93 beats per minute. There is some R to R variation consistent with sinus arrhythmia, likely due to respiratory variation. CA interval 164. QRS 89. QT/QTC 334/385. No T-wave inversions. < Shannan Mccain MD - Last Filed: 08/22/24 21:20> EKG #2: Attestation: I personally reviewed and interpreted this ECG as follows: < Shannan Mccain MD - Last Filed: 08/22/24 21:20> ECG completion date: 08/22/24 <Shannan Mccain MD - Last Filed: 08/22/24 21:20> ECG completion time: 17:35 <Shannan Mccain MD - Last Filed: 08/22/24 21:20> Prior ECG tracings: available for review (EKGS from 04/09/24 and earlier from today are reviewed) <Shannan Mccain MD - Last Filed: 08/22/24 21:20> Interpretation: Normal sinus rhythm at a rate of 75 beats per minute. CA interval 163. QRS 93. QT/QTC 386/415. Pre populated algorithm suggests possible left ventricular hypertrophy but S wave depth in V1 + tallest R wave height in V5-6 is <35mm ; R wave in lead I + S wave in lead III is = 25mm thus equivocal. Suggestion of acute MO by algorithm however these changes have been previously seen. <Shannan Mccain MD - Last Filed: 08/22/24 21:20> Critical Care Time Critical Care Time Critical Care Time: No <Annie Krause PA-C - Last Filed: 08/23/24 00:10> Discharge Plan Discharge Clinical Impression: Chest pain Qualifiers: Chest pain type: unspecified Qualified Code(s): R07.9 - Chest pain, unspecified <Annie Krause PA-C - Last Filed: 08/23/24 00:10> Patient Disposition: Still a Patient <RINA Bain Last Filed: 08/23/24 00:10> Condition: Stable <Annie Krause PA-C - Last Filed: 08/23/24 00:10>
[2024-08-22 17:21] VITALS: BP 107/77; PULSE 83; RESP 16; TEMP 36.7; O2SAT 100
--- NOTE | 2024-08-22 17:28 | ECG_ITS ---
Test Date: 2024-08-22 17:35:43 Measurements Intervals [place] Rate: 75 P: 67 NM: 163 QRS: 8 QRSD: 93 T: 103 QT: 386 QTc: 432 Interpretive Statements SINUS RHYTHM LEFT ATRIAL ENLARGEMENT [-0.15mV P WAVE IN V1/V2] POSSIBLE LEFT VENTRICULAR HYPERTROPHY [VOLTAGE CRITERIA PLUS LAE OR QRS WIDENING] POSSIBLE SEPTAL MYOCARDIAL INFARCTION , PROBABLY RECENT [30 ms Q WAVE IN V1/V2] ACUTE ND Compared to ECG 08/22/2024 14:07:43 Sinus arrhythmia no longer present T-wave abnormality no longer present Possible ischemia no longer present Myocardial infarct finding still present Electronically Signed On 08-23-2024 21:55:50 PROGRAM SERVICES ASSISTANT by Olivia Rodriguez M.D.
[2024-08-22 17:54] LABS: Troponin I 0.016 ng/mL (0.000-0.034)
[2024-08-22 18:57] VITALS: PULSE 68; O2SAT 100
--- NOTE | 2024-08-22 19:10 | PC.NURSE ---
this rn called lab to add on d- dimer.
[2024-08-22] MEDS: ASPIRIN 81 MG CHEWABLE TABLET 324 MG PO (20:11)
[2024-08-22 20:15] LABS: D Dimer 0.62 ug/mL (<0.48)
--- NOTE | 2024-08-22 20:25 | ECG_ITS ---
Test Date: 2024-08-22 20:31:43 Measurements Intervals [place] Rate: 60 P: 64 [place]: 164 QRS: 24 QRSD: 90 T: 83 QT: 423 QTc: 423 Interpretive Statements SINUS RHYTHM POSSIBLE LEFT ATRIAL ENLARGEMENT [-0.1mV P-WAVE IN V1/V2] POSSIBLE LEFT VENTRICULAR HYPERTROPHY [VOLTAGE CRITERIA PLUS LAE OR QRS WIDENING] POSSIBLE SEPTAL MYOCARDIAL INFARCTION , PROBABLY RECENT [30 ms Q WAVE IN V1/V2] ACUTE [place] Compared to ECG 08/22/2024 17:35:43 No significant changes Electronically Signed On 08-23-2024 21:36:04 [employer]OVE BOTTOM WORKER by Olivia Rodriguez M.D.
[2024-08-22] MEDS: LORazepam (*CRX) 0.5 MG TABLET PO (20:28)
[2024-08-22] MEDS: BELLADONNA ALK/PHENOB ELIX 10 ML, MAG HYDROX/ALUMINUM HYD/SIMETH 30 ML, LIDOCAINE 2% VI... PO (20:29)
[2024-08-22 20:48] LABS: Troponin I 0.019 ng/mL (0.000-0.034)
--- NOTE | 2024-08-22 20:55 | P.HP_ITS ---
H&P: HPI History of Present Illness Date/Time: 08/22/24 20:55 Chief Complaint: Chest pain Narrative: This is a 48-year-old female with past medical history significant for fibromyalgia, tobacco dependence, chronic low back pain, spinal fusion, GERD, COPD/emphysema, hypertension. Patient presents to the emergency room with history of chest pain which he has retrosternal with radiation to shoulder and arm this has been ongoing for 4-5 days, patient denies any fevers, rigors, chills, cough, nausea, vomiting. Patient received nitroglycerin in the emergency room which relieved the pain however pain is reproducible at physical exam. Preliminary workup has been essentially nonrevealing. CHEST RADIOGRAPH, PA AND LATERAL CLINICAL HISTORY: cp . COMPARISON: 04/08/2024 TECHNIQUE: PA and lateral views of the chest. FINDINGS The cardiomediastinal silhouette is unremarkable. The lungs are clear. Visualized osseous structures and soft tissues are unremarkable. IMPRESSION: No focal infiltrate or effusion. Review of Systems Review of Systems: Chest pain, back pain. [facility] Past Medical History Medical History (Updated 08/22/24 @ 23:57 by Hermes Clark MD) Fibromyalgia Elevated glucose Bronchitis Folliculitis Non-cardiac chest pain Neck pain Nausea COVID-19 Back pain with history of spinal surgery SAMANTHA (obstructive sleep apnea) Tobacco abuse IBS (irritable bowel syndrome) Small bowel obstruction Anxiety Asthma Major depressive disorder, single episode, unspecified Ulnar neuropathy of both upper extremities GERD (gastroesophageal reflux disease) Hypertension Surgical History Surgical History (Updated 08/22/24 @ 21:06 by Shannan Mccain MD) History of laparoscopy x 2 exploratory laparoscopy due to abdominal pain in her 20's with no reported significant findings. History of back surgery X3 (total 5 spinal surgeries) History of carpal tunnel release Bilaterally H/O section X3 H/O: hysterectomy Open partial hysterectomy followed by left salpingo-oophorectomy and eventually right salpingo-oophorectomy. Total of 3 surgeries. Family History Family History Mother Diabetes mellitus Hypertension Heart disease COVID-19 Lung cancer Father Diabetes mellitus Hypertension Heart disease COVID-19 S/P triple vessel bypass, Onset Age: 65 Sibling COVID-19 Social History Social History Social History: She is . She has 3 children. She is a full code and desires to have her to be her decision-maker if needed. She does not use alcohol marijuana or illicit drugs. Smoking packs per day: 0.5 Smoking cigarettes per day: 10.0 Years smoked: 20 Smoking pack-years: 10.00 Smoking status: Current every day smoker Tobacco type: cigarettes Second hand tobacco smoke exposure: No Smoking end date: 01/28/22 Alcohol intake: current Alcohol use details: SOCIALLY Substance use: current Substance use type: marijuana Last use: 06/14/2024 Do You Feel Safe in your Home?: Yes Lack of Transportation: No Lack of Food: Never True Current Housing: I Have Housing Concerned About Future Housing: No Difficulty Paying Gas/Electric Bills: No Difficulty Paying for Meds: No Currently Unemployed: No Education: Bachelor's Degree Difficulty w/ Childcare or Family Care: No Living arrangements: with family Occupation/Education: unemployed 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 Gender identity (if verbalized by the patient): Female Sexual Orientation (if Verbalized by the Patient): Straight or Heterosexual Spiritual care concerns: No Meds Home Medications and Allergies Home Medications ?Medication ?Instructions ?Recorded ?Confirmed ?Type alprazolam 1 mg tablet 1 mg PO DAILY PRN Anxiety 04/09/24 06/22/24 History cholecalciferol (vitamin D3) 1,250 50,000 unit PO WEEKLY 04/09/24 06/22/24 History mcg (50,000 unit) capsule albuterol sulfate 90 mcg/actuation 2 puff inhalation Q4H PRN 04/21/24 06/22/24 Rx aerosol inhaler Shortness Of Breath #8.5 grams fluticasone 250 mcg-salmeterol 50 1 inh inhalation DAILY #60 ea 04/21/24 06/22/24 Rx mcg/dose blistr powdr for inhalation (Advair Diskus) atogepant 30 mg tablet (Qulipta) 30 mg PO DAILY #90 tabs 05/19/24 06/22/24 Rx ubrogepant 50 mg tablet (Ubrelvy) 50 mg PO DAILY PRN Migraine 05/19/24 06/22/24 Rx Headache #30 tabs lisinopril 10 1 tablet PO DAILY #90 tabs 05/21/24 06/22/24 Rx mg-hydrochlorothiazide 12.5 mg tablet tirzepatide (weight loss) 5 mg/0.5 5 mg (0.5 mL) subcut WEEKLY #2 mL 06/08/24 06/22/24 Rx mL subcutaneous pen injector sumatriptan 20 mg/actuation nasal 20 mg intranasal ONCE #6 ea 06/10/24 06/22/24 Rx spray diclofenac sodium 75 mg 75 mg PO BID #60 tabs 06/27/24 Rx tablet,delayed release naltrexone 4.5 mg capsule 4.5 mg PO DAILY 30 days #30 caps 07/07/24 Rx cyclobenzaprine 10 mg tablet 10 mg PO TID PRN muscle spasm #90 08/11/24 Rx tabs Allergies Allergy/AdvReac Type Severity Reaction Status Date / Time amoxicillin Allergy Intermediate Rash Verified 07/19/24 08:03 Cephalosporins Allergy Intermediate Rash Verified 07/19/24 08:03 Penicillins Allergy Intermediate Rash Verified 07/19/24 08:03 ketorolac AdvReac Intermediate Nausea and Verified 07/19/24 08:03 Vomiting clarithromycin AdvReac Mild GI Verified 07/19/24 08:03 Vital Signs Vital Signs - 24 hr 08/22/24 14:04 08/22/24 17:21 08/22/24 18:57 Temperature 97.9 F 98.0 F Pulse Rate 102 H 83 68 Respiratory Rate 16 16 Blood Pressure 123/94 H 107/77 Pulse Oximetry 100 100 Oxygen Delivery Room Air 08/22/24 18:57 Temperature Pulse Rate Respiratory Rate Blood Pressure Pulse Oximetry 100 Oxygen Delivery Room Air Exam Narrative: Patient is laying in a stretcher Const: General: comfortable, no acute distress, well developed, alert, awake and average body habitus Nutritional Appearance: average body habitus Orientation/consciousness: patient oriented x3 HENMT: Head: normal to inspection, normocephalic and atraumatic Ears: hearing grossly normal bilaterally Face/Nose/Sinus: normal facial exam Face and sinus: normal facial exam Eyes: General: appearance normal, both eyes and all related structures Pupils: Equal, round and reactive pupils present EOM: EOMs intact bilaterally Neck: Neck: full ROM, no lymphadenopathy and no JVD Thyroid: thyroid normal Lymphatic: no lymphadenopathy noted Resp: Effort & Inspection: normal respiratory effort and able to speak in complete sentences Auscultation: clear to auscultation bilaterally Cardio: Jugular venous distension: no JVD Rate: regular rate Rhythm: regular rhythm Heart sounds: S1 normal heart sound present and S2 normal heart sound present GI: GI Palp: Yes Soft to palpation and Yes No hepatosplenomegaly present : General: Yes deferred Skin: Rashes: no rashes Wounds: no wounds Neuro: General: patient oriented x3 and CN's II-XI intact bilaterally Cranial nerves: Yes CN's II-XII intact bilaterally and Yes Equal, round and reactive pupils present Cognition (Neuro): normal cognition Speech: normal speech Gait exam (Neuro): Assisted gait required other (Cane) and Assistive device used (Cane) Extrem: General: normal to inspection, full ROM, no joint enlargement and no pedal edema H&P: Results Labs Labs: Short CBC 08/22/24 Range/Units 14:11 WBC 8.5 (4.5-10.0) K/mm3 Hgb 15.0 (12.0-15.0) g/dL Hct 45.4 (37.0-47.0) % Plt Count 239 (150-375) k/mm3 BMP 08/22/24 14:11 Sodium 138 Potassium 3.9 Chloride 102 Carbon Dioxide 30 BUN 16 Creatinine 0.84 Glucose 100 Calcium 9.7 Cardiac Enzymes 08/22/24 08/22/24 08/22/24 Range/Units 14:11 17:27 20:23 Troponin I 0.015 0.016 0.019 (0.000-0.034) ng/mL Liver Function 08/22/24 Range/Units 14:11 Total Bilirubin 0.8 (0.2-1.3) mg/dL AST 28 (14-36) U/L ALT 24 (6-35) U/L Alkaline Phosphatase 94 (38-126) U/L Albumin 4.8 (3.5-5.1) g/dL Assessment and Plan Assessment and plan (1) Chest pain: Code(s): R07.9 - Chest pain, unspecified Status: Acute Assessment and Plan: Patient placed in observation in IMU Troponins x3 are undetectable Supportive care EKG reviewed by me (2) Hypertension: Qualifiers: Hypertension type: essential hypertension Qualified Code(s): I10 - Essential (primary) hypertension Code(s): I10 - Essential (primary) hypertension Status: Chronic Assessment and Plan: Resume home meds Continue to monitor (3) Myofascial pain syndrome: Code(s): M79.18 - Myalgia, other site Status: Acute Assessment and Plan: Continue home meds (4) Migraines: Qualifiers: Migraine type: migraine (< 15 days per month) without aura Status migrainosus presence: without status migrainosus Intractability: not intractable Qualified Code(s): G43.009 - Migraine without aura, not intractable, without status migrainosus Code(s): G43.909 - Migraine, unspecified, not intractable, without status migrainosus Status: Acute Assessment and Plan: Supportive care (5) Lumbosacral spondylosis: Qualifiers: Spinal osteoarthritis complication: with radiculopathy Qualified Code(s): M47.27 - Other spondylosis with radiculopathy, lumbosacral region Code(s): M47.817 - Spondylosis without myelopathy or radiculopathy, lumbosacral region Status: Acute Assessment and Plan: Patient is status post spinal fusion (6) SAMANTHA (obstructive sleep apnea): Code(s): G47.33 - Obstructive sleep apnea (adult) (pediatric) Status: Acute Assessment and Plan: CPAP at nighttime (7) Tobacco dependence: Code(s): F17.200 - Nicotine dependence, unspecified, uncomplicated Status: Acute Assessment and Plan: Nicotine patch as needed (8) COPD with emphysema: Code(s): J43.9 - Emphysema, unspecified Status: Acute Assessment and Plan: Continue home meds Not actively wheezing Hospitalist MIPS Advance Care Plan I have confirmed that the patient's Advanced Care Plan is present, code status is documented, or surrogate decision maker is listed in patient medical record.: Yes Medication Reconciliation I have utilized all available resources to obtain, update and review the patients current medications (includes all prescriptions, OTC, herbals, cannabis, and nutritional supplements).: Yes
[2024-08-22] MEDS: NITROGLYCERIN SL 0.4 MG TABLET SUBLINGUAL (21:02)
[2024-08-22 21:24] VITALS: BP 102/84; PULSE 79; RESP 15; O2SAT 98
[2024-08-23] VITALS (7 sets, daily range): BP systolic 96–125; BP diastolic 54–84; PULSE 64–93; RESP 12–18; TEMP 36.4; O2SAT 96–99; BMI 28.5
[2024-08-23 05:37] LABS: Troponin I 0.016 ng/mL (0.000-0.034)
--- NOTE | 2024-08-23 06:07 | ADMGEN ---
This patient, Lore Jacobs, was admitted to Intensive Care Unit-8 (IMU overflow) at 0553. Patient/family oriented to hospital policies and general routines including ID bracelet, bed and alarms, visiting hours, pain management, procedures, bathroom and other care routines, personal items, smoking policy, room service/diet, and visiting hours. Information on how to activate the Rapid Response Team has been discussed. Patient/Family are encouraged to report perceived risks to care and to ask questions if they do not understand what they are told or what they should do.
--- NOTE | 2024-08-23 07:55 | P.CONCA_ITS ---
Assessment and Plan Assessment and plan (1) Chest pain: Code(s): R07.9 - Chest pain, unspecified Status: Acute Assessment and Plan: Probably musculoskeletal as it is reproducible by palpation, and possibly fibromyalgia. VT r/o by serial troponin and EKG. December d/c home from cardiology standpoint and f/u with me in 1 week to obtain outpatient CTA of heart at [facility]. (2) Hypertension: Qualifiers: Hypertension type: essential hypertension Qualified Code(s): I10 - Essential (primary) hypertension Code(s): I10 - Essential (primary) hypertension Status: Chronic Assessment and Plan: Stable. History of Present Illness History of Present Illness Consult date/time: 08/23/24 07:55 Reason For Visit: chest pain, HEART score 5 Narrative: 48 yr old woman who is my regular cardiology patient presents to ER for chest pain. She has a history of hypertension, SAMANTHA, quit smoking January 2022. States for past 1 week she is having intermittent mid chest pain and radiates to right side of chest and back. She thinks it's fibromyalgia. Reports she has HOWE walking less than 1 block but more limited by chronic back pain which she had 3 surgeries. Admits to snoring, waking up and daytime sleepiness. Denies orthopnea, PND, edema, palpitations, dizziness. Cardiovascular Procedures Embedded Software Architect:: 10/18/20 CTA of heart at [facility]: Normal coronaries with calcium score 0. 5 mm nodule in RLL with left pulm artery enlarged, r/o pulm stenosis. Echo/MUGA:: 09/22/20 Echo: EF >70%, grade II diastolic dysfunction (E/e' 9). Electrophysiology:: 10/16/23 EKG: Sinus rhythm, LVH with ST-T change, ST-T wave abnormality- consider anterolat ischemia. 09/22/20 EKG: Sinus bradycardia at 56 bpm, LVH with ST-T change, ST-T abnormality consider anterolat/high lat ischemia. Stress Tests:: 11/28/20 Sleep study: Mod SAMANTHA with desaturation to 88%. Review of Systems 2 Review of Systems: All systems reviewed & are unremarkable except as noted in HPI and below Constitutional: Constitutional: Reports as per HPI, Denies chills and Denies fever(s) Cardiovascular: Cardiovascular: Reports as per HPI, Reports chest pain and Denies irregular heart rhythm Respiratory: Respiratory: Reports as per HPI and Denies dyspnea Gastrointestinal: Gastrointestinal: Reports as per HPI and Denies abdominal pain Genitourinary: Genitourinary: Reports as per HPI and Denies dysuria Musculoskeletal: Musculoskeletal: Reports as per HPI, Reports back pain and Reports arthralgias Neurologic: Reports as per HPI, Denies dizziness and Denies syncope [facility] Past Medical History Medical History (Updated 08/23/24 @ 00:10 by Annie Krause PA-C) Fibromyalgia Elevated glucose Bronchitis Folliculitis Non-cardiac chest pain Neck pain Nausea COVID-19 Back pain with history of spinal surgery SAMANTHA (obstructive sleep apnea) Tobacco abuse IBS (irritable bowel syndrome) Small bowel obstruction Anxiety Asthma Major depressive disorder, single episode, unspecified Ulnar neuropathy of both upper extremities GERD (gastroesophageal reflux disease) Hypertension Surgical History Surgical History (Updated 08/22/24 @ 21:06 by Shannan Mccain MD) History of laparoscopy x 2 exploratory laparoscopy due to abdominal pain in her 20's with no reported significant findings. History of back surgery X3 (total 5 spinal surgeries) History of carpal tunnel release Bilaterally H/O section X3 H/O: hysterectomy Open partial hysterectomy followed by left salpingo-oophorectomy and eventually right salpingo-oophorectomy. Total of 3 surgeries. Family History Family History Mother Diabetes mellitus Hypertension Heart disease COVID-19 Lung cancer Father Diabetes mellitus Hypertension Heart disease COVID-19 S/P triple vessel bypass, Onset Age: 65 Sibling COVID-19 Social History Social History Social History: She is . She has 3 children. She is a full code and desires to have her to be her decision-maker if needed. She does not use alcohol marijuana or illicit drugs. Smoking packs per day: 0.5 Smoking cigarettes per day: 10.0 Years smoked: 20 Smoking pack-years: 10.00 Smoking status: Current some day smoker Tobacco type: cigarettes Second hand tobacco smoke exposure: No Smoking end date: 01/28/22 Alcohol intake: current Alcohol use details: SOCIALLY Substance use: current Substance use type: marijuana Last use: 11-12 days ago Do You Feel Safe in your Home?: Yes Lack of Transportation: No Lack of Food: Never True Current Housing: I Have Housing Concerned About Future Housing: No Difficulty Paying Gas/Electric Bills: No Difficulty Paying for Meds: No Currently Unemployed: No Education: Trade/Vocational Certificate Difficulty w/ Childcare or Family Care: No Living arrangements: with family Occupation/Education: unemployed 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 Gender identity (if verbalized by the patient): Female Sexual Orientation (if Verbalized by the Patient): Straight or Heterosexual Spiritual care concerns: No Meds Home Medications and Allergies Home Medications ?Medication ?Instructions ?Recorded ?Confirmed ?Type alprazolam 1 mg tablet 1 mg PO DAILY PRN Anxiety 04/09/24 08/23/24 History cholecalciferol (vitamin D3) 1,250 50,000 unit PO WEEKLY 04/09/24 08/23/24 History mcg (50,000 unit) capsule albuterol sulfate 90 mcg/actuation 2 puff inhalation Q4H PRN 04/21/24 08/23/24 Rx aerosol inhaler Shortness Of Breath #8.5 grams fluticasone 250 mcg-salmeterol 50 1 inh inhalation DAILY #60 ea 04/21/24 08/23/24 Rx mcg/dose blistr powdr for inhalation (Advair Diskus) atogepant 30 mg tablet (Qulipta) 30 mg PO DAILY #90 tabs 05/19/24 08/23/24 Rx ubrogepant 50 mg tablet (Ubrelvy) 50 mg PO DAILY PRN Migraine 05/19/24 08/23/24 Rx Headache #30 tabs lisinopril 10 1 tablet PO DAILY #90 tabs 05/21/24 08/23/24 Rx mg-hydrochlorothiazide 12.5 mg tablet tirzepatide (weight loss) 5 mg/0.5 5 mg (0.5 mL) subcut WEEKLY #2 mL 06/08/24 08/23/24 Rx mL subcutaneous pen injector sumatriptan 20 mg/actuation nasal 20 mg intranasal ONCE #6 ea 06/10/24 08/23/24 Rx spray diclofenac sodium 75 mg 75 mg PO BID #60 tabs 06/27/24 08/23/24 Rx tablet,delayed release naltrexone 4.5 mg capsule 4.5 mg PO DAILY 30 days #30 caps 07/07/24 08/23/24 Rx cyclobenzaprine 10 mg tablet 10 mg PO TID PRN muscle spasm #90 08/11/24 08/23/24 Rx tabs omeprazole 40 mg capsule,delayed 40 mg PO DAILY 08/23/24 08/23/24 History release Allergies Allergy/AdvReac Type Severity Reaction Status Date / Time amoxicillin Allergy Intermediate Rash Verified 07/19/24 08:03 Cephalosporins Allergy Intermediate Rash Verified 07/19/24 08:03 Penicillins Allergy Intermediate Rash Verified 07/19/24 08:03 ketorolac AdvReac Intermediate Nausea and Verified 07/19/24 08:03 Vomiting clarithromycin AdvReac Mild GI Verified 07/19/24 08:03 Vital Signs Vital Signs - 24 hr 08/22/24 14:04 08/22/24 17:21 08/22/24 18:57 Temperature 97.9 F 98.0 F Pulse Rate 102 H 83 68 Respiratory Rate 16 16 Blood Pressure 123/94 H 107/77 Pulse Oximetry 100 100 Oxygen Delivery Room Air 08/22/24 18:57 08/22/24 21:24 08/23/24 00:19 Temperature Pulse Rate 79 93 Respiratory Rate 15 15 Blood Pressure 102/84 100/84 Pulse Oximetry 100 98 96 Oxygen Delivery Room Air 08/23/24 03:23 08/23/24 05:13 08/23/24 06:00 Temperature Pulse Rate 64 79 64 Respiratory Rate 15 15 12 Blood Pressure 96/70 L 100/76 102/68 Pulse Oximetry 99 98 97 Oxygen Delivery 08/23/24 06:00 08/23/24 06:02 Temperature Pulse Rate 64 76 Respiratory Rate 15 Blood Pressure 100/54 L Pulse Oximetry 97 Oxygen Delivery Exam 2 Const: General: cooperative, healthy appearing and comfortable Resp: Auscultation: clear to auscultation bilaterally, no crackles, no rales, no rhonchi and no wheezes Cardio: Rate: regular rate Rhythm: regular rhythm Heart sounds: no murmurs Peripheral pulses: dorsalis pedis present GI: GI Palp: No abdominal tenderness and Yes Soft to palpation Neuro: General: oriented to person, oriented to place and oriented to time Extrem: Right lower extremity: no edema Left lower extremity: no edema Results Labs and Meds 08/22/24 14:11 08/22/24 14:11 Lab results: Cardiac Enzymes 08/22/24 08/22/24 08/22/24 Range/Units 14:11 17:27 20:23 AST 28 (14-36) U/L Troponin I 0.015 0.016 0.019 (0.000-0.034) ng/mL 08/23/24 Range/Units 05:09 AST (14-36) U/L Troponin I 0.016 (0.000-0.034) ng/mL Coagulation 08/22/24 Range/Units 14:11 PT 12.8 (11.1-14.7) Seconds APTT 24.2 (22.3-36.8) Seconds CBC 08/22/24 Range/Units 14:11 WBC 8.5 (4.5-10.0) K/mm3 RBC 4.90 (4.2-5.4) M/mm3 Hgb 15.0 (12.0-15.0) g/dL Hct 45.4 (37.0-47.0) % Plt Count 239 (150-375) k/mm3 Lymph # (Auto) 4.36 H (0.9-3.2) K/mm3 Mcmullen # (Auto) 0.6 (0.1-0.6) K/mm3 Eos # (Auto) 0.1 (0-0.3) K/mm3 Baso # (Auto) 0.1 (0.0-0.1) K/mm3 Comprehensive Metabolic Panel 08/22/24 Range/Units 14:11 Sodium 138 (137-145) mmol/L Potassium 3.9 (3.4-5.0) mmol/L Chloride 102 (98-107) mmol/L Carbon Dioxide 30 (22-30) mmol/L BUN 16 (7-17) mg/dL Creatinine 0.84 (0.7-1.0) mg/dL Glucose 100 (65-110) mg/dL Calcium 9.7 (8.4-10.2) mg/dL AST 28 (14-36) U/L ALT 24 (6-35) U/L Alkaline Phosphatase 94 (38-126) U/L Total Protein 8.0 (6.3-8.2) g/dL Albumin 4.8 (3.5-5.1) g/dL Patient Weight 08/23/24 23:59 Weight 82.7 kg
[2024-08-23] MEDS: ACETAMINOPHEN 325 MG TABLET 650 MG PO (08:06)
--- NOTE | 2024-08-23 08:31 | PM.DS ---
DS: Admitting Diagnosis Discharge Date Chest pain - noncardiac Admitting Diagnosis chest pain DS: Discharge Diagnosis Discharge Diagnosis (1) Chest pain: Code(s): R07.9 - Chest pain, unspecified Status: Acute (2) Fibromyalgia: Code(s): M79.7 - Fibromyalgia Status: Acute (3) GERD (gastroesophageal reflux disease): Qualifiers: Esophagitis presence: esophagitis presence not specified Qualified Code(s): K21.9 - Gastro-esophageal reflux disease without esophagitis Code(s): K21.9 - Gastro-esophageal reflux disease without esophagitis Status: Acute DS: Summary Hospital Course Reason for hospitalization: chest pain Hospital Course: 48-year-old female with history of fibromyalgia, smoking, GERD and COPD presented last night to ER with chief complaint of chest pain. Patient states that chest pain has been going on for 1 week almost daily on and off. Pain is in the middle of his chest and then radiates to her right side. She states the pain has been variable in severity with some time 3/10 and sometimes 8 out 10. She also described pain to be in different qualities at different times including burning sharp achy. Worse with deep breathing and coughing sometimes. She states that she has chronic all over pain for fibromyalgia but this pain was different hence she was concerned and came to the hospital. She denies any loss of consciousness shortness of breath nausea vomiting or abdominal pain. No sweating. Workup in the ER essentially negative with normal labs and unremarkable EKG. serial troponins were done and were negative for. Chest pain was reproducible on exam as patient was tender on her right sternocostal junction. She also admitted that she has GERD and can be symptomatic from the. Cardiology was consulted and patient was evaluated by Dr. Renteria believe the patient's pain was musculoskeletal as it was reproducible on exam and FL had been ruled out by serial troponin and EKG. He recommended discharge with follow-up as an outpatient in 1 week to obtain CTA of the chest for further evaluation. Patient is on room air and in no distress and feels better. I discussed discharge with the patient and plan for follow-up. She is in agreement and feels quite comfortable that she did not had any heart attack. Patient will be discharged today and no changes in the medications have been weaned. Patient has PPI already prescribed for her GERD. Patient will follow-up with Dr. Cardoso in 1 week. patient was counseled and encouraged to quit smoking completely.. She was asked to return back to ER if chest pain worsens or reoccurs with Different features Time spent discussing smoking cessation with patient: 3 to 10 minutes Status at Discharge Functional status at discharge: independent ambulation Overall status at discharge: patient is back to baseline Time Spent with Patient Time attestation: Total time spent providing and/or coordinating discharge services: Time spent: Less than 30 minutes Exam Narrative: General: Pt is alert awake and in NAD Lungs/Chest: Trachea central Clear BS B/L, No crackles or wheezing. tender to palpation and right costal sternal area and right side of the chest. Cardiac: RRR. Normal S1 S2. No murmurs Circulation: Pedal pulses are intact and symmetrical. Abdomen: Normal bowel sounds.. Soft. NT. ND. Extremities: No clubbing, cyanosis or edema. Warm : Bernal in place Neurologic: Follows commands. Moves all 4 extremities PERRL Skin: No Rash DS: Data Data Completed and Pending Labs on day of discharge: Labs from last 24 hours 08/23/24 08/22/24 08/22/24 05:09 20:23 19:27 WBC RBC Hgb Hct MCV MCH MCHC RDW Plt Count MPV Immature Gran % (Auto) Neut % (Auto) Lymph % (Auto) [place] % (Auto) Eos % (Auto) Baso % (Auto) Lymph # (Auto) [place] # (Auto) Eos # (Auto) Baso # (Auto) Abs Immat Gran (auto) Absolute Neuts (auto) Absolute Nucleated RBC Nucleated RBC % PT INR APTT D-Dimer 0.62 H Sodium Potassium Chloride Carbon Dioxide Anion Gap BUN Creatinine Estim Creat Clear Calc Estimated GFR Glucose Calcium Total Bilirubin AST ALT Alkaline Phosphatase Troponin I 0.016 0.019 Total Protein Albumin Lipase 08/22/24 08/22/24 17:27 14:11 WBC 8.5 RBC 4.90 Hgb 15.0 Hct 45.4 MCV 92.7 MCH 30.6 MCHC 33.0 RDW 12.2 Plt Count 239 MPV 11.1 H Immature Gran % (Auto) 0.2 Neut % (Auto) 40.3 L Lymph % (Auto) 51.6 H [place] % (Auto) 6.6 Eos % (Auto) 0.6 Baso % (Auto) 0.7 Lymph # (Auto) 4.36 H [place] # (Auto) 0.6 Eos # (Auto) 0.1 Baso # (Auto) 0.1 Abs Immat Gran (auto) 0.02 Absolute Neuts (auto) 3.4 Absolute Nucleated RBC 0.000 Nucleated RBC % 0.0 PT 12.8 INR 0.9 APTT 24.2 D-Dimer Sodium 138 Potassium 3.9 Chloride 102 Carbon Dioxide 30 Anion Gap 6 BUN 16 Creatinine 0.84 Estim Creat Clear Calc Not Reportable Estimated GFR > 60 Glucose 100 Calcium 9.7 Total Bilirubin 0.8 AST 28 ALT 24 Alkaline Phosphatase 94 Troponin I 0.016 0.015 Total Protein 8.0 Albumin 4.8 Lipase 127 Discharge Plan Discharge Attending physician on discharge: Miles Hernandez Consulting providers: Quinten Renteria Discharging Clinician: Miles Hernandez Anticipated Discharge Date/Time: 08/23/24 08:33 Patient Disposition: Home, Self-Care Activity: as tolerated Diet: as tolerated Patient Instructions: Antibiotic Form, Chest Pain (DC) Patient Language: Kiswahili Stand Alone Forms: General Discharge Information Follow-up/Referrals: Quinten Renteria, [Physician] - Discharge Medications: Continued Qulipta 30 mg tablet 30 mg PO DAILY Qty: 90 1RF Ubrelvy 50 mg tablet 50 mg PO DAILY PRN (Reason: Migraine Headache) Qty: 30 1RF tirzepatide (weight loss) 5 mg/0.5 mL pen injector 5 mg subcut WEEKLY Qty: 2 3RF Rx Instructions: takes on TUESDAYS sumatriptan 20 mg/actuation spray,non-aerosol 20 mg intranasal ONCE Qty: 6 1RF Rx Instructions: into one nostril; if headache remains, may repeat dose into other nostril once after at least 2 hours alprazolam 1 mg tablet 1 mg PO DAILY PRN (Reason: Anxiety) cholecalciferol (vitamin D3) 1,250 mcg (50,000 unit) capsule 50,000 unit PO WEEKLY Rx Instructions: takes on Friday omeprazole 40 mg capsule,delayed release(DR/EC) 40 mg PO DAILY albuterol sulfate 90 mcg/actuation HFA aerosol inhaler 2 puff INHALATION Q4H PRN (Reason: Shortness Of Breath) Qty: 8.5 1RF fluticasone propion-salmeterol [Advair Diskus] 250-50 mcg/dose blister with device 1 inh inhalation DAILY Qty: 60 0RF lisinopril-hydrochlorothiazide 10-12.5 mg tablet 1 tablet PO DAILY Qty: 90 1RF diclofenac sodium 75 mg tablet,delayed release (DR/EC) 75 mg PO BID Qty: 60 2RF naltrexone 4.5 mg capsule 4.5 mg PO DAILY MDD 1 30 Days Qty: 30 12RF Rx Instructions: Take 1 tab p.o. q.day for pain. cyclobenzaprine 10 mg tablet 10 mg PO TID PRN (Reason: muscle spasm) Qty: 90 0RF Date of admission: 08/22/24 20:54 Primary Care Provider: Miki Anderson Admitting Provider: Hermes Clark V. Attending physician on admission: Hermes Clark V. Condition: Stable Quality VTE Prophylaxis VTE prophylaxis: mechanical ordered Hospitalist MIPS Heart Failure (Exclusion) Patient has history of Heart Transplant or Left Ventricular Assistive Device?: No IF YES, STOP HERE Heart Failure (Qualifier) Patient has current or prior documentation of LVEF less than or equal to 40%, or mod/servere depressed LVSF?: No IF NO, STOP HERE If Yes, Heart Failure (Qualifier) Patient was prescribed or already taking an Angiotensin-Converting Enzyme (MARISABEL) Inhibitor, or Antiotensin Receptor Noy (ARB): No Patient was prescribed or already taking bisoprolol, carvedilol, or sustained release metoprolol succinate: No If Medications not prescribed/taking Reason patient not prescribed/taking MARISABEL or ARB: Medical reasons: allergy, intolerance, contraindication or other Reason patient not prescribed/taking bisoprolol, carvedilol, or sustained realease metoprolol succinate: Medical reasons: allergy, intolerance, contraindication or other
== END 2024-08-23 09:18 | disposition home or self-care (01) ==
LOC: ANHED 18:36 → ANHIMU 21:20 → ANHICU 08-23 06:49 → ANHIMU 08-24 07:21
PROVIDERS: Emergency Medicine; Admitting Provider Internal Medicine; Emergency Provider Student in an Organized Health Care Education/Training Program; PCP Family Medicine; Visit Provider Internal Medicine
DX: R07.9 Chest pain, unspecified (principal); I10 Essential (primary) hypertension; M79.7 Fibromyalgia; G43.009 Migraine without aura, not intractable, without status migrainosus; M47.27 Other spondylosis with radiculopathy, lumbosacral region; G47.33 Obstructive sleep apnea (adult) (pediatric); F17.210 Nicotine dependence, cigarettes, uncomplicated; K21.9 Gastro-esophageal reflux disease without esophagitis; J43.9 Emphysema, unspecified; J45.909 Unspecified asthma, uncomplicated; Z86.16 Personal history of COVID-19; Z79.51 Long term (current) use of inhaled steroids; Z79.899 Other long term (current) drug therapy; Z90.710 Acquired absence of both cervix and uterus; Z90.13 Acquired absence of bilateral breasts and nipples; Z98.1 Arthrodesis status; Z98.890 Other specified postprocedural states; Z99.89 Dependence on other enabling machines and devices
CPT/HCPCS: 36415; 71046; 80053; 83690; 84484; 85025; 85380; 85610; 85730; 93005; 99285; A9270; G0378

== ENCOUNTER 2024-10-28 11:18 | Emergency (ER) | payer OTHER, MEDICARE, SELFPAY ==
--- NOTE | ~2024-10-28 | XR_ITS ---
XR chest 2V Ordering provider: Sil Ladd MD History: 49 years Female with . cp WITH LBP . Comparison: August 22, 2024 FINDINGS: MEDIASTINUM: The cardiac silhouette is not enlarged. LUNGS: No infiltrates, effusions or pneumothorax. OTHER: No free air under the diaphragm. IMPRESSION: No acute cardiopulmonary pathology. Reviewed, dictated and finalized at location A.
[2024-10-28 11:27] VITALS: BP 142/88; PULSE 97; RESP 13; TEMP 36.6; O2SAT 99
--- NOTE | 2024-10-28 11:34 | ECG_ITS ---
Test Date: 2024-10-28 11:32:22 Measurements Intervals Cope Rate: 93 P: 65 MI: 144 QRS: 13 QRSD: 99 T: 118 QT: 354 QTc: 442 Interpretive Statements SINUS RHYTHM POSSIBLE LEFT ATRIAL ENLARGEMENT [-0.1mV P WAVE IN V1/V2] POSSIBLE LEFT VENTRICULAR HYPERTROPHY [VOLTAGE CRITERIA PLUS LAE OR QRS WIDENING] POSSIBLE SEPTAL MYOCARDIAL INFARCTION , OF INDETERMINATE AGE [30 ms Q WAVE IN V1/V2] MODERATE T-WAVE ABNORMALITY, CONSIDER LATERAL ISCHEMIA [-0.1+ mV T WAVE IN I/aVL/V5/V6] Compared to ECG 08/22/2024 20:31:43 T-wave abnormality relatively unchanged Myocardial infarct finding still present Electronically Signed On 10-28-2024 13:20:00 CDT by Magdi Hatch M.D.
[2024-10-28 11:39] VITALS: O2SAT 100
[2024-10-28 11:46] LABS: Basophils Absolute Auto 0.1 K/mm3 (0.0-0.1); Basophils Percent Auto 0.8 % (0.2-1.2); Eosinophils Percent Auto 0.5 % (0-4.4); Hemoglobin 12.8 g/dL (12.0-15.0); Immature Granulocyte Absolute 0.02 K/mm3 (0.00-0.031); Immature Granulocyte Percent A 0.3 % (0-0.5); Lymphocytes Absolute Auto 2.09 K/mm3 (0.9-3.2); Lymphocytes Percent Auto 35.2 % (18.3-44.2); Mean Corpuscular Hemoglobin 29.3 pg (26-34); Mean Corpuscular Volume 91.5 fl (80-100); Mean Platelet Volume 10.9 fl (7.4-10.4); Monocytes Absolute Auto 0.3 K/mm3 (0.1-0.6); Monocytes Percent Auto 5.6 % (2.6-8.5); Neutrophils Absolute Auto 3.4 K/mm3 (1.3-6.7); Neutrophils Percent Auto 57.6 % (45.5-73.1); Platelet Count Result 253 k/mm3 (150-375); Red Blood Count 4.37 M/mm3 (4.2-5.4); Red Cell Distribution Width 12.4 % (11.5-14.5); White Blood Count 5.9 K/mm3 (4.5-10.0)
[2024-10-28 12:08] LABS: Alanine Aminotransferase 20 U/L (6-35); Albumin Level 4.7 g/dL (3.5-5.1); Alkaline Phosphatase 64 U/L (38-126); Anion Gap 9 mmol/L (4-12); Aspartate Amino Transferase 31 U/L (14-36); Bilirubin,Total 0.9 mg/dL (0.2-1.3); Blood Urea Nitrogen 14 mg/dL (7-17); Calcium 9.6 mg/dL (8.4-10.2); Carbon Dioxide 25 mmol/L (22-30); Chloride 105 mmol/L (98-107); Estimated CRCL calculation 82 ml/min; Estimated Glomerular Filt Rate > 60; Glucose 125 mg/dL (65-110); Lipase 59 U/L (23-300); Potassium 4.3 mmol/L (3.4-5.0); Sodium 139 mmol/L (137-145)
[2024-10-28 12:11] LABS: Troponin I < 0.012 ng/mL (0.000-0.034)
--- NOTE | 2024-10-28 12:16 | ED_ITS ---
HPI - Neuro Symptoms/Deficit General Chief Complaint: Neuro Symptoms/Deficit Stated Complaint: Numbness in face, pain left side of neck, CP Time Seen by Provider: 10/28/24 12:15 Source: patient Mode of arrival: ambulatory Limitations: no limitations History of Present Illness HPI Narrative: 49 YEARS OLD FEMALE WITH HISTORY OF FIBROMYALGIA, LOWER BACK LUMBAR FUSION 7 WEEKS AGO, STRESS AND ANXIETY, CURRENTLY ON HYDROCODONE, CELEBREX AND CYCLOBENZAPRINE. PATIENT ALSO ON XANAX, DID NOT TAKE IT TODAY. CAME TO THE ED BY PRIVATE CAR FROM HOME COMPLAINING OF CHEST TENDERNESS MOVING ACROSS THE CHEST STARTED LAST NIGHT LASTED FOR 1 HOUR THEN IS GONE. HISTORY OF CHRONIC CHEST PAIN SECONDARY TO FIBROMYALGIA THIS MORNING DEVELOPED NUMBNESS OF THE WHOLE FACE, TIPS OF THE FINGERS AND TOES BILATERALLY. STILL HAVE IT, DID NOT TAKE HER REGULAR DOSE OF XANAX, HAD SIMILAR SYMPTOMS SECONDARY TO ANXIETY AND DEPRESSION. SHE DENIES ANY FEVER, CHILLS, NAUSEA, VOMITING OR FOCAL WEAKNESS. Related Data Home Medications ?Medication ?Instructions ?Recorded ?Confirmed ?Last Taken ?Type alprazolam 1 mg tablet 1 mg PO DAILY PRN Anxiety 04/09/24 10/07/24 06/22/24 History cholecalciferol (vitamin D3) 1,250 50,000 unit PO WEEKLY 04/09/24 10/07/24 Unknown History mcg (50,000 unit) capsule omeprazole 40 mg capsule,delayed 40 mg PO DAILY 08/23/24 10/07/24 Unknown History release Allergies Allergy/AdvReac Type Severity Reaction Status Date / Time amoxicillin Allergy Intermediate Rash Verified 10/28/24 11:21 Cephalosporins Allergy Intermediate Rash Verified 10/28/24 11:21 Penicillins Allergy Intermediate Rash Verified 10/28/24 11:21 ketorolac AdvReac Intermediate Nausea and Verified 10/28/24 11:21 Vomiting clarithromycin AdvReac Mild GI Verified 10/28/24 11:21 Review of Systems 2 Review of Systems: All systems reviewed & are unremarkable except as noted in HPI and below PMFSH Past Medical History Medical History Fibromyalgia GERD (gastroesophageal reflux disease) Elevated glucose Bronchitis Folliculitis Non-cardiac chest pain Neck pain Nausea COVID-19 Back pain with history of spinal surgery SAMANTHA (obstructive sleep apnea) Tobacco abuse IBS (irritable bowel syndrome) Small bowel obstruction Anxiety Asthma Major depressive disorder, single episode, unspecified Ulnar neuropathy of both upper extremities Hypertension Surgical History Surgical History History of laparoscopy x 2 exploratory laparoscopy due to abdominal pain in her 20's with no reported significant findings. History of back surgery X3 (total 5 spinal surgeries) History of carpal tunnel release Bilaterally H/O section X3 H/O: hysterectomy Open partial hysterectomy followed by left salpingo-oophorectomy and eventually right salpingo-oophorectomy. Total of 3 surgeries. Family History Family History Mother Diabetes mellitus Hypertension Heart disease COVID-19 Lung cancer Father Diabetes mellitus Hypertension Heart disease COVID-19 S/P triple vessel bypass, Onset Age: 65 Sibling COVID-19 Social History Social History Social History: She is . She has 3 children. She is a full code and desires to have her to be her decision-maker if needed. She does not use alcohol marijuana or illicit drugs. Smoking packs per day: 0.5 Smoking cigarettes per day: 10.0 Years smoked: 20 Smoking pack-years: 10.00 Smoking status: Former smoker Tobacco type: cigarettes Second hand tobacco smoke exposure: No Smoking end date: 01/28/22 Alcohol intake: current Alcohol use details: SOCIALLY Substance use: current Substance use type: marijuana Last use: 11-12 days ago Do You Feel Safe in your Home?: Yes Lack of Transportation: No Lack of Food: Never True Current Housing: I Have Housing Concerned About Future Housing: No Difficulty Paying Gas/Electric Bills: No Difficulty Paying for Meds: No Currently Unemployed: No Education: Trade/Vocational Certificate Difficulty w/ Childcare or Family Care: No Living arrangements: with family Occupation/Education: unemployed Additional occupation/education comments: 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 Gender identity (if verbalized by the patient): Female Sexual Orientation (if Verbalized by the Patient): Straight or Heterosexual Spiritual care concerns: No Exam 2 Narrative: GENERAL APPEARANCE: WELL-DEVELOPED, WELL-NOURISHED SKIN: NORMAL COLOR HEAD: NORMOCEPHALIC, NONTRAUMATIC EYES: CLEAR CONJUNCTIVA ENT: OROPHARYNX NORMAL, EARS NORMAL, NOSE NORMAL NECK: SUPPLE, NONTENDER CHEST AND RESPIRATORY: AIRWAY PATENT, NO RESPIRATORY DISTRESS, NO ACCESSORY MUSCLE USE, DIFFUSE MODERATE TENDERNESS ACROSS THE CHEST AND ALL OVER THE BACK WITH LIGHT PALPATION, NO BRUISES, NO SWELLING OR RASH HEART: REGULAR RATE/RHYTHM ABDOMEN: SOFT, NONTENDER, NO ORGANOMEGALY, QUIET BOWEL SOUNDS VASCULAR: NORMAL PERIPHERAL PULSES, NORMAL CAPILLARY REFILL. 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 IS NORMAL TESTED, NO GROSS MOTOR DEFICIT Course Vital Signs Vital signs: Vital Signs Temperature 36.6 C 10/28/24 11:27 Pulse Rate 97 10/28/24 11:27 Respiratory Rate 13 10/28/24 11:27 Blood Pressure 142/88 H 10/28/24 11:27 Pulse Oximetry 99 10/28/24 11:27 Oxygen Delivery Room Air 10/28/24 11:27 Temperature 36.6 C 10/28/24 11:27 Pulse Rate 84 10/28/24 12:23 Respiratory Rate 14 10/28/24 12:23 Blood Pressure 136/90 10/28/24 12:23 Pulse Oximetry 100 10/28/24 12:23 Oxygen Delivery Room Air 10/28/24 11:27 MDM - Neuro Symptoms/Deficit MDM Narrative Medical decision making narrative: PATIENT PRESENTS WITH MULTIPLE SYMPTOMS VITAL SIGNS SHOWING INSIGNIFICANT ABNORMALITY, PHYSICAL EXAMINATION SHOWING DIFFUSE TENDERNESS ACROSS THE CHEST AND BACK BILATERALLY CONSISTENT WITH FIBROMYALGIA AND CHRONIC CHEST PAIN DIFFERENTIAL DIAGNOSIS INCLUDE ANXIETY LIKE SYMPTOMS, FIBROMYALGIA FLARE, ELECTROLYTE IMBALANCE, DEHYDRATION BLOOD WORKUP TODAY INCLUDES CBC, CMP, TROPONIN SHOWED NO SIGNIFICANT ABNORMALITY CHEST X-RAY SHOWED NO ACUTE ABNORMALITIES EKG ON ARRIVAL SHOWED NORMAL SINUS RHYTHM AT 60 BEATS PER MINUTE, LEFT ATRIAL ENLARGEMENT, LEFT VENTRICULAR HYPERTROPHY, POSSIBLE SEPTAL MYOCARDIAL INFARCTION OF INDETERMINATE AGE. NO SIGNIFICANT CHANGES COMPARED TO THE EKG ON AUGUST 2024 DIAGNOSIS ANXIETY LIKE SYMPTOMS, FIBROMYALGIA RELATED SYMPTOMS THE PT WAS DISCHARGED TO HOME.THE PT,S CONDITION UPON DISCHARGE WAS FAIR,EDUCATION WAS PROVIDED TO THE PT IN REFERENCE TO THE FINAL IMPRESSION,DISCHARGE STUDY RESULTS,TREATMENT,PROGNOSIS AND NEED FOR FOLLOW UP . Differential Diagnosis Differential diagnosis: Likely other ( ABOVE) Medical Records Attestation: I reviewed the patient's medical records. Lab Data Attestation: I reviewed the patient's lab results. 10/28/24 11:38 10/28/24 11:38 Labs: Lab Results 10/28/24 Range/Units 11:38 WBC 5.9 (4.5-10.0) K/mm3 RBC 4.37 (4.2-5.4) M/mm3 Hgb 12.8 (12.0-15.0) g/dL Hct 40.0 (37.0-47.0) % MCV 91.5 (80-100) fl MCH 29.3 (26-34) pg MCHC 32.0 (32-36) g/dl RDW 12.4 (11.5-14.5) % Plt Count 253 (150-375) k/mm3 MPV 10.9 H (7.4-10.4) fl Immature Gran % (Auto) 0.3 (0-0.5) % Neut % (Auto) 57.6 (45.5-73.1) % Lymph % (Auto) 35.2 (18.3-44.2) % [place] % (Auto) 5.6 (2.6-8.5) % Eos % (Auto) 0.5 (0-4.4) % Baso % (Auto) 0.8 (0.2-1.2) % Lymph # (Auto) 2.09 (0.9-3.2) K/mm3 [place] # (Auto) 0.3 (0.1-0.6) K/mm3 Eos # (Auto) 0.0 (0-0.3) K/mm3 Baso # (Auto) 0.1 (0.0-0.1) K/mm3 Abs Immat Gran (auto) 0.02 (0.00-0.031) K/mm3 Absolute Neuts (auto) 3.4 (1.3-6.7) K/mm3 Absolute Nucleated RBC 0.000 (0.0-0.012) K/mm3 Nucleated RBC % 0.0 (0.0-0.2) % PT 12.8 (11.1-14.7) Seconds INR 0.9 APTT 25.2 (22.3-36.8) Seconds Sodium 139 (137-145) mmol/L Potassium 4.3 (3.4-5.0) mmol/L Chloride 105 (98-107) mmol/L Carbon Dioxide 25 (22-30) mmol/L Anion Gap 9 (4-12) mmol/L BUN 14 (7-17) mg/dL Creatinine 0.81 (0.7-1.0) mg/dL Estim Creat Clear Calc 82 ml/min Estimated GFR > 60 (59 - ) Glucose 125 H (65-110) mg/dL Calcium 9.6 (8.4-10.2) mg/dL Total Bilirubin 0.9 (0.2-1.3) mg/dL AST 31 (14-36) U/L ALT 20 (6-35) U/L Alkaline Phosphatase 64 (38-126) U/L Troponin I < 0.012 (0.000-0.034) ng/mL Total Protein 8.0 (6.3-8.2) g/dL Albumin 4.7 (3.5-5.1) g/dL Lipase 59 (23-300) U/L Imaging Data Radiologist's impression: CHEST X-RAY SHOWED NO ACUTE ABNORMALITIES ECG Data EKG #1: Attestation: I personally reviewed and interpreted this ECG as follows: ECG completion date: 10/28/24 ECG completion time: 12:36 Interpretation: NORMAL SINUS RHYTHM AT 60 BEATS PER MINUTE, LEFT ATRIAL ENLARGEMENT, LEFT VENTRICULAR HYPERTROPHY, SEPTAL MYOCARDIAL INFARCTION OF INDETERMINATE AGE, COMPARED TO EKG ON AUGUST 2024 NO SIGNIFICANT CHANGES Critical Care Time Critical Care Time Critical Care Time: No Discharge Plan Discharge Clinical Impression: Anxiety-like symptoms, Fibromyalgia Patient Disposition: Home, Self-Care Condition: Stable Instructions: Chest Pain (DC), Fibromyalgia (ED), Paresthesia (ED), Anxiety (ED) Additional Instructions: RETURN IF SYMPTOMS ARE WORSENING , CALL YOUR FAMILY PHYSICIAN FOR APPOINTMENT, TAKE TYLENOL NEEDED FOR ACHES AND PAIN, CONTINUE HOME MEDICATIONS.. Patient Language: Slovenian Prescriptions: No Action Qulipta 30 mg tablet 30 mg PO DAILY Qty: 90 1RF Ubrelvy 50 mg tablet 50 mg PO DAILY PRN (Reason: Migraine Headache) Qty: 30 1RF sumatriptan 20 mg/actuation spray,non-aerosol 20 mg intranasal ONCE Qty: 6 1RF Rx Instructions: into one nostril; if headache remains, may repeat dose into other nostril once after at least 2 hours lisinopril-hydrochlorothiazide 20-12.5 mg tablet 1 tablet PO DAILY Qty: 30 2RF tirzepatide (weight loss) 2.5 mg/0.5 mL pen injector 2.5 mg subcut WEEKLY Qty: 2 3RF Rx Instructions: takes on TUESDAYS alprazolam 1 mg tablet 1 mg PO DAILY PRN (Reason: Anxiety) cholecalciferol (vitamin D3) 1,250 mcg (50,000 unit) capsule 50,000 unit PO WEEKLY Rx Instructions: takes on Friday omeprazole 40 mg capsule,delayed release(DR/EC) 40 mg PO DAILY albuterol sulfate 90 mcg/actuation HFA aerosol inhaler 2 puff INHALATION Q4H PRN (Reason: Shortness Of Breath) Qty: 8.5 1RF fluticasone propion-salmeterol [Advair Diskus] 250-50 mcg/dose blister with device 1 inh inhalation DAILY Qty: 60 0RF cyclobenzaprine 10 mg tablet 10 mg PO TID PRN (Reason: muscle spasm) Qty: 90 0RF Follow-up/Referrals: Miki Anderson MD [Primary Care Provider] -
[2024-10-28 12:17] LABS: INR 0.9; Partial Thromboplastin Time 25.2 Seconds (22.3-36.8); Prothrombin Time 12.8 Seconds (11.1-14.7)
--- OUTSIDE RECORDS SUMMARY | 2024-10-28 12:17 | XMS_ITS | Referral Summary ---
Author Organization [facility] Address [address] [place] [address] Care Team Providers Care Insect Control Aide Name Role Phone Miki Anderson MD Primary Care Provider [phone] Miscellaneous, Not In File Unavailable Unava ilable Encounters Date Type Department Care Team Description 10/08/2024 7:15 PM MOLD TOOLER Office Visit [facility] [address] [address] Shanda Hightower NP Low back pain without sciatica, unspecified back pain laterality, unspecified chronicity (Primary Dx) from Last 3 Months Allergies Active Allergy Reactions Criticality Noted Date Comments Amoxicillin Nausea And Vomiting,Rash Medium 06/07/2016 Ketorolac Tromethamine Nausea And Vomiting,Vomiting Medium 06/07/2016 Penicillin Nausea And Vomiting,Rash Medium 12/04/2017 Penicillins Rash Medium 10/18/2020 Any of the cillin family Ketorolac Stomach upset Low 07/15/2023 Medications omeprazole (PriLOSEC) 40 mg capsule Take 1 capsule (40 mg total) by mouth 2 (two) times a day Active cyclobenzaprine (FLEXERIL) 10 mg tablet Take 1 tablet (10 mg total) by mouth 3 (three) times a day as needed 3 Active albuterol HFA (PROVENTIL HFA,VENTOLIN HFA,PROAIR HFA) 90 mcg/actuation inhaler Inhale 2 puffs every 4 (four) hours as needed 9 Active cholecalciferol (VITAMIN D-3) 50,000 unit capsule Take 1 capsule (50,000 Units total) by mouth once a week 3 Active lisinopril-hydr oCHLOROthiazide (ZESTORETIC) 10-12.5 mg per tablet Take 1 tablet by mouth daily 3 Active ALPRAZolam (XANAX) 1 mg tablet Take 1 tablet (1 mg total) by mouth daily as needed for anxiety Active fluticasone propion-salmete roL (ADVAIR DISKUS) 250-50 mcg/dose diskus inhaler Inhale 1 puff 2 (two) times a day Rinse mouth with water after use. Do not swallow. Active diclofenac DR (VOLTAREN) 25 mg EC tablet Take 1 tablet (25 mg total) by mouth 2 (two) times a day Active ubrogepant (UBRELVY ORAL) Take by mouth Active aluminum hydroxide - magnesium carbonate (GAVISCON) suspension 95 MG-358 mg/15 mL Acti ve milnacipran (SAVELLA) 50 mg tablet 2 tablets (100 mg total) 2 (two) times a day Active naltrexone (Naltrex) 4.5 mg capsule Take by mouth Active tirzepatide, weight loss, (Zepbound) 5 mg/0.5 mL pen injector Inject 0.5 mL (5 mg total) under the skin every 7 days Active celecoxib (CeleBREX) 200 mg capsule Take 1 capsule (200 mg total) by mouth 2 (two) times a day 5 Active HYDROcodone-romana taminophen (NORCO) 5-325 mg per tablet TAKE ONE OR TWO TABLET FOUR TIMES A DAY NEEDED FOR PAIN 5 Active PARoxetine (PAXIL) 10 mg tablet Take 1 tablet (10 mg total) by mouth every morning 10/08/19 25 Discontinu ed(Therapy completed) atogepant (QULIPTA ORAL) Take by mouth 10/08/19 25 Discontinu ed(Therapy completed) pregabalin (LYRICA ORAL) Take by mouth 10/08/19 25 Discontinu ed(Therapy completed) famotidine (PEPCID) 40 mg tablet Take 1 tablet (40 mg total) by mouth daily 10/08/19 25 Discontinu ed(Therapy completed) calcium carbonate (OS-ANA CRISTINA) 750 mg (300 mg elemental) tablet,chewable 10/08/19 25 Discontinu ed(Therapy completed) Active Problems Problem Noted Date Diagnosed Date Chest pain 07/15/2023 Asthma 07/15/2023 HTN (hypertension) 07/15/2023 Lumbar disc disease with radiculopathy 2 Immunizations Immunization Administration Dates Next Due Tdap 03/29/2024 Social History Tobacco Use Types Packs/Day Years Used Date Smoking Tobacco: Every Day Cigarettes 0.3 35 Tobacco Cessation:Ready to Q uit: Not Asked; Counseling Given: Not Answered Personal Safety Answer Date Recorded Have you ever been in or are you currently in a harmful physical or emotional relationship or is someone making you feel afraid or unsafe? Denies 07/15/2023 Comments No Sex and Gender Information Value Date Recorded Sex Assigned at Not on file Legal Sex Female 8:57 AM MOLD TOOLER Gender Identity Not on file Sexual Orientation Not on file Last Filed Vital Signs Vital Sign Reading Time Taken Comments Blood Pressure 122/78 10/08/2024 7:15 PM MOLD TOOLER Pulse 72 10/08/2024 7:15 PM MOLD TOOLER Temperature 36.6 C (97.9 F) 10/08/2024 7:15 PM MOLD TOOLER Respiratory Rate 20 10/08/2024 7:15 PM MOLD TOOLER Oxygen Saturation 97% 10/08/2024 7:15 PM MOLD TOOLER Inhaled Oxygen Concentration - - Weight 86.2 kg (190 lb) 10/08/2024 7:15 PM MOLD TOOLER Height 170.2 cm (5' 7 ) 04/08/2024 8:38 AM CDT Body Mass Index 29.76 04/08/2024 8:38 AM CDT Plan of Treatment [place] [address] [facility] BENEFIT PLAN [facility] CHOICE PLUS [facility] HMO/PPO Address: [address] HEALTH BENEFIT PLAN [facility] BENEFIT PLAN [place] Advance Directives For more information, please contact: [phone] * Full Code (Latest Code Status on File) Date Activated Date Inactivated Comments 07/15/2023 9:13 PM 07/16/2023 5:12 PM Care Teams Insect Control Aide Relationship Specialty Start Date End Date Miki Anderson MD PCP - General 02/07/17 Miscellaneous, Not In File 07/16/23
--- OUTSIDE RECORDS SUMMARY | 2024-10-28 12:17 | XMS_ITS | Clinical Summary ---
Author Organization [facility] Address [address] [place] [address] Care Team Providers Care Rotor Pilot Name Role Phone Miki Anderson MD Primary Care Provider Miscellaneous, Not In File Unavailable Unava ilable Allergies Active Allergy Reactions Criticality Noted Date [...] mg total) by mouth every morning 10/08/19 Discontinu ed(Therapy completed) atogepant (QULIPTA ORAL) Take by mouth 10/08/19 Discontinu ed(Therapy completed) pregabalin (LYRICA ORAL) Take by mouth 10/08/19 Discontinu ed(Therapy completed) famotidine (PEPCID) 40 mg tablet Take 1 tablet (40 mg total) by mouth daily 10/08/19 Discontinu ed(Therapy completed) calcium carbonate (OS-ANA CRISTINA) 750 mg (300 mg elemental) tablet,chewable 10/08/19 Discontinu ed(Therapy completed) Active Problems Problem Noted Date Diagnosed Date Chest pain 07/15/2023 Asthma 07/15/2023 HTN (hypertension) 07/15/2023 Lumbar disc disease with radiculopathy 2 Encounters Date Type Department Care Team Description 10/08/2024 7:15 PM LIME SLUDGE MIXER Office Visit [facility] Care at [address] [address] Shanda Hightower NP Low back pain without sciatica, unspecified back pain laterality, unspecified chronicity (Primary Dx) from Last 3 Months Immunizations Immunization Administration Dates Next Due Tdap 03/29/2024 Surgical History Surgery Date Site/Laterality Comments BACK SURGERY 11/09/2022 - 12/08/2022 lumbar area HYSTERECTOMY aprox 2012 Medical History Medical History Date Comments GERD (gastroesophageal reflux disease) Heartburn Non-cardiac chest pain Neuropathy Migraines Social History Tobacco Use Types Packs/Day Years [...] on file Legal Sex Female 8:57 AM LIME SLUDGE MIXER Gender Identity Not on file Sexual Orientation Not on file Obstetrics History Last Filed Vital Signs Vital Sign Reading Time Taken Comments Blood Pressure 122/78 10/08/2024 7:15 PM LIME SLUDGE MIXER Pulse 72 10/08/2024 7:15 PM LIME SLUDGE MIXER Temperature 36.6 C (97.9 F) 10/08/2024 7:15 PM LIME SLUDGE MIXER Respiratory Rate 20 10/08/2024 7:15 PM LIME SLUDGE MIXER Oxygen Saturation 97% 10/08/2024 7:15 PM LIME SLUDGE MIXER Inhaled Oxygen Concentration - - Weight 86.2 kg (190 lb) 10/08/2024 7:15 PM LIME SLUDGE MIXER Height 170.2 cm (5' 7 ) 04/08/2024 8:38 AM CDT Body Mass Index 29.76 04/08/2024 8:38 AM CDT Plan of Treatment Health Maintenance Due Date Last Done Comments Breast Cancer Screening-Mammogram 1973 Colon Cancer Screening-Colonoscopy 1973 Depression Screening 1973 Hepatitis C Screening 1973 Hepatitis B Screening 1991 Regular Well Visit/Exam 18-64 1991 Pneumococcal vaccine <65 (1 of 2 - PCV) 1992 Zoster Vaccine (1 of 2) 2023 Covid-19 Vaccine (2 - 2023- season) 2024 Influenza Vaccine (#1) 2024 DTaP/Tdap/Td Vaccine (2 - Td or Tdap) 03/29/2034 Insurance [facility] CHOICE PLUS [facility] HEALTH BENEFIT PLAN [facility] HEALTH BENEFIT PLAN MEDICARE Advance Directives For more information, please contact: [phone] * Full Code (Latest Code Status on File) Date Activated Date Inactivated Comments 07/15/2023 9:13 PM 07/16/2023 5:12 PM Care Teams Rotor Pilot Relationship Specialty Start Date End Date Miki Anderson MD PCP - General 02/07/17 Miscellaneous, Not In File 07/16/23
--- OUTSIDE RECORDS SUMMARY | 2024-10-28 12:17 | XMS_ITS | Clinical Summary ---
Author Organization [employer] [id number] [facility] Address [address] [place] [address] Care Team Providers Care Travel Registered Nurse Pacu Name Role Phone Miki Anderson MD Primary Care Provider [phone] Allergies Active Allergy Reactions Criticality Noted Date Comments Amoxicillin Rash,Nausea and Vomiting Medium 12/04/2017 Ketorolac Tromethamine Nausea and Vomiting Medium 05/12 Penicillin Rash,Nausea and Vomiting Medium 12/04/2017 Medications ALPRAZolam (XANAX) 0.5 mg tablet 1 time daily as needed . Active albuterol HFA 90 mcg inhaler INL 2 PFS PO Q 4 H PRN 0 12/06/2018 Active lisinopril (PRINIVIL) 10 mg tablet Take 5 mg by mouth daily at bedtime . Active aluminum hydroxide - magnesium carbonate (GAVISCON) 95-358 mg/15 mL Suspension Take 15 mL by mouth 4 times daily after meals and at bedtime. Active acetaminophen (TYLENOL) 500 mg tablet Take 1,000 mg by mouth every 6 hours as needed. Active traMADol (ULTRAM) 50 mg tabletIndicatio ns:Lumbar disc herniation Take 1 Tablet (50 mg) by mouth every 6 hours as needed for Pain. 30 Tablet 03/23/2019 12:11 PM CDT 03/23/2019 Active chlorzoxazone (PARAFON FORTE) 500 mg tablet Take 1 Tablet (500 mg) by mouth every 12 hours. 40 Tablet 08/05/2019 Active Active Problems Problem Noted Date Diagnosed Date Lumbar disc herniation 12/23/2018 Degenerative cervical disc 08/06/2018 Family History Medical History Relation Name Comments Hypertension Father Hypertension Mother Relation Name Status Comments Father Alive Mother Alive Social History Tobacco Use Types Packs/Day Years Used Date Smoking Tobacco: Every Day Cigarettes Smokeless Tobacco: Never Alcohol Use Standard Drinks/Week Comments Yes 0 (1 standard drink = 0.6 oz pur e alcohol) social Comments No Sex and Gender Information Value Date Recorded Sex Assigned at Not on file Legal Sex Female 9:49 PM CDT Gender Identity Not on file Sexual Orientation Not on file Last Filed Vital Signs Vital Sign Reading Time Taken Comments Blood Pressure 151/90 03/23/2019 12:14 PM CDT Pulse 71 03/23/2019 12:14 PM CDT Temperature 36.3 C (97.4 F) 03/23/2019 11:40 AM CDT Respiratory Rate 16 03/23/2019 12:14 PM CDT Oxygen Saturation 93% 03/23/2019 12:14 PM CDT Inhaled Oxygen Concentration - - Weight 86.2 kg (190 lb) 03/23/2019 5:44 AM CDT Height 168.3 cm (5' 6.25 ) 03/23/2019 5:44 AM CD T Body Mass Index 30.44 03/23/2019 5:44 AM CDT Plan of Treatment Health Maintenance Due Date Last Done Comments DTAP/TDAP/TD VACCINES (1 - Tdap) 1992 HEPATITIS B VACCINES (1 of 3 - 19+ 3-dose series) 08/12 PAP SMEAR 2003 BREAST CANCER SCREENING 2013 COLORECTAL SCREENING 2018 Colorectal Cancer Screening 2018 FIT-DNA Q 3 years 2018 FIT/FOBT Q 1 year 2018 Flex Sig/CT Colonography Q 5 years 2018 ZOSTER VACCINE (1 of 2) 2023 INFLUENZA VACCINE (#1) 2024 Medical Devices Implanted Type Area Certified Technician Specialist Device Identifier Shelf Expiration Date Model / Serial / Lot Hemostatic Surgifoam Sz12-7 1972 - [id number] Implanted:Qty: 1 on 03/23/2019 by Nico Haji MD at [facility] Hemostatic N/A: Spine Lumbar [employer]- [employer] 10/03/20211971 / / [id number] Insurance [facility] [id number] RX [employer] RX Member Subscriber Plan / Payer (Ef fective 2019-Present) Name:Lore Jacobs Relation to Subscriber:Self Name:Lore Jacobs Subscriber ID:Not on file Payer ID:Not on file Group ID:[id number] Type:RX Commercial Address: [address] Advance Directives For more information, please contact: [phone] * Full Code (Latest Code Status on File) Date Activated Date Inactivated Comments 03/23/2019 10:07 AM 03/23/2019 3:20 PM Care Teams Travel Registered Nurse Pacu Relationship Specialty Start Date End Date Miki Anderson MD [address] [place] [address] PCP - General Family Practice 07/30/18
--- OUTSIDE RECORDS SUMMARY | 2024-10-28 12:17 | XMS_ITS | Clinical Summary ---
Author Organization [facility] Address [address] [place] [address] Care Team Providers Care Registered Private Duty Nurse Name Role Phone Miki Anderson MD Primary Care Provider [phone] Allergies Active Allergy Reactions Criticality Noted Date Comments Amoxicillin Rash 06/07/2016 Penicillins Rash 06/07/2016 Ketorolac Tromethamine Vomiting 06/07/2016 Medications nabumetone (RELAFEN) 500 MG Tablet Take 500 mg by mouth 2 times daily. Active oxyCODONE-aceta minophen (PERCOCET) 5-325 MG Tablet Take 1 Tab by mouth every 6 hours as needed for Pain. Active acetaminophen (TYLENOL 8 HOUR) 650 MG Tablet Controlled Release Take 650 mg by mouth every 6 hours as needed for Pain. Active ALPRAZolam (XANAX) 0.5 MG Tablet Take 0.5 mg by mouth 3 times daily as needed. Active baclofen (LIORESAL) 10 MG Tablet Take 1 Tab by mouth nightly as needed. 20 Tab 0 06/07/2016 Active meclizine (ANTIVERT) 25 MG Tablet Take 1 Tab by mouth 3 times daily as needed. 30 Tab 0 06/07/2016 Active Social History Tobacco Use Types Packs/Day Years Used Date Smoking Tobacco: Every Day Cigarettes Alcohol Use Standard Drinks/Week Comments Yes 0 (1 standard drink = 0.6 oz pur e alcohol) <1 PER WEEK Comments No Sex and Gender Information Value Date Recorded Sex Assigned at Not on file Legal Sex Female 9:40 PM CDT Gender Identity Not on file Sexual Orientation Not on file Last Filed Vital Signs Vital Sign Reading Time Taken Comments Blood Pressure 148/87 06/07/2016 3:00 PM CDT Simultaneous filing. User may not have seen previous data. Pulse 80 06/07/2016 3:00 PM CDT Temperature 36.5 C (97.7 F) 06/07/2016 3:00 PM CDT Respiratory Rate - - Oxygen Saturation - - Inhaled Oxygen Concentration - - Weight 40.8 kg (90 lb) 06/07/2016 3:00 PM CDT Height 172.7 cm (5' 8 ) 06/07/2016 3:00 PM CDT Body Mass Index 13.68 06/07/2016 3:00 PM CDT Plan of Treatment Health Maintenance Due Date Last Done Comments Hepatitis C Virus (HCV) Screening 1973 TdaP Immunization 1973 Hepatitis B Immunization (1 of 3 - 19+ 3-dose series) 1992 Colonoscopy 2018 Colorectal Cancer Screening 2018 Cologuard 2023 Immunochemical Fecal Occult Blood 2023 Mammogram 2023 Pneumococcal Immunization (5 0+ years) (1 of 1 - PCV) 2023 Zoster Immunization (1 of 2) 2023 Influenza Immunization (#1) 2024 SARS-COV-2 Immunization (2 - 2023- season) 2024 03/24/2021 Respiratory Syncytial Virus (RSV) Immunization (Adult) (1 - 1-dose 75+ series) 2048 Meningococcal Immunization (ACWY) Aged Out No longer eligible based on patient's age to complete this topic Pneumococcal Immunization Combined Aged Out No longer eligible based on patient's age to complete this topic Rotavirus Immunization Aged Out No lo nger eligible based on patient's age to complete this topic Care Teams Registered Private Duty Nurse Relationship Specialty Start Date End Date Miki Anderson MD [address] [place], [place] [id number] PCP - General Family Medicine 06/07/16
[2024-10-28 12:23] VITALS: BP 136/90; PULSE 84; RESP 14; O2SAT 100
[2024-10-28] MEDS: LORazepam INJ (*CRX) 2 MG/ML VIAL 1 MG IV PUSH (12:37)
[2024-10-28 13:27] VITALS: BP 103/77; PULSE 87; RESP 20; O2SAT 100
--- OUTSIDE RECORDS SUMMARY | 2024-10-28 13:44 | XMS_ITS | Clinical Summary ---
Author Organization [facility] Address [address] [place] [address] Care Team Providers Care Twisthand Name Role Phone Miki Anderson MD Primary Care Provider [phone] Allergies Active Allergy Reactions Criticality Noted Date [...] age to complete this topic Care Teams Twisthand Relationship Specialty Start Date End Date Miki Anderson MD [address] [place], [place] [id number] PCP - General Family Medicine 06/07/16
--- OUTSIDE RECORDS SUMMARY | 2024-10-28 13:44 | XMS_ITS | Clinical Summary ---
Author Organization [facility] Address [address] [place] [address] Care Team Providers Care Business Transformation Consultant Name Role Phone Miki Anderson MD Primary [...] Department Care Team Description 10/08/2024 7:15 PM DIESEL MACHINIST Office Visit [facility] Care at [address] [address] Shanda Hightower NP Low back [...] on file Legal Sex Female 8:57 AM DIESEL MACHINIST Gender Identity Not on file Sexual Orientation Not on file Obstetrics History Last Filed Vital Signs Vital Sign Reading Time Taken Comments Blood Pressure 122/78 10/08/2024 7:15 PM DIESEL MACHINIST Pulse 72 10/08/2024 7:15 PM DIESEL MACHINIST Temperature 36.6 C (97.9 F) 10/08/2024 7:15 PM DIESEL MACHINIST Respiratory Rate 20 10/08/2024 7:15 PM DIESEL MACHINIST Oxygen Saturation 97% 10/08/2024 7:15 PM DIESEL MACHINIST Inhaled Oxygen Concentration - - Weight 86.2 kg (190 lb) 10/08/2024 7:15 PM DIESEL MACHINIST Height 170.2 cm (5' 7 ) 04/08/2024 [...] Tdap) 03/29/2034 Insurance [facility] H[facility]/PPO Address: [address] [place] [address] [facility] CHOICE PLUS [facility] HEALTH BENEFIT PLAN [facility] HEALTH BENEFIT PLAN MEDICARE Advance Directives For more information, please contact: [phone] * Full Code (Latest Code Status on File) Date Activated Date Inactivated Comments 07/15/2023 9:13 PM 07/16/2023 5:12 PM Care Teams Business Transformation Consultant Relationship Specialty Start Date End Date Miki Anderson MD PCP - General 02/07/17 Miscellaneous, Not In File 07/16/23
--- OUTSIDE RECORDS SUMMARY | 2024-10-28 13:44 | XMS_ITS | Clinical Summary ---
Author Organization [facility] [id number] [facility] Address [address] [place] [address] Care Team Providers Care Lead Recoverer Name Role Phone Miki Anderson MD Primary Care Provider [phone] Allergies Active Allergy Reactions Criticality Noted Date [...] (#1) 2024 Medical Devices Implanted Type Area Access Services Librarian Device Identifier Shelf Expiration Date Model / Serial / Lot Hemostatic Surgifoam Sz12-7 1972 - [id number] Implanted:Qty: 1 on 03/23/2019 by Nico Haji MD at [facility] Hemostatic N/A: Spine Lumbar [employer]- [employer] 10/03/20211971 / / [id number] Insurance [facility] [id number] RX [employer] RX Member Subscriber Plan / Payer (Ef fective 2019-Present) Name:Lore Jacobs Relation to Subscriber:Self Name:Lore Jacobs Subscriber ID:Not on file Payer ID:Not on file Group ID:[id number] Type:RX Commercial Address: [address] Advance Directives For more information, please contact: [phone] * Full Code (Latest Code Status on File) Date Activated Date Inactivated Comments 03/23/2019 10:07 AM 03/23/2019 3:20 PM Care Teams Lead Recoverer Relationship Specialty Start Date End Date Miki Anderson MD [address] [place] [address] PCP - General Family Practice 07/30/18
--- OUTSIDE RECORDS SUMMARY | 2024-10-28 13:44 | XMS_ITS | Referral Summary ---
Author Organization [facility] Address [address] [place] [address] Care Team Providers Care Tin Worker Name Role Phone Miki Anderson MD Primary Care Provider [phone] Miscellaneous, Not In File Unavailable Unava ilable Encounters Date Type Department Care Team Description 10/08/2024 7:15 PM CHILD PROTECTION SPECIALIST Office Visit [facility] Convenient Care at [address] [address] Shanda Hightower NP Low back [...] on file Legal Sex Female 8:57 AM CHILD PROTECTION SPECIALIST Gender Identity Not on file Sexual Orientation Not on file Last Filed Vital Signs Vital Sign Reading Time Taken Comments Blood Pressure 122/78 10/08/2024 7:15 PM CHILD PROTECTION SPECIALIST Pulse 72 10/08/2024 7:15 PM CHILD PROTECTION SPECIALIST Temperature 36.6 C (97.9 F) 10/08/2024 7:15 PM CHILD PROTECTION SPECIALIST Respiratory Rate 20 10/08/2024 7:15 PM CHILD PROTECTION SPECIALIST Oxygen Saturation 97% 10/08/2024 7:15 PM CHILD PROTECTION SPECIALIST Inhaled Oxygen Concentration - - Weight 86.2 kg (190 lb) 10/08/2024 7:15 PM CHILD PROTECTION SPECIALIST Height 170.2 cm (5' 7 ) 04/08/2024 8:38 AM CDT Body Mass Index 29.76 04/08/2024 8:38 AM CDT Plan of Treatment [place] [address] [facility] HEALTH BENEFIT PLAN [facility] CHOICE PLUS [facility] HMO/PPO Address: [address] HEALTH BENEFIT PLAN [facility] HEALTH BENEFIT PLAN [place] MED[place] Advance Directives For more information, please contact: [phone] * Full Code (Latest Code Status on File) Date Activated Date Inactivated Comments 07/15/2023 9:13 PM 07/16/2023 5:12 PM Care Teams Tin Worker Relationship Specialty Start Date End Date Miki Anderson MD PCP - General 02/07/17 Miscellaneous, Not In File 07/16/23
== END 2024-10-28 13:30 | disposition home or self-care (01) ==
PROVIDERS: Emergency Provider Emergency Medicine; PCP Family Medicine
DX: M79.7 Fibromyalgia (principal); F41.9 Anxiety disorder, unspecified; J45.909 Unspecified asthma, uncomplicated; I10 Essential (primary) hypertension; K21.9 Gastro-esophageal reflux disease without esophagitis; K58.9 Irritable bowel syndrome, unspecified; G47.33 Obstructive sleep apnea (adult) (pediatric); Z86.16 Personal history of COVID-19; Z98.1 Arthrodesis status; Z87.891 Personal history of nicotine dependence; Z90.711 Acquired absence of uterus with remaining cervical stump; Z90.722 Acquired absence of ovaries, bilateral; Z90.79 Acquired absence of other genital organ(s); R94.31 Abnormal electrocardiogram [ECG] [EKG]
CPT/HCPCS: 36415; 71046; 80053; 83690; 84484; 85025; 85610; 85730; 93005; 96374; 99284; J2060

== ENCOUNTER 2025-03-24 17:32 | Emergency (ER) | payer OTHER, MEDICARE, SELFPAY ==
[2025-03-24 17:43] VITALS: BP 129/87; PULSE 97; RESP 16; TEMP 36.3; O2SAT 100
--- NOTE | 2025-03-24 18:08 | ED_ITS ---
HPI - Wound/Laceration General Chief Complaint: Wound/Laceration Stated Complaint: L THUMB LACERATION Time Seen by Provider: 03/24/25 18:00 Source: patient and RN notes reviewed Mode of arrival: ambulatory Limitations: no limitations History of Present Illness HPI narrative: 49-year-old female presents [facility] complaining of laceration to her left thumb. Patient said about 1 hour ago she was opening a can of corn with a can coconut boiler when she accidentally cut her left thumb on the can. Patient denies any other injuries. Patient denies any injury to her nail. Patient reports the laceration is on the palmar surface of her distal left thumb. Bleeding is controlled prior to arrival. Patient says her tetanus is up-to-date. Related Data Home Medications ?Medication ?Instructions ?Recorded ?Confirmed ?Last Taken ?Type alprazolam 1 mg tablet 1 mg PO DAILY PRN Anxiety 04/09/24 03/21/25 06/22/24 History cholecalciferol (vitamin D3) 1,250 50,000 unit PO WEEKLY 04/09/24 03/21/25 Unknown History mcg (50,000 unit) capsule omeprazole 40 mg capsule,delayed 40 mg PO DAILY 08/23/24 03/24/25 Unknown History release celecoxib 200 mg capsule mg 03/24/25 Unknown History cyclobenzaprine 10 mg tablet mg 03/24/25 Unknown History Allergies Allergy/AdvReac Type Severity Reaction Status Date / Time amoxicillin Allergy Intermediate Rash Verified 03/24/25 17:43 Cephalosporins Allergy Intermediate Rash Verified 03/24/25 17:43 Penicillins Allergy Intermediate Rash Verified 03/24/25 17:43 ketorolac AdvReac Intermediate Nausea and Verified 03/24/25 17:43 Vomiting clarithromycin AdvReac Mild GI Verified 03/24/25 17:43 Review of Systems 2 Review of Systems: CONSTITUTIONAL: Denies fever, chills, or sweats. EYES: Denies visual changes, redness, or discharge. ENT: Denies rhinorrhea, congestion, sore throat, or otalgia. CARDIOVASCULAR: Denies chest pain, palpitations, or edema. RESPIRATORY: Denies cough or dyspnea. GASTROINTESTINAL: Denies abdominal pain, nausea, vomiting, or diarrhea. GENITOURINARY: Denies dysuria or hematuria. SKIN: Denies rash or itching. Positive for laceration. MUSCULOSKELETAL: Denies back pain, joint pain, or myalgia. NEUROLOGIC: Denies headache, numbness, or weakness. PSYCHIATRIC: Denies anxiety or depression. All other systems reviewed are negative, except as documented in HPI. [facility] Past Medical History Medical History Fibromyalgia GERD (gastroesophageal reflux disease) Elevated glucose Bronchitis Folliculitis Non-cardiac chest pain Neck pain Nausea COVID-19 Back pain with history of spinal surgery SAMANTHA (obstructive sleep apnea) Tobacco abuse IBS (irritable bowel syndrome) Small bowel obstruction Anxiety Asthma Major depressive disorder, single episode, unspecified Ulnar neuropathy of both upper extremities Hypertension Surgical History Surgical History History of laparoscopy x 2 exploratory laparoscopy due to abdominal pain in her 20's with no reported significant findings. History of back surgery X3 (total 5 spinal surgeries) History of carpal tunnel release Bilaterally H/O section X3 H/O: hysterectomy Open partial hysterectomy followed by left salpingo-oophorectomy and eventually right salpingo-oophorectomy. Total of 3 surgeries. Family History Family History Mother Diabetes mellitus Hypertension Heart disease COVID-19 Lung cancer Father Diabetes mellitus Hypertension Heart disease COVID-19 S/P triple vessel bypass, Onset Age: 65 Sibling COVID-19 Social History Social History Social History: She is . She has 3 children. She is a full code and desires to have her to be her decision-maker if needed. She does not use alcohol marijuana or illicit drugs. Smoking packs per day: 0.5 Smoking cigarettes per day: 10.0 Years smoked: 20 Smoking pack-years: 10.00 Smoking status: Former smoker Tobacco type: cigarettes Second hand tobacco smoke exposure: No Smoking end date: 01/28/22 Alcohol intake: current Alcohol use details: SOCIALLY Substance use: former Substance use type: marijuana Last use: 11-12 days ago Do You Feel Safe in your Home?: Yes Lack of Transportation: No Lack of Food: Never True Current Housing: I Have Housing Concerned About Future Housing: No Difficulty Paying Gas/Electric Bills: No Difficulty Paying for Meds: No Currently Unemployed: No Education: Trade/Vocational Certificate Difficulty w/ Childcare or Family Care: No Living arrangements: with family Occupation/Education: unemployed 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 Gender identity (if verbalized by the patient): Female Sexual Orientation (if Verbalized by the Patient): Straight or Heterosexual Spiritual care concerns: No Comments At the time of my signature, I reviewed and agree with the nursing past medical, surgical, social, and family history. There is no relevant family history pertinent to the patient complaint. Exam 2 Narrative: GENERAL: This is a well-nourished, well-developed adult, in no apparent distress. They are non ill-appearing, nontoxic appearing. HEAD: normocephalic, atraumatic. EYES: Sclera clear/white. Conjunctiva normal. Vision is grossly intact. Extraocular movements intact EARS: External ears normal, Hearing grossly intact. NOSE: External nose normal THROAT: Mucous membranes moist, NECK: Neck supple, CARDIOVASCULAR: Regular rate and rhythm RESPIRATORY: Respiratory rate normal, respiratory effort nonlabored, no respiratory distress SKIN: Left thumb: Vertical laceration to the palmar surface of the distal thumb. Is measuring approximately 1.5 cm long. It is well approximated. Laceration is superficial. Hemostasis achieved. No redness or swelling. No drainage. Normal range of motion of thumb. Capillary refill less than 2 seconds. Neurovascular status intact distal to injury. Nail is intact. NEURO: awake, alert, and oriented to person, place and time. There were no obvious focal neurologic abnormalities. EXTREMITIES: No joint tenderness, effusion, or edema noted. Extrem: Hand/finger images: 1. Primarily linear slight curve at the distal tip of the thumb of the laceration. Measuring 1.5 cm. Course Course Emergency Course: Portions of this record may have been created with voice recognition software Level of Care: Express Care Visit Vital Signs Vital signs: Vital Signs Temperature 97.3 F L 03/24/25 17:43 Pulse Rate 97 03/24/25 17:43 Respiratory Rate 16 03/24/25 17:43 Blood Pressure 129/87 03/24/25 17:43 Pulse Oximetry 100 03/24/25 17:43 Temperature 97.3 F L 08/14/25 17:43 Pulse Rate 97 03/24/25 17:43 Respiratory Rate 16 03/24/25 17:43 Blood Pressure 129/87 03/24/25 17:43 Pulse Oximetry 100 03/24/25 17:43 Reviewed Procedures Laceration Laceration 1: Date: 03/24/25 Time: 18:05 Site: hand (Thumb) Side (If applicable): left Size (cm): 1.5 Description: linear and irregular Depth: simple, single layer (Superficial) Pre-repair: wound explored and irrigated ====== Skin Level ====== Skin layer closed with: steri strips (3 Steri-Strips) ====== Subcutaneous Layer ====== ====== Muscle Layer ====== ====== Tendon Layer ====== Dressing: Nonadherent dressing. Patient tolerated procedure well. MDM - Wound/Laceration MDM Narrative Medical decision making narrative: Laceration is very superficial and is well approximated to left thumb. No nail involvement. Through shared decision making with patient we discussed option of laceration repair versus Steri-Strips distal wound is already well approximated and closed, and she elected to go ahead and do Steri-Strips. Three Steri-Strips were applied across laceration. Successful laceration repair. Non adherent dressing applied over Steri-Strips. Advised patient leave Steri-Strips on for 7 days. Wound care and cleanse the was provided prior to wound closure. Patient's tetanus is up-to-date. Discussed physical exam findings. Advised supportive measures and signs/symptoms to go to the ER. Pt is appropriate for outpt treatment and f/u. Differential Diagnosis Differential diagnosis: Likely laceration and avulsion of skin Critical Care Time Critical Care Time Critical Care Time: No Discharge Plan Discharge Clinical Impression: Laceration of thumb Patient Disposition: Home Condition: Stable Instructions: Laceration (ED) Additional Instructions: Leave Steri-Strips on for 7 days. They will normally roll off on their own. Wear the dressing that has been applied for the first 24 hours to allow a scab to start forming. ?After this, you may remove and wash as normal with soap and water. ?Do NOT wash with peroxide or alcohol. Keep the wound dry and covered during the day. Change the dressing daily. Use a non adherent dressing. You may leave it open to air at night. Avoid dirty water to the wound has healed completely. You may Tylenol or ibuprofen as needed for pain. Follow the instructions on the bottle. Follow up with your PCP in 3-5 days. Go to the ER with any signs of infection such as redness, swelling, increased pain, fevers, or green/yellow drainage, or any other concerns. Patient Language: Bengali Prescriptions: No Action celecoxib 200 mg capsule cyclobenzaprine 10 mg tablet Ubrelvy 50 mg tablet 50 mg PO DAILY PRN (Reason: Migraine Headache) Qty: 30 1RF nitroglycerin 0.4 mg tablet, sublingual 0.4 mg sublingual Q5M PRN (Reason: chest pain) Qty: 20 0RF Rx Instructions: do not exceed 3 doses per episode Qulipta 30 mg tablet 30 mg PO DAILY Qty: 90 1RF alprazolam 1 mg tablet 1 mg PO DAILY PRN (Reason: Anxiety) cholecalciferol (vitamin D3) 1,250 mcg (50,000 unit) capsule 50,000 unit PO WEEKLY Rx Instructions: takes on Friday omeprazole 40 mg capsule,delayed release(DR/EC) 40 mg PO DAILY fluticasone propion-salmeterol [Advair Diskus] 250-50 mcg/dose blister with device 1 inh inhalation DAILY Qty: 60 0RF lisinopril-hydrochlorothiazide 20-12.5 mg tablet See Rx Instructions .ROUTE .COMPLEX Qty: 90 0RF Dose Instruction: TAKE 1 TABLET BY MOUTH EVERY DAY Rx Instructions: TAKE 1 TABLET BY MOUTH EVERY DAY albuterol sulfate 90 mcg/actuation HFA aerosol inhaler 2 puff INHALATION Q4H PRN (Reason: Shortness Of Breath) Qty: 8.5 1RF tizanidine 4 mg capsule 4 mg PO TID PRN (Reason: muscle spasticity) Qty: 90 0RF sumatriptan 20 mg/actuation spray,non-aerosol 20 mg intranasal ONCE Qty: 6 1RF Rx Instructions: into one nostril; if headache remains, may repeat dose into other nostril once after at least 2 hours Wegovy 0.5 mg/0.5 mL pen injector 0.5 mg subcut WEEKLY Qty: 2 3RF Follow-up/Referrals: Miki Anderson MD [Primary Care Provider] - Time of Disposition: 18:14
== END 2025-03-24 18:29 | disposition home or self-care (01) ==
PROVIDERS: PCP Family Medicine
DX: S61.012A Laceration without foreign body of left thumb without damage to nail, initial encounter (principal); W45.8XXA Other foreign body or object entering through skin, initial encounter; Z87.891 Personal history of nicotine dependence; I10 Essential (primary) hypertension; J45.909 Unspecified asthma, uncomplicated; M79.7 Fibromyalgia; K21.9 Gastro-esophageal reflux disease without esophagitis; F41.9 Anxiety disorder, unspecified; Z86.16 Personal history of COVID-19
CPT/HCPCS: 99212; G0463

== ENCOUNTER 2025-04-02 07:24 | Emergency (ER) | payer OTHER, MEDICARE, SELFPAY ==
[2025-04-02] VITALS (19 sets, daily range): BP systolic 95–114; BP diastolic 59–80; PULSE 57–76; RESP 11–20; TEMP 36.6; O2SAT 95–100
--- NOTE | ~2025-04-02 | XR_ITS ---
EXAMINATION: XR chest 2V 04/02/2025 08:35 INDICATION: Chest pain PROCEDURE: 2 view chest COMPARISON: Comparison to multiple prior studies sequentially, with oldest reviewed study dated 10/16/2023. FINDINGS: The lungs are clear. The cardiomediastinal silhouette is within normal limits. There are no pleural effusions. There is no pneumothorax suspected. IMPRESSION: 1: NO ACUTE CARDIOPULMONARY DISEASE. Reviewed, dictated and finalized at location O.
--- NOTE | 2025-04-02 07:41 | ECG_ITS ---
Test Date: 2025-04-02 07:48:25 Measurements Intervals [place] Rate: 62 P: 56 MA: 173 QRS: 5 QRSD: 90 T: 128 QT: 430 QTc: 438 Interpretive Statements SINUS RHYTHM POSSIBLE LEFT ATRIAL ENLARGEMENT LEFT VENTRICULAR HYPERTROPHY AND ST-T CHANGE ST-T WAVE ABNORMALITY IN ANTEROLATERAL LEADS- CONSIDER ISCHEMIA BASELINE ARTIFACT- I, II, AVR, AVL, AVF, V1-V6 ABNORMAL ECG Compared to ECG 10/28/2024 11:32:22 NO SIGNIFICANT CHANGE Electronically Signed On 04-02-2025 10:32:45 CDT by Quinten Renteria D.O.
[2025-04-02 08:01] LABS: Hematocrit 41.7 % (37.0-47.0); Hemoglobin 13.4 g/dL (12.0-15.0); Immature Granulocyte Percent A 0.4 % (0-0.5); Lymphocytes Absolute Auto 2.96 K/mm3 (0.9-3.2); Mean Corpuscular HGB Conc 32.1 g/dl (32-36); Mean Corpuscular Hemoglobin 28.8 pg (26-34); Mean Corpuscular Volume 89.7 fl (80-100); Nucleated Red Blood Cells Absolute Auto 0.000 K/mm3 (0.0-0.012); Nucleated Red Blood Cells Perc 0.0 % (0.0-0.2); Platelet Count Result 247 k/mm3 (150-375); Red Blood Count 4.65 M/mm3 (4.2-5.4); White Blood Count 5.7 K/mm3 (4.5-10.0)
[2025-04-02] MEDS: BELLADONNA ALK/PHENOB ELIX 10 ML, MAG HYDROX/ALUMINUM HYD/SIMETH 30 ML, LIDOCAINE 2% VI... PO (08:04)
[2025-04-02 08:15] LABS: INR 1.0; Prothrombin Time 13.1 Seconds (11.1-14.7)
[2025-04-02 08:16] LABS: Partial Thromboplastin Time 25.5 Seconds (22.3-36.8)
[2025-04-02 08:19] LABS: Alanine Aminotransferase 18 U/L (6-35); Albumin Level 4.5 g/dL (3.5-5.1); Alkaline Phosphatase 74 U/L (38-126); Anion Gap 8 mmol/L (4-12); Aspartate Amino Transferase 25 U/L (14-36); Bilirubin,Total 0.8 mg/dL (0.2-1.3); Blood Urea Nitrogen 11 mg/dL (7-17); Calcium 9.6 mg/dL (8.4-10.2); Carbon Dioxide 26 mmol/L (22-30); Chloride 105 mmol/L (98-107); Estimated CRCL calculation 74 ml/min; Estimated Glomerular Filt Rate > 60; Glucose 94 mg/dL (65-110); Potassium 4.0 mmol/L (3.4-5.0); Sodium 139 mmol/L (137-145); Total Protein 7.6 g/dL (6.3-8.2)
[2025-04-02 08:28] LABS: Troponin I < 0.012 ng/mL (0.000-0.034)
--- NOTE | 2025-04-02 10:13 | ECG_ITS ---
Test Date: 2025-04-02 10:52:31 Measurements Intervals [place] Rate: 60 P: 58 RI: 171 QRS: 10 QRSD: 89 T: 130 QT: 422 QTc: 424 Interpretive Statements SINUS RHYTHM POSSIBLE LEFT ATRIAL ENLARGEMENT LEFT VENTRICULAR HYPERTROPHY AND ST-T CHANGE ST-T WAVE ABNORMALITY IN ANTERIOR LEADS- CONSIDER ISCHEMIA BASELINE ARTIFACT- I, II, III, AVR, AVL ,AVF, V1-V2 ABNORMAL ECG Compared to ECG 04/02/2025 07:48:25 NO SIGNIFICANT CHANGE Electronically Signed On 04-02-2025 11:43:28 CDT by Quinten Renteria D.O.
--- NOTE | 2025-04-02 10:13 | ED.GENADULT ---
HPI - General Adult General Chief complaint: Chest Pain Stated complaint: I'm having chest pains. Time Seen by Provider: 04/02/25 07:36 History of Present Illness HPI narrative: Patient is a 49-year-old female who presents ER with chest pain. Ongoing since last night. Cramping right-sided. She has had this chest pain before. She has had a negative Lexiscan in the past. No history of heart disease. Reports that went up into her neck and she is unsure if it is acid reflux. She has some mild discomfort her abdomen as well. No exertional component. No orthopnea. No dyspnea. Tried taking nitroglycerin and it did not change any of her symptoms. Related Data Home Medications ?Medication ?Instructions ?Recorded ?Confirmed ?Last Taken ?Type alprazolam 1 mg tablet 1 mg PO DAILY PRN Anxiety 04/09/24 03/21/25 06/22/24 History cholecalciferol (vitamin D3) 1,250 50,000 unit PO WEEKLY 04/09/24 03/21/25 Unknown History mcg (50,000 unit) capsule omeprazole 40 mg capsule,delayed 40 mg PO DAILY 08/23/24 03/24/25 Unknown History release celecoxib 200 mg capsule mg 03/24/25 Unknown History Allergies Allergy/AdvReac Type Severity Reaction Status Date / Time amoxicillin Allergy Intermediate Rash Verified 04/02/25 07:39 Cephalosporins Allergy Intermediate Rash Verified 04/02/25 07:39 Penicillins Allergy Intermediate Rash Verified 04/02/25 07:39 ketorolac AdvReac Intermediate Nausea and Verified 04/02/25 07:39 Vomiting clarithromycin AdvReac Mild GI Verified 04/02/25 07:39 Review of Systems Review of Systems: All systems reviewed & are unremarkable except as noted in HPI and below Constitutional: Constitutional: Reports no additional constitutional complaints Cardiovascular: Cardiovascular: Reports no additional cardiovascular complaints Respiratory: Respiratory: Reports no additional respiratory complaints Gastrointestinal: Gastrointestinal: Reports no additional gastrointestinal complaints Musculoskeletal: Musculoskeletal: Reports no additional musculoskeletal complaints [facility] Past Medical History Medical History Fibromyalgia GERD (gastroesophageal reflux disease) Elevated glucose Bronchitis Folliculitis Non-cardiac chest pain Neck pain Nausea COVID-19 Back pain with history of spinal surgery SAMANHTA (obstructive sleep apnea) Tobacco abuse IBS (irritable bowel syndrome) Small bowel obstruction Anxiety Asthma Major depressive disorder, single episode, unspecified Ulnar neuropathy of both upper extremities Hypertension Surgical History Surgical History History of laparoscopy x 2 exploratory laparoscopy due to abdominal pain in her 20's with no reported significant findings. History of back surgery X3 (total 5 spinal surgeries) History of carpal tunnel release Bilaterally H/O section X3 H/O: hysterectomy Open partial hysterectomy followed by left salpingo-oophorectomy and eventually right salpingo-oophorectomy. Total of 3 surgeries. Family History Family History Mother Diabetes mellitus Hypertension Heart disease COVID-19 Lung cancer Father Diabetes mellitus Hypertension Heart disease COVID-19 S/P triple vessel bypass, Onset Age: 65 Sibling COVID-19 Social History Social History Social History: She is . She has 3 children. She is a full code and desires to have her to be her decision-maker if needed. She does not use alcohol marijuana or illicit drugs. Smoking packs per day: 0.5 Smoking cigarettes per day: 10.0 Years smoked: 20 Smoking pack-years: 10.00 Smoking status: Former smoker Tobacco type: cigarettes Second hand tobacco smoke exposure: No Smoking end date: 01/28/22 Alcohol intake: current Alcohol use details: SOCIALLY Substance use: former Substance use type: marijuana Last use: 11-12 days ago Do You Feel Safe in your Home?: Yes Lack of Transportation: No Lack of Food: Never True Current Housing: I Have Housing Concerned About Future Housing: No Difficulty Paying Gas/Electric Bills: No Difficulty Paying for Meds: No Currently Unemployed: No Education: Trade/Vocational Certificate Difficulty w/ Childcare or Family Care: No Living arrangements: with family Occupation/Education: unemployed 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 Gender identity (if verbalized by the patient): Female Sexual Orientation (if Verbalized by the Patient): Straight or Heterosexual Spiritual care concerns: No Exam Narrative: GENERAL: Well-appearing, well-nourished, and in no acute distress. HEAD: Normocephalic, atraumatic. ENT: Mucous membranes moist. CHEST: Clear to auscultation. No respiratory distress. HEART: Regular rate and rhythm. Normal peripheral pulses. ABDOMEN: Soft, nontender, nondistended. EXTREMITIES: Normal range of motion. No edema. SKIN: Warm, dry, no rash. NEURO: Alert and oriented x3. PSYCH: Normal mood and affect. Course Course Emergency Course: Patient resting comfortably. Pain improved with GI cocktail. First troponin negative. Will obtain a 2nd cardiac enzyme and determine disposition from there. Second troponin negative. Discharge home. Has follow-up with cardiology already scheduled in a couple weeks. Vital Signs Vital signs: Vital Signs Pulse Rate 74 04/02/25 07:31 Respiratory Rate 14 04/02/25 07:31 Pulse Oximetry 98 04/02/25 07:31 Temperature 97.9 F 04/02/25 07:32 Pulse Rate 64 04/02/25 10:47 Respiratory Rate 12 04/02/25 10:47 Blood Pressure 102/59 L 04/02/25 10:47 Pulse Oximetry 99 04/02/25 10:47 Oxygen Delivery Room Air 04/02/25 07:56 Medical Decision Making Vital Signs Vital Signs: Vital Signs Pulse Rate 74 04/02/25 07:31 Respiratory Rate 14 04/02/25 07:31 Pulse Oximetry 98 04/02/25 07:31 Temperature 97.9 F 04/02/25 07:32 Pulse Rate 64 04/02/25 10:47 Respiratory Rate 12 04/02/25 10:47 Blood Pressure 102/59 L 04/02/25 10:47 Pulse Oximetry 99 04/02/25 10:47 Oxygen Delivery Room Air 04/02/25 07:56 Lab Data 04/02/25 07:54 04/02/25 07:54 Labs: Lab Results 04/02/25 04/02/25 Range/Units 07:54 10:58 WBC 5.7 (4.5-10.0) K/mm3 RBC 4.65 (4.2-5.4) M/mm3 Hgb 13.4 (12.0-15.0) g/dL Hct 41.7 (37.0-47.0) % MCV 89.7 (80-100) fl MCH 28.8 (26-34) pg MCHC 32.1 (32-36) g/dl RDW 13.2 (11.5-14.5) % Plt Count 247 (150-375) k/mm3 MPV 10.8 H (7.4-10.4) fl Immature Gran % (Auto) 0.4 (0-0.5) % Neut % (Auto) 39.3 L (45.5-73.1) % Lymph % (Auto) 52.0 H (18.3-44.2) % [place] % (Auto) 6.7 (2.6-8.5) % Eos % (Auto) 0.7 (0-4.4) % Baso % (Auto) 0.9 (0.2-1.2) % Lymph # (Auto) 2.96 (0.9-3.2) K/mm3 [place] # (Auto) 0.4 (0.1-0.6) K/mm3 Eos # (Auto) 0.0 (0-0.3) K/mm3 Baso # (Auto) 0.1 (0.0-0.1) K/mm3 Abs Immat Gran (auto) 0.02 (0.00-0.031) K/mm3 Absolute Neuts (auto) 2.2 (1.3-6.7) K/mm3 Absolute Nucleated RBC 0.000 (0.0-0.012) K/mm3 Nucleated RBC % 0.0 (0.0-0.2) % PT 13.1 (11.1-14.7) Seconds INR 1.0 APTT 25.5 (22.3-36.8) Seconds Sodium 139 (137-145) mmol/L Potassium 4.0 (3.4-5.0) mmol/L Chloride 105 (98-107) mmol/L Carbon Dioxide 26 (22-30) mmol/L Anion Gap 8 (4-12) mmol/L BUN 11 (7-17) mg/dL Creatinine 0.89 (0.7-1.0) mg/dL Estim Creat Clear Calc 74 ml/min Estimated GFR > 60 (59 - ) Glucose 94 (65-110) mg/dL Calcium 9.6 (8.4-10.2) mg/dL Total Bilirubin 0.8 (0.2-1.3) mg/dL AST 25 (14-36) U/L ALT 18 (6-35) U/L Alkaline Phosphatase 74 (38-126) U/L Troponin I < 0.012 < 0.012 (0.000-0.034) ng/mL Total Protein 7.6 (6.3-8.2) g/dL Albumin 4.5 (3.5-5.1) g/dL Imaging Data Radiologist's impression: ITS Impressions Chest X-Ray 04/02/25 08:41 IMPRESSION: 1: NO ACUTE CARDIOPULMONARY DISEASE. ECG Data EKG #1: ECG completion date: 04/02/25 ECG completion time: 07:48 EKG Interpretation: normal rate (62), sinus rhythm, ST depression (V4-6), normal QRS, normal QT and other (LVH) Discharge Plan Discharge Clinical Impression: GERD (gastroesophageal reflux disease), Chest pain Patient Disposition: Home Condition: Stable Instructions: Chest Pain (ED), GERD (Gastroesophageal Reflux Disease) (ED) Additional Instructions: Please return to the emergency department if you develop severe and persistent chest pain, difficulty breathing, dizziness, leg swelling or if you are coughing up blood as these can be signs of a medical emergency. Please call your doctor for a follow up appointment to determine the need for further testing. Patient Language: Jordanian Prescriptions: New pantoprazole 40 mg tablet,delayed release (DR/EC) 40 mg PO HS 28 Days Qty: 28 0RF No Action celecoxib 200 mg capsule Ubrelvy 50 mg tablet 50 mg PO DAILY PRN (Reason: Migraine Headache) Qty: 30 1RF nitroglycerin 0.4 mg tablet, sublingual 0.4 mg sublingual Q5M PRN (Reason: chest pain) Qty: 20 0RF Rx Instructions: do not exceed 3 doses per episode Qulipta 30 mg tablet 30 mg PO DAILY Qty: 90 1RF alprazolam 1 mg tablet 1 mg PO DAILY PRN (Reason: Anxiety) cholecalciferol (vitamin D3) 1,250 mcg (50,000 unit) capsule 50,000 unit PO WEEKLY Rx Instructions: takes on Friday omeprazole 40 mg capsule,delayed release(DR/EC) 40 mg PO DAILY fluticasone propion-salmeterol [Advair Diskus] 250-50 mcg/dose blister with device 1 inh inhalation DAILY Qty: 60 0RF lisinopril-hydrochlorothiazide 20-12.5 mg tablet See Rx Instructions .ROUTE .COMPLEX Qty: 90 0RF Dose Instruction: TAKE 1 TABLET BY MOUTH EVERY DAY Rx Instructions: TAKE 1 TABLET BY MOUTH EVERY DAY albuterol sulfate 90 mcg/actuation HFA aerosol inhaler 2 puff INHALATION Q4H PRN (Reason: Shortness Of Breath) Qty: 8.5 1RF sumatriptan 20 mg/actuation spray,non-aerosol 20 mg intranasal ONCE Qty: 6 1RF Rx Instructions: into one nostril; if headache remains, may repeat dose into other nostril once after at least 2 hours Wegovy 0.5 mg/0.5 mL pen injector 0.5 mg subcut WEEKLY Qty: 2 3RF tizanidine 4 mg capsule 4 mg PO TID PRN (Reason: muscle spasticity) Qty: 90 0RF Follow-up/Referrals: Miki Anderson MD [Primary Care Provider, Family Practice] - 1 Week Quality HEART score for chest pain patients History: slightly suspicious ECG: non specific repolarization disturbance/LBTB/PM Age: > 45 and < 65 years Risk factors: 1 or 2 risk factors Troponin: < or = to 1x normal limit Heart score: 3
[2025-04-02 11:25] LABS: Troponin I < 0.012 ng/mL (0.000-0.034)
== END 2025-04-02 12:01 | disposition home or self-care (01) ==
PROVIDERS: Emergency Provider Emergency Medicine; PCP Family Medicine
DX: R07.9 Chest pain, unspecified (principal); K21.9 Gastro-esophageal reflux disease without esophagitis; I10 Essential (primary) hypertension; J45.909 Unspecified asthma, uncomplicated; M79.7 Fibromyalgia; K58.9 Irritable bowel syndrome, unspecified; G47.33 Obstructive sleep apnea (adult) (pediatric); F41.9 Anxiety disorder, unspecified; Z86.16 Personal history of COVID-19; Z87.891 Personal history of nicotine dependence; Z90.711 Acquired absence of uterus with remaining cervical stump; Z90.79 Acquired absence of other genital organ(s); Z90.722 Acquired absence of ovaries, bilateral; Z79.899 Other long term (current) drug therapy; R94.31 Abnormal electrocardiogram [ECG] [EKG]; I51.7 Cardiomegaly
CPT/HCPCS: 36415; 71046; 80053; 84484; 85025; 85610; 85730; 93005; 99284; A9270

== ENCOUNTER 2025-05-03 16:55 | Inpatient (IN) | payer OTHER, MEDICARE, SELFPAY ==
--- NOTE | ~2025-05-03 | XR_ITS ---
EXAMINATION: XR chest 2V 05/03/2025 17:15 INDICATION: Chest pain and shortness of breath PROCEDURE: 2 view chest COMPARISON: Comparison to multiple prior studies sequentially, with oldest reviewed study dated 04/08/2024. FINDINGS: The lungs are clear. The cardiomediastinal silhouette is within normal limits. There are no pleural effusions. There is no pneumothorax suspected. IMPRESSION: 1: NO ACUTE CARDIOPULMONARY DISEASE. Reviewed, dictated and finalized at location O.
--- NOTE | ~2025-05-03 | CT_ITS ---
EXAMINATION: CTA chest PE protocol DATE: 05/03/2025 23:45 INDICATION: Chest pain. Shortness of breath. TECHNIQUE: Computed tomography angiography (CTA) of the chest was performed with 100 mL Omnipaque-350 intravenous contrast timed to evaluate the pulmonary arteries. Coronal maximum intensity projection 3D-reconstructions were created by the technologist. Automated exposure control and iterative reconstruction technique were employed. The dose-length product was 454.65 mGy-cm. COMPARISON: Chest CT 12/09/2022 FINDINGS: The lungs demonstrate mild atelectasis. There is a stable 4 mm nodule in right lower lobe, likely benign. No pleural effusion. The heart size is normal. No pericardial effusion. There is no pulmonary embolus. There is moderate thoracic spondylosis. IMPRESSION: 1. No pulmonary embolus. Reviewed, dictated and finalized at location E. IMPRESSION: 1. No pulmonary embolus.
--- NOTE | 2025-05-03 16:56 | ECG_ITS ---
Test Date: 2025-05-03 17:03:18 Measurements Intervals [place] Rate: 102 P: 63 MI: 168 QRS: 20 QRSD: 96 T: 128 QT: 345 QTc: 451 Interpretive Statements SINUS TACHYCARDIA POSSIBLE LEFT ATRIAL ENLARGEMENT [-0.1mV P-WAVE IN V1/V2] SEPTAL MYOCARDIAL INFARCTION , OF INDETERMINATE AGE [40+ ms Q WAVE IN V1/V2] MODERATE T-WAVE ABNORMALITY, CONSIDER LATERAL ISCHEMIA [-0.1+ mV T-WAVE IN I/aVL/V5/V6] Electronically Signed On 05-03-2025 17:14:31 CDT by Olivia Rodriguez M.D.
--- OUTSIDE RECORDS SUMMARY | 2025-05-03 16:58 | XMS_ITS | Clinical Summary ---
Author Organization [facility] Address [address] [place] [id number] Care Team Providers Care Bag End Sewer Name Role Phone Miki Anderson MD Primary Care Provider [phone] Allergies Active Allergy Reactions Criticality Noted Date [...] 3:00 PM CDT Height 172.7 cm (5' 8) 06/07/2016 3:00 PM CDT Body Mass Index 13.68 06/07/2016 3:00 PM CDT Plan of Treatment Health Maintenance Due Date Last Done Comments Hepatitis C Virus (HCV) Screening 1973 TdaP Immunization 1973 Hepatitis B Immunization (1 of 3 - 19+ 3-dose series) 1992 Cologuard 2018 Colonoscopy 2018 Colorectal Cancer Screening 2018 Immunochemical Fecal Occult Blood 2018 Pneumococcal Immunization (5 0+ years) (1 of 1 - PCV) 2023 Zoster Immunization (1 of 2) 2023 SARS-COV-2 Immunization (2 - season) 2024 03/24/2021 Influenza Immunization (#1) 2025 Respiratory Syncytial Virus (RSV) Immunization (Adult) (1 - 1-dose 75+ series) 2048 Human Papillomavirus (HPV) Immunization Aged Out No longer eligible b ased on patient's age to complete this topic Meningococcal Immunization (ACWY) Aged Out No longer eligible based on patient's age to complete this topic Rotavirus Immunization Aged Out No lo nger eligible based on patient's age to complete this topic Care Teams Bag End Sewer Relationship Specialty Start Date End Date Miki Anderson MD [address] [address] PCP - General Family Medicine 06/07/16
--- OUTSIDE RECORDS SUMMARY | 2025-05-03 16:58 | XMS_ITS | Clinical Summary ---
Author Organization [facility] Address [address] [place] [address] Care Team Providers Care Dipper Fish Name Role Phone Miki Anderson MD Primary [...] by mouth once a week 3 Active ALPRAZolam (XANAX) 1 mg tablet [...] 4.5 mg capsule Take by mouth Active celecoxib (CeleBREX) 200 mg capsule Take 1 capsule (200 mg total) by mouth 2 (two) times a day 5 Active HYDROcodone-romana taminophen (NORCO) 5-325 mg per tablet TAKE ONE OR TWO TABLET FOUR TIMES A DAY NEEDED FOR PAIN 5 Active atogepant 30 mg tablet Take 30 mg by mouth daily 5 Active nitroglycerin (NITROSTAT) 0.[address] 1 tablet (0.4 mg total) under the tongue every 5 (five) minutes as needed 5 Active lisinopril-hydr oCHLOROthiazide (ZESTORETIC) 20-12.5 mg per tabletIndicatio ns:hypertension Take 1 tablet by mouth daily Active semaglutide (Wegovy) 1 mg/0.5 mL auto-injector Inject 1 mg under the skin every 7 days Active lisinopril-hydr oCHLOROthiazide (ZESTORETIC) 10-12.5 mg per tablet Take 1 tablet by mouth daily 3 04/25/20 25 Discontinu ed(Patient Reported) tirzepatide, weight loss, (Zepbound) 5 mg/0.5 mL pen injector Inject 0.5 mL (5 mg total) under the skin every 7 days 04/25/20 25 Discontinu ed(Patient Reported) Active Problems Problem Noted Date Diagnosed Date Chest pain 07/15/2023 Asthma 07/15/2023 HTN (hypertension) 07/15/2023 Lumbar disc disease with radiculopathy 2 Encounters Date Type Department Care Team Description 04/25/2025 1:30 PM CDT Office Visit [facility] [address] [place] [address] Magdi Hatch MD Chest pain, unspecified type (Primary Dx); Lipid screening 03/31/2025 Orders Only [facility] [address] [place] [address] Provider, MD Patsy from Last 3 Months Immunizations Immunization Administration [...] on file Legal Sex Female 8:57 AM CHIEF 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 RESOURCES OFFICER Gender Identity Not on file Sexual Orientation Not on file Obstetrics History Last Filed Vital Signs Vital Sign Reading Time Taken Comments Blood Pressure 132/64 04/25/2025 1:23 PM CDT Pulse 79 04/25/2025 1:23 PM CDT Temperature 36.6 C (97.9 F) 10/08/2024 7:15 PM CHIEF HUMAN RESOURCES OFFICER Respiratory Rate 18 04/25/2025 1:23 PM CDT Oxygen Saturation 99% 04/25/2025 1:23 PM CDT Inhaled Oxygen Concentration - - Weight 85.3 kg (188 lb) 04/25/2025 1:23 PM CDT Height 170.2 cm (5' 7) 04/25/2025 1:23 PM CDT Body Mass Index 29.44 04/25/2025 1:23 PM CDT Plan of Treatment Health Maintenance Due Date Last Done Comments Breast Cancer Screening-Mammogram 1973 Colon Cancer Screening-Colonoscopy 1973 Depression Screening 1973 Hepatitis C Screening 1973 Hepatitis B Screening 1991 Regular Well Visit/Exam 18-64 1991 Pneumococcal vaccine <65 (1 of 2 - PCV) 1992 Zoster Vaccine (1 of 2) 2023 Covid-19 Vaccine (2 - 2024- season) 2025 Influenza Vaccine (#1) 2025 DTaP/Tdap/Td Vaccine (2 - Td or Tdap) 03/29/2034 Procedures Procedure Name Priority Date/Time Associated Diagnosis Comments POCT LIPID PANEL Routine 04/25/2025 1:30 PM CDT Lipid screening ELECTROCARDIOGRAM REPORT Routine 04/25/2025 Chest pain, unspecified type from Last 3 Months Results * POCT lipid panel (04/25/2025 1:30 PM CDT) Cholesterol, POC 140 <200 MG/DL HDL, POC 56 >=40 mg/dL Triglycerides, POC 100 <=149 mg/dL LDL Cholesterol POC 65 <=129 mg/dL Chol/HDL Ratio, POC 1.2 NONE Non-HDL Cholesterol, POC 85 NONE mg/dL Cholesterol Total, POC 140 30 - 199 mg/dL Capillary blood 04/25/2025 1 :30 PM CDT Magdi Hatch MD POINT OF CARE TEST ORDERABLES [facility] Result * Electrocardiogram Report (04/25/2025) 04/25/2025 Magdi Hatch MD ECG ORDERABLES Edited Result - Final from Last 3 Months Insurance [facility] HEALTH BENEFIT PLAN [facility] CHOICE PLUS Member Subscriber Plan / Payer (Ef fective 2020-Present) Name:Lore Jacobs Relation to Subscriber:Self Name:Lore Jacobs Payer ID:[id number] (NAIC) Type:[facility] HMO/PPO Address: [address] HEALTH BENEFIT PLAN [facility] HEALTH BENEFIT PLAN MEDICARE Advance Directives For more information, please contact: [phone] * Full Code (Latest Code Status on File) Date Activated Date Inactivated Comments 07/15/2023 9:13 PM 07/16/2023 5:12 PM Care Teams Dipper Fish Relationship Specialty Start Date End Date Miki Anderson MD PCP - General 02/07/17 Miscellaneous, Not In File 07/16/23
--- OUTSIDE RECORDS SUMMARY | 2025-05-03 16:58 | XMS_ITS | Clinical Summary ---
Author Organization [id number] Address [address] [place] [address] Care Team Providers Care Wood Tile Installer Name Role Phone Miki Anderson MD Primary Care Provider [phone] Allergies Active Allergy Reactions Criticality Noted Date [...] 5:44 AM CDT Height 168.3 cm (5' 6.25) 03/23/2019 5:44 AM CD T Body Mass Index 30.44 03/23/2019 5:44 AM CDT Plan of Treatment Health Maintenance Due Date Last Done Comments DTAP/TDAP/TD VACCINES (1 - Tdap) 1992 HEPATITIS B VACCINES (1 of 3 - 19+ 3-dose series) 08/12 HPV/Cotest (21-29) 1994 CERVICAL CANCER SCREENING 2003 HPV/Cotest (30-65) 2003 PAP SMEAR 2003 BREAST CANCER SCREENING 2013 COLORECTAL SCREENING 2018 Colorectal Cancer Screening 2018 FIT-DNA Q 3 years 2018 FIT/FOBT Q 1 year 2018 Flex Sig/CT Colonography Q 5 years 2018 ZOSTER VACCINE (1 of 2) 2023 INFLUENZA VACCINE (#1) 2025 Medical Devices Implanted Type Area Assembled Wood Products Repairer Device Identifier Shelf Expiration Date Model / Serial / Lot Hemostatic Surgifoam [id number] 1973 - [id number] Implanted:Qty: 1 on 03/23/2019 by Nico Haji MD at [facility] N/A: Spine Lumbar [employer] 10/03/20211971 [id number] Insurance [facility] OPTIONS PPO [id number] RX OPTUM RX Member Subscriber Plan / Payer (Ef fective 2019-Present) Name:PeterhowieLore Relation to Subscriber:Self Name:Lore Jacobs Subscriber ID:Not on file Payer ID:Not on file Group ID:[id number] Type:RX Commercial Address: [address] Advance Directives For more information, please contact: [phone] * Full Code (Latest Code Status on File) Date Activated Date Inactivated Comments 03/23/2019 10:07 AM 03/23/2019 3:20 PM Care Teams Wood Tile Installer Relationship Specialty Start Date End Date Miki Anderson MD [address] [place] [address] PCP - General Family Practice 12/20/18
[2025-05-03 16:59] VITALS: BP 125/78; PULSE 109; RESP 19; TEMP 36.5; O2SAT 100
[2025-05-03 17:17] LABS: Hematocrit 44.7 % (37.0-47.0); Hemoglobin 14.6 g/dL (12.0-15.0); Immature Granulocyte Percent A 0.4 % (0-0.5); Lymphocytes Absolute Auto 1.23 K/mm3 (0.9-3.2); Mean Corpuscular HGB Conc 32.7 g/dl (32-36); Mean Corpuscular Hemoglobin 29.1 pg (26-34); Mean Corpuscular Volume 89.0 fl (80-100); Nucleated Red Blood Cells Absolute Auto 0.000 K/mm3 (0.0-0.012); Nucleated Red Blood Cells Perc 0.0 % (0.0-0.2); Platelet Count Result 243 k/mm3 (150-375); Red Blood Count 5.02 M/mm3 (4.2-5.4); White Blood Count 9.1 K/mm3 (4.5-10.0)
[2025-05-03 17:29] LABS: Alanine Aminotransferase 25 U/L (6-35); Albumin Level 4.8 g/dL (3.5-5.1); Alkaline Phosphatase 95 U/L (38-126); Anion Gap 12 mmol/L (4-12); Aspartate Amino Transferase 30 U/L (14-36); Bilirubin,Total 0.8 mg/dL (0.2-1.3); Blood Urea Nitrogen 16 mg/dL (7-17); Calcium 10.0 mg/dL (8.4-10.2); Carbon Dioxide 19 mmol/L (22-30); Chloride 105 mmol/L (98-107); Estimated CRCL calculation 68 ml/min; Estimated Glomerular Filt Rate 60; Glucose 176 mg/dL (65-110); Lipase 193 U/L (23-300); Potassium 3.9 mmol/L (3.4-5.0); Sodium 136 mmol/L (137-145); Total Protein 8.3 g/dL (6.3-8.2)
[2025-05-03 17:31] LABS: INR 0.9; Partial Thromboplastin Time 23.6 Seconds (22.3-36.8); Prothrombin Time 12.5 Seconds (11.1-14.7)
--- NOTE | 2025-05-03 17:32 | ED_ITS ---
HPI - General Adult General Chief complaint: Chest Pain <Marissa Blas, SENIOR BUYER PLANNER - Last Filed: 05/04/25 19:54> Stated complaint: chest pain <Marissa Blas, SENIOR BUYER PLANNER - Last Filed: 05/04/25 19:54> Time Seen by Provider: 05/03/25 17:33 <Marissa Blas, SENIOR BUYER PLANNER - Last Filed: 05/04/25 19:54> Focused HPI: Lore Jacobs is a 49 y/o female who presents with complaints of having Chest pain that started 4 days ago. She states that she was here 3 weeks ago for chest pain. She states that the chest pain across her chest is moving around to her back and down both arms and she started to feel SOB with it that was new. GENERAL: Well-appearing, well-nourished, and in no acute distress. HEAD: Normocephalic, atraumatic. CHEST: Clear to auscultation. ?No respiratory distress. HEART: Regular rate and rhythm.? NEURO: ?Alert and oriented x3. Patient screened in triage and initial orders placed.? ?Additional care and disposition to be based upon?diagnostic testing and treatment. <Marissa Blas, SENIOR BUYER PLANNER - Last Filed: 05/04/25 19:54> History of Present Illness HPI narrative: As reviewed above in HPI <Tiago Romero MD - Last Filed: 05/04/25 07:00> Related Data Home medications: Home Medications ?Medication ?Instructions ?Recorded ?Confirmed ?Last Taken ?Type alprazolam 1 mg tablet 1 mg PO DAILY PRN Anxiety 05/04/25 06/22/24 History cholecalciferol (vitamin D3) 1,250 50,000 unit PO WEEK LY 04/09/24 05/04/25 05/02/25 History mcg (50,000 unit) capsule celecoxib 200 mg capsule 200 mg PO Q12H 03/24/2504/1205/03/25 11:00 History hydrocodone 5 mg-acetaminophen 325 1 tablet PO Q6H PRN pain 04/18/25 05/04/25 Unknown History mg tablet <Marissa Blas, SENIOR BUYER PLANNER - Last Filed: 05/04/25 19:54> Allergies/adverse reactions: Allergies Allergy/AdvReac Type Severity Reaction Status Date / Time amoxicillin Allergy Intermediate Rash Verified 05/03/25 16:58 Cephalosporins Allergy Intermediate Rash Verified 05/03/25 16:58 Penicillins Allergy Intermediate Rash Verified 05/03/25 16:58 ketorolac AdvReac Intermediate Nausea and Verified 05/03/25 16:58 Vomiting clarithromycin AdvReac Mild GI Verified 05/03/25 16:58 <Marissa Blas, SENIOR BUYER PLANNER - Last Filed: 05/04/25 19:54> Review of Systems 2 Review of Systems: As reviewed above in HPI <Tiago Romero MD - Last Filed: 05/04/25 07:00> [facility] Past Medical History Medical History: Medical History Fibromyalgia GERD (gastroesophageal reflux disease) Elevated glucose Bronchitis Folliculitis Non-cardiac chest pain Neck pain Nausea COVID-19 Back pain with history of spinal surgery SAMANTHA (obstructive sleep apnea) Tobacco abuse IBS (irritable bowel syndrome) Small bowel obstruction Anxiety Asthma Major depressive disorder, single episode, unspecified Ulnar neuropathy of both upper extremities Hypertension <Marissa Blas, SENIOR BUYER PLANNER - Last Filed: 05/04/25 19:54> Surgical History Surgical History: Surgical History History of laparoscopy x 2 exploratory laparoscopy due to abdominal pain in her 20's with no reported significant findings. History of back surgery X3 (total 5 spinal surgeries) History of carpal tunnel release Bilaterally H/O section X3 H/O: hysterectomy Open partial hysterectomy followed by left salpingo-oophorectomy and eventually right salpingo-oophorectomy. Total of 3 surgeries. <Marissa Blas, SENIOR BUYER PLANNER - Last Filed: 05/04/25 19:54> Family History Family History: Family History Mother Diabetes mellitus Hypertension Heart disease COVID-19 Lung cancer Father Diabetes mellitus Hypertension Heart disease COVID-19 S/P triple vessel bypass, Onset Age: 65 Sibling COVID-19 <Marissa Blas, SENIOR BUYER PLANNER - Last Filed: 05/04/25 19:54> Social History Social History: Social History Social History: She is . She has 3 children. She is a full code and desires to have her to be her decision-maker if needed. She does not use alcohol marijuana or illicit drugs. Smoking packs per day: 0.5 Smoking cigarettes per day: 10.0 Years smoked: 20 Smoking pack-years: 10.00 Smoking status: Current every day smoker Tobacco type: cigarettes Second hand tobacco smoke exposure: No Smoking end date: 01/28/22 Alcohol intake: current Alcohol use details: SOCIALLY Substance use: former Substance use type: marijuana Last use: 11-12 days ago Do You Feel Safe in your Home?: Yes Lack of Transportation: No Lack of Food: Never True Current Housing: I Have Housing Concerned About Future Housing: No Difficulty Paying Gas/Electric Bills: No Difficulty Paying for Meds: No Currently Unemployed: No Education: Trade/Vocational Certificate Difficulty w/ Childcare or Family Care: No Living arrangements: with family Occupation/Education: unemployed 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 Gender identity (if verbalized by the patient): Female Sexual Orientation (if Verbalized by the Patient): Straight or Heterosexual Spiritual care concerns: No <Marissa Blas, SENIOR BUYER PLANNER - Last Filed: 05/04/25 19:54> Exam 2 Narrative: GENERAL: [Well-appearing, well-nourished, and in no acute distress.] HEAD: [Normocephalic, atraumatic.] EYES: [PERRLA and EOMI.] ENT: Nares clear, no rhinorrhea or epistaxis. Mucous membranes moist. NECK: Supple. CHEST: [Clear to auscultation. No respiratory distress.] HEART: Mildly tachycardic but regular rhythm. No murmur heard. [Normal peripheral pulses.] ABDOMEN: [Soft, nondistended], [nontender], [No rigidity or guarding] EXTREMITIES: Normal range of motion. [No edema.] SKIN: Warm, dry, no rash. NEURO: [No focal deficits]. Alert and oriented [x3.] PSYCH: [Normal mood and affect.] <Tiago Romero MD - Last Filed: 05/04/25 07:00> Course Vital Signs Vital signs: Vital Signs Temperature 36.5 C 05/03/25 16:59 Pulse Rate 109 H 05/03/25 16:59 Respiratory Rate 19 05/03/25 16:59 Blood Pressure 125/78 05/03/25 16:59 Pulse Oximetry 100 05/03/25 16:59 Temperature 36.4 C 05/04/25 19:39 Pulse Rate 59 L 05/04/25 19:39 Respiratory Rate 17 05/04/25 19:39 Blood Pressure 91/58 L 05/04/25 19:39 Pulse Oximetry 100 05/04/25 19:39 Oxygen Delivery Room Air 05/04/25 16:00 <Marissa Blas APRN - Last Filed: 05/04/25 19:54> Vital Signs Temperature 36.5 C 05/03/25 16:59 Pulse Rate 109 H 05/03/25 16:59 Respiratory Rate 19 05/03/25 16:59 Blood Pressure 125/78 05/03/25 16:59 Pulse Oximetry 100 05/03/25 16:59 Temperature 36.4 C 05/04/25 19:39 Pulse Rate 59 L 05/04/25 19:39 Respiratory Rate 17 05/04/25 19:39 Blood Pressure 91/58 L 05/04/25 19:39 Pulse Oximetry 100 05/04/25 19:39 Oxygen Delivery Room Air 05/04/25 16:00 <Tiago Romero MD - Last Filed: 05/04/25 07:00> Medical Decision Making MDM Narrative Medical decision making narrative: 49 y/o female who presents with complaints of having Chest pain that started 4 days ago. She states that she was here 3 weeks ago for chest pain. She states that the chest pain across her chest is moving around to her back and down both arms and she started to feel SOB with it that was new. Patient is not in any acute physical or respiratory distress. Resting comfortably in the stretcher. Mildly tachycardic but no hypoxemia. Normal blood pressure. No signs of DVT on examination. No calf asymmetry swelling. Strong symmetric pulses in clear breath sounds. Differential for chest pain includes costochondritis, musculoskeletal chest pain, chronic GERD, COPD, less likely ACS or cardiopulmonary pathology such as thromboembolic disease from PE. Workup underway including CBC, CMP, troponin, delta troponin, EKG and chest x-ray. Her primary care provider evaluated her and ordered an outpatient CT scan the has not been done yet so a CT angiography of the chest was ordered for further evaluation at this time given her elevated pulse rate and mildly elevated troponin on delta. Patient's workup shows no significant leukocytosis or anemia. Normal platelet count. Normal coag panel. Normal electrolytes. Normal BUN and creatinine, mildly elevated glucose but not significant. Normal LFTs. Initial troponin negative but delta troponin elevated and 6 hour troponin largely elevated. Patient started on heparin drip for NSTEMI. EKGs remained unchanged without any ST segment elevations. CT angiography per stat read shows no PE or acute cardiopulmonary process. Chest x-ray was normal. Patient will be admitted to the IMU for trending troponins and workup of ACS. Cardiology consulted. Spoke to the hospitalist Dr. Weems who agreed for admission at this time. Patient updated on plan of care and given some pain control medications while here in the ER. <Tiago Romero MD - Last Filed: 05/04/25 07:00> Medical Records Medical records reviewed: Yes I reviewed the external patient's medical records. <Tiago Romero MD - Last Filed: 05/04/25 07:00> Vital Signs Vital Signs: Vital Signs Temperature 36.5 C 05/03/25 16:59 Pulse Rate 109 H 05/03/25 16:59 Respiratory Rate 19 05/03/25 16:59 Blood Pressure 125/78 05/03/25 16:59 Pulse Oximetry 100 05/03/25 16:59 Temperature 36.4 C 05/04/25 19:39 Pulse Rate 59 L 05/04/25 19:39 Respiratory Rate 17 05/04/25 19:39 Blood Pressure 91/58 L 05/04/25 19:39 Pulse Oximetry 100 05/04/25 19:39 Oxygen Delivery Room Air 05/04/25 16:00 <Marissa Blas APRN - Last Filed: 05/04/25 19:54> Vital Signs Temperature 36.5 C 05/03/25 16:59 Pulse Rate 109 H 05/03/25 16:59 Respiratory Rate 19 05/03/25 16:59 Blood Pressure 125/78 05/03/25 16:59 Pulse Oximetry 100 05/03/25 16:59 Temperature 36.4 C 05/04/25 19:39 Pulse Rate 59 L 05/04/25 19:39 Respiratory Rate 17 05/04/25 19:39 Blood Pressure 91/58 L 05/04/25 19:39 Pulse Oximetry 100 05/04/25 19:39 Oxygen Delivery Room Air 05/04/25 16:00 <Tiago Romero MD - Last Filed: 05/04/25 07:00> Lab Data Lab results reviewed: Yes I reviewed the patient's lab results. <Tiago Romero MD - Last Filed: 05/04/25 07:00> Result diagrams: 05/04/25 09:10 05/04/25 09:10 <Marissa Blas APRN - Last Filed: 05/04/25 19:54> Labs: Lab Results 05/03/25 05/03/25 05/03/25 Range/Units 17:06 19:49 23:06 WBC 9.1 (4.5-10.0) K/mm3 RBC 5.02 (4.2-5.4) M/mm3 Hgb 14.6 (12.0-15.0) g/dL Hct 44.7 (37.0-47.0) % MCV 89.0 (80-100) fl MCH 29.1 (26-34) pg MCHC 32.7 (32-36) g/dl RDW 12.6 (11.5-14.5) % Plt Count 243 (150-375) k/mm3 MPV 11.1 H (7.4-10.4) fl Immature Gran % (Auto) 0.4 (0-0.5) % Neut % (Auto) 85.2 H (45.5-73.1) % Lymph % (Auto) 13.5 L (18.3-44.2) % Meade % (Auto) 0.7 L (2.6-8.5) % Eos % (Auto) 0.0 (0-4.4) % Baso % (Auto) 0.2 (0.2-1.2) % Lymph # (Auto) 1.23 (0.9-3.2) K/mm3 Meade # (Auto) 0.1 (0.1-0.6) K/mm3 Eos # (Auto) 0.0 (0-0.3) K/mm3 Baso # (Auto) 0.0 (0.0-0.1) K/mm3 Abs Immat Gran (auto) 0.04 H (0.00-0.031) K/mm3 Absolute Neuts (auto) 7.8 H (1.3-6.7) K/mm3 Absolute Nucleated RBC 0.000 (0.0-0.012) K/mm3 Nucleated RBC % 0.0 (0.0-0.2) % PT 12.5 (11.1-14.7) Seconds INR 0.9 APTT 23.6 (22.3-36.8) Seconds Sodium 136 L (137-145) mmol/L Potassium 3.9 (3.4-5.0) mmol/L Chloride 105 (98-107) mmol/L Carbon Dioxide 19 L (22-30) mmol/L Anion Gap 12 (4-12) mmol/L BUN 16 (7-17) mg/dL Creatinine 0.98 (0.7-1.0) mg/dL Estim Creat Clear Calc 68 ml/min Estimated GFR 60 (59 - ) Glucose 176 H (65-110) mg/dL Calcium 10.0 (8.4-10.2) mg/dL Total Bilirubin 0.8 (0.2-1.3) mg/dL AST 30 (14-36) U/L ALT 25 (6-35) U/L Alkaline Phosphatase 95 (38-126) U/L Troponin I < 0.012 0.034 D 0.235 H* D (0.000-0.034) ng/mL Total Protein 8.3 H (6.3-8.2) g/dL Albumin 4.8 (3.5-5.1) g/dL Lipase 193 (23-300) U/L <Marissa Blas, SENIOR BUYER PLANNER - Last Filed: 05/04/25 19:54> Lab Results 05/03/25 05/03/25 05/03/25 Range/Units 17:06 19:49 23:06 WBC 9.1 (4.5-10.0) K/mm3 RBC 5.02 (4.2-5.4) M/mm3 Hgb 14.6 (12.0-15.0) g/dL Hct 44.7 (37.0-47.0) % MCV 89.0 (80-100) fl MCH 29.1 (26-34) pg MCHC 32.7 (32-36) g/dl RDW 12.6 (11.5-14.5) % Plt Count 243 (150-375) k/mm3 MPV 11.1 H (7.4-10.4) fl Immature Gran % (Auto) 0.4 (0-0.5) % Neut % (Auto) 85.2 H (45.5-73.1) % Lymph % (Auto) 13.5 L (18.3-44.2) % Meade % (Auto) 0.7 L (2.6-8.5) % Eos % (Auto) 0.0 (0-4.4) % Baso % (Auto) 0.2 (0.2-1.2) % Lymph # (Auto) 1.23 (0.9-3.2) K/mm3 Meade # (Auto) 0.1 (0.1-0.6) K/mm3 Eos # (Auto) 0.0 (0-0.3) K/mm3 Baso # (Auto) 0.0 (0.0-0.1) K/mm3 Abs Immat Gran (auto) 0.04 H (0.00-0.031) K/mm3 Absolute Neuts (auto) 7.8 H (1.3-6.7) K/mm3 Absolute Nucleated RBC 0.000 (0.0-0.012) K/mm3 Nucleated RBC % 0.0 (0.0-0.2) % PT 12.5 (11.1-14.7) Seconds INR 0.9 APTT 23.6 (22.3-36.8) Seconds Sodium 136 L (137-145) mmol/L Potassium 3.9 (3.4-5.0) mmol/L Chloride 105 (98-107) mmol/L Carbon Dioxide 19 L (22-30) mmol/L Anion Gap 12 (4-12) mmol/L BUN 16 (7-17) mg/dL Creatinine 0.98 (0.7-1.0) mg/dL Estim Creat Clear Calc 68 ml/min Estimated GFR 60 (59 - ) Glucose 176 H (65-110) mg/dL Calcium 10.0 (8.4-10.2) mg/dL Total Bilirubin 0.8 (0.2-1.3) mg/dL AST 30 (14-36) U/L ALT 25 (6-35) U/L Alkaline Phosphatase 95 (38-126) U/L Troponin I < 0.012 0.034 D 0.235 H* D (0.000-0.034) ng/mL Total Protein 8.3 H (6.3-8.2) g/dL Albumin 4.8 (3.5-5.1) g/dL Lipase 193 (23-300) U/L <Tiago Romero MD - Last Filed: 05/04/25 07:00> Imaging Data Attestation: I personally reviewed and interpreted this imaging study as follows: < Tiago Romero MD - Last Filed: 05/04/25 07:00> My impression: CT angiography without PE, chest x-ray negative. <Tiago Romero MD - Last Filed: 05/04/25 07:00> Critical Care Time Critical Care Time Critical Care Time: Yes <Tiago Romero MD - Last Filed: 05/04/25 07:00> Total Critical Care Time: 35 <Tiago Romero MD - Last Filed: 05/04/25 07:00> Discharge Plan Discharge Clinical Impression: Acute non-ST elevation myocardial infarction (NSTEMI) <Marissa Blas APRN - Last Filed: 05/04/25 19:54> Patient Disposition: Still a Patient <Marissa Blas APRN - Last Filed: 05/04/25 19:54> Condition: Stable <Marissa Blas APRN - Last Filed: 05/04/25 19:54>
[2025-05-03 17:41] LABS: Troponin I < 0.012 ng/mL (0.000-0.034)
--- NOTE | 2025-05-03 19:39 | ECG_ITS ---
Test Date: 2025-05-03 19:42:44 Measurements Intervals [place] Rate: 79 P: 62 IN: 176 QRS: 9 QRSD: 89 T: 138 QT: 405 QTc: 467 Interpretive Statements SINUS RHYTHM POSSIBLE LEFT ATRIAL ENLARGEMENT [-0.1mV P-WAVE IN V1/V2] LEFT VENTRICULAR HYPERTROPHY AND ST-T CHANGE [VOLTAGE CRITERIA PLUS ST/T ABNORMALITY] POSSIBLE SEPTAL MYOCARDIAL INFARCTION , OF INDETERMINATE AGE [30 ms Q WAVE IN V1/V2] ABNORMAL ECG Compared to ECG 05/03/2025 17:03:18 NO DIFFERENCE Electronically Signed On 05-04-2025 07:28:28 CDT by Tom Pérez M.D.
--- NOTE | 2025-05-03 20:03 | PC.NURSE ---
Attempted IV access X2 by 2 RN's with no success
[2025-05-03 20:21] LABS: Troponin I 0.034 ng/mL (0.000-0.034)
--- OUTSIDE RECORDS SUMMARY | 2025-05-03 22:46 | XMS_ITS | Clinical Summary ---
Author Organization [facility] Address [address] [place] [id number] Care Team Providers Care Html Developer Name Role Phone Miki Anderson MD Primary Care Provider [phone] Allergies Active Allergy Reactions Criticality Noted Date [...] age to complete this topic Care Teams Html Developer Relationship Specialty Start Date End Date Miki Anderson MD [address] [place] [address] PCP - General Family Medicine 06/07/16
--- OUTSIDE RECORDS SUMMARY | 2025-05-03 22:46 | XMS_ITS | Clinical Summary ---
Author Organization [employer] [address] [facility] Address [address] [place] [address] Care Team Providers Care Enforcement Safety Officer Name Role Phone Miki Anderson MD Primary Care Provider [phone] Allergies Active Allergy Reactions Criticality Noted Date [...] (#1) 2025 Medical Devices Implanted Type Area Systems Security Consultant Device Identifier Shelf Expiration Date Model / Serial / Lot Hemostatic Surgifoam [id number] 1971 - [id number] Implanted:Qty: 1 on 03/23/2019 by Nico Haji MD at [facility] N/A: Spine Lumbar [employer]- [employer] 10/03/20211971 [id number] Insurance [facility] OPTIONS PPO [id number] RX OPTUM RX Member Subscriber Plan / Payer (Ef fective 2019-Present) Name:PeterhowieLore Relation to Subscriber:Self Name:Lore Jacobs Subscriber ID:Not on file Payer ID:Not on file Group ID:[id number] Type:RX Commercial Address: [address] Advance Directives For more information, please contact: [phone] * Full Code (Latest Code Status on File) Date Activated Date Inactivated Comments 03/23/2019 10:07 AM 03/23/2019 3:20 PM Care Teams Enforcement Safety Officer Relationship Specialty Start Date End Date Miki Anderson MD [address] [place] [address] PCP - General Family Practice 12/20/18
[2025-05-03] MEDS: ASPIRIN 81 MG CHEWABLE TABLET 324 MG PO (23:31)
[2025-05-03 23:35] LABS: Troponin I 0.235 ng/mL (0.000-0.034)
--- NOTE | 2025-05-03 23:36 | ECG_ITS ---
Test Date: 2025-05-03 23:54:14 Measurements Intervals Steen Rate: 77 P: 67 MO: 185 QRS: 14 QRSD: 97 T: 115 QT: 397 QTc: 450 Interpretive Statements SINUS RHYTHM POSSIBLE LEFT ATRIAL ENLARGEMENT [-0.1mV P WAVE IN V1/V2] POSSIBLE LEFT VENTRICULAR HYPERTROPHY [VOLTAGE CRITERIA PLUS LAE OR QRS WIDENING] POSSIBLE SEPTAL MYOCARDIAL INFARCTION , OF INDETERMINATE AGE [30 ms Q WAVE IN V1/V2] ABNORMAL ECG Compared to ECG 05/03/2025 19:42:44 NO DIFFERENCE Electronically Signed On 05-04-2025 07:33:00 CDT by Tom Pérez M.D.
[2025-05-03 23:49] VITALS: BP 134/61; PULSE 80; RESP 15; O2SAT 100; O2SAT 99
[2025-05-04] VITALS (14 sets, daily range): BP systolic 91–136; BP diastolic 58–82; PULSE 55–85; RESP 16–19; TEMP 36.4–37; O2SAT 98–100; BMI 29.5
[2025-05-04 02:05] LABS: Hematocrit 42.0 % (37.0-47.0); Hemoglobin 13.6 g/dL (12.0-15.0); Immature Granulocyte Percent A 0.4 % (0-0.5); Lymphocytes Absolute Auto 2.88 K/mm3 (0.9-3.2); Mean Corpuscular HGB Conc 32.4 g/dl (32-36); Mean Corpuscular Hemoglobin 29.3 pg (26-34); Mean Corpuscular Volume 90.5 fl (80-100); Nucleated Red Blood Cells Absolute Auto 0.000 K/mm3 (0.0-0.012); Nucleated Red Blood Cells Perc 0.0 % (0.0-0.2); Platelet Count Result 226 k/mm3 (150-375); Red Blood Count 4.64 M/mm3 (4.2-5.4); White Blood Count 10.3 K/mm3 (4.5-10.0)
[2025-05-04 02:17] LABS: INR 0.9; Prothrombin Time 12.8 Seconds (11.1-14.7)
[2025-05-04 02:18] LABS: Partial Thromboplastin Time 24.3 Seconds (22.3-36.8)
[2025-05-04] MEDS: SODIUM CHLORIDE 0.9% IV 1,000 ML 999 ML IV CONT (02:33)
[2025-05-04] MEDS: MORPHINE SULFATE (*CRX) 4 MG/ML INJ IV PUSH (02:33)
[2025-05-04] MEDS: HEPARIN SOD/D5W 100 UNITS/ML 25,000 UNITS/250 ML BAG 9 UNITS IV CONT (02:34)
[2025-05-04] MEDS: ONDANSETRON INJ 4 MG/2 ML VIAL IV PUSH (02:45)
--- NOTE | 2025-05-04 04:39 | P.HP_ITS ---
H&P: HPI History of Present Illness Date/Time: 05/04/25 04:39 Chief Complaint: Chest pain Narrative: 49-year-old female with history of GERD, tobacco abuse, depression and anxiety, asthma, pulmonary nodule, hypertension presents to [facility] ER on 05/03/2025 with complaint of sharp chest pain substernal and left upper quadrant. She has had this chest pain on and off and has seen [facility] Card[facility] [place]. This started 4 days ago but has not subsided. Sometimes it goes into her jaw her back and both arms. Shortness of breath prompted her to seek further evaluation. Echo performed in 03/2024 demonstrates moderate concentric left ventricular hypertrophy, normal systolic function. Cardiac CT in 10/2020 with calcium score 0. Last visit with Dr. Hatch cardiology, chest discomfort felt to be noncardiac. On presentation, mild leukocytosis WBC 10,300, initial troponin 0.034, repeat 0.235. EKG demonstrating normal sinus rhythm, no acute ST changes. T-wave inversions lead 1 aVL unchanged from prior admission. Patient reports she had a cardiac stress test remotely which was normal. CTA chest negative for PE, no abnormal findings identified. She was given aspirin 324 mg p.o. x1, normal sali ne 1 L bolus, morphine 4 mg IV x1, Zofran 4 mg IV x1. Heparin GTT started. On repeat evaluation the patient is resting comfortably and does not report pain unless moderate palpation to the sternal notch and left upper quadrant. Review of Systems Review of Systems: All systems reviewed & are unremarkable except as noted in HPI and below (Subjective) PMFSH Past Medical History Medical History Fibromyalgia GERD (gastroesophageal reflux disease) Elevated glucose Bronchitis Folliculitis Non-cardiac chest pain Neck pain Nausea COVID-19 Back pain with history of spinal surgery SAMANTHA (obstructive sleep apnea) Tobacco abuse IBS (irritable bowel syndrome) Small bowel obstruction Anxiety Asthma Major depressive disorder, single episode, unspecified Ulnar neuropathy of both upper extremities Hypertension Surgical History Surgical History History of laparoscopy x 2 exploratory laparoscopy due to abdominal pain in her 20's with no reported significant findings. History of back surgery X3 (total 5 spinal surgeries) History of carpal tunnel release Bilaterally H/O section X3 H/O: hysterectomy Open partial hysterectomy followed by left salpingo-oophorectomy and eventually right salpingo-oophorectomy. Total of 3 surgeries. Family History Family History Mother Diabetes mellitus Hypertension Heart disease COVID-19 Lung cancer Father Diabetes mellitus Hypertension Heart disease COVID-19 S/P triple vessel bypass, Onset Age: 65 Sibling COVID-19 Social History Social History Social History: She is . She has 3 children. She is a full code and desires to have her to be her decision-maker if needed. She does not use alcohol marijuana or illicit drugs. Smoking packs per day: 0.5 Smoking cigarettes per day: 10.0 Years smoked: 20 Smoking pack-years: 10.00 Smoking status: Former smoker Tobacco type: cigarettes Second hand tobacco smoke exposure: No Smoking end date: 01/28/22 Alcohol intake: current Alcohol use details: SOCIALLY Substance use: former Substance use type: marijuana Last use: 11-12 days ago Do You Feel Safe in your Home?: Yes Lack of Transportation: No Lack of Food: Never True Current Housing: I Have Housing Concerned About Future Housing: No Difficulty Paying Gas/Electric Bills: No Difficulty Paying for Meds: No Currently Unemployed: No Education: Trade/Vocational Certificate Difficulty w/ Childcare or Family Care: No Living arrangements: with family Occupation/Education: unemployed 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 Gender identity (if verbalized by the patient): Female Sexual Orientation (if Verbalized by the Patient): Straight or Heterosexual Spiritual care concerns: No Meds Home Medications and Allergies Home Medications ?Medication ?Instructions ?Recorded ?Confirmed ?Type alprazolam 1 mg tablet 1 mg PO DAILY PRN Anxiety 05/02/25 History cholecalciferol (vitamin D3) 1,250 50,000 unit PO WEEK LY 04/09/24 05/02/25 History mcg (50,000 unit) capsule fluticasone 250 mcg-salmeterol 50 1 inh inhalation AKASH LY #60 ea 04/21/24 05/02/25 Rx mcg/dose blistr powdr for inhalation (Advair Diskus) ubrogepant 50 mg tablet (Ubrelvy) 50 mg PO DAILY PRN M igraine 05/19/24 05/02/25 Rx Headache #30 tabs nitroglycerin 0.4 mg sublingual 0.4 mg sublingual Q5M PRN chest 12/09/24 05/02/25 Rx tablet pain #20 tabs albuterol sulfate 90 mcg/actuation 2 puff inhalation Q 4H PRN 01/29/25 05/02/25 Rx aerosol inhaler Shortness Of Breath #8.5 gra ms atogepant 30 mg tablet (Qulipta) 30 mg PO DAILY #90 ta bs 03/21/25 05/02/25 Rx sumatriptan 20 mg/actuation nasal 20 mg intranasal ONC E #6 ea 03/21/25 05/02/25 Rx spray celecoxib 200 mg capsule mg 03/24/25 05/02/25 History tizanidine 4 mg capsule 4 mg PO TID PRN muscle spast icity 03/28/25 05/02/25 Rx #90 caps lisinopril 20 See Rx Instructions .Route 0 04/11/25 05/02/25 Rx mg-hydrochlorothiazide 12.5 mg .COMPLEX #90 tabs tablet semaglutide (weight loss) 1 mg/0.5 1 mg (0.5 mL) subcu t WEEKLY #2 mL 04/15/25 05/02/25 Rx mL subcutaneous pen injector hydrocodone 5 mg-acetaminophen 325 1 tablet PO Q6H PRN 04/18/25 05/02/25 History mg tablet famotidine 20 mg tablet 20 mg PO Q12H #180 tabs 04/1205/02/25 Rx Allergies Allergy/AdvReac Type Severity Reaction Status Date / Time amoxicillin Allergy Intermediate Rash Verified 05/03/25 16:58 Cephalosporins Allergy Intermediate Rash Verified 05/03/25 16:58 Penicillins Allergy Intermediate Rash Verified 05/03/25 16:58 ketorolac AdvReac Intermediate Nausea and Verified 05/03/25 16:58 Vomiting clarithromycin AdvReac Mild GI Verified 05/03/25 16:58 Vital Signs Vital Signs - 24 hr 05/03/25 16:59 05/03/25 23:49 05/03/25 23:49 Temperature 97.7 F Pulse Rate 109 H 80 Respiratory Rate 19 15 Blood Pressure 125/78 134/61 Pulse Oximetry 100 100 99 Oxygen Delivery Room Air 05/04/25 03:12 05/04/25 03:16 Temperature Pulse Rate 56 L 59 L Respiratory Rate 17 Blood Pressure 132/79 Pulse Oximetry 99 Oxygen Delivery Exam Const: General: comfortable and no acute distress Other: A&O x3 HENMT: Mouth: Yes moist mucous membranes Eyes: Pupils: Equal, round and reactive pupils present Neck: Neck: supple Resp: Effort & Inspection: normal respiratory effort Auscultation: clear to auscultation bilaterally Cardio: Rate: regular rate Rhythm: regular rhythm Heart sounds: no murmurs GI: GI Palp: Yes Soft to palpation and Yes Tenderness to palpation present (GI) (Mild, to moderate to deep palpation of left upper quadrant and sternum) Neuro: Motor exam (neuro): 5/5 motor strength present throughout Extrem: General: no edema H&P: Results Labs Labs: Short CBC 05/03/25 05/04/25 Range/Units 17:06 02:00 WBC 9.1 10.3 H (4.5-10.0) K/mm3 Hgb 14.6 13.6 (12.0-15.0) g/dL Hct 44.7 42.0 (37.0-47.0) % Plt Count 243 226 (150-375) k/mm3 BMP 05/03/25 17:06 Sodium 136 L Potassium 3.9 Chloride 105 Carbon Dioxide 19 L BUN 16 Creatinine 0.98 Glucose 176 H Calcium 10.0 Cardiac Enzymes 05/03/25 05/03/25 05/03/25 Range/Units 17:06 19:49 23:06 Troponin I < 0.012 0.034 D 0.235 H* D (0.000-0.034) ng/mL Liver Function 05/03/25 Range/Units 17:06 Total Bilirubin 0.8 (0.2-1.3) mg/dL AST 30 (14-36) U/L ALT 25 (6-35) U/L Alkaline Phosphatase 95 (38-126) U/L Albumin 4.8 (3.5-5.1) g/dL Assessment and Plan Assessment and plan (1) Chest pain: Qualifiers: Chest pain type: unspecified Qualified Code(s): R07.9 - Chest pain, unspecified Code(s): R07.9 - Chest pain, unspecified Status: Acute Plan 49-year-old female with history of GERD, tobacco abuse, depression and anxiety, asthma, pulmonary nodule, hypertension presents to [facility] ER on 05/03/2025 with complaint of sharp chest pain substernal and left upper quadrant. She has had this chest pain on and off and has seen [facility] Card[facility] [place]. This started 4 days ago but has not subsided. Sometimes it goes into her jaw her back and both arms. Shortness of breath prompted her to seek further evaluation. Echo performed in 03/2024 demonstrates moderate concentric left ventricular hypertrophy, normal systolic function. Cardiac CT in 10/2020 with calcium score 0. Last visit with Dr. Holden antoine, chest discomfort felt to be noncardiac. On presentation, mild leukocytosis WBC 10,300, initial troponin 0.034, repeat 0.235. EKG demonstrating normal sinus rhythm, no acute ST changes. T-wave inversions lead 1 aVL unchanged from prior admission. Patient reports she had a cardiac stress test remotely which was normal. CTA chest negative for PE, no abnormal findings identified. She was given aspirin 324 mg p.o. x1, normal saline 1 L bolus, morphine 4 mg IV x1, Zofran 4 mg IV x1. Heparin GTT started. On repeat evaluation the patient is resting comfortably and does not report pain unless moderate palpation to the sternal notch and left upper quadrant. ----- Cardiology consulted from ER. Continue heparin GTT, aspirin, NPO. Continue trending troponin. Patient appears nontoxic, leukocytosis is very mild, continue to trend. Full code Hospitalist [facility] Advance Care Plan I have confirmed that the patient's Advanced Care Plan is present, code status is documented, or surrogate decision maker is listed in patient medical record.: Yes Medication Reconciliation I have utilized all available resources to obtain, update and review the patients current medications (includes all prescriptions, OTC, herbals, cannabis, and nutritional supplements).: Yes
--- NOTE | 2025-05-04 07:32 | PC.NURSE ---
BSR completed with [place] RN; patient had no questions. Labs reviewed and pending labs scheduled for 0830 per the start time of Heparin drip. patient up to the bathroom without difficulty and placed back onto the monitor. patient alert and oriented.
--- NOTE | 2025-05-04 08:26 | PC.NURSE ---
communication coordinator called for timed labs as the patient has two US guided IV and is a difficulty lab draw; patient will be going up to IMU 200 at approximately 0845 and this information was given to the phleb.
--- NOTE | 2025-05-04 08:34 | PM.IMPN ---
Progress Note: A&P Assessment and Plan (1) Chest pain: Qualifiers: Chest pain type: unspecified Qualified Code(s): R07.9 - Chest pain, unspecified Code(s): R07.9 - Chest pain, unspecified Status: Acute Assessment and Plan: -Possible cath tomorrow -started atorvastatin 40 mg, and add aspirin 81 mg to his regimen -Cardiology consulted from ED -continue heparin drip and give sublingual nitro if needed -Echocardiogram pending -Denies any illicit drug use -Reviewed EKG and CXR Plan Code status full code DVT prophylaxis heparin drip Subjective Date/time seen: 05/04/25 08:34 Interval history: Patient reports that she has chronic chest pain and underwent stress test and other cardiac workup previously, but this time her chest pain was associated with his shortness of breath, so she came to the ED. Cardiology evaluated the patient and considered possible cardiac catheterization for tomorrow. Patient denies a history of diabetes but endorses smoking. Review of Systems Review of Systems: All systems reviewed & are unremarkable except as noted in HPI and below (Subjective) Exam Const: General: comfortable and no acute distress Other: A&O x3 HENMT: Mouth: Yes moist mucous membranes Eyes: Pupils: Equal, round and reactive pupils present Neck: Neck: supple Resp: Effort & Inspection: normal respiratory effort Auscultation: clear to auscultation bilaterally Cardio: Rate: regular rate Rhythm: regular rhythm Heart sounds: no murmurs Neuro: Cranial nerves: Yes Equal, round and reactive pupils present Motor exam (neuro): 5/5 motor strength present throughout Extrem: General: no edema Objective Data Vital Signs Vital Signs: Vital Signs - 24 hr 05/03/25 16:59 05/03/25 23:49 05/03/25 23:49 Temperature 97.7 F Pulse Rate 109 H 80 Respiratory Rate 19 15 Blood Pressure 125/78 134/61 Pulse Oximetry 100 100 99 Oxygen Delivery Room Air 05/04/25 03:12 05/04/25 03:16 05/04/25 08:16 Temperature Pulse Rate 56 L 59 L 69 Respiratory Rate 17 19 Blood Pressure 132/79 109/70 Pulse Oximetry 99 100 Oxygen Delivery Intake/Output Intake/Output: Intake & Output 05/01/25 05/02/25 05/03/25 05/04/25 23:59 23:59 23:59 23:59 Intake Total 1000 Balance 1000 Meds/Results Medications: Active Medications Generic Name Dose Route Start Last Admin Trade Name Freq PRN Reason Stop Dose Admin Acetaminophen 650 mg 05/04/25 00:50 Acetaminophen 325 Mg Tablet PO Q4H PRN Mild Pain (1-3) or Fever Aspirin 81 mg 05/04/25 09:00 Aspirin 81 Mg Enteric Tablet PO QAM [facility]1983 Heparin Sodium (Porcine) 4,000 units 05/04/25 00:36 Heparin Sodium 5,000 Units/Ml Vial IV PUSH PRN PRN aPTT less than 55 seconds Heparin Sodium (Porcine) 3,000 units 05/04/25 00:36 Heparin Sodium 5,000 Units/Ml Vial IV PUSH PRN PRN aPTT 55 - 70 seconds Heparin Sodium/Dextrose 25,000 units in 250 mls @ 9 mls/hr 05/04/25 00:40 05/04/25 02:34 Heparin Sodium/D5w 100 Units/Ml IV CONT 900 units/hr .Q24H MORE 9 mls/hr Protocol Administration 900 UNITS/HR Ondansetron HCl 4 mg 05/04/25 00:50 Ondansetron Inj 4 Mg/2 Ml Vial IV PUSH Q4H PRN Nausea Perflutren Lipid Microsphere 0 ml 05/04/25 00:50 Perflutren Lipid Microspheres 1.5 Ml Vial Diluted To 10 Ml Total Volume IV PUSH 05/07/25 00:53 ONCE PRN adequate visualization Protocol Radiology Results: ITS Impressions Chest X-Ray 05/03/25 17:17 IMPRESSION: 1: NO ACUTE CARDIOPULMONARY DISEASE. Chest CTA 05/04/25 08:04 IMPRESSION: 1. No pulmonary embolus. Labs Labs: Laboratory Results - last 24 hr 05/03/25 05/03/25 05/03/25 17:06 19:49 23:06 WBC 9.1 RBC 5.02 Hgb 14.6 Hct 44.7 MCV 89.0 MCH 29.1 MCHC 32.7 RDW 12.6 Plt Count 243 MPV 11.1 H Immature Gran % (Auto) 0.4 Neut % (Auto) 85.2 H Lymph % (Auto) 13.5 L Bollinger % (Auto) 0.7 L Eos % (Auto) 0.0 Baso % (Auto) 0.2 Lymph # (Auto) 1.23 Bollinger # (Auto) 0.1 Eos # (Auto) 0.0 Baso # (Auto) 0.0 Abs Immat Gran (auto) 0.04 H Absolute Neuts (auto) 7.8 H Absolute Nucleated RBC 0.000 Nucleated RBC % 0.0 PT 12.5 INR 0.9 APTT 23.6 Sodium 136 L Potassium 3.9 Chloride 105 Carbon Dioxide 19 L Anion Gap 12 BUN 16 Creatinine 0.98 Estim Creat Clear Calc 68 Estimated GFR 60 Glucose 176 H Calcium 10.0 Total Bilirubin 0.8 AST 30 ALT 25 Alkaline Phosphatase 95 Troponin I < 0.012 0.034 D 0.235 H* D Total Protein 8.3 H Albumin 4.8 Lipase 193 05/04/25 02:00 WBC 10.3 H RBC 4.64 Hgb 13.6 Hct 42.0 MCV 90.5 MCH 29.3 MCHC 32.4 RDW 12.7 Plt Count 226 MPV 11.3 H Immature Gran % (Auto) 0.4 Neut % (Auto) 66.1 Lymph % (Auto) 27.9 Bollinger % (Auto) 5.3 Eos % (Auto) 0.1 Baso % (Auto) 0.2 Lymph # (Auto) 2.88 Bollinger # (Auto) 0.6 Eos # (Auto) 0.0 Baso # (Auto) 0.0 Abs Immat Gran (auto) 0.04 H Absolute Neuts (auto) 6.8 H Absolute Nucleated RBC 0.000 Nucleated RBC % 0.0 PT 12.8 INR 0.9 APTT 24.3 Sodium Potassium Chloride Carbon Dioxide Anion Gap BUN Creatinine Estim Creat Clear Calc Estimated GFR Glucose Calcium Total Bilirubin AST ALT Alkaline Phosphatase Troponin I Total Protein Albumin Lipase Hospitalist [facility] Advance Care Plan I have confirmed that the patient's Advanced Care Plan is present, code status is documented, or surrogate decision maker is listed in patient medical record.: Yes Medication Reconciliation I have utilized all available resources to obtain, update and review the patients current medications (includes all prescriptions, OTC, herbals, cannabis, and nutritional supplements).: Yes
--- NOTE | 2025-05-04 09:14 | P.CONCA_ITS ---
Assessment and Plan Assessment and plan (1) Acute non-ST elevation myocardial infarction (NSTEMI): Code(s): I21.4 - Non-ST elevation (NSTEMI) myocardial infarction Status: Acute Assessment and Plan: Continue heparin drip Recommend cardiac catheterization for further evaluation of coronaries. Alternatives, risks, and benefits discussed with patient and she is agreeable to proceed. Keep NPO at midnight Continue Aspirin 81 mg daily Add Atorvastatin 40 mg daily TTE today Monitor on telemetry Trend troponin to peak EKG p.r.n. for chest pain Check and replace electrolytes to keep potassium greater than 4 and magnesium greater than 2 (2) Hypertension: Qualifiers: Hypertension type: essential hypertension Qualified Code(s): I10 - Essential (primary) hypertension Code(s): I10 - Essential (primary) hypertension Status: Chronic Assessment and Plan: Resume home antihypertensives, lisinopril and hydrochlorothiazide History of Present Illness History of Present Illness Consult date/time: 05/04/25 09:14 Reason For Visit: chest pain Narrative: 49-year-old female with history of tobacco abuse, hypertension, irritable bowel syndrome, asthma, pulmonary nodules, GERD, fibromyalgia, anxiety and depression presents with chief complaints sharp substernal chest pain since Friday. She states that pain started when she was at rest. The pain is located in her mid chest and radiates to both arms and into her jaw and neck. Pain is of intensity 7/10 when worse. Pain has been off and off since Friday and she presented to the ER yesterday. Chest pain was associated with shortness of breath. She states that she has been evaluated by her outpatient field service engineer for chest pain. Echo in 03/2024 showed moderate concentric left ventricular hypertrophy, normal systolic function, and no significant valvular pathology. Cardiac CT in 10/2020 showed calcium score of 0. She also states that she was evaluated by her PCP and is scheduled to undergo an EGD in the near future for evaluation of GERD. She reports off and on dizziness. No palpitations, leg swelling, recent weight gain, presyncope, syncope, orthopnea, PND. She smokes a few cigarettes daily. Her father had quadruple bypass in his 60s. Troponin is elevated to 0.012, 0.034, 0.235, 0.0191. EKG shows sinus rhythm, septal PA age indeterminate, lateral T-wave inversions and ST depressions. Cardiology is consulted for further recommendations. Workup: WBC: 10.3 Creatinine: 0.98 Troponin: 0.012, 0.034, 0.235 EKG: Sinus rhythm, T-wave inversions in leads 1 and aVL, ST depressions in V4 to V6, septal myocardial infarction age indeterminate Chest x-ray: No acute cardiopulmonary pathology CTA chest: No PE Review of Systems 2 Review of Systems: A complete review of systems was performed and pertinent positives are noted in the HPI. [facility] Past Medical History Medical History Fibromyalgia GERD (gastroesophageal reflux disease) Elevated glucose Bronchitis Folliculitis Non-cardiac chest pain Neck pain Nausea COVID-19 Back pain with history of spinal surgery SAMANTHA (obstructive sleep apnea) Tobacco abuse IBS (irritable bowel syndrome) Small bowel obstruction Anxiety Asthma Major depressive disorder, single episode, unspecified Ulnar neuropathy of both upper extremities Hypertension Surgical History Surgical History History of laparoscopy x 2 exploratory laparoscopy due to abdominal pain in her 20's with no reported significant findings. History of back surgery X3 (total 5 spinal surgeries) History of carpal tunnel release Bilaterally H/O section X3 H/O: hysterectomy Open partial hysterectomy followed by left salpingo-oophorectomy and eventually right salpingo-oophorectomy. Total of 3 surgeries. Family History Family History Mother Diabetes mellitus Hypertension Heart disease COVID-19 Lung cancer Father Diabetes mellitus Hypertension Heart disease COVID-19 S/P triple vessel bypass, Onset Age: 65 Sibling COVID-19 Social History Social History Social History: She is . She has 3 children. She is a full code and desires to have her to be her decision-maker if needed. She does not use alcohol marijuana or illicit drugs. Smoking packs per day: 0.5 Smoking cigarettes per day: 10.0 Years smoked: 20 Smoking pack-years: 10.00 Smoking status: Current every day smoker Tobacco type: cigarettes Second hand tobacco smoke exposure: No Smoking end date: 01/28/22 Alcohol intake: current Alcohol use details: SOCIALLY Substance use: former Substance use type: marijuana Last use: 11-12 days ago Do You Feel Safe in your Home?: Yes Lack of Transportation: No Lack of Food: Never True Current Housing: I Have Housing Concerned About Future Housing: No Difficulty Paying Gas/Electric Bills: No Difficulty Paying for Meds: No Currently Unemployed: No Education: Trade/Vocational Certificate Difficulty w/ Childcare or Family Care: No Living arrangements: with family Occupation/Education: unemployed Additional occupation/education comments: 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 Gender identity (if verbalized by the patient): Female Sexual Orientation (if Verbalized by the Patient): Straight or Heterosexual Spiritual care concerns: No Meds Home Medications and Allergies Home Medications ?Medication ?Instructions ?Recorded ?Confirmed ?Type alprazolam 1 mg tablet 1 mg PO DAILY PRN Anxiety 05/04/25 History cholecalciferol (vitamin D3) 1,250 50,000 unit PO WEEK LY 04/09/24 05/04/25 History mcg (50,000 unit) capsule fluticasone 250 mcg-salmeterol 50 1 inh inhalation AKASH LY #60 ea 04/21/24 05/04/25 Rx mcg/dose blistr powdr for inhalation (Advair Diskus) ubrogepant 50 mg tablet (Ubrelvy) 50 mg PO DAILY PRN M igraine 05/19/24 05/04/25 Rx Headache #30 tabs nitroglycerin 0.4 mg sublingual 0.4 mg sublingual Q5M PRN chest 12/09/24 05/04/25 Rx tablet pain #20 tabs albuterol sulfate 90 mcg/actuation 2 puff inhalation Q 4H PRN 01/29/25 05/04/25 Rx aerosol inhaler Shortness Of Breath #8.5 gra ms atogepant 30 mg tablet (Qulipta) 30 mg PO DAILY #90 ta bs 03/21/25 05/04/25 Rx sumatriptan 20 mg/actuation nasal 20 mg intranasal ONC E #6 ea 03/21/25 05/04/25 Rx spray celecoxib 200 mg capsule 200 mg PO Q12H 03/24/2504/12 History tizanidine 4 mg capsule 4 mg PO TID PRN muscle spast icity 03/28/25 05/04/25 Rx #90 caps lisinopril 20 See Rx Instructions .Route 0 04/11/25 05/04/25 Rx mg-hydrochlorothiazide 12.5 mg .COMPLEX #90 tabs tablet semaglutide (weight loss) 1 mg/0.5 1 mg (0.5 mL) subcu t WEEKLY #2 mL 04/15/25 05/04/25 Rx mL subcutaneous pen injector hydrocodone 5 mg-acetaminophen 325 1 tablet PO Q6H PRN pain 04/18/25 05/04/25 History mg tablet famotidine 20 mg tablet 20 mg PO Q12H #180 tabs 04/1205/04/25 Rx Allergies Allergy/AdvReac Type Severity Reaction Status Date / Time amoxicillin Allergy Intermediate Rash Verified 05/03/25 16:58 Cephalosporins Allergy Intermediate Rash Verified 05/03/25 16:58 Penicillins Allergy Intermediate Rash Verified 05/03/25 16:58 ketorolac AdvReac Intermediate Nausea and Verified 05/03/25 16:58 Vomiting clarithromycin AdvReac Mild GI Verified 05/03/25 16:58 Vital Signs Vital Signs - 24 hr 05/03/25 16:59 05/03/25 23:49 05/03/25 23:49 Temperature 36.5 C Pulse Rate 109 H 80 Respiratory Rate 19 15 Blood Pressure 125/78 134/61 Pulse Oximetry 100 100 99 Oxygen Delivery Room Air 05/04/25 03:12 05/04/25 03:16 05/04/25 08:16 Temperature Pulse Rate 56 L 59 L 69 Respiratory Rate 17 19 Blood Pressure 132/79 109/70 Pulse Oximetry 99 100 Oxygen Delivery Exam 2 Narrative: General: Alert oriented x3, no acute distress Neck: Supple, no JVD Chest: Bilaterally clear to auscultation, no rales or rhonchi Cardiac: S1, S2 +, regular rate, regular rhythm, no murmurs or rubs Extremities: No pedal edema, no skin rash Neurologic: Alert and oriented x3, no focal neurological deficits Results Labs and Meds 05/04/25 09:10 05/04/25 09:10 Lab results: Cardiac Enzymes 0905/03/25 05/03/25 Range/Units 17:06 19:49 23:06 AST 30 (14-36) U/L Troponin I < 0.012 0.034 D 0.235 H* D (0.000-0.034) ng/mL Coagulation 05/03/25 05/04/25 Range/Units 17:06 02:00 PT 12.5 12.8 (11.1-14.7) Seconds APTT 23.6 24.3 (22.3-36.8) Seconds CBC 05/03/25 05/04/25 Range/Units 17:06 02:00 WBC 9.1 10.3 H (4.5-10.0) K/mm3 RBC 5.02 4.64 (4.2-5.4) M/mm3 Hgb 14.6 13.6 (12.0-15.0) g/dL Hct 44.7 42.0 (37.0-47.0) % Plt Count 243 226 (150-375) k/mm3 Lymph # (Auto) 1.23 2.88 (0.9-3.2) K/mm3 [place] # (Auto) 0.1 0.6 (0.1-0.6) K/mm3 Eos # (Auto) 0.0 0.0 (0-0.3) K/mm3 Baso # (Auto) 0.0 0.0 (0.0-0.1) K/mm3 Comprehensive Metabolic Panel 05/03/25 Range/Units 17:06 Sodium 136 L (137-145) mmol/L Potassium 3.9 (3.4-5.0) mmol/L Chloride 105 (98-107) mmol/L Carbon Dioxide 19 L (22-30) mmol/L BUN 16 (7-17) mg/dL Creatinine 0.98 (0.7-1.0) mg/dL Glucose 176 H (65-110) mg/dL Calcium 10.0 (8.4-10.2) mg/dL AST 30 (14-36) U/L ALT 25 (6-35) U/L Alkaline Phosphatase 95 (38-126) U/L Total Protein 8.3 H (6.3-8.2) g/dL Albumin 4.8 (3.5-5.1) g/dL Intake and Output 05/03/25 05/04/25 05/04/25 23:59 07:59 15:59 Intake Total 1000 Balance 1000 Intake: IV 1000 Sodium Chloride 0.9% IV 1,000 1000 ml @ 999 mls/hr IV CONT .Q1H1M [facility] Rx#:[id number]
[2025-05-04 09:23] LABS: Hematocrit 40.0 % (37.0-47.0); Hemoglobin 12.9 g/dL (12.0-15.0); Immature Granulocyte Percent A 0.4 % (0-0.5); Lymphocytes Absolute Auto 4.25 K/mm3 (0.9-3.2); Mean Corpuscular HGB Conc 32.3 g/dl (32-36); Mean Corpuscular Hemoglobin 29.8 pg (26-34); Mean Corpuscular Volume 92.4 fl (80-100); Nucleated Red Blood Cells Absolute Auto 0.000 K/mm3 (0.0-0.012); Nucleated Red Blood Cells Perc 0.0 % (0.0-0.2); Platelet Count Result 211 k/mm3 (150-375); Red Blood Count 4.33 M/mm3 (4.2-5.4); White Blood Count 10.7 K/mm3 (4.5-10.0)
[2025-05-04 09:34] LABS: INR 1.0; Prothrombin Time 13.2 Seconds (11.1-14.7)
[2025-05-04 09:36] LABS: Partial Thromboplastin Time 44.9 Seconds (22.3-36.8)
[2025-05-04 09:41] LABS: Alanine Aminotransferase 18 U/L (6-35); Albumin Level 4.1 g/dL (3.5-5.1); Alkaline Phosphatase 71 U/L (38-126); Anion Gap 6 mmol/L (4-12); Aspartate Amino Transferase 37 U/L (14-36); Bilirubin,Total 0.8 mg/dL (0.2-1.3); Blood Urea Nitrogen 15 mg/dL (7-17); Calcium 8.7 mg/dL (8.4-10.2); Carbon Dioxide 28 mmol/L (22-30); Chloride 105 mmol/L (98-107); Estimated CRCL calculation 74 ml/min; Estimated Glomerular Filt Rate > 60; Glucose 73 mg/dL (65-110); Magnesium 2.5 mg/dL (1.6-2.3); Potassium 3.5 mmol/L (3.4-5.0); Sodium 139 mmol/L (137-145); Total Protein 7.0 g/dL (6.3-8.2)
[2025-05-04 09:52] LABS: Troponin I 0.191 ng/mL (0.000-0.034)
[2025-05-04] MEDS: ASPIRIN 81 MG ENTERIC TABLET PO (09:53)
[2025-05-04 10:10] LABS: Procalcitonin < 0.0 ng/mL
--- NOTE | 2025-05-04 10:11 | ADMGEN ---
This patient, Lore Jacobs, was admitted to IMU Room 200-01. Patient/family oriented to hospital policies and general routines including ID bracelet, bed and alarms, visiting hours, pain management, procedures, bathroom and other care routines, personal items, smoking policy, room service/diet, and visiting hours. Information on how to activate the Rapid Response Team has been discussed. Patient/Family are encouraged to report perceived risks to care and to ask questions if they do not understand what they are told or what they should do.
[2025-05-04] MEDS: MORPHINE SULFATE (*CRX) 4 MG/ML INJ 1 MG IV PUSH ×3 (11:44→21:03)
[2025-05-04] MEDS: ATORVASTATIN 40 MG TABLET PO (11:44)
[2025-05-04] MEDS: PANTOPRAZOLE 40 MG TABLET PO ×2 (13:34→21:03)
[2025-05-04] MEDS: BELLADONNA ALK/PHENOB ELIX 10 ML, MAG HYDROX/ALUMINUM HYD/SIMETH 30 ML, LIDOCAINE 2% VI... PO (13:34)
[2025-05-04 15:01] LABS: Cholesterol 140 mg/dL (0-200); HDL Direct 47 mg/dL; Triglycerides 67 mg/dL (<150)
[2025-05-04 17:08] LABS: Partial Thromboplastin Time 175.9 Seconds (22.3-36.8)
[2025-05-04] MEDS: ACETAMINOPHEN 325 MG TABLET 650 MG PO (21:03)
[2025-05-04] MEDS: CALCIUM CARBONATE (TUMS) 500 MG (200 MG ELEMENTAL) PO (21:25)
[2025-05-04 23:48] LABS: Partial Thromboplastin Time > 200.0 Seconds (22.3-36.8)
[2025-05-05] VITALS (34 sets, daily range): BP systolic 81–116; BP diastolic 53–83; PULSE 53–80; RESP 11–20; TEMP 36.3–36.9; O2SAT 94–100
[2025-05-05] MEDS: ACETAMINOPHEN 325 MG TABLET 650 MG PO ×2 (00:35→09:59)
--- NOTE | 2025-05-05 01:51 | ECG_ITS ---
Test Date: 2025-05-05 01:57:35 Measurements Intervals [place] Rate: 64 P: 75 MO: 156 QRS: 31 QRSD: 90 T: 129 QT: 406 QTc: 421 Interpretive Statements SINUS RHYTHM WITH SINUS ARRHYTHMIA POSSIBLE LEFT ATRIAL ENLARGEMENT [-0.1mV P WAVE IN V1/V2] LEFT VENTRICULAR HYPERTROPHY AND ST-T CHANGE [VOLTAGE CRITERIA PLUS ST/T ABNORMALITY] POSSIBLE SEPTAL MYOCARDIAL INFARCTION [30 ms Q WAVE IN V1/V2], OF INDETERMINATE AGE Electronically Signed On 05-05-2025 06:36:55 CDT by Olivia Rodriguez M.D.
[2025-05-05] MEDS: ONDANSETRON INJ 4 MG/2 ML VIAL IV PUSH ×2 (02:23→14:54)
[2025-05-05] MEDS: MORPHINE SULFATE (*CRX) 4 MG/ML INJ 1 MG IV PUSH ×4 (02:24→13:56)
--- NOTE | 2025-05-05 02:46 | ECG_ITS ---
Test Date: 2025-05-05 02:50:57 Measurements Intervals [place] Rate: 51 P: 73 VT: 189 QRS: 31 QRSD: 90 T: 154 QT: 433 QTc: 401 Interpretive Statements SINUS BRADYCARDIA POSSIBLE LEFT ATRIAL ENLARGEMENT [-0.1mV P WAVE IN V1/V2] LEFT VENTRICULAR HYPERTROPHY AND ST-T CHANGE [VOLTAGE CRITERIA PLUS ST/T ABNORMALITY] POSSIBLE SEPTAL MYOCARDIAL INFARCTION [30 ms Q WAVE IN V1/V2], age indeterminate Electronically Signed On 05-05-2025 06:36:42 CDT by Olivia Rodriguez M.D.
[2025-05-05] MEDS: CALCIUM CARBONATE (TUMS) 500 MG (200 MG ELEMENTAL) PO ×2 (02:55→17:49)
[2025-05-05] MEDS: NITROGLYCERIN OINTMENT 1 INCH DOSE 0.5 INCH TRANSDERM ×2 (03:31→05:00)
--- NOTE | 2025-05-05 06:00 | ECHO_ITS ---
Patient Info Name: Lore Jacobs Age: 49 years : 1975 Gender: Female Ht: 67 in Wt: 188 lbs BSA: 2.03 m2 HR: 57 bpm BP: 116 / 72 mmHg Heart Rhythm: Sinus Rhythm Technical Quality: Good Exam Date: 05/05/2025 2:03 PM Patient Status: I Admit Date: 05/04/2025 Exam Type: CA echo dop color flow w con Complete two-dimensional, color flow and Doppler transthoracic echocardiogram is performed with contrast to opacify the left ventricle and to improve the deliniation of the left ventricle endocardial borders. Staff Referring Physician: Marissa Blas Protection Officer: Jose Raul Dillard III Attending Provider: Claudia Weems Contrast/Agitated Saline Contrast/Ag. Saline: Definity Amount: 2.00 ml Administered By: Jose Raul Dillard III Existing IV Access: Yes IV Access Condition: patent with no signs of infiltration Summary 1. Left ventricular hypertrophy with hyperdynamic systolic function. 2. Grade 1 diastolic noncompliance. 3. Normal cardiac valves. 4. Compared with examination from November of 2023 the findings are unchanged. Left Ventricle Left ventricular chamber dimension is normal. Left ventricular systolic function is hyperdynamic, estimated at >70. There is mild concentric increased left ventricular wall thickness. The left ventricular diastolic function is grade I diastolic dysfunction. Right Ventricle Right ventricular chamber dimension is normal. Left Atria Left atrial chamber dimension is normal. Right Atria Right atrial chamber dimension is normal. Aortic Valve The aortic valve is normal. Pulmonic Valve The pulmonic valve is normal. Mitral Valve The mitral valve has normal leaflets. Tricuspid Valve The tricuspid valve leaflets are normal. Pericardium/Pleural The pericardium appears normal. Aorta The aortic root size at the sinus of Valsalva is normal. Left Ventricular Outflow Tract Name Value Normal LVOT 2D LVOT Diameter 2.3 cm LVOT Doppler LVOT Peak Velocity 235 cm/s LVOT Peak Gradient 22 mmHg LVOT Mean Gradient 10 mmHg LVOT VTI 44 cm LVOT VTI/AV VTI Ratio 1.0 LVOT Stroke Volume 191 ml LVOT CO 11.9 l/min LVOT CI 5.9 l/min/m2 Pulmonic Valve Name Value Normal PV Doppler PV Peak Velocity 136 cm/s PV Peak Gradient 7 mmHg PV Mean Gradient 4 mmHg Mitral Valve Name Value Normal MV Doppler MV Peak Gradient 4 mmHg MV Mean Gradient 1 mmHg MV Area (Cont Eq VTI) 8.1 cm2 MV Diastolic Function MV E Peak Velocity 59 cm/s MV A Peak Velocity 76 cm/s MV E/A 0.8 MV Decel Time (PW) 295 ms MV Annular TDI MV E/e' (Septal) 10.4 MV E/e' (Lateral) 6.2 MV E/e' (Average) 8.3 Tricuspid Valve Name Value Normal TV Annular TDI TV Lateral Jodi s' Velocity 16.1 cm/s >=9.5 Aortic Valve Name Value Normal AV Doppler AV Peak Velocity 255 cm/s AV Peak Gradient 26 mmHg AV Mean Gradient 12 mmHg AV VTI 46 cm AV Area (Cont Eq VTI) 4.2 cm2 >=3.0 AV Area (Cont Eq Behzad) 4.0 cm2 AV DI (Behzad) 0.92 AV Regurgitation 2D LVOT Area 4.3 cm2 Ventricles Name Value Normal LV Dimensions 2D/MM IVS Diastolic Thickness (2D) 1.3 cm 0.6-1.0 LVID Diastole (2D) 4.1 cm 3.8-5.2 LVIW Diastolic Thickness (2D) 1.2 cm 0.6-0.9 LVID Systole (2D) 2.6 cm 2.2-3.5 LVOT Diameter 2.3 cm LV Mass (2D Cubed) 183.75 g 67.00-162.00 LV Mass Index (2D Cubed) 90 g/m2 43-95 Relative Wall Thickness (2D) 0.58 <=0.42 LV Fractional Shortening/Ejection Fraction 2D/MM LV Fractional Shortening (2D) 37 % 27-45 LV EF (2D Teichholz) 67 % LV Diastolic Volume (4C MOD) 53 ml LV EF (4C MOD) 83 % LV Diastolic Length (4C) 7.8 cm LV Systolic Length (4C) 6.1 cm LV Stroke Volume (4C MOD) 44 ml Atria Name Value Normal LA Dimensions LA Volume (4C A-L) 37 ml LA Volume (BP A-L) 40 ml RA Dimensions RA Systolic [place] Length (4C) 5.1 cm 2.2-2.8 RA Area (4C) 12.9 cm2 <=18.0 Report Signatures
--- NOTE | 2025-05-05 06:46 | P.PNCA_ITS ---
Progress Note: A&P Assessment and Plan (1) Acute non-ST elevation myocardial infarction (NSTEMI): Code(s): I21.4 - Non-ST elevation (NSTEMI) myocardial infarction Status: Acute Assessment and Plan: Continue heparin drip Cardiac catheterization today for evaluation of coronaries. Alternatives, risks, and benefits discussed with patient and she is agreeable to proceed Continue Aspirin 81 mg daily, Atorvastatin 40 mg daily TTE Monitor on telemetry Check and replace electrolytes to keep potassium greater than 4 and magnesium greater than 2 (2) Hypertension: Qualifiers: Hypertension type: essential hypertension Qualified Code(s): I10 - Essential (primary) hypertension Code(s): I10 - Essential (primary) hypertension Status: Chronic Assessment and Plan: Blood pressure controlled- hold lisinopril and HCTZ Subjective Date/time seen: 05/05/25 06:46 Interval history: Reason for encounter: NSTEMI Relevant history: 49-year-old female with history of hypertension, tobacco abuse, obstructive sleep apnea, anxiety and depression, irritable bowel syndrome presents with chief complaints of chest pain, noted to have elevated troponin. Cardiology consulted for further management of NSTEMI Interval history: No chest pain, SOB, LH, dizziness. Troponin peaked and down trending. Review of Systems Cardiovascular: Comments: As per HPI Respiratory: Comments: As per HPI Exam Narrative: General: Alert oriented x3, no acute distress Neck: Supple, no JVD Chest: Bilaterally clear to auscultation, no rales or rhonchi Cardiac: S1, S2 +, regular rate, regular rhythm, no murmurs or rubs Extremities: No pedal edema, no skin rash Neurologic: Alert and oriented x3, no focal neurological deficits Objective Data Vital Signs Vital Signs: Vital Signs - 24 hr 05/04/25 08:16 05/04/25 09:21 05/04/25 10:00 Temperature 36.7 C Pulse Rate 69 61 60 Respiratory Rate 19 18 Blood Pressure 109/70 136/82 Pulse Oximetry 100 98 Oxygen Delivery Oxygen Flow Rate 05/04/25 11:50 05/04/25 12:00 05/04/25 12:00 Temperature 37.0 C Pulse Rate 57 L 68 Respiratory Rate 16 Blood Pressure 111/75 Pulse Oximetry 100 Oxygen Delivery Room Air Oxygen Flow Rate 05/04/25 13:38 05/04/25 16:00 05/04/25 16:00 Temperature Pulse Rate 58 L 59 L Respiratory Rate Blood Pressure Pulse Oximetry Oxygen Delivery Room Air Oxygen Flow Rate 05/04/25 16:00 05/04/25 18:00 05/04/25 19:39 Temperature 36.9 C 36.4 C Pulse Rate 69 85 59 L Respiratory Rate 18 17 Blood Pressure 100/69 91/58 L Pulse Oximetry 100 100 Oxygen Delivery Oxygen Flow Rate 05/04/25 20:00 05/04/25 20:00 05/04/25 21:05 Temperature Pulse Rate 57 L Respiratory Rate Blood Pressure Pulse Oximetry 100 Oxygen Delivery Room Air Room Air Oxygen Flow Rate 05/04/25 22:00 05/04/25 22:59 05/05/25 00:00 Temperature 36.6 C Pulse Rate 56 L 55 L Respiratory Rate 16 Blood Pressure 95/62 L Pulse Oximetry 100 Oxygen Delivery Room Air Oxygen Flow Rate 05/05/25 00:00 05/05/25 02:00 05/05/25 04:00 Temperature 36.9 C Pulse Rate 58 L 63 55 L Respiratory Rate 17 Blood Pressure 116/72 Pulse Oximetry 100 Oxygen Delivery Oxygen Flow Rate 05/05/25 04:00 05/05/25 04:00 Temperature Pulse Rate 57 L Respiratory Rate Blood Pressure Pulse Oximetry 99 Oxygen Delivery Nasal Cannula Oxygen Flow Rate 2 Intake/Output Intake/Output: Intake & Output 05/02/25 05/03/25 05/04/25 05/05/25 23:59 23:59 23:59 23:59 Intake Total 2110.6 0 Output Total 600 600 Balance 1510.6 -600 Meds/Results Medications: Active Medications Generic Name Dose Route Start Last Admin Trade Name Douglasq PRN Reason Stop Dose Admin Acetaminophen 650 mg 05/04/25 00:50 05/05/25 00:35 Acetaminophen 325 Mg Tablet PO 650 mg Q4H PRN Administration Mild Pain (1-3) or Fever Aspirin 81 mg 05/04/25 09:00 05/04/25 09:53 Aspirin 81 Mg Enteric Tablet PO 81 mg QAM MORE Administration Atorvastatin Calcium 40 mg 05/04/25 09:00 05/04/25 11:44 Atorvastatin 40 Mg Tablet PO 40 mg DAILY MORE Administration Calcium Carbonate 200 mg 05/04/25 21:15 05/05/25 02:55 Calcium Carbonate (Tums) 500 Mg (200 Mg Elemental) PO 200 mg Q6H PRN Administration Indigestion Heparin Sodium (Porcine) 4,000 units 05/04/25 00:36 05/04/25 09:53 Heparin Sodium 5,000 Units/Ml Vial IV PUSH 4,000 units PRN PRN Administration aPTT less than 55 seconds Heparin Sodium (Porcine) 3,000 units 05/04/25 00:36 Heparin Sodium 5,000 Units/Ml Vial IV PUSH PRN PRN aPTT 55 - 70 seconds Heparin Sodium/Dextrose 25,000 units in 250 mls @ 8 mls/hr 05/04/25 00:40 05/05/25 00:50 Heparin Sodium/D5w 100 Units/Ml IV CONT 800 units/hr .Q24H MORE 8 mls/hr Protocol Titration 800 UNITS/HR Morphine Sulfate 1 mg 05/05/25 02:13 05/05/25 06:21 Morphine Sulfate (*Crx) 4 Mg/Ml Inj IV PUSH 1 mg Q2HR PRN Administration Pain Rated 7-10 Nitroglycerin 0.5 inch 05/05/25 03:31 05/05/25 05:00 Nitroglycerin Ointment 1 Inch Dose TRANSDERM 0.5 inch Q4HR MORE Administration Ondansetron HCl 4 mg 05/04/25 00:50 05/05/25 02:23 Ondansetron Inj 4 Mg/2 Ml Vial IV PUSH 4 mg Q4H PRN Administration Nausea Pantoprazole Sodium 40 mg 05/04/25 13:05 05/04/25 21:03 Pantoprazole 40 Mg Tablet PO 40 mg Q12HR MORE Administration Perflutren Lipid Microsphere 0 ml 05/04/25 00:50 Perflutren Lipid Microspheres 1.5 Ml Vial Diluted To 10 Ml Total Volume IV PUSH 05/07/25 00:53 ONCE PRN adequate visualization Protocol Radiology Results: ITS Impressions Chest X-Ray 05/03/25 17:17 IMPRESSION: 1: NO ACUTE CARDIOPULMONARY DISEASE. Chest CTA 05/04/25 08:04 IMPRESSION: 1. No pulmonary embolus. Labs Labs: Laboratory Results - last 24 hr 05/04/25 05/04/25 05/04/25 09:10 16:30 23:11 WBC 10.7 H RBC 4.33 Hgb 12.9 Hct 40.0 MCV 92.4 MCH 29.8 MCHC 32.3 RDW 12.9 Plt Count 211 MPV 11.0 H Immature Gran % (Auto) 0.4 Neut % (Auto) 51.2 Lymph % (Auto) 39.7 [place] % (Auto) 8.1 Eos % (Auto) 0.1 Baso % (Auto) 0.5 Lymph # (Auto) 4.25 H [place] # (Auto) 0.9 H Eos # (Auto) 0.0 Baso # (Auto) 0.1 Abs Immat Gran (auto) 0.04 H Absolute Neuts (auto) 5.5 Absolute Nucleated RBC 0.000 Nucleated RBC % 0.0 PT 13.2 INR 1.0 APTT 44.9 H 175.9 H* > 200.0 H* Sodium 139 Potassium 3.5 Chloride 105 Carbon Dioxide 28 Anion Gap 6 BUN 15 Creatinine 0.88 Estim Creat Clear Calc 74 Estimated GFR > 60 Glucose 73 Calcium 8.7 Magnesium 2.5 H Total Bilirubin 0.8 AST 37 H ALT 18 Alkaline Phosphatase 71 Troponin I 0.191 H* Total Protein 7.0 Albumin 4.1 Triglycerides 67 Cholesterol 140 LDL Cholesterol Direct 66 HDL Direct 47 Procalcitonin < 0.0
[2025-05-05 06:52] LABS: Hematocrit 37.6 % (37.0-47.0); Hemoglobin 11.7 g/dL (12.0-15.0); Immature Granulocyte Percent A 0.3 % (0-0.5); Lymphocytes Absolute Auto 3.42 K/mm3 (0.9-3.2); Mean Corpuscular HGB Conc 31.1 g/dl (32-36); Mean Corpuscular Hemoglobin 29.3 pg (26-34); Mean Corpuscular Volume 94.0 fl (80-100); Nucleated Red Blood Cells Absolute Auto 0.000 K/mm3 (0.0-0.012); Nucleated Red Blood Cells Perc 0.0 % (0.0-0.2); Platelet Count Result 190 k/mm3 (150-375); Red Blood Count 4.00 M/mm3 (4.2-5.4); White Blood Count 6.6 K/mm3 (4.5-10.0)
--- NOTE | 2025-05-05 06:52 | WPDMODSED ---
Moderate Sedation Note-Pt Data Patient Data Allergies Allergy/AdvReac Type Severity Reaction Status Date / Time amoxicillin Allergy Intermediate Rash Verified 05/03/25 16:58 Cephalosporins Allergy Intermediate Rash Verified 05/03/25 16:58 Penicillins Allergy Intermediate Rash Verified 05/03/25 16:58 ketorolac AdvReac Intermediate Nausea and Verified 05/03/25 16:58 Vomiting clarithromycin AdvReac Mild GI Verified 05/03/25 16:58 Home Medications ?Medication ?Instructions ?Recorded ?Confirmed ?Type alprazolam 1 mg tablet 1 mg PO DAILY PRN Anxiety 04/09/24 05/04/25 History cholecalciferol (vitamin D3) 1,250 50,000 unit PO WEEKLY 04/09/24 05/04/25 History mcg (50,000 unit) capsule fluticasone 250 mcg-salmeterol 50 1 inh inhalation DAILY #60 ea 04/21/24 05/04/25 Rx mcg/dose blistr powdr for inhalation (Advair Diskus) ubrogepant 50 mg tablet (Ubrelvy) 50 mg PO DAILY PRN Migraine 05/19/24 05/04/25 Rx Headache #30 tabs nitroglycerin 0.4 mg sublingual 0.4 mg sublingual Q5M PRN chest 12/09/24 05/04/25 Rx tablet pain #20 tabs albuterol sulfate 90 mcg/actuation 2 puff inhalation Q4H PRN 01/29/25 05/04/25 Rx aerosol inhaler Shortness Of Breath #8.5 grams atogepant 30 mg tablet (Qulipta) 30 mg PO DAILY #90 tabs 03/21/25 05/04/25 Rx sumatriptan 20 mg/actuation nasal 20 mg intranasal ONCE #6 ea 03/21/25 05/04/25 Rx spray celecoxib 200 mg capsule 200 mg PO Q12H 03/24/25 05/04/25 History tizanidine 4 mg capsule 4 mg PO TID PRN muscle spasticity 03/28/25 05/04/25 Rx #90 caps lisinopril 20 See Rx Instructions .Route 04/11/25 05/04/25 Rx mg-hydrochlorothiazide 12.5 mg .COMPLEX #90 tabs tablet semaglutide (weight loss) 1 mg/0.5 1 mg (0.5 mL) subcut WEEKLY #2 mL 04/15/25 05/04/25 Rx mL subcutaneous pen injector hydrocodone 5 mg-acetaminophen 325 1 tablet PO Q6H PRN pain 04/18/25 05/04/25 History mg tablet famotidine 20 mg tablet 20 mg PO Q12H #180 tabs 05/02/25 05/04/25 Rx Current Medications: Active Medications Acetaminophen (Acetaminophen 325 Mg Tablet) 650 mg PO Q4H PRN PRN Reason: Mild Pain (1-3) or Fever Last Admin: 05/05/25 00:35 Dose: 650 mg Aspirin (Aspirin 81 Mg Enteric Tablet) 81 mg PO QAM [facility] Last Admin: 05/04/25 09:53 Dose: 81 mg Atorvastatin Calcium (Atorvastatin 40 Mg Tablet) 40 mg PO DAILY [facility] Last Admin: 05/04/25 11:44 Dose: 40 mg Calcium Carbonate (Calcium Carbonate (Tums) 500 Mg (200 Mg Elemental)) 200 mg PO Q6H PRN PRN Reason: Indigestion Last Admin: 05/05/25 02:55 Dose: 200 mg Heparin Sodium (Porcine) (Heparin Sodium 5,000 Units/Ml Vial) 4,000 units IV PUSH PRN PRN PRN Reason: aPTT less than 55 seconds Last Admin: 05/04/25 09:53 Dose: 4,000 units Heparin Sodium (Porcine) (Heparin Sodium 5,000 Units/Ml Vial) 3,000 units IV PUSH PRN PRN PRN Reason: aPTT 55 - 70 seconds Heparin Sodium/Dextrose (Heparin Sodium/D5w 100 Units/Ml) 25,000 units in 250 mls @ 8 mls/hr IV CONT .Q24H [facility]; Protocol Last Titration: 05/05/25 00:50 Dose: 800 units/hr, 8 mls/hr Morphine Sulfate (Morphine Sulfate (*Crx) 4 Mg/Ml Inj) 1 mg IV PUSH Q2HR PRN PRN Reason: Pain Rated 7-10 Last Admin: 05/05/25 06:21 Dose: 1 mg Nitroglycerin (Nitroglycerin Ointment 1 Inch Dose) 0.5 inch TRANSDERM Q4HR [facility] Last Admin: 05/05/25 05:00 Dose: 0.5 inch Ondansetron HCl (Ondansetron Inj 4 Mg/2 Ml Vial) 4 mg IV PUSH Q4H PRN PRN Reason: Nausea Last Admin: 05/05/25 02:23 Dose: 4 mg Pantoprazole Sodium (Pantoprazole 40 Mg Tablet) 40 mg PO Q12HR MORE Last Admin: 05/04/25 21:03 Dose: 40 mg Perflutren Lipid Microsphere (Perflutren Lipid Microspheres 1.5 Ml Vial Diluted To 10 Ml Total Volume) 0 ml IV PUSH ONCE PRN; Protocol PRN Reason: adequate visualization Stop: 05/07/25 00:53 Sedation/Anesthesia: No previous sedation/anesthesia problems (including family history). [facility] Past Medical History Medical History Fibromyalgia GERD (gastroesophageal reflux disease) Elevated glucose Bronchitis Folliculitis Non-cardiac chest pain Neck pain Nausea COVID-19 Back pain with history of spinal surgery SAMANTHA (obstructive sleep apnea) Tobacco abuse IBS (irritable bowel syndrome) Small bowel obstruction Anxiety Asthma Major depressive disorder, single episode, unspecified Ulnar neuropathy of both upper extremities Hypertension Surgical History Surgical History History of laparoscopy x 2 exploratory laparoscopy due to abdominal pain in her 20's with no reported significant findings. History of back surgery X3 (total 5 spinal surgeries) History of carpal tunnel release Bilaterally H/O section X3 H/O: hysterectomy Open partial hysterectomy followed by left salpingo-oophorectomy and eventually right salpingo-oophorectomy. Total of 3 surgeries. Family History Family History Mother Diabetes mellitus Hypertension Heart disease COVID-19 Lung cancer Father Diabetes mellitus Hypertension Heart disease COVID-19 S/P triple vessel bypass, Onset Age: 65 Sibling COVID-19 Social History Social History Social History: She is . She has 3 children. She is a full code and desires to have her to be her decision-maker if needed. She does not use alcohol marijuana or illicit drugs. Smoking packs per day: 0.5 Smoking cigarettes per day: 10.0 Years smoked: 20 Smoking pack-years: 10.00 Smoking status: Current every day smoker Tobacco type: cigarettes Second hand tobacco smoke exposure: No Smoking end date: 01/28/22 Alcohol intake: current Alcohol use details: SOCIALLY Substance use: former Substance use type: marijuana Last use: 11-12 days ago Do You Feel Safe in your Home?: Yes Lack of Transportation: No Lack of Food: Never True Current Housing: I Have Housing Concerned About Future Housing: No Difficulty Paying Gas/Electric Bills: No Difficulty Paying for Meds: No Currently Unemployed: No Education: Trade/Vocational Certificate Difficulty w/ Childcare or Family Care: No Living arrangements: with family Occupation/Education: unemployed 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 Gender identity (if verbalized by the patient): Female Sexual Orientation (if Verbalized by the Patient): Straight or Heterosexual Spiritual care concerns: No Mod Sed Physical Exam Physical Exam Pre Procedural Exam: Normal: Appearance, Lungs, Heart Rate and Heart Rhythm Hours since solid foods: 12 Hours since liquid intake: 12 Mallampati Classification: class III Internal Medicine - PN: Obj Da Vital Signs Vital Signs: Vital Signs - 24 hr 05/04/25 08:16 05/04/25 09:21 05/04/25 10:00 Temperature 36.7 C Pulse Rate 69 61 60 Respiratory Rate 19 18 Blood Pressure 109/70 136/82 Pulse Oximetry 100 98 Oxygen Delivery Oxygen Flow Rate 05/04/25 11:50 05/04/25 12:00 05/04/25 12:00 Temperature 37.0 C Pulse Rate 57 L 68 Respiratory Rate 16 Blood Pressure 111/75 Pulse Oximetry 100 Oxygen Delivery Room Air Oxygen Flow Rate 05/04/25 13:38 05/04/25 16:00 05/04/25 16:00 Temperature Pulse Rate 58 L 59 L Respiratory Rate Blood Pressure Pulse Oximetry Oxygen Delivery Room Air Oxygen Flow Rate 05/04/25 16:00 05/04/25 18:00 05/04/25 19:39 Temperature 36.9 C 36.4 C Pulse Rate 69 85 59 L Respiratory Rate 18 17 Blood Pressure 100/69 91/58 L Pulse Oximetry 100 100 Oxygen Delivery Oxygen Flow Rate 05/04/25 20:00 05/04/25 20:00 05/04/25 21:05 Temperature Pulse Rate 57 L Respiratory Rate Blood Pressure Pulse Oximetry 100 Oxygen Delivery Room Air Room Air Oxygen Flow Rate 05/04/25 22:00 05/04/25 22:59 05/05/25 00:00 Temperature 36.6 C Pulse Rate 56 L 55 L Respiratory Rate 16 Blood Pressure 95/62 L Pulse Oximetry 100 Oxygen Delivery Room Air Oxygen Flow Rate 05/05/25 00:00 05/05/25 02:00 05/05/25 04:00 Temperature 36.9 C Pulse Rate 58 L 63 55 L Respiratory Rate 17 Blood Pressure 116/72 Pulse Oximetry 100 Oxygen Delivery Oxygen Flow Rate 05/05/25 04:00 05/05/25 04:00 Temperature Pulse Rate 57 L Respiratory Rate Blood Pressure Pulse Oximetry 99 Oxygen Delivery Nasal Cannula Oxygen Flow Rate 2 Intake/Output Intake/Output: Intake & Output 05/02/25 05/03/25 05/04/25 05/05/25 23:59 23:59 23:59 23:59 Intake Total 2110.6 100 Output Total 600 600 Balance 1510.6 -500 Meds/Results Medications: Active Medications Generic Name Dose Route Start Last Admin Trade Name Freq PRN Reason Stop Dose Admin Acetaminophen 650 mg 05/04/25 00:50 05/05/25 00:35 Acetaminophen 325 Mg Tablet PO 650 mg Q4H PRN Administration Mild Pain (1-3) or Fever Aspirin 81 mg 05/04/25 09:00 05/04/25 09:53 Aspirin 81 Mg Enteric Tablet PO 81 mg QAM MORE Administration Atorvastatin Calcium 40 mg 05/04/25 09:00 05/04/25 11:44 Atorvastatin 40 Mg Tablet PO 40 mg DAILY MORE Administration Calcium Carbonate 200 mg 05/04/25 21:15 05/05/25 02:55 Calcium Carbonate (Tums) 500 Mg (200 Mg Elemental) PO 200 mg Q6H PRN Administration Indigestion Heparin Sodium (Porcine) 4,000 units 05/04/25 00:36 05/04/25 09:53 Heparin Sodium 5,000 Units/Ml Vial IV PUSH 4,000 units PRN PRN Administration aPTT less than 55 seconds Heparin Sodium (Porcine) 3,000 units 05/04/25 00:36 Heparin Sodium 5,000 Units/Ml Vial IV PUSH PRN PRN aPTT 55 - 70 seconds Heparin Sodium/Dextrose 25,000 units in 250 mls @ 8 mls/hr 05/04/25 00:40 05/05/25 00:50 Heparin Sodium/D5w 100 Units/Ml IV CONT 800 units/hr .Q24H MORE 8 mls/hr Protocol Titration 800 UNITS/HR Morphine Sulfate 1 mg 05/05/25 02:13 05/05/25 06:21 Morphine Sulfate (*Crx) 4 Mg/Ml Inj IV PUSH 1 mg Q2HR PRN Administration Pain Rated 7-10 Nitroglycerin 0.5 inch 05/05/25 03:31 05/05/25 05:00 Nitroglycerin Ointment 1 Inch Dose TRANSDERM 0.5 inch Q4HR MORE Administration Ondansetron HCl 4 mg 05/04/25 00:50 05/05/25 02:23 Ondansetron Inj 4 Mg/2 Ml Vial IV PUSH 4 mg Q4H PRN Administration Nausea Pantoprazole Sodium 40 mg 05/04/25 13:05 05/04/25 21:03 Pantoprazole 40 Mg Tablet PO 40 mg Q12HR MORE Administration Perflutren Lipid Microsphere 0 ml 05/04/25 00:50 Perflutren Lipid Microspheres 1.5 Ml Vial Diluted To 10 Ml Total Volume IV PUSH 05/07/25 00:53 ONCE PRN adequate visualization Protocol Radiology Results: ITS Impressions Chest X-Ray 05/03/25 17:17 IMPRESSION: 1: NO ACUTE CARDIOPULMONARY DISEASE. Chest CTA 05/04/25 08:04 IMPRESSION: 1. No pulmonary embolus. Labs 05/05/25 06:45 05/04/25 09:10 Labs: Laboratory Results - last 24 hr 05/04/25 05/04/25 05/04/25 09:10 16:30 23:11 WBC 10.7 H RBC 4.33 Hgb 12.9 Hct 40.0 MCV 92.4 MCH 29.8 MCHC 32.3 RDW 12.9 Plt Count 211 MPV 11.0 H Immature Gran % (Auto) 0.4 Neut % (Auto) 51.2 Lymph % (Auto) 39.7 George % (Auto) 8.1 Eos % (Auto) 0.1 Baso % (Auto) 0.5 Lymph # (Auto) 4.25 H George # (Auto) 0.9 H Eos # (Auto) 0.0 Baso # (Auto) 0.1 Abs Immat Gran (auto) 0.04 H Absolute Neuts (auto) 5.5 Absolute Nucleated RBC 0.000 Nucleated RBC % 0.0 PT 13.2 INR 1.0 APTT 44.9 H 175.9 H* > 200.0 H* Sodium 139 Potassium 3.5 Chloride 105 Carbon Dioxide 28 Anion Gap 6 BUN 15 Creatinine 0.88 Estim Creat Clear Calc 74 Estimated GFR > 60 Glucose 73 Calcium 8.7 Magnesium 2.5 H Total Bilirubin 0.8 AST 37 H ALT 18 Alkaline Phosphatase 71 Troponin I 0.191 H* Total Protein 7.0 Albumin 4.1 Triglycerides 67 Cholesterol 140 LDL Cholesterol Direct 66 HDL Direct 47 Procalcitonin < 0.0 ASA Classification/Sedation ASA Classification/Sedation ASA Class: III Emergent: No Risks: Risks, benefits and alternatives explained and patient/family accepted plan for sedation. Patient re-evaluated immediately prior to sedation.
--- NOTE | 2025-05-05 06:53 | WPDHPUPDATE1 ---
History and Physical Update Update Date/Time: 05/05/25 06:53 History and Physical has been reviewed, including an updated exam of the patient. There are NO changes in the patient's condition. Risks, benefits, and alternatives have been discussed and questions answered. Patient agrees to proceed with procedure.
[2025-05-05 07:07] LABS: Partial Thromboplastin Time 64.7 Seconds (22.3-36.8)
[2025-05-05] MEDS: HEPARIN SOD/D5W 100 UNITS/ML 25,000 UNITS/250 ML BAG 9 UNITS IV CONT (07:17)
[2025-05-05 07:19] LABS: Troponin I 0.083 ng/mL (0.000-0.034)
[2025-05-05] MEDS: ATORVASTATIN 40 MG TABLET PO (07:49)
[2025-05-05] MEDS: ASPIRIN 81 MG ENTERIC TABLET PO (07:49)
[2025-05-05] MEDS: PANTOPRAZOLE 40 MG TABLET PO ×2 (07:50→21:03)
--- NOTE | 2025-05-05 08:31 | PC.NURSE ---
Pt off of floor for cardiac cath procedure at 0830.
--- NOTE | 2025-05-05 09:12 | WPDCARDPROC ---
Cardiac Cath Procedure Note Date of procedure:: 05/05/25 Performing physician:: Viviana Eason MD Indication:: CATHETERIZATION LABORATORY REPORT Procedure Date: 05/05/2015 Referring Physician: Anesthesia: Versed and Fentanyl were ordered and given in my presence at 8:45 a.m., procedure ended at 9:00 a.m.. Supervision of nurse monitored moderate sedation with Versed and Fentanyl was provided for 15 minutes. Pre-op Diagnosis: NSTEMI Post-op Diagnosis: Noncardiac chest pain No CAD Procedure(s): Left heart catheterization with coronary angiography Ultrasound-guided Right radial artery access Access Site: Right radial artery Brief History and Clinical Indications: All risks, benefits and alternatives to left heart catheterization with or without percutaneous coronary intervention was discussed at length with the patient. Risk of complications including but not limited to bleeding, infection, arrhythmia, stroke, worsening kidney function, blood loss, groin hematoma, limb loss, emergency coronary artery bypass grafting, and even were discussed with the patient and all questions were answered. The patient understood and wished to proceed. Time out called, patient name, date of , medical record number, allergies, procedure performed, identify Floor Space Allocator, patient and staff member concurred with accurate data, procedure carried on. Findings: LEFT HEART CATHETERIZATION FINDINGS: 1. Left main: The left main coronary artery is widely patent without any significant obstructive disease. 2. Left anterior descending: The LAD and the diagonal branches are widely patent without any significant obstructive angiographic disease. 3. Left circumflex: The left circumflex artery and the main marginal branches are widely patent without any significant obstructive angiographic disease. 4. Right coronary artery: The RCA is widely patent without any significant obstructive angiographic disease. The RCA is the dominant vessel. The RCA gives the RPDA and RPL branches which are both widely patent without any significant obstructive angiographic disease. 5. Left ventricle: A. End-diastolic pressure 28 mmHg. B. LV gram deferred. C. No significant gradient across aortic valve on catheter pullback. 6. Opening AO pressure 103/58/80 and closing AO pressure 103/74/80 9 mm Hg RIGHT HEART CATHETERIZATION FINDINGS: Description of Procedure: Informed consent signed and placed in the chart. Patient transferred to laboratory animal caretaker room. Prepped and draped in usual sterile fashion. 2% lidocaine injected subcutaneously in right wrist area. 22-gauge venipuncture catheter used to access the right radial artery with the Seldinger technique. 6-FR slender sheath placed in right radial artery. Nitroglycerin 200mcg, Verapamil 2.5mg, and Heparin 5000U was given intraarterial through the sheath. J wire advanced under fluoroscopy Five [place] JL 3.5 diagnostic catheter engaged Left Main Coronary Artery. 5 [place] JR4 diagnostic catheter engaged Right Coronary Artery Multiple orthogonal angiogram obtained and reviewed 5 [place] JR4 diagnostic catheter crossed aortic valve to obtain LVEDP, LV angiogram deferred. Hemostasis was achieved by application of TR band. Assessment: Noncardiac chest pain; no CAD Post Operative Condition: Stable No significant blood loss Disposition: Floor/Home Plan: The patient will be monitored in the recovery area. Evaluate for noncardiac causes of chest pain. TR band removal per protocol. Normal saline 500 mL at 100 mL per hour. Viviana Eason MD, MS, FACC, [facility] Interventional Cardiology
[2025-05-05] MEDS: SODIUM CHLORIDE 0.9% IV 1,000 ML 125 ML IV CONT (09:58)
[2025-05-05] MEDS: PERFLUTREN LIPID MICROSPHERES 1.5 ML VIAL DILUTED TO 10 ML TOTAL VOLUME IV PUSH (14:50)
--- NOTE | 2025-05-05 14:51 | IVDEFINITY ---
Prior to administration of IV Definity the patient was educated on the risks and benefits of the imaging enhancing agent including potential adverse side effects. The patient verbalized understanding. Allergies were verified. No exclusion criteria were identified and at least one of the following inclusion criteria were met: 1) physician request, 2) patient technically difficult to image (per the [place] [employer] guidelines of two or more segments not discernable within the apical view), or 3) questionable left ventricular function. ?
--- NOTE | 2025-05-05 18:14 | PM.IMPN ---
Progress Note: A&P Assessment and Plan (1) Chest pain: Qualifiers: Chest pain type: unspecified Qualified Code(s): R07.9 - Chest pain, unspecified Code(s): R07.9 - Chest pain, unspecified Status: Acute Assessment and Plan: -cardiac catheterization shows no evidence of CAD -started atorvastatin 40 mg, and add aspirin 81 mg to his regimen -Cardiology consulted from ED -continue heparin drip and give sublingual nitro if needed -Echocardiogram pending -Denies any illicit drug use -Reviewed EKG and CXR (2) GERD (gastroesophageal reflux disease): Qualifiers: Esophagitis presence: esophagitis presence not specified Qualified Code(s): K21.9 - Gastro-esophageal reflux disease without esophagitis Code(s): K21.9 - Gastro-esophageal reflux disease without esophagitis Status: Acute Assessment and Plan: Pantoprazole 40 mg p.o. b.i.d. GI consult Plan Code status full code DVT prophylaxis heparin drip Subjective Date/time seen: 05/05/25 18:14 Interval history: Patient underwent cardiac catheterization but no evidence of CAD patient still complains of GERD. Patient requesting to be seen by sales and management trainee and Consulted GI Review of Systems Review of Systems: All systems reviewed & are unremarkable except as noted in HPI and below (Subjective) Exam Const: General: comfortable and no acute distress Other: A&O x3 HENMT: Mouth: Yes moist mucous membranes Eyes: Pupils: Equal, round and reactive pupils present Neck: Neck: supple Resp: Effort & Inspection: normal respiratory effort Auscultation: clear to auscultation bilaterally Cardio: Rate: regular rate Rhythm: regular rhythm Heart sounds: no murmurs Neuro: Cranial nerves: Yes Equal, round and reactive pupils present Motor exam (neuro): 5/5 motor strength present throughout Extrem: General: no edema Objective Data Vital Signs Vital Signs: Vital Signs - 24 hr 05/04/25 19:39 05/04/25 20:00 05/04/25 20:00 Temperature 97.6 F Pulse Rate 59 L 57 L Pulse Rate [Bilateral Pedal (Dorsalis Pedis) Palpation] Respiratory Rate 17 Blood Pressure 91/58 L Pulse Oximetry 100 Oxygen Delivery Room Air Oxygen Flow Rate 05/04/25 21:05 05/04/25 22:00 05/04/25 22:59 Temperature 97.8 F Pulse Rate 56 L 55 L Pulse Rate [Bilateral Pedal (Dorsalis Pedis) Palpation] Respiratory Rate 16 Blood Pressure 95/62 L Pulse Oximetry 100 100 Oxygen Delivery Room Air Oxygen Flow Rate 05/05/25 00:00 05/05/25 00:00 05/05/25 02:00 Temperature Pulse Rate 58 L 63 Pulse Rate [Bilateral Pedal (Dorsalis Pedis) Palpation] Respiratory Rate Blood Pressure Pulse Oximetry Oxygen Delivery Room Air Oxygen Flow Rate 05/05/25 04:00 05/05/25 04:00 05/05/25 04:00 Temperature 98.5 F Pulse Rate 55 L 57 L Pulse Rate [Bilateral Pedal (Dorsalis Pedis) Palpation] Respiratory Rate 17 Blood Pressure 116/72 Pulse Oximetry 100 99 Oxygen Delivery Nasal Cannula Oxygen Flow Rate 2 05/05/25 06:00 05/05/25 08:00 05/05/25 08:00 Temperature Pulse Rate 53 L 75 Pulse Rate [Bilateral Pedal (Dorsalis Pedis) Palpation] Respiratory Rate Blood Pressure Pulse Oximetry Oxygen Delivery Room Air Oxygen Flow Rate 05/05/25 08:04 05/05/25 09:20 05/05/25 09:20 Temperature 98.0 F Pulse Rate 60 71 Pulse Rate [Bilateral Pedal (Dorsalis Pedis) Palpation] 71 Respiratory Rate 20 15 Blood Pressure 98/69 L 102/67 Pulse Oximetry 100 Oxygen Delivery Room Air Oxygen Flow Rate 05/05/25 09:30 05/05/25 09:30 05/05/25 09:45 Temperature Pulse Rate 69 Pulse Rate [Bilateral Pedal (Dorsalis Pedis) Palpation] 69 79 Respiratory Rate 17 Blood Pressure 100/83 Pulse Oximetry 98 Oxygen Delivery Room Air Oxygen Flow Rate 05/05/25 09:45 05/05/25 10:00 05/05/25 10:00 Temperature Pulse Rate 79 69 Pulse Rate [Bilateral Pedal (Dorsalis Pedis) Palpation] 69 Respiratory Rate 12 17 Blood Pressure 115/78 95/77 L Pulse Oximetry 100 99 Oxygen Delivery Room Air Room Air Oxygen Flow Rate 05/05/25 10:15 05/05/25 10:15 05/05/25 10:30 Temperature Pulse Rate 56 L Pulse Rate [Bilateral Pedal (Dorsalis Pedis) Palpation] 56 L 74 Respiratory Rate 12 Blood Pressure 92/54 L Pulse Oximetry 99 Oxygen Delivery Room Air Oxygen Flow Rate 05/05/25 10:30 05/05/25 10:45 05/05/25 10:45 Temperature Pulse Rate 74 65 Pulse Rate [Bilateral Pedal (Dorsalis Pedis) Palpation] 65 Respiratory Rate 12 19 Blood Pressure 90/55 L 97/65 L Pulse Oximetry 100 98 Oxygen Delivery Room Air Room Air Oxygen Flow Rate 05/05/25 11:00 05/05/25 11:00 05/05/25 11:15 Temperature Pulse Rate 65 Pulse Rate [Bilateral Pedal (Dorsalis Pedis) Palpation] 66 56 L Respiratory Rate 20 Blood Pressure 97/76 L Pulse Oximetry 100 Oxygen Delivery Room Air Oxygen Flow Rate 05/05/25 11:15 05/05/25 11:30 05/05/25 11:30 Temperature Pulse Rate 56 L 65 Pulse Rate [Bilateral Pedal (Dorsalis Pedis) Palpation] 65 Respiratory Rate 14 17 Blood Pressure 92/71 L 81/53 L Pulse Oximetry 98 100 Oxygen Delivery Room Air Room Air Oxygen Flow Rate 05/05/25 11:45 05/05/25 11:45 05/05/25 12:00 Temperature Pulse Rate 57 L Pulse Rate [Bilateral Pedal (Dorsalis Pedis) Palpation] 57 L 61 Respiratory Rate 11 L Blood Pressure 97/69 L Pulse Oximetry 100 Oxygen Delivery Room Air Oxygen Flow Rate 05/05/25 12:00 05/05/25 12:15 05/05/25 12:15 Temperature Pulse Rate 61 68 Pulse Rate [Bilateral Pedal (Dorsalis Pedis) Palpation] 68 Respiratory Rate 15 20 Blood Pressure 92/65 L 90/58 L Pulse Oximetry 98 100 Oxygen Delivery Room Air Room Air Oxygen Flow Rate 05/05/25 12:30 05/05/25 12:30 05/05/25 12:45 Temperature Pulse Rate 63 Pulse Rate [Bilateral Pedal (Dorsalis Pedis) Palpation] 63 65 Respiratory Rate 15 Blood Pressure 90/72 L Pulse Oximetry 100 Oxygen Delivery Room Air Oxygen Flow Rate 05/05/25 12:45 05/05/25 13:00 05/05/25 13:00 Temperature 98 F Pulse Rate 65 61 Pulse Rate [Bilateral Pedal (Dorsalis Pedis) Palpation] 61 Respiratory Rate 15 15 Blood Pressure 88/66 L 95/60 L Pulse Oximetry 100 98 Oxygen Delivery Room Air Room Air Oxygen Flow Rate 05/05/25 13:27 05/05/25 14:00 05/05/25 14:48 Temperature 97.3 F L Pulse Rate 68 72 63 Pulse Rate [Bilateral Pedal (Dorsalis Pedis) Palpation] Respiratory Rate 18 Blood Pressure 109/59 L 112/75 Pulse Oximetry 100 Oxygen Delivery Oxygen Flow Rate 05/05/25 15:30 05/05/25 16:00 05/05/25 16:15 Temperature 98.1 F Pulse Rate 68 67 Pulse Rate [Bilateral Pedal (Dorsalis Pedis) Palpation] Respiratory Rate 18 Blood Pressure 93/68 L Pulse Oximetry 98 Oxygen Delivery Room Air Oxygen Flow Rate 05/05/25 17:14 05/05/25 17:48 Temperature Pulse Rate 72 Pulse Rate [Bilateral Pedal (Dorsalis Pedis) Palpation] Respiratory Rate Blood Pressure 110/63 Pulse Oximetry Oxygen Delivery Oxygen Flow Rate Intake/Output Intake/Output: Intake & Output 05/02/25 05/03/25 05/04/25 05/05/25 23:59 23:59 23:59 23:59 Intake Total 2110.6 139.4 Output Total 600 800 Balance 1510.6 -660.6 Meds/Results Medications: Active Medications Generic Name Dose Route Start Last Admin Trade Name Freq PRN Reason Stop Dose Admin Acetaminophen 650 mg 05/04/25 00:50 05/05/25 09:59 Acetaminophen 325 Mg Tablet PO 650 mg Q4H PRN Administration Mild Pain (1-3) or Fever Hydrocodone Bitart/Acetaminophen 1 tab 05/05/25 17:46 Hydrocodone/Acetaminophen (*Crx) 5-325 Mg Tablet PO Q4H PRN Pain Rated 6 or Greater Calcium Carbonate 200 mg 05/04/25 21:15 05/05/25 17:49 Calcium Carbonate (Tums) 500 Mg (200 Mg Elemental) PO 200 mg Q6H PRN Administration Indigestion Morphine Sulfate 1 mg 05/05/25 02:13 05/05/25 13:56 Morphine Sulfate (*Crx) 4 Mg/Ml Inj IV PUSH 1 mg Q2HR PRN Administration Pain Rated 7-10 Ondansetron HCl 4 mg 05/04/25 00:50 05/05/25 14:54 Ondansetron Inj 4 Mg/2 Ml Vial IV PUSH 4 mg Q4H PRN Administration Nausea Pantoprazole Sodium 40 mg 05/04/25 13:05 05/05/25 07:50 Pantoprazole 40 Mg Tablet PO 40 mg Q12HR MORE Administration Radiology Results: ITS Impressions Chest X-Ray 05/03/25 17:17 IMPRESSION: 1: NO ACUTE CARDIOPULMONARY DISEASE. Chest CTA 05/04/25 08:04 IMPRESSION: 1. No pulmonary embolus. Labs Labs: Laboratory Results - last 24 hr 05/04/25 05/05/25 23:11 06:45 WBC 6.6 RBC 4.00 L Hgb 11.7 L Hct 37.6 MCV 94.0 MCH 29.3 MCHC 31.1 L RDW 13.0 Plt Count 190 MPV 11.1 H Immature Gran % (Auto) 0.3 Neut % (Auto) 39.9 L Lymph % (Auto) 52.0 H [place] % (Auto) 6.4 Eos % (Auto) 0.5 Baso % (Auto) 0.9 Lymph # (Auto) 3.42 H [place] # (Auto) 0.4 Eos # (Auto) 0.0 Baso # (Auto) 0.1 Abs Immat Gran (auto) 0.02 Absolute Neuts (auto) 2.6 Absolute Nucleated RBC 0.000 Nucleated RBC % 0.0 APTT > 200.0 H* 64.7 H Troponin I 0.083 H* Hospitalist MIPS Advance Care Plan I have confirmed that the patient's Advanced Care Plan is present, code status is documented, or surrogate decision maker is listed in patient medical record.: Yes Medication Reconciliation I have utilized all available resources to obtain, update and review the patients current medications (includes all prescriptions, OTC, herbals, cannabis, and nutritional supplements).: Yes
[2025-05-05] MEDS: HYDROcodone/acetaminophen (*CRX) 5-325 MG TABLET 1 TAB PO (18:16)
[2025-05-06] VITALS (9 sets, daily range): BP systolic 104–127; BP diastolic 56–83; PULSE 59–80; RESP 17–18; TEMP 36.6–36.7; O2SAT 94–99
[2025-05-06 03:57] LABS: Hematocrit 36.3 % (37.0-47.0); Hemoglobin 11.4 g/dL (12.0-15.0); Mean Corpuscular HGB Conc 31.4 g/dl (32-36); Mean Corpuscular Hemoglobin 29.5 pg (26-34); Mean Corpuscular Volume 93.8 fl (80-100); Platelet Count Result 171 k/mm3 (150-375); Red Blood Count 3.87 M/mm3 (4.2-5.4); White Blood Count 6.2 K/mm3 (4.5-10.0)
[2025-05-06 04:23] LABS: Alanine Aminotransferase 14 U/L (6-35); Albumin Level 3.3 g/dL (3.5-5.1); Alkaline Phosphatase 69 U/L (38-126); Anion Gap 3 mmol/L (4-12); Aspartate Amino Transferase 21 U/L (14-36); Bilirubin,Total 0.4 mg/dL (0.2-1.3); Blood Urea Nitrogen 14 mg/dL (7-17); Calcium 8.6 mg/dL (8.4-10.2); Carbon Dioxide 27 mmol/L (22-30); Chloride 107 mmol/L (98-107); Estimated CRCL calculation 76 ml/min; Estimated Glomerular Filt Rate > 60; Glucose 77 mg/dL (65-110); Potassium 4.3 mmol/L (3.4-5.0); Sodium 137 mmol/L (137-145); Total Protein 5.6 g/dL (6.3-8.2)
--- NOTE | 2025-05-06 07:43 | P.CONGI_ITS ---
Assessment and Plan Assessment and plan (1) GERD (gastroesophageal reflux disease): Qualifiers: Esophagitis presence: esophagitis presence not specified Qualified Code(s): K21.9 - Gastro-esophageal reflux disease without esophagitis Code(s): K21.9 - Gastro-esophageal reflux disease without esophagitis Status: Acute (2) Early satiety: Code(s): R68.81 - Early satiety Status: Acute (3) Decreased appetite: Code(s): R63.0 - Anorexia Status: Acute (4) Gastritis: Qualifiers: Gastritis type: superficial Chronicity: chronic Gastritis bleeding: w ithout bleeding Qualified Code(s): K29.30 - Chronic superficial gastritis without bleeding Code(s): K29.70 - Gastritis, unspecified, without bleeding Status: Acute (5) Colon cancer screening: Code(s): Z12.11 - Encounter for screening for malignant neoplasm of colon Status: Acute (6) Mixed irritable bowel syndrome: Code(s): K58.2 - Mixed irritable bowel syndrome Status: Acute (7) Family history of colon cancer: Code(s): Z80.0 - Family history of malignant neoplasm of digestive organs Status: Acute Plan 1. Non cardiac chest pain/GERD/nausea/early satiety/gastritis: Patient has had 3 EGDs since 2013 for this chronic non cardiac chest pain 2 EGD showed mild chronic gastritis. Most recent EGD was performed 02/05/2023. She states that prior to this admission the pain was different as it was also accompanied with shortness of breath. Her pain is typically in her upper abdomen and varies in location but often moves throughout her chest. Prior to this admission this pain was intermittent in nature but for a few days prior to admission the pain was more constant. She admits to intermittent nausea and more frequent reflux. Patient had positive troponins and NSTEMI but cardiac catheterization performed on the was normal. H&H on admission was normal at 15/45 and today but no signs of active GI bleeding may be dilutional. LFTs normal and lipase normal at 193. She has been on omeprazole 40 mg b.i.d. or Protonix 40 mg b.i.d. for a few years. Recently she has been having more frequent episodes of breakthrough reflux and has been using chewable Gaviscon as needed with mild improvement. She had previously tried Carafate which she did not tolerate as she states it ?made her sick?. Patient was last seen in the GI office by DAVIS Chang 10/23/2023 at which time the pH impedance and esophageal manometry was ordered but patient states that she did not have this completed as ?the sound of the tests scared her and she had a HIDA scan February of 2023 which was normal showing an EF of 87%. Patient was previously on Zepbound x 1 year but around 4 months ago was changed to Weygovy with her last injection on and she states that her GI symptoms worsened the following day. Patient does admit to a decreased appetite, intentional weight loss and early satiety unclear if this is secondary to Weygovy or another underlying motility disorder. Prior to admission patient was on daily Celebrex and following her cardiac catheterization she was started on aspirin 81 mg daily. She denies any other NSAID use. DDX: Functional vs motility disorder vs gastritis vs PUD less likely neoplasm. * Plan for upper GI series with small-bowel, radiology is unavailable to perform this test until Friday. Given that there has not been any significant change in her GI complaints I will schedule this test outpatient so that the patient does not have to remain hospitalized throughout the weekend * Continue omeprazole 40 mg b.i.d. outpatient * Continue Gaviscon as needed outpatient * Avoid using any additional NSAID's since already taking Celebrex and aspirin 81 mg * If workup is unremarkable and symptoms persist may consider repeat EGD 2. Colon cancer screening/IBS-mixed/family Hx of colon cancer: Patient has never had a colonoscopy. Family history includes 2 paternal aunts with colon cancer. Patient admits to IBS mixed. She has occasional diarrhea and mild constipation. She states she typically does not go more than 3 days without a bowel movement. If constipation causes discomfort she will take magnesium citrate on a rare as needed basis. She had previously tried MiraLax with mild improvement. Patient is on Weygovy which may be a partially contributing cause to her constipation and diarrhea depending time from injection and dose changes. She denies any hematochezia or melena. Denies any unintentional weight loss. * Patient to follow-up with GI office outpatient at which time we can order colonoscopy +/- EGD Thank you very much for allowing me to share in the care of this very nice patient. This report may have been done utilizing a voice recognition system. Attempts have been made to correct errors. However, there may be uncorrected grammatical, spelling, and recognition errors present. GI Consult Note Consult date/time: 05/06/25 07:43 Reason for consult: GERD HPI: Lore Jacobs is a 49 year old female fibromyalgia, GERD, SAMANTHA, history of small-bowel obstruction, anxiety, asthma, depression, x3, hysterectomy, and exploratory laparoscopy x2. She presented to the ER 05/03/2025 with complaints of sharp substernal and LUQ pain x 4 days. Patient was seen for similar complaints on 04/02/2025. Patient was admitted for NSTEMI. GI has been consulted for GERD. On admission patient was shown to be in sinus rhythm with T-wave inversion, septal myocardial infarction age indeterminate. She had a cardiac catheterization 05/04/2025 which was unremarkable. Patient with a history of chronic epigastric/chest pain with 1st EGD performed in 2013. Since 2013 she has had 3 EGDs which were unremarkable except mild gastritis. Patient has been on long-term PPI use and was taking omeprazole 40 mg b.i.d. prior to admission. She states that her PCP recently changed her omeprazole to famotidine but she did not make this medication changed yet. Patient states that her chest pain prior to this admission was different from before as she was also having shortness of breath. Patient complains today of upper abdominal pain that varies from sharp to dull. This pain is typically intermittent but over the past few days has been constant and moves throughout her chest. For many years the patient states that she has pain in her epigastric region if she presses in that area. She admits to intermittent nausea without vomiting. Despite being on b.i.d. PPI she still is having breakthrough reflux and uses Gaviscon choose with partial improvement. She denies bloating, odynophagia, dysphagia, regurgitation. Patient had been on Zepbound x 1 year and around 4 months ago was changed to Weygovy and states that her last injection was and her worsening GI symptoms started the next day. While on medication she is having a decreased appetite, intentional weight loss and early satiety. Patient admits to intermittent bowels that vary from diarrhea to constipation but she typically never goes more than 3 days without a bowel movement. Patient states that during this hospitalization she has been experiencing constipation stating that her last bowel movement was on Friday. She denies any diarrhea this admission and also denies any recent hematochezia or melena. Prior to admission she was taking Celebrex daily and following her cardiac catheterization was started on aspirin 81 mg daily. She denies any other anticoagulants. She is a social drinker, rare tobacco user, and admits to marijuana use. Patient's family history includes 2 paternal aunts with colon cancer. ENDOSCOPY HISTORY: EGD: 02/05/[address] James for noncardiac chest pain Findings: The esophagus was examined mucosa was normal with a normal Z-line and no ulcers or masses. No esophagitis. The Z-line was located 40 cm from the incisors Mild gastritis was seen in the antrum. The gastritis had a mild erythematous change. Biopsies taken The bulb and 2nd portion of the duodenum was normal with no ulcers or masses Following EGD a HIDA scan was ordered Bx results: Stomach, biopsy: - Mild chronic gastritis - No H. pylori EGD: 02/04/[address] James for GERD and noncardiac chest pain Findings: The esophagus was examined mucosa was normal with a normal Z-line and no ulcers or masses. No esophagitis. The Z-line was located 39 cm from the incisors Mild gastritis was seen in the antrum. The gastritis had a mild erythematous change, no erosions, no ulcers. Biopsies taken The bulb and 2nd portion of the duodenum was normal with no ulcers or masses Bx results: Small intestine, endoscopic biopsy (A): * Negative for significant histopathologic abnormalities Stomach, endoscopic biopsy (B): * Chronic gastritis, minimal with mild atrophy Esophagus, endoscopic biopsy (C): * Negative for significant histopathologic abnormalities EGD: 07/21/[address] Dye for epigastric pain Findings: Normal EGD COLONOSCOPY: Patient has never had colonoscopy LABS AND STOOL STUDIES: Labs 05/06/2025: WBC 6, Hgb 11, Hct 36, MCV 94, platelets 171 Sodium 137, potassium 4.3, BUN 14, creatinine 0.89, GFR >60, calcium 8.6 Total bilirubin 0.4, AST 21, ALT 14, Alkaline Phos 69, albumin 3.3 Labs 05/03/2025: WBC 9, Hgb 15, Hct 45, MCV 89, platelets 243, INR 0.9 Sodium 136, potassium 3.9, BUN 16, creatinine 0.98, GFR 60, calcium 10 Total bilirubin 0.8, AST 30, ALT 25, Alkaline Phos 95, albumin 4.9, lipase 193 IMAGING: * No recent GI imaging available* CT abd/pelvis w/contrast 07/15/2023: Impression: No significant abnormalities seen. HIDA scan 02/2023: Normal with EF 87% Review of Systems 2 Constitutional: Constitutional: Reports as per HPI ENT: Reports as per HPI Cardiovascular: Cardiovascular: Reports as per HPI, Denies chest pain and Denies dyspnea Respiratory: Respiratory: Denies cough and Denies dyspnea Gastrointestinal: Gastrointestinal: Reports as per HPI Musculoskeletal: Musculoskeletal: Reports as per HPI Integumentary/Breasts: Skin/Breast: Reports as per HPI Psychiatric: Psychiatric: Reports as per HPI Endocrine: Endocrine: Reports no additional endocrine complaints Hematologic/Lymphatic: Hematologic/Lymphatic: Reports no additional hematologic/lymphatic complaints [facility] Past Medical History Medical History Fibromyalgia GERD (gastroesophageal reflux disease) Elevated glucose Bronchitis Folliculitis Non-cardiac chest pain Neck pain Nausea COVID-19 Back pain with history of spinal surgery SAMANTHA (obstructive sleep apnea) Tobacco abuse IBS (irritable bowel syndrome) Small bowel obstruction Anxiety Asthma Major depressive disorder, single episode, unspecified Ulnar neuropathy of both upper extremities Hypertension Surgical History Surgical History History of laparoscopy x 2 exploratory laparoscopy due to abdominal pain in her 20's with no reported significant findings. History of back surgery X3 (total 5 spinal surgeries) History of carpal tunnel release Bilaterally H/O section X3 H/O: hysterectomy Open partial hysterectomy followed by left salpingo-oophorectomy and eventually right salpingo-oophorectomy. Total of 3 surgeries. Family History Family History Mother Diabetes mellitus Hypertension Heart disease COVID-19 Lung cancer Father Diabetes mellitus Hypertension Heart disease COVID-19 S/P triple vessel bypass, Onset Age: 65 Sibling COVID-19 Social History Social History Social History: She is . She has 3 children. She is a full code and desires to have her to be her decision-maker if needed. She does not use alcohol marijuana or illicit drugs. Smoking packs per day: 0.5 Smoking cigarettes per day: 10.0 Years smoked: 20 Smoking pack-years: 10.00 Smoking status: Current every day smoker Tobacco type: cigarettes Second hand tobacco smoke exposure: No Smoking end date: 01/28/22 Alcohol intake: current Alcohol use details: SOCIALLY Substance use: former Substance use type: marijuana Last use: 11-12 days ago Do You Feel Safe in your Home?: Yes Lack of Transportation: No Lack of Food: Never True Current Housing: I Have Housing Concerned About Future Housing: No Difficulty Paying Gas/Electric Bills: No Difficulty Paying for Meds: No Currently Unemployed: No Education: Trade/Vocational Certificate Difficulty w/ Childcare or Family Care: No Living arrangements: with family Occupation/Education: unemployed 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 Gender identity (if verbalized by the patient): Female Sexual Orientation (if Verbalized by the Patient): Straight or Heterosexual Spiritual care concerns: No Meds Home Medications and Allergies Home Medications ?Medication ?Instructions ?Recorded ?Confirmed ?Type alprazolam 1 mg tablet 1 mg PO DAILY PRN Anxiety 05/04/25 History cholecalciferol (vitamin D3) 1,250 50,000 unit PO WEEK LY 04/09/24 05/04/25 History mcg (50,000 unit) capsule fluticasone 250 mcg-salmeterol 50 1 inh inhalation AKASH LY #60 ea 04/21/24 05/04/25 Rx mcg/dose blistr powdr for inhalation (Advair Diskus) ubrogepant 50 mg tablet (Ubrelvy) 50 mg PO DAILY PRN M igraine 05/19/24 05/04/25 Rx Headache #30 tabs nitroglycerin 0.4 mg sublingual 0.4 mg sublingual Q5M PRN chest 12/09/24 05/04/25 Rx tablet pain #20 tabs albuterol sulfate 90 mcg/actuation 2 puff inhalation Q 4H PRN 01/29/25 05/04/25 Rx aerosol inhaler Shortness Of Breath #8.5 gra ms atogepant 30 mg tablet (Qulipta) 30 mg PO DAILY #90 ta bs 03/21/25 05/04/25 Rx sumatriptan 20 mg/actuation nasal 20 mg intranasal ONC E #6 ea 03/21/25 05/04/25 Rx spray celecoxib 200 mg capsule 200 mg PO Q12H 03/24/2504/12 History tizanidine 4 mg capsule 4 mg PO TID PRN muscle spast icity 03/28/25 05/04/25 Rx #90 caps lisinopril 20 See Rx Instructions .Route 0 04/11/25 05/04/25 Rx mg-hydrochlorothiazide 12.5 mg .COMPLEX #90 tabs tablet semaglutide (weight loss) 1 mg/0.5 1 mg (0.5 mL) subcu t WEEKLY #2 mL 04/15/25 05/04/25 Rx mL subcutaneous pen injector hydrocodone 5 mg-acetaminophen 325 1 tablet PO Q6H PRN pain 04/18/25 05/04/25 History mg tablet famotidine 20 mg tablet 20 mg PO Q12H #180 tabs 04/1205/04/25 Rx Allergies Allergy/AdvReac Type Severity Reaction Status Date / Time amoxicillin Allergy Intermediate Rash Verified 05/03/25 16:58 Cephalosporins Allergy Intermediate Rash Verified 05/03/25 16:58 Penicillins Allergy Intermediate Rash Verified 05/03/25 16:58 ketorolac AdvReac Intermediate Nausea and Verified 05/03/25 16:58 Vomiting clarithromycin AdvReac Mild GI Verified 05/03/25 16:58 Vital Signs Vital Signs - 24 hr 05/05/25 08:00 05/05/25 08:00 05/05/25 08:04 Temperature 98.0 F Pulse Rate 75 60 Pulse Rate [Bilateral Pedal (Dorsalis Pedis) Palpation] Respiratory Rate 20 Blood Pressure 98/69 L Pulse Oximetry Oxygen Delivery Room Air Fraction of Inspired Oxygen 05/05/25 09:20 05/05/25 09:20 05/05/25 09:30 Temperature Pulse Rate 71 Pulse Rate [Bilateral Pedal (Dorsalis Pedis) Palpation] 71 69 Respiratory Rate 15 Blood Pressure 102/67 Pulse Oximetry 100 Oxygen Delivery Room Air Fraction of Inspired Oxygen 05/05/25 09:30 05/05/25 09:45 05/05/25 09:45 Temperature Pulse Rate 69 79 Pulse Rate [Bilateral Pedal (Dorsalis Pedis) Palpation] 79 Respiratory Rate 17 12 Blood Pressure 100/83 115/78 Pulse Oximetry 98 100 Oxygen Delivery Room Air Room Air Fraction of Inspired Oxygen 05/05/25 10:00 05/05/25 10:00 05/05/25 10:15 Temperature Pulse Rate 69 Pulse Rate [Bilateral Pedal (Dorsalis Pedis) Palpation] 69 56 L Respiratory Rate 17 Blood Pressure 95/77 L Pulse Oximetry 99 Oxygen Delivery Room Air Fraction of Inspired Oxygen 05/05/25 10:15 05/05/25 10:30 05/05/25 10:30 Temperature Pulse Rate 56 L 74 Pulse Rate [Bilateral Pedal (Dorsalis Pedis) Palpation] 74 Respiratory Rate 12 12 Blood Pressure 92/54 L 90/55 L Pulse Oximetry 99 100 Oxygen Delivery Room Air Room Air Fraction of Inspired Oxygen 05/05/25 10:45 05/05/25 10:45 05/05/25 11:00 Temperature Pulse Rate 65 Pulse Rate [Bilateral Pedal (Dorsalis Pedis) Palpation] 65 66 Respiratory Rate 19 Blood Pressure 97/65 L Pulse Oximetry 98 Oxygen Delivery Room Air Fraction of Inspired Oxygen 05/05/25 11:00 05/05/25 11:15 05/05/25 11:15 Temperature Pulse Rate 65 56 L Pulse Rate [Bilateral Pedal (Dorsalis Pedis) Palpation] 56 L Respiratory Rate 20 14 Blood Pressure 97/76 L 92/71 L Pulse Oximetry 100 98 Oxygen Delivery Room Air Room Air Fraction of Inspired Oxygen 05/05/25 11:30 05/05/25 11:30 05/05/25 11:45 Temperature Pulse Rate 65 Pulse Rate [Bilateral Pedal (Dorsalis Pedis) Palpation] 65 57 L Respiratory Rate 17 Blood Pressure 81/53 L Pulse Oximetry 100 Oxygen Delivery Room Air Fraction of Inspired Oxygen 05/05/25 11:45 05/05/25 12:00 05/05/25 12:00 Temperature Pulse Rate 57 L 61 Pulse Rate [Bilateral Pedal (Dorsalis Pedis) Palpation] 61 Respiratory Rate 11 L 15 Blood Pressure 97/69 L 92/65 L Pulse Oximetry 100 98 Oxygen Delivery Room Air Room Air Fraction of Inspired Oxygen 05/05/25 12:15 05/05/25 12:15 05/05/25 12:30 Temperature Pulse Rate 68 Pulse Rate [Bilateral Pedal (Dorsalis Pedis) Palpation] 68 63 Respiratory Rate 20 Blood Pressure 90/58 L Pulse Oximetry 100 Oxygen Delivery Room Air Fraction of Inspired Oxygen 05/05/25 12:30 05/05/25 12:45 05/05/25 12:45 Temperature Pulse Rate 63 65 Pulse Rate [Bilateral Pedal (Dorsalis Pedis) Palpation] 65 Respiratory Rate 15 15 Blood Pressure 90/72 L 88/66 L Pulse Oximetry 100 100 Oxygen Delivery Room Air Room Air Fraction of Inspired Oxygen 05/05/25 13:00 05/05/25 13:00 05/05/25 13:27 Temperature 98 F 97.3 F L Pulse Rate 61 68 Pulse Rate [Bilateral Pedal (Dorsalis Pedis) Palpation] 61 Respiratory Rate 15 18 Blood Pressure 95/60 L 109/59 L Pulse Oximetry 98 100 Oxygen Delivery Room Air Fraction of Inspired Oxygen 05/05/25 14:00 05/05/25 14:48 05/05/25 15:30 Temperature Pulse Rate 72 63 Pulse Rate [Bilateral Pedal (Dorsalis Pedis) Palpation] Respiratory Rate Blood Pressure 112/75 Pulse Oximetry Oxygen Delivery Room Air Fraction of Inspired Oxygen 05/05/25 16:00 05/05/25 16:15 05/05/25 17:14 Temperature 98.1 F Pulse Rate 68 67 72 Pulse Rate [Bilateral Pedal (Dorsalis Pedis) Palpation] Respiratory Rate 18 Blood Pressure 93/68 L Pulse Oximetry 98 Oxygen Delivery Fraction of Inspired Oxygen 05/05/25 17:48 05/05/25 19:53 05/05/25 20:00 Temperature 97.8 F Pulse Rate 75 Pulse Rate [Bilateral Pedal (Dorsalis Pedis) Palpation] Respiratory Rate 17 Blood Pressure 110/63 103/59 L Pulse Oximetry 94 Oxygen Delivery Fraction of Inspired Oxygen 05/05/25 21:00 05/05/25 21:03 05/05/25 22:00 Temperature Pulse Rate 72 77 80 Pulse Rate [Bilateral Pedal (Dorsalis Pedis) Palpation] Respiratory Rate 17 Blood Pressure Pulse Oximetry 94 97 Oxygen Delivery Room Air Autopap Fraction of Inspired Oxygen 21 05/06/25 00:00 05/06/25 00:00 05/06/25 00:00 Temperature 97.8 F Pulse Rate 80 80 78 Pulse Rate [Bilateral Pedal (Dorsalis Pedis) Palpation] Respiratory Rate 17 17 Blood Pressure 127/83 Pulse Oximetry 98 98 Oxygen Delivery Autopap Fraction of Inspired Oxygen 05/06/25 02:00 05/06/25 03:13 05/06/25 03:58 Temperature 97.8 F Pulse Rate 59 L 78 78 Pulse Rate [Bilateral Pedal (Dorsalis Pedis) Palpation] Respiratory Rate 17 17 Blood Pressure 106/56 L Pulse Oximetry 94 94 Oxygen Delivery Autopap Fraction of Inspired Oxygen 05/06/25 04:00 05/06/25 06:00 Temperature Pulse Rate 62 63 Pulse Rate [Bilateral Pedal (Dorsalis Pedis) Palpation] Respiratory Rate Blood Pressure Pulse Oximetry Oxygen Delivery Fraction of Inspired Oxygen Exam 2 Const: General: cooperative, healthy appearing, comfortable, no acute distress and well developed Orientation/consciousness: oriented to person, oriented to place, oriented to time and patient oriented x3 HENMT: Head: normal to inspection, normocephalic and atraumatic Mouth: Yes Normal oral and palatal mucosa present and Yes moist mucous membranes Eyes: General: appearance normal, both eyes and all related structures C onjunctivae: conjunctivae normal Sclera: sclerae normal Pupils: Equal, round and reactive pupils present Neck: Neck: normal visual inspection Chest: Chest palpation & inspection: normal inspection of the chest Resp: Effort & Inspection: normal respiratory effort and able to speak in complete sentences Auscultation: clear to auscultation bilaterally Cardio: Jugular venous distension: no JVD Rate: regular rate Rhythm: r egular rhythm Heart sounds: S1 normal heart sound present and S2 normal heart sound present GI: Inspection: normal to inspection GI Palp: Yes Soft to palpation, Yes Tenderness to palpation present (GI) (epigastric region with palpation) and Yes No hepatosplenomegaly present Auscultation: normal bowel sounds Rectal Exam: deferred Skin: General skin exam: normal color and no rashes or lesions noted Neuro: General: oriented to person, oriented to place, oriented to time and patient oriented x3 Cranial nerves: Yes Equal, round and reactive pupils present Speech: normal speech Extrem: General: normal to inspection and no clubbing, cyanosis or edema Psych: Appearance: grossly normal and well kempt Affect: normal affect Results Labs 05/06/25 03:16 05/06/25 03:16 Labs: Short CBC 05/06/25 Range/Units 03:16 WBC 6.2 (4.5-10.0) K/mm3 Hgb 11.4 L (12.0-15.0) g/dL Hct 36.3 L (37.0-47.0) % Plt Count 171 (150-375) k/mm3 [facility] 05/06/25 03:16 Sodium 137 Potassium 4.3 Chloride 107 Carbon Dioxide 27 BUN 14 Creatinine 0.89 Glucose 77 Calcium 8.6 Liver Function 05/06/25 Range/Units 03:16 Total Bilirubin 0.4 (0.2-1.3) mg/dL AST 21 (14-36) U/L ALT 14 (6-35) U/L Alkaline Phosphatase 69 (38-126) U/L Albumin 3.3 L (3.5-5.1) g/dL
[2025-05-06] MEDS: PANTOPRAZOLE 40 MG TABLET PO (07:59)
--- NOTE | 2025-05-06 08:32 | P.PNIM_ITS ---
Progress Note: A&P Assessment and Plan (1) Chest pain: Qualifiers: Chest pain type: unspecified Qualified Code(s): R07.9 - Chest pain, unspecified Code(s): R07.9 - Chest pain, unspecified Status: Acute Assessment and Plan: -cardiac catheterization shows no evidence of CAD -started atorvastatin 40 mg, and add aspirin 81 mg to his regimen -Cardiology consulted from ED -heparin drip that was started on admission has been discontinued now. -Echocardiogram performed, 05/05/2025: Hyperdynamic systolic function with left ventricular hypertrophy grade 1 diastolic noncompliance no valvular abnormalities. -Denies any illicit drug use -Reviewed EKG and CXR Likely GI in origin. GI has been consulted for possible endoscopy evaluation. (2) GERD (gastroesophageal reflux disease): Qualifiers: Esophagitis presence: esophagitis presence not specified Qualified Code(s): K21.9 - Gastro-esophageal reflux disease without esophagitis Code(s): K21.9 - Gastro-esophageal reflux disease without esophagitis Status: Acute Assessment and Plan: Pantoprazole 40 mg p.o. b.i.d. GI consult and await their recommendations. Addition of Carafate along with pantoprazole as ordered. Plan Elevated troponin on admission. Suggestive of non ST elevation [place]. less than 0.012-0.034-0.23 5-0.19 1-0.083. EKG with nonspecific ST-T changes particularly on lateral leads. Comparatively unchanged from previous EKGs. T inversions likely a strain pattern. Cardiac catheterization 05/05/2025: No coronary artery disease Code status full code DVT prophylaxis heparin drip Subjective Date/time seen: 05/06/25 08:32 Interval history: Patient continues to complain of chest pain which is retrosternal, she underwent cardiac catheterization yesterday results were reviewed and discussed with the patient. GI has been consulted awaiting their recommendations. Currently NPO Review of Systems Review of Systems: All systems reviewed & are unremarkable except as noted in HPI and below (Subjective) Exam Narrative: GENERAL: The patient is well developed, not in acute distress HEENT: Nonicteric sclerae, PERRLA, EOMI. Oropharynx clear. Moist mucous membranes. Conjunctivae appear well perfused. CHEST: Chest wall is nontender. HEART: Regular rate and rhythm without murmur, rubs, or gallops LUNGS: Clear to auscultation bilaterally. no respiratory distress ABDOMEN: Soft, positive bowel sounds, non-tender, no organomegaly. SKIN: No rash, no excessive bruising, petechiae, or purpura. NEUROLOGIC: Cranial nerves II-XII intact, alert and oriented x 3, no gross motor deficits EXTREMITIES: no edema, cyanosis or clubbing Objective Data Vital Signs Vital Signs: Vital Signs - 24 hr 05/05/25 09:20 05/05/25 09:20 05/05/25 09:30 Temperature Pulse Rate 71 Pulse Rate [Bilateral Pedal (Dorsalis Pedis) Palpation] 71 69 Respiratory Rate 15 Blood Pressure 102/67 Pulse Oximetry 100 Oxygen Delivery Room Air Fraction of Inspired Oxygen 05/05/25 09:30 05/05/25 09:45 05/05/25 09:45 Temperature Pulse Rate 69 79 Pulse Rate [Bilateral Pedal (Dorsalis Pedis) Palpation] 79 Respiratory Rate 17 12 Blood Pressure 100/83 115/78 Pulse Oximetry 98 100 Oxygen Delivery Room Air Room Air Fraction of Inspired Oxygen 05/05/25 10:00 05/05/25 10:00 05/05/25 10:15 Temperature Pulse Rate 69 Pulse Rate [Bilateral Pedal (Dorsalis Pedis) Palpation] 69 56 L Respiratory Rate 17 Blood Pressure 95/77 L Pulse Oximetry 99 Oxygen Delivery Room Air Fraction of Inspired Oxygen 05/05/25 10:15 05/05/25 10:30 05/05/25 10:30 Temperature Pulse Rate 56 L 74 Pulse Rate [Bilateral Pedal (Dorsalis Pedis) Palpation] 74 Respiratory Rate 12 12 Blood Pressure 92/54 L 90/55 L Pulse Oximetry 99 100 Oxygen Delivery Room Air Room Air Fraction of Inspired Oxygen 05/05/25 10:45 05/05/25 10:45 05/05/25 11:00 Temperature Pulse Rate 65 Pulse Rate [Bilateral Pedal (Dorsalis Pedis) Palpation] 65 66 Respiratory Rate 19 Blood Pressure 97/65 L Pulse Oximetry 98 Oxygen Delivery Room Air Fraction of Inspired Oxygen 05/05/25 11:00 05/05/25 11:15 05/05/25 11:15 Temperature Pulse Rate 65 56 L Pulse Rate [Bilateral Pedal (Dorsalis Pedis) Palpation] 56 L Respiratory Rate 20 14 Blood Pressure 97/76 L 92/71 L Pulse Oximetry 100 98 Oxygen Delivery Room Air Room Air Fraction of Inspired Oxygen 05/05/25 11:30 05/05/25 11:30 05/05/25 11:45 Temperature Pulse Rate 65 Pulse Rate [Bilateral Pedal (Dorsalis Pedis) Palpation] 65 57 L Respiratory Rate 17 Blood Pressure 81/53 L Pulse Oximetry 100 Oxygen Delivery Room Air Fraction of Inspired Oxygen 05/05/25 11:45 05/05/25 12:00 05/05/25 12:00 Temperature Pulse Rate 57 L 61 Pulse Rate [Bilateral Pedal (Dorsalis Pedis) Palpation] 61 Respiratory Rate 11 L 15 Blood Pressure 97/69 L 92/65 L Pulse Oximetry 100 98 Oxygen Delivery Room Air Room Air Fraction of Inspired Oxygen 05/05/25 12:15 05/05/25 12:15 05/05/25 12:30 Temperature Pulse Rate 68 Pulse Rate [Bilateral Pedal (Dorsalis Pedis) Palpation] 68 63 Respiratory Rate 20 Blood Pressure 90/58 L Pulse Oximetry 100 Oxygen Delivery Room Air Fraction of Inspired Oxygen 05/05/25 12:30 05/05/25 12:45 05/05/25 12:45 Temperature Pulse Rate 63 65 Pulse Rate [Bilateral Pedal (Dorsalis Pedis) Palpation] 65 Respiratory Rate 15 15 Blood Pressure 90/72 L 88/66 L Pulse Oximetry 100 100 Oxygen Delivery Room Air Room Air Fraction of Inspired Oxygen 05/05/25 13:00 05/05/25 13:00 05/05/25 13:27 Temperature 98 F 97.3 F L Pulse Rate 61 68 Pulse Rate [Bilateral Pedal (Dorsalis Pedis) Palpation] 61 Respiratory Rate 15 18 Blood Pressure 95/60 L 109/59 L Pulse Oximetry 98 100 Oxygen Delivery Room Air Fraction of Inspired Oxygen 05/05/25 14:00 05/05/25 14:48 05/05/25 15:30 Temperature Pulse Rate 72 63 Pulse Rate [Bilateral Pedal (Dorsalis Pedis) Palpation] Respiratory Rate Blood Pressure 112/75 Pulse Oximetry Oxygen Delivery Room Air Fraction of Inspired Oxygen 05/05/25 16:00 05/05/25 16:15 05/05/25 17:14 Temperature 98.1 F Pulse Rate 68 67 72 Pulse Rate [Bilateral Pedal (Dorsalis Pedis) Palpation] Respiratory Rate 18 Blood Pressure 93/68 L Pulse Oximetry 98 Oxygen Delivery Fraction of Inspired Oxygen 05/05/25 17:48 05/05/25 19:53 05/05/25 20:00 Temperature 97.8 F Pulse Rate 75 Pulse Rate [Bilateral Pedal (Dorsalis Pedis) Palpation] Respiratory Rate 17 Blood Pressure 110/63 103/59 L Pulse Oximetry 94 Oxygen Delivery Fraction of Inspired Oxygen 05/05/25 21:00 05/05/25 21:03 05/05/25 22:00 Temperature Pulse Rate 72 77 80 Pulse Rate [Bilateral Pedal (Dorsalis Pedis) Palpation] Respiratory Rate 17 Blood Pressure Pulse Oximetry 94 97 Oxygen Delivery Room Air Autopap Fraction of Inspired Oxygen 21 05/06/25 00:00 05/06/25 00:00 05/06/25 00:00 Temperature 97.8 F Pulse Rate 80 80 78 Pulse Rate [Bilateral Pedal (Dorsalis Pedis) Palpation] Respiratory Rate 17 17 Blood Pressure 127/83 Pulse Oximetry 98 98 Oxygen Delivery Autopap Fraction of Inspired Oxygen 05/06/25 02:00 05/06/25 03:13 05/06/25 03:58 Temperature 97.8 F Pulse Rate 59 L 78 78 Pulse Rate [Bilateral Pedal (Dorsalis Pedis) Palpation] Respiratory Rate 17 17 Blood Pressure 106/56 L Pulse Oximetry 94 94 Oxygen Delivery Autopap Fraction of Inspired Oxygen 05/06/25 04:00 05/06/25 06:00 05/06/25 08:00 Temperature Pulse Rate 62 63 63 Pulse Rate [Bilateral Pedal (Dorsalis Pedis) Palpation] Respiratory Rate 17 Blood Pressure Pulse Oximetry 94 Oxygen Delivery Room Air Fraction of Inspired Oxygen 05/06/25 08:00 05/06/25 08:06 Temperature 98.1 F Pulse Rate 65 60 Pulse Rate [Bilateral Pedal (Dorsalis Pedis) Palpation] Respiratory Rate 18 Blood Pressure 104/63 Pulse Oximetry 99 Oxygen Delivery Fraction of Inspired Oxygen Intake/Output Intake/Output: Intake & Output 05/03/25 05/04/25 05/05/25 05/06/25 23:59 23:59 23:59 23:59 Intake Total 2110.6 629.4 400 Output Total 600 1000 500 Balance 1510.6 -370.6 -100 Meds/Results Medications: Active Medications Generic Name Dose Route Start Last Admin Trade Name Freq PRN Reason Stop Dose Admin Acetaminophen 650 mg 05/04/25 00:50 09/25/25 09:59 Acetaminophen 325 Mg Tablet PO 650 mg Q4H PRN Administration Mild Pain (1-3) or Fever Hydrocodone Bitart/Acetaminophen 1 tab 05/05/25 17:46 05/05/25 18:16 Hydrocodone/Acetaminophen (*Crx) 5-325 Mg Tablet PO 1 tab Q4H PRN Administration Pain Rated 6 or Greater Calcium Carbonate 200 mg 05/04/25 21:15 05/05/25 17:49 Calcium Carbonate (Tums) 500 Mg (200 Mg Elemental) PO 200 mg Q6H PRN Administration Indigestion Magnesium Citrate 300 ml 05/06/25 08:27 Magnesium Citrate 300 Ml Btl PO ONCE PRN Constipation Morphine Sulfate 1 mg 05/05/25 02:13 05/05/25 13:56 Morphine Sulfate (*Crx) 4 Mg/Ml Inj IV PUSH 1 mg Q2HR PRN Administration Pain Rated 7-10 Ondansetron HCl 4 mg 05/04/25 00:50 05/05/25 14:54 Ondansetron Inj 4 Mg/2 Ml Vial IV PUSH 4 mg Q4H PRN Administration Nausea Pantoprazole Sodium 40 mg 05/04/25 13:05 05/06/25 07:59 Pantoprazole 40 Mg Tablet PO 40 mg Q12HR MORE Administration Polyethylene Glycol 17 gm 05/06/25 09:00 Polyethylene Glycol 3350 17 Gm Powd.Pack PO BID FOR[facility]LY [facility], [facility] Radiology Results: ITS Impressions Chest X-Ray 05/03/25 17:17 IMPRESSION: 1: NO ACUTE CARDIOPULMONARY DISEASE. Chest CTA 05/04/25 08:04 IMPRESSION: 1. No pulmonary embolus. Labs Labs: Laboratory Results - last 24 hr 05/06/25 03:16 WBC 6.2 RBC 3.87 L Hgb 11.4 L Hct 36.3 L MCV 93.8 MCH 29.5 MCHC 31.4 L RDW 12.8 Plt Count 171 MPV 11.2 H Sodium 137 Potassium 4.3 Chloride 107 Carbon Dioxide 27 Anion Gap 3 L BUN 14 Creatinine 0.89 Estim Creat Clear Calc 76 Estimated GFR > 60 Glucose 77 Calcium 8.6 Total Bilirubin 0.4 AST 21 ALT 14 Alkaline Phosphatase 69 Total Protein 5.6 L Albumin 3.3 L
--- NOTE | 2025-05-06 09:22 | P.DS_ITS ---
DS: Admitting Diagnosis Discharge Date 05/06/2025 Admitting Diagnosis Chest pain DS: Discharge Diagnosis Discharge Diagnosis (1) Chest pain: Qualifiers: Chest pain type: unspecified Qualified Code(s): R07.9 - Chest pain, unspecified Code(s): R07.9 - Chest pain, unspecified Status: Acute (2) GERD (gastroesophageal reflux disease): Qualifiers: Esophagitis presence: esophagitis presence not specified Qualified Code(s): K21.9 - Gastro-esophageal reflux disease without esophagitis Code(s): K21.9 - Gastro-esophageal reflux disease without esophagitis Status: Acute DS: Summary Hospital Course Hospital Course: # Chest pain: -cardiac catheterization shows no evidence of CAD -started atorvastatin 40 mg, and add aspirin 81 mg to his regimen -Cardiology consulted from ED -heparin drip that was started on admission has been discontinued now. -Echocardiogram performed, 05/05/2025: Hyperdynamic systolic function with left ventricular hypertrophy grade 1 diastolic noncompliance no valvular abnormalities. -Denies any illicit drug use -Reviewed EKG and CXR Likely GI in origin. GI has been consulted for possible endoscopy evaluation. Plans to do as an outpatient basis. # GERD (gastroesophageal reflux disease): Pantoprazole 40 mg p.o. b.i.d. GI consult and await their recommendations and plans outpatient workup Addition of Carafate along with pantoprazole as ordered. # Elevated troponin on admission. Suggestive of non ST elevation [place]. less than 0.012-0.034-0.23 5-0.19 1-0.083. EKG with nonspecific ST-T changes particularly on lateral leads. Comparatively unchanged from previous EKGs. T inversions likely a strain pattern. Cardiac catheterization 05/05/2025: No coronary artery disease # Code status full code # DVT prophylaxis heparin drip Time Spent with Patient Time attestation: Total time spent providing and/or coordinating discharge services: We minutes Exam Narrative: GENERAL: The patient is well developed, not in acute distress HEENT: Nonicteric sclerae, PERRLA, EOMI. Oropharynx clear. Moist mucous membranes. Conjunctivae appear well perfused. CHEST: Chest wall is nontender. HEART: Regular rate and rhythm without murmur, rubs, or gallops LUNGS: Clear to auscultation bilaterally. no respiratory distress ABDOMEN: Soft, positive bowel sounds, non-tender, no organomegaly. SKIN: No rash, no excessive bruising, petechiae, or purpura. NEUROLOGIC: Cranial nerves II-XII intact, alert and oriented x 3, no gross motor deficits EXTREMITIES: no edema, cyanosis or clubbing DS: Data Data Completed and Pending Completed studies during hospitalization: Exam Type: CA echo dop color flow w con Complete two-dimensional, color flow and Doppler transthoracic echocardiogram is performed with contrast to opacify the left ventricle and to improve the deliniation of the left ventricle endocardial borders. Staff Referring Physician: Marissa Blas Human Resources Director: Jose Raul Dillard III Attending Provider: Claudia Weems Contrast/Agitated Saline Contrast/Ag. Saline: Definity Amount: 2.00 ml Administered By: Jose Raul Dillard III Existing IV Access: Yes IV Access Condition: patent with no signs of infiltration Summary 1. Left ventricular hypertrophy with hyperdynamic systolic function. 2. Grade 1 diastolic noncompliance. 3. Normal cardiac valves. 4. Compared with examination from November of 2023 the findings are unchanged. Left Ventricle Left ventricular chamber dimension is normal. Left ventricular systolic function is hyperdynamic, estimated at >70. There is mild concentric increased left ventricular wall thickness. The left ventricular diastolic function is grade I diastolic dysfunction. Right Ventricle Right ventricular chamber dimension is normal. Left Atria Left atrial chamber dimension is normal. Right Atria Right atrial chamber dimension is normal. Aortic Valve The aortic valve is normal. Pulmonic Valve The pulmonic valve is normal. Mitral Valve The mitral valve has normal leaflets. Tricuspid Valve The tricuspid valve leaflets are normal. Pericardium/Pleural The pericardium appears normal. Aorta The aortic root size at the sinus of Valsalva is normal. Labs on day of discharge: Labs from last 24 hours 05/06/25 03:16 WBC 6.2 RBC 3.87 L Hgb 11.4 L Hct 36.3 L MCV 93.8 MCH 29.5 MCHC 31.4 L RDW 12.8 Plt Count 171 MPV 11.2 H Sodium 137 Potassium 4.3 Chloride 107 Carbon Dioxide 27 Anion Gap 3 L BUN 14 Creatinine 0.89 Estim Creat Clear Calc 76 Estimated GFR > 60 Glucose 77 Calcium 8.6 Total Bilirubin 0.4 AST 21 ALT 14 Alkaline Phosphatase 69 Total Protein 5.6 L Albumin 3.3 L Procedures/Treatments: Cardiac Cath Procedure Note Date of procedure:: 05/05/25 Performing physician:: Viviana Eason MD Indication:: CATHETERIZATION LABORATORY REPORT Procedure Date: 05/05/2015 Referring Physician: Anesthesia: Versed and Fentanyl were ordered and given in my presence at 8:45 a.m., procedure ended at 9:00 a.m.. Supervision of nurse monitored moderate sedation with Versed and Fentanyl was provided for 15 minutes. Pre-op Diagnosis: NSTEMI Post-op Diagnosis: Noncardiac chest pain No CAD Procedure(s): Left heart catheterization with coronary angiography Ultrasound-guided Right radial artery access Access Site: Right radial artery Brief History and Clinical Indications: All risks, benefits and alternatives to left heart catheterization with or without percutaneous coronary intervention was discussed at length with the patient. Risk of complications including but not limited to bleeding, infection, arrhythmia, stroke, worsening kidney function, blood loss, groin hematoma, limb loss, emergency coronary artery bypass grafting, and even were discussed with the patient and all questions were answered. The patient understood and wished to proceed. 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 Findings: LEFT HEART CATHETERIZATION FINDINGS: 1. Left main: The left main coronary artery is widely patent without any significant obstructive disease. 2. Left anterior descending: The LAD and the diagonal branches are widely patent without any significant obstructive angiographic disease. 3. Left circumflex: The left circumflex artery and the main marginal branches are widely patent without any significant obstructive angiographic disease. 4. Right coronary artery: The RCA is widely patent without any significant obstr uctive angiographic disease. The RCA is the dominant vessel. The RCA gives the RPDA and RPL branches which are both widely patent without any significant obstructive angiographic disease. 5. Left ventricle: A. End-diastolic pressure 28 mmHg. B. LV gram deferred. C. No significant gradient across aortic valve on catheter pullback. 6. Opening AO pressure 103/58/80 and closing AO pressure 103/74/80 9 mm Hg RIGHT HEART CATHETERIZATION FINDINGS: Description of Procedure: Informed consent signed and placed in the chart. Patient transferred to component lab tech room. Prepped and draped in usual sterile fashion. 2% lidocaine injected subcutaneously in right wrist area. 22-gauge venipuncture catheter used to access the right radial artery with the Seldinger technique. 6-FR slender sheath placed in right radial artery. Nitroglycerin 200mcg, Verapamil 2.5mg, and Heparin 5000U was given intraarterial through the sheath. J wire advanced under fluoroscopy Five Haitian JL 3.5 diagnostic catheter engaged Left Main Coronary Artery. 5 Haitian JR4 diagnostic catheter engaged Right Coronary Artery Multiple orthogonal angiogram obtained and reviewed 5 Haitian JR4 diagnostic catheter crossed aortic valve to obtain LVEDP, LV angiogram deferred. Hemostasis was achieved by application of TR band. Assessment: Noncardiac chest pain; no CAD Post Operative Condition: Stable No significant blood loss Disposition: Floor/Home Plan: The patient will be monitored in the recovery area. Evaluate for noncardiac causes of chest pain. TR band removal per protocol. Normal saline 500 mL at 100 mL per hour. Viviana Eason MD, MS, [facility], [facility] Interventional Cardiology Imaging Radiologist's impression: ITS Impressions Chest X-Ray 05/03/25 17:17 IMPRESSION: 1: NO ACUTE CARDIOPULMONARY DISEASE. Chest CTA 05/04/25 08:04 IMPRESSION: 1. No pulmonary embolus. Discharge Plan Discharge Attending physician on discharge: Glen Rivera Consulting providers: Viviana Eason; [place] Discharging Clinician: Glen Rivera Anticipated Discharge Date/Time: 05/06/25 09:24 Patient Disposition: Home Activity: as tolerated Diet: regular Patient Instructions: Antibiotic Form Patient Language: Occitan Stand Alone Forms: General Discharge Information Follow-up/Referrals: [place] MD [Physician, Gastroenterology] - 1 Week Miki Anderson MD [Primary Care Provider, Family Practice] - 1 Week Discharge Medications: New pantoprazole 40 mg Tablet,Delayed Release (Dr/Ec) 40 mg PO Q12HR Qty: 60 0RF sucralfate 100 mg/mL Suspension 1,000 mg PO ACHS Qty: 300 0RF Continued Ubrelvy 50 mg tablet 50 mg PO DAILY PRN (Reason: Migraine Headache) Qty: 30 1RF nitroglycerin 0.4 mg tablet, sublingual 0.4 mg sublingual Q5M PRN (Reason: chest pain) Qty: 20 0RF Rx Instructions: do not exceed 3 doses per episode Qulipta 30 mg tablet 30 mg PO DAILY Qty: 90 1RF hydrocodone-acetaminophen 5-325 mg tablet 1 tablet PO Q6H PRN (Reason: pain) famotidine 20 mg tablet 20 mg PO Q12H Qty: 180 1RF alprazolam 1 mg tablet 1 mg PO DAILY PRN (Reason: Anxiety) cholecalciferol (vitamin D3) 1,250 mcg (50,000 unit) capsule 50,000 unit PO WEEKLY Rx Instructions: takes on Friday fluticasone propion-salmeterol [Advair Diskus] 250-50 mcg/dose blister with device 1 inh inhalation DAILY Qty: 60 0RF albuterol sulfate 90 mcg/actuation HFA aerosol inhaler 2 puff INHALATION Q4H PRN (Reason: Shortness Of Breath) Qty: 8.5 1RF sumatriptan 20 mg/actuation spray,non-aerosol 20 mg intranasal ONCE Qty: 6 1RF Rx Instructions: into one nostril; if headache remains, may repeat dose into other nostril once after at least 2 hours tizanidine 4 mg capsule 4 mg PO TID PRN (Reason: muscle spasticity) Qty: 90 0RF lisinopril-hydrochlorothiazide 20-12.5 mg tablet See Rx Instructions .ROUTE .COMPLEX Qty: 90 0RF Dose Instruction: TAKE 1 TABLET BY MOUTH EVERY DAY Rx Instructions: TAKE 1 TABLET BY MOUTH EVERY DAY semaglutide (weight loss) 1 mg/0.5 mL pen injector 1 mg subcut WEEKLY Qty: 2 3RF Discontinued celecoxib 200 mg capsule 200 mg PO Q12H Date of admission: 05/04/25 00:52 Primary Care Provider: Miki Anderson Admitting Provider: Claudia Weems Attending physician on admission: Claudia Weems Condition: Stable
[2025-05-06] MEDS: HYDROcodone/acetaminophen (*CRX) 5-325 MG TABLET 1 TAB PO (11:22)
[2025-05-06] MEDS: FAMOTIDINE 20 MG TABLET PO (11:23)
== END 2025-05-06 11:46 | disposition home or self-care (01) | DRG 287 ==
LOC: ANHED 05-04 01:26 → ANHIMU 05-04 01:38
PROVIDERS: Emergency Medicine; General Practice; Internal Medicine Cardiovascular Disease; Internal Medicine Interventional Cardiology; Admitting Provider General Practice; Emergency Provider Student in an Organized Health Care Education/Training Program; PCP Family Medicine; Visit Provider Internal Medicine
PROC: 4A023N7 Measurement of Cardiac Sampling and Pressure, Left Heart, Percutaneous Approach (ICD-10-PCS; CPT 93452; principal; 2025-05-05 10:00)
DX: R07.89 Other chest pain (principal); I10 Essential (primary) hypertension; K21.9 Gastro-esophageal reflux disease without esophagitis; K58.9 Irritable bowel syndrome, unspecified; J45.909 Unspecified asthma, uncomplicated; R79.89 Other specified abnormal findings of blood chemistry; M79.7 Fibromyalgia; G47.33 Obstructive sleep apnea (adult) (pediatric); F41.9 Anxiety disorder, unspecified; F32.9 Major depressive disorder, single episode, unspecified; Z87.891 Personal history of nicotine dependence; Z80.0 Family history of malignant neoplasm of digestive organs
CPT/HCPCS: 36415; 71046; 71275; 80053; 80061; 83690; 83735; 84145; 84484; 85025; 85027; 85610; 85730; 93005; 93458; 99291; A9270; C1769; C1887; C1894; C8929; J1644; J2003; J2250; J2270; J2305; J2405; J3010; J7030; J7040; Q9957; Q9967

== ENCOUNTER 2025-05-10 14:26 | Emergency (ER) | payer OTHER, MEDICARE, SELFPAY ==
--- NOTE | ~2025-05-10 | US_ITS ---
EXAMINATION: US arterial duplex UE RT DATE: 05/10/2025 18:09 INDICATION: Right wrist pain and swelling post recent cardiac catheterization TECHNIQUE: Multiple grayscale and Doppler ultrasound images of the arteries of the right upper extremity were obtained. COMPARISON: None FINDINGS: Arterial waveforms with normal brisk systolic upstrokes at the right common carotid, subclavian, axillary, brachial, radial and ulnar arteries. The radial veins along side the radial artery are patent and compressible. No hematoma or renal artery aneurysm identified at the region of the catheter access site. IMPRESSION: 1. Unremarkable study with no aneurysm or hematoma at the right radial artery vascular access site. Reviewed, dictated and finalized at location A. IMPRESSION: 1. Unremarkable study with no aneurysm or hematoma at the right radial artery v ascular access site.
[2025-05-10 14:28] VITALS: BP 121/84; PULSE 98; RESP 16; TEMP 36.7; O2SAT 100
--- OUTSIDE RECORDS SUMMARY | 2025-05-10 14:39 | XMS_ITS | Encounter Summary ---
Author Organization [facility] Healthcare Address [address] [place] [address] Care Team Providers Care Sole Trimmer Name Role Phone Miki Anderson MD Primary Care Provider [phone] Miscellaneous, Not In File Unavailable Unava ilable Reason for Visit * Reason Onset Date Comments hand swelling 05/10/2025 Joint Swelling 05/10/2025 Numbness 05/10/2025 Encounter Details Date Type Department Care Team (Late st Contact Info) Description 05/10/2025 Telephone [facility] Cardiology [address] [place] [id number] Magdi Hatch MD [address] [facility] [address] [place] [address] hand swelling; Joint Swelling; Numbness Social History Tobacco Use Types Packs/Day Years Used Date Smoking Tobacco: Every Day Cigarettes 0.3 35 Personal Safety Answer Date Recorded Have you ever been in or are you currently in a harmful physical or emotional relationship or is someone making you feel afraid or unsafe? 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 * Telephone Encounter - Marianne Dimas RN - 05/10/2025 1:54 PM CDT FYI: W[facility] Spoke to pt who had Cath with Dr Eason at on 05/03, pt had sudden onset about an hour ago offinger swelling, tingling in hand/fingers, slight swelling to radial incision site and had a temporary pulsating feeling in wrist. Swelling and pulsing is better, but patient reports she still has tingling, slight swelling to insertion site and possibly worsening bruising to wrist. She denies any aggravating factors such as lifting/pushing/pulling. Instructed pt to go to ER for evaluation and shewas agreeable. * Telephone Encounter - Janelle Royal - 05/10/2025 1:20 PM CDT Pt states that she had a cath on 05/03. States that today she has been experiencing some numbness and swelling in her right hand and wrist. States that there is a strong pulsing in her hand as well. Please advise. Thank you. Contact [phone] documented in this encounter Plan of Treatment Not on file documented as of this encounter Visit Diagnoses Not on filedocumented in this encounter Care Teams Sole Trimmer Relationship Specialty Start Date End Date Miki Anderson MD PCP - General 02/07/17 Miscellaneous, Not In File 07/16/23 documented as of this encounter
--- OUTSIDE RECORDS SUMMARY | 2025-05-10 14:39 | XMS_ITS | Clinical Summary ---
Author Organization [email or web address] [email or web address] [facility] Address [address] [place] [address] Care Team Providers Care Project Coordinator Rn Name Role Phone Miki Anderson MD Primary Care Provider [phone] Allergies Active Allergy Reactions Criticality Noted Date [...] (#1) 2025 Medical Devices Implanted Type Area County Engineer Device Identifier Shelf Expiration Date Model / Serial / Lot Hemostatic Surgifoam [id number] - [id number] Implanted:Qty: 1 on 03/23/2019 by Nico Haji MD at [facility] N/A: Spine Lumbar [employer]- [employer] 10/03/20211971 [id number] Insurance [facility] OPTIONS PPO [id number] RX OPTUM RX Member Subscriber Plan / Payer (Ef fective 2019-Present) Name:PeterhowieLore Relation to Subscriber:Self Name:Lore Jacobs Subscriber ID:Not on file Payer ID:Not on file Group ID:[id number] Type:RX Commercial Address: [address] Advance Directives For more information, please contact: [phone] * Full Code (Latest Code Status on File) Date Activated Date Inactivated Comments 03/23/2019 10:07 AM 03/23/2019 3:20 PM Care Teams Project Coordinator Rn Relationship Specialty Start Date End Date Miki Anderson MD [address] [place] [address] PCP - General Family Practice 12/20/18
--- OUTSIDE RECORDS SUMMARY | 2025-05-10 14:39 | XMS_ITS | Clinical Summary ---
Author Organization [facility] Address [address] [place] [address] Care Team Providers Care Doll Maker Name Role Phone Miki Anderson MD Primary [...] Encounters Date Type Department Care Team Description 05/10/2025 Telephone [facility] Cardiology [address] [facility] [place] [address] Magdi Hatch MD hand swelling; Joint Swelling; Numbness 05/05/2025 Orders Only [facility] Cardiology [address] [place] [address] [place] [phone] Viviana Eason MD 04/25/2025 1:30 PM CDT Office Visit [facility] Cardiology [address] [place] [address] [place] [address] [phone] Magdi Hatch MD Chest pain, unspecified type (Primary Dx); Lipid screening 03/31/2025 Orders Only [facility] Cardiology [address] [place] [address] [place] [address] [phone] Provider, MD Patsy from Last 3 Months [...] on file 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 Gender Identity Not on file Sexual Orientation Not on file Obstetrics History Last Filed Vital Signs Vital Sign Reading Time Taken Comments Blood Pressure 132/64 04/25/2025 1:23 PM CDT Pulse 79 04/25/2025 1:23 PM CDT Temperature 36.6 C (97.9 F) 10/08/2024 7:15 PM RECEPTION CENTRE MANAGER Respiratory Rate 18 04/25/2025 1:23 PM CDT [...] Procedure Name Priority Date/Time Associated Diagnosis Comments CARDIOLOGY DOCUMENT SCAN Routine 025 2:18 PM CDT POCT LIPID PANEL Routine 04/25/2025 1:30 PM CDT Lipid screening ELECTROCARDIOGRAM REPORT Routine 04/25/2025 Chest pain, unspecified type from Last 3 Months Results * Cardiology Document Scan (05/04/2025 2:18 PM CDT) Anatomical Region Laterality Modality Other Viviana Eason MD CV CARDIAC SERVICES PROCEDU RES Final Result * POCT lipid panel (04/25/2025 1:30 PM CDT) Cholesterol, POC 140 <200 MG/DL HDL, POC 56 >=40 mg/dL Triglycerides, POC 100 <=149 mg/dL LDL Cholesterol POC 65 <=129 mg/dL Chol/HDL Ratio, POC 1.2 NONE Non-HDL Cholesterol, POC 85 NONE mg/dL Cholesterol Total, POC 140 30 - 199 mg/dL Capillary blood 04/25/2025 1 :30 PM CDT Magdi Hatch MD POINT OF CARE TEST ORDERABLES Fi nal Result * Electrocardiogram Report (04/25/2025) 04/25/2025 us Magdi Hatch MD ECG ORDERABLES Edited Result - Final from Last 3 Months Insurance [facility] HE[facility] BENEFIT PLAN [facility] HEALTH BENEFIT PLAN [place] Advance Directives For more information, please contact: [phone] * Full Code (Latest Code Status on File) Date Activated Date Inactivated Comments 07/15/2023 9:13 PM 07/16/2023 5:12 PM Care Teams Doll Maker Relationship Specialty Start Date End Date Miki Anderson MD PCP - General 02/07/17 Miscellaneous, Not In File 07/16/23
--- OUTSIDE RECORDS SUMMARY | 2025-05-10 14:40 | XMS_ITS | Encounter Summary ---
Author Organization [facility] Address [address] [place] [address] Care Team Providers Care Occupational Health And Safety Officer Name Role Phone Miki Anderson MD Primary Care Provider [phone] Miscellaneous, Not In File Unavailable Unava ilable Encounter Details Date Type Department Care Team (Late st Contact Info) Description 05/05/2025 Orders Only [facility] Cardiology [address] [facility] [address] [place] [address] Viviana Eason MD [address] [place] [address] Social History Tobacco Use Types Packs/Day Years [...] on file 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 Gender Identity Not on file Sexual Orientation Not on file documented as of this encounter Plan of Treatment Not on file documented as of this encounter Procedures Procedure Name Priority Date/Time Associated Diagnosis Comments CARDIOLOGY DOCUMENT SCAN Routine 05/04/2025 2:18 PM CDT documented in this encounter Results * Cardiology Document Scan (05/04/2025 2:18 PM CDT) Anatomical Region Laterality Modality Other Viviana Eason MD CV CARDIAC SERVICES PROCEDU RES Final Result documented in this encounter Visit Diagnoses Not on filedocumented in this encounter Care Teams Occupational Health And Safety Officer Relationship Specialty Start Date End Date Miki Andesron MD PCP - General 02/07/17 Miscellaneous, Not In File 07/16/23 documented as of this encounter
--- OUTSIDE RECORDS SUMMARY | 2025-05-10 14:40 | XMS_ITS | Clinical Summary ---
Author Organization [facility] Address [address] [place] [phone] Care Team Providers Care Inspector Canned Food Reconditioning Name Role Phone Miki Anderson MD Primary Care Provider [phone] Allergies Active Allergy Reactions Criticality Noted Date [...] (1 of 2) 2023 Influenza Immunization (#1) 2025 SARS-COV-2 Immunization (2 - 2024- season) 2025 03/24/2021 Respiratory Syncytial Virus (RSV) Immunization (Adult) [...] age to complete this topic Care Teams Inspector Canned Food Reconditioning Relationship Specialty Start Date End Date Miki Anderson MD [address] [address] PCP - General Family Medicine 06/07/16
[2025-05-10 17:03] VITALS: BP 103/72; PULSE 77; RESP 20; TEMP 36.4; O2SAT 100
--- NOTE | 2025-05-10 17:25 | ED.RECABL ---
HPI - Recheck/Abnormal Lab/Rx General Chief Complaint: Recheck/Abnormal Lab/Rx Stated Complaint: swelling in op site Time Seen by Provider: 05/10/25 17:09 Source: patient Mode of arrival: ambulatory Limitations: no limitations History of Present Illness HPI narrative: This is a 49 year old female that presents to the ER for right wrist swelling, pain. Ongoing over the last 5 days. Reports she had a cardiac catheterization last . She has had intermittent swelling, pain, reasoning to the area. Today her pain became worse and she had some tingling in her hand. 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 Reports the tingling quickly resolved. Reports mild pain currently. Related Data Home Medications ?Medication ?Instructions ?Recorded ?Confirmed ?Last Taken ?Type alprazolam 1 mg tablet 1 mg PO DAILY PRN Anxiety 04/09/24 05/04/25 06/22/24 History cholecalciferol (vitamin D3) 1,250 50,000 unit PO WEEKLY 04/09/24 05/04/25 05/02/25 History mcg (50,000 unit) capsule hydrocodone 5 mg-acetaminophen 325 1 tablet PO Q6H PRN pain 04/18/25 05/04/25 Unknown History mg tablet Allergies Allergy/AdvReac Type Severity Reaction Status Date / Time amoxicillin Allergy Intermediate Rash Verified 05/10/25 14:33 Cephalosporins Allergy Intermediate Rash Verified 05/10/25 14:33 Penicillins Allergy Intermediate Rash Verified 05/10/25 14:33 ketorolac AdvReac Intermediate Nausea and Verified 05/10/25 14:33 Vomiting clarithromycin AdvReac Mild GI Verified 05/10/25 14:33 Review of Systems Review of Systems: All systems reviewed & are unremarkable except as noted in HPI and below [facility] Past Medical History Medical History Fibromyalgia GERD (gastroesophageal reflux disease) Elevated glucose Bronchitis Folliculitis Non-cardiac chest pain Neck pain Nausea COVID-19 Back pain with history of spinal surgery SAMANTHA (obstructive sleep apnea) Tobacco abuse IBS (irritable bowel syndrome) Small bowel obstruction Anxiety Asthma Major depressive disorder, single episode, unspecified Ulnar neuropathy of both upper extremities Hypertension Surgical History Surgical History History of laparoscopy x 2 exploratory laparoscopy due to abdominal pain in her 20's with no reported significant findings. History of back surgery X3 (total 5 spinal surgeries) History of carpal tunnel release Bilaterally H/O section X3 H/O: hysterectomy Open partial hysterectomy followed by left salpingo-oophorectomy and eventually right salpingo-oophorectomy. Total of 3 surgeries. Family History Family History Mother Diabetes mellitus Hypertension Heart disease COVID-19 Lung cancer Father Diabetes mellitus Hypertension Heart disease COVID-19 S/P triple vessel bypass, Onset Age: 65 Sibling COVID-19 Social History Social History Social History: She is . She has 3 children. She is a full code and desires to have her to be her decision-maker if needed. She does not use alcohol marijuana or illicit drugs. Smoking packs per day: 0.5 Smoking cigarettes per day: 10.0 Years smoked: 20 Smoking pack-years: 10.00 Smoking status: Current every day smoker Tobacco type: cigarettes Second hand tobacco smoke exposure: No Smoking end date: 01/28/22 Alcohol intake: current Alcohol use details: SOCIALLY Substance use: former Substance use type: marijuana Last use: 11-12 days ago Do You Feel Safe in your Home?: Yes Lack of Transportation: No Lack of Food: Never True Current Housing: I Have Housing Concerned About Future Housing: No Difficulty Paying Gas/Electric Bills: No Difficulty Paying for Meds: No Currently Unemployed: No Education: Trade/Vocational Certificate Difficulty w/ Childcare or Family Care: No Living arrangements: with family Occupation/Education: unemployed 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 Gender identity (if verbalized by the patient): Female Sexual Orientation (if Verbalized by the Patient): Straight or Heterosexual Spiritual care concerns: No Exam Narrative: GENERAL: Well-appearing, well-nourished, and in no acute distress. HEAD: Normocephalic, atraumatic. EYES: EOMI. EXTREMITIES: Normal range of motion. No edema. Mild bruising to the right wrist. No swelling noted. Normal radial pulse. Normal sensation SKIN: Warm, dry, no rash. NEURO: No focal deficits. Alert and oriented x3. PSYCH: Normal mood and affect Course Course Emergency Course: patient updated on her workup and agrees with plan of care Vital Signs Vital signs: Vital Signs Temperature 98.1 F 05/10/25 14:28 Pulse Rate 98 05/10/25 14:28 Respiratory Rate 16 05/10/25 14:28 Blood Pressure 121/84 05/10/25 14:28 Pulse Oximetry 100 05/10/25 14:28 Oxygen Delivery Room Air 05/10/25 14:28 Temperature 97.6 F 05/10/25 17:03 Pulse Rate 77 05/10/25 17:03 Respiratory Rate 20 05/10/25 17:03 Blood Pressure 103/72 05/10/25 17:03 Pulse Oximetry 100 05/10/25 17:03 Oxygen Delivery Room Air 05/10/25 17:03 MDM - Recheck/Abnormal Lab/Rx MDM Narrative Medical decision making narrative: Patient presents emergency department for pain in the right wrist. Recent cardiac catheterization with access in the right radial artery. She is afebrile and nontoxic appearing. Normal radial pulse noted. Mild bruising noted, no obvious swelling in the area. Right upper extremity duplex is unremarkable, no aneurysm or hematoma in the area of concern. Patient updated on her workup and agrees with plan of care. She is to follow up with her doctor for further care. She was given warnings to return to the ER Differential Diagnosis Differential diagnosis: Likely other (hematoma, aneurysm, postop pain) Imaging Data Radiologist's impression: ITS Impressions Duplex Scan Upper Extremity Artery 05/10/25 18:25 IMPRESSION: 1. Unremarkable study with no aneurysm or hematoma at the right radial artery vascular access site. Critical Care Time Critical Care Time Critical Care Time: No Discharge Plan Discharge Clinical Impression: Pain in right wrist, S/P cardiac catheterization Patient Disposition: Home Condition: Stable Additional Instructions: Return to the ER if you experience fever, redness and swelling of your extremity, numbness or any other symptoms that are concerning to you Over the counter pain medication as needed Follow up with your doctor for further care. Patient Language: Romanian Prescriptions: No Action Ubrelvy 50 mg tablet 50 mg PO DAILY PRN (Reason: Migraine Headache) Qty: 30 1RF nitroglycerin 0.4 mg tablet, sublingual 0.4 mg sublingual Q5M PRN (Reason: chest pain) Qty: 20 0RF Rx Instructions: do not exceed 3 doses per episode Qulipta 30 mg tablet 30 mg PO DAILY Qty: 90 1RF hydrocodone-acetaminophen 5-325 mg tablet 1 tablet PO Q6H PRN (Reason: pain) famotidine 20 mg tablet 20 mg PO Q12H Qty: 180 1RF alprazolam 1 mg tablet 1 mg PO DAILY PRN (Reason: Anxiety) cholecalciferol (vitamin D3) 1,250 mcg (50,000 unit) capsule 50,000 unit PO WEEKLY Rx Instructions: takes on Friday sucralfate 100 mg/mL Suspension 1,000 mg PO ACHS Qty: 300 0RF pantoprazole 40 mg Tablet,Delayed Release (Dr/Ec) 40 mg PO Q12HR Qty: 60 0RF fluticasone propion-salmeterol [Advair Diskus] 250-50 mcg/dose blister with device 1 inh inhalation DAILY Qty: 60 0RF albuterol sulfate 90 mcg/actuation HFA aerosol inhaler 2 puff INHALATION Q4H PRN (Reason: Shortness Of Breath) Qty: 8.5 1RF sumatriptan 20 mg/actuation spray,non-aerosol 20 mg intranasal ONCE Qty: 6 1RF Rx Instructions: into one nostril; if headache remains, may repeat dose into other nostril once after at least 2 hours tizanidine 4 mg capsule 4 mg PO TID PRN (Reason: muscle spasticity) Qty: 90 0RF lisinopril-hydrochlorothiazide 20-12.5 mg tablet See Rx Instructions .ROUTE .COMPLEX Qty: 90 0RF Dose Instruction: TAKE 1 TABLET BY MOUTH EVERY DAY Rx Instructions: TAKE 1 TABLET BY MOUTH EVERY DAY semaglutide (weight loss) 1 mg/0.5 mL pen injector 1 mg subcut WEEKLY Qty: 2 3RF Follow-up/Referrals: Miki Anderson MD [Primary Care Provider, Family Practice]
== END 2025-05-10 18:58 | disposition home or self-care (01) ==
PROVIDERS: Emergency Provider Physician Assistant; PCP Family Medicine
DX: M25.531 Pain in right wrist (principal); Z98.890 Other specified postprocedural states; I10 Essential (primary) hypertension; J45.909 Unspecified asthma, uncomplicated; M79.7 Fibromyalgia; K21.9 Gastro-esophageal reflux disease without esophagitis; K58.9 Irritable bowel syndrome, unspecified; G47.33 Obstructive sleep apnea (adult) (pediatric); G72.41 Inclusion body myositis [IBM]; Z86.16 Personal history of COVID-19; Z87.891 Personal history of nicotine dependence; Z90.711 Acquired absence of uterus with remaining cervical stump; Z90.722 Acquired absence of ovaries, bilateral; Z90.79 Acquired absence of other genital organ(s)
CPT/HCPCS: 93931; 99284

== ENCOUNTER 2025-06-09 09:16 | Outpatient (CLI) | payer OTHER, MEDICARE, SELFPAY ==
--- NOTE | ~2025-06-09 | CT_ITS ---
Exam: CT chest without contrast Clinical History: [Solitary pulmonary nodule. ] Comparison: [ CTA chest PE protocol] 05/03/2025 Technique: Multiple axial CT images of the chest without with IV contrast. Sagittal and coronal reformatted images were obtained. FINDINGS: Lungs and pleura: [ Tracheobronchial tree is patent. No pneumothorax. No pleural effusion. No focal pulmonary consolidation. No pulmonary mass.] Stable 5 mm noncalcified pulmonary nodule in the right lower lobe. Mediastinum and pulmonary tai: [ No mass or adenopathy.] Axillary/intramammary and supraclavicular: [ No mass or adenopathy.] Heart and great vessels: [ Normal heart size.[ [ No pericardial effusion.] [ No aneurysm.] Chest Wall: [ Unremarkable.] Upper Abdomen: [ No significant findings.] Osseous structures: [ No acute fracture or destructive lesion.] [ Multilevel degenerative change in the visualized spine.] Additional findings: [ None of significance.] IMPRESSION: 1. Stable 5 mm pulmonary nodule in the right lower lobe. A follow-up chest CT in 6 months is recommended. Reviewed, dictated and finalized at location Q. IMPRESSION: 1. Stable 5 mm pulmonary nodule in the right lower lobe. A follow-up chest CT i n 6 months is recommended.
== END 2025-06-09 09:17 | disposition home or self-care (01) ==
LOC: MICIMG 09:16
PROVIDERS: PCP Family Medicine
DX: R91.1 Solitary pulmonary nodule (principal); Z72.0 Tobacco use
CPT/HCPCS: 71250

== ENCOUNTER 2025-06-14 08:23 | Outpatient (CLI) | payer OTHER, MEDICARE, SELFPAY ==
--- NOTE | ~2025-06-14 | XR_ITS ---
EXAMINATION: XR UGIAC w small bowel DATE: 06/14/2025 09:48 INDICATION: Chest pain. GERD. TECHNIQUE: The patient drank thick barium, gas-producing crystals, and thin barium. Conventional supine abdomen radiographs and fluoroscopic spot radiographs of the esophagus, stomach, and proximal small bowel were obtained. Additional overhead radiographs were obtained during the transit through the s mall bowel. Spot fluoroscopic images of the small bowel were obtained upon contrast reaching the cecum. A total of 512 fluoroscopic images and 3 overhead radiographs were obtained. Fluoroscopy exposure time was 2.3 minutes. Total DAP was 35.48 Gycm^2. COMPARISON: None. FINDINGS: The esophagus is normal without mass or stricture. Esophageal motility is normal. There is no hiatal hernia. There was no gastroesophageal reflux with provocative maneuvers. The stomach and proximal small bowel are normal. Transit time from the stomach to proximal colon was approximately 30 minutes. There is normal caliber and mucosal fold pattern throughout the small bowel. Terminal ileum is normal. Normal appendix. Incidentally noted are changes of instrumented L3-S1 anterior spinal fusion and instrumented L3-L4 posterior spinal fusion. IMPRESSION: 1. Normal upper GI and small bowel follow-through study. Reviewed, dictated and finalized at location A. HOP
== END 2025-06-14 08:24 | disposition home or self-care (01) ==
PROVIDERS: PCP Family Medicine; Visit Provider Internal Medicine Gastroenterology
DX: R07.9 Chest pain, unspecified (principal); R68.81 Early satiety; R11.0 Nausea
CPT/HCPCS: 74246; 74248

== ENCOUNTER 2025-07-05 12:48 | Outpatient (CLI) | payer MEDICARE, OTHER, SELFPAY ==
--- NOTE | ~2025-07-05 | MR_ITS ---
EXAMINATION: MR brain/brain stem wo/w con DATE: 07/05/2025 14:40 INDICATION: Frequent falls TECHNIQUE: Magnetic resonance imaging (MRI) of the brain and brainstem was performed without intravenous contrast. Sequences included sagittal and axial T1-weighted SE, axial diffusion-weighted FS SE, axial T2*-weighted GRE, axial T2-weighted FLAIR Propeller, and axial T2-weighted Propeller. Apparent diffusion coefficient (ADC) maps were created. COMPARISON: MRI dated 10/13/2023. FINDINGS: Brain parenchymal volume is normal for age. No acute intracranial hemorrhage, infarction, mass or mass effect. No abnormal contrast enhancement. Empty sella turcica. No ventriculomegaly or midline shift. Orbits are symmetric without disconjugate gaze. Paranasal sinuses are unremarkable. Structures of the posterior fossa including the seventh/8th cranial nerve complexes are normal. IMPRESSION: 1. No acute intracranial abnormality. Reviewed, dictated and finalized at location I. NEERING PSYCHOLOGIST
--- NOTE | ~2025-07-05 | MR_ITS ---
EXAMINATION: MR cervical spine wo/w con DATE: 07/05/2025 14:40 INDICATION: Chronic pain. Unsteady gait. Recurrent falls. Numbness and tingling on the right side. TECHNIQUE: Magnetic resonance imaging (MRI) of the cervical spine was performed including postcontrast series after 17 mL MultiHance intravenous contrast. Sequences included sagittal T2-weighted FSE, sagittal T2-weighted FS FSE, sagittal T1-weighted FSE, axial MERGE, and axial T2-weighted FSE. COMPARISON: Spine x-ray dated 01/31/2023. FINDINGS: No acute or focal abnormalities of cervical vertebrae are seen. Posterior fossa, foramen magnum structures are normal in the sagittal projection. At C2-3 level, no focal disc lesions are seen. At C3-4 level, degenerative disc disease with osteophyte complex causing moderate can by foraminal narrowing, right more than the left. At C4-5 level, degenerative disc disease and osteophyte complexes causing significant by foraminal narrowing, right worse than the left. Mild compromise of thecal sac with AP diameter in the midline measuring 8.3 mm. At C5-6 level, degenerative disc disease and osteophyte complex are causing mild to moderate bilateral foraminal narrowing. At C6-7 level, degenerative disc disease with bulging annulus minimally impinges on thecal sac in the midline. C7-T1 disc is normal. No abnormal enhancement on postcontrast study. No focal lesions of the cervical spinal cord. IMPRESSION: 1. No acute or focal bone changes of cervical vertebrae. No abnormal enhancement on the postcontrast study. 2. Multilevel degenerative changes as described above in detail at each level. Findings predominantly at C3-4, C4-5 and C5-6 levels. 3. No abnormal enhancement on postcontrast study. No focal lesions of the cervical spinal cord. Reviewed, dictated and finalized at location T. [place] EVENT ASSISTANT IMPRESSION: 1. No acute or focal bone changes of cervical vertebrae. No abnormal enhancemen t on the postcontrast study. 2. Multilevel degenerative changes as described above in detail at each level. Findings predominantly at C3-4, C4-5 and C5-6 levels. 3. No abnormal enhancement on postcontrast study. No focal lesions of the cervi sue spinal cord.
== END 2025-07-05 12:49 | disposition home or self-care (01) ==
LOC: MICIMG 12:50
PROVIDERS: PCP Family Medicine
DX: M47.892 Other spondylosis, cervical region (principal); Z91.81 History of falling
CPT/HCPCS: 70553; 72156; A9577

== ENCOUNTER 2025-07-12 02:03 | Day surgery (SDC) | payer OTHER, MEDICARE, SELFPAY ==
[2025-07-05 10:17] VITALS: BMI 29.0
--- NOTE | 2025-07-05 10:27 | PC.NURSE ---
[facility] has started construction of its new state of the art ER which will open Spring 2026. With this, we anticipate parking may be a challenge for some our surgical patients and families. Parking spaces are limited but are available for all Surgical, obstetrics, and ER patients sharing this lot. If you arrive and find you are having a hard time finding a parking space, please note that we understand the challenges, please drive around the hospital and park near Hospital Entrance 1. When you enter this entrance, you can ask a volunteer to direct or take you back to the surgical waiting area to check in. We appreciate everyone?s understanding of these expected challenges while we build for your future. Report to the Outpatient Waiting Room, entrance under the green pavilion located off [address], at time ___0730am____ on date ___07/12/25____. Planned Procedure Time: _0830am .? Time changes happen often and if your time is changed the preop area will call you the afternoon before. - You and your visitor will be asked to self-screen and do not enter if you have any COVID symptoms. Please call surgeon if you need to reschedule. - A mask is optional within the hospital at this time. Patients may eat light early breakfast and drink then but, No food or drink after 0630am until time of surgery. No smoking, or chewing tobacco (or any form of nicotine). No chewing gum, candy or mints am of surgery. Take only the following medications with a SIP of water on the morning of surgery: __All AM Meds DO NOT STOP ANY OF YOUR OTHER PRESCRIPTION MEDICATIONS PRIOR TO SURGERY EXCEPT THE FOLLOWING Hold all vitamins and supplements for 3 days per anesthesiologist. Medications to discontinue per physician Celebrex for [address] WEBB Date to take last dose 07/04/25 Please no make-up, nail qatari, hairspray, perfume, deodorant, or body powder the day of surgery.? No jewelry (including any body piercings) or valuables the day of surgery, leave them at home.? Please take a shower or bath the night before, or the morning of surgery with an antibacterial soap.? Wear comfortable, loose fitting clothing.? - Jewelry must be removed prior to entering the operating room.? Rings and piercings that are not removed may be cut off. - The hospital will not accept responsibility for valuables.? - Please leave all valuables, including medications, at home the day of surgery. If you are going home after surgery, a licensed airport driver must drive you home.? - NO public transportation without another adult if you receive anesthesia. - We recommend that an adult stay with you for 24 hours following discharge. - We also recommend that you do not drive, make important decision, drink alcoholic beverages, or take any drugs that were not prescribed by your health care provider for at least 24 hours after your discharge time. NO DRIVING FOR [address] WEBB - pt aware Follow any additional instructions given to you from your surgeon. Telephone instructions given to ___Patient and asked if any additional questions and then verbalized understanding. Patient advised to call surgeon office or pre surgery nurse liaison [phone] if any additional questions.
--- NOTE | ~2025-07-12 | XR_ITS ---
XR fluoroscopy no charge Indication: Epidural TECHNIQUE: Fluoroscopy used during epidural performed by [Jose Carlos More MD] on 07/12/2025. 30 seconds of fluoroscopy with 7 fluoroscopic images captured. FINDINGS: Correlate with procedure note. IMPRESSION: Fluoroscopy used during epidural. Reviewed, dictated and finalized at location I. [place] TESTER
--- OUTSIDE RECORDS SUMMARY | 2025-07-12 02:48 | XMS_ITS | Clinical Summary ---
Author Organization [employer] [id number] [facility] Address [address] [place] [address] Care Team Providers Care Precision Devices Inspector/Tester Name Role Phone Miki Anderson MD Primary Care Provider [phone] Allergies Active Allergy Reactions Criticality Noted Date [...] (#1) 2025 Medical Devices Implanted Type Area Social Human Services Assistants Device Identifier Shelf Expiration Date Model / Serial / Lot Hemostatic Surgifoam [id number] Implanted:Qty: 1 on 03/23/2019 by Nico Haji MD at [facility] N/A: Spine Lumbar [employer] 10/03/20211971 [id number] Insurance [facility] OPTIONS PPO [id number] RX OPTUM RX Member Subscriber Plan / Payer (Ef fective 2019-Present) Name:PeterhowieLore Relation to Subscriber:Self Name:Lore Jacobs Subscriber ID:Not on file Payer ID:Not on file Group ID:[id number] Type:RX Commercial Address: [address] Advance Directives For more information, please contact: [phone] * Full Code (Latest Code Status on File) Date Activated Date Inactivated Comments 03/23/2019 10:07 AM 03/23/2019 3:20 PM Care Teams Precision Devices Inspector/Tester Relationship Specialty Start Date End Date Miki Anderson MD [address] [place] [address] PCP - General Family Practice 07/30/18
--- OUTSIDE RECORDS SUMMARY | 2025-07-12 02:48 | XMS_ITS | Clinical Summary ---
Author Organization [facility] Address [address] [place] [id number] Care Team Providers Care Occupational Physician Name Role Phone Miki Anderson MD Primary Care Provider [phone] Allergies Active Allergy Reactions Criticality Noted Date [...] age to complete this topic Care Teams Occupational Physician Relationship Specialty Start Date End Date Miki Anderson MD [address] [address] PCP - General Family Medicine 06/07/16
--- NOTE | 2025-07-12 06:04 | WPDHPUPDATE1 ---
History and Physical Update Update Date/Time: 07/12/25 06:04 History and Physical has been reviewed, including an updated exam of the patient. There are NO changes in the patient's condition. Risks, benefits, and alternatives have been discussed and questions answered. Patient agrees to proceed with procedure.
--- NOTE | 2025-07-12 06:06 | W.PM.PROC2 ---
Procedure Note - Detailed Date of Procedure 07/12/25 Pre-op Diagnosis chronic pain syndrome Post-op Diagnosis Same Procedure Performed Thoracolumbar Interlaminar Epidural Needle Placement at T11-12 for Single Prognostic Epidural Bolus of Opioid Analgesic (Pump Trial) under Fluoroscopic Guidance with Contrast Control. Surgeon Jose Carlos More MD Animal Skinner None. Anesthesia Local Description of Procedure INFORMED CONSENT: Risks, benefits and alternatives to the procedure were discussed in detail with the patient who expressed explicit understanding and consent to proceed. Patient was informed verbally and in written form regarding the risks associated with the procedure including the low risk of inadvertent dural puncture resulting in CSF leak and subsequent acute or chronic spinal headache, serious systemic or local infection requiring additional surgery, bleeding/bruising or blood clot, allergic reaction, nerve /spinal cord or organ injury resulting in temporary or permanent weakness, paralysis, numbness, pain, deformity or bowel or bladder incontinence, procedural site pain or discomfort, worsening pain and/or mobility, failure to treat and/or disfigurement, as well as the risk of opioid overdose resulting in sedation, cognitive impairment, hypoxia, coma, , or under dose causing withdrawal symptoms or untreated pain. The patient expressed explicit understanding and consent to proceed despite the potential risks with the agreement that potential benefits far outweigh potential for harm. All materials required for the procedure were available prior to procedure start. Site and side were marked prior to procedure and confirmed in the presence of the patient. PROCEDURE IN DETAIL: The patient was brought to the procedural suite and placed in the prone position. Patient was made comfortable with use of pillows under the head/chest, hips and ankles. Appropriate monitoring initiated. Skin overlying the injection site was prepared broadly with ChloraPrep applicator and draped in a sterile manner. Aseptic technique was employed throughout. The endplates of the vertebral body at the site of interest were aligned in the AP view. Slight caudal tilt and ipsilateral oblique angulation was utilized to optimize visualization of the targeted posterior intervertebral foramen at T11-12. Local anesthesia was established by infiltration with approximately 5 mL of 0.5% lidocaine via a 1-1/2 inch 27-gauge needle. A 20-gauge 4-inch Tuohy epidural needle was advanced intermittently until appropriate loss of resistance to air was identified via plastic loss of resistance syringe. Lateral view was used to confirm the appropriate positioning of the needle tip within the posterior epidural space. In the AP view, 2.0 mL of Omnipaque 300 contrast medium was injected after negative aspiration for CSF, blood or other bodily fluid, showing appropriate epidural spread of contrast without evidence of intravascular or intrathecal placement. 1 ml of a 1mg/ml aqueous solution of preservative free morphine labeled for IT/Epidural use was injected after negative repeat aspiration. Appropriate spread of the injectate was confirmed with washout of previously injected contrast. No parasthesias were elicited. Needle was removed intact and without difficulty. Site was cleaned and sterile bandage was applied. The patient tolerated the procedure well with no evidence of complication. Images were saved and documented in the patient chart. Patient's skin was cleaned and sterile bandage applied. The patient tolerated the procedure well. The patient was transported to the recovery area in stable condition where they were observed and monitored (RR, HR, BP, O2 Sats, Pain level) for an appropriate amount of time prior to discharge (no less than 1 hour), without evidence of complication. After approximately one hour, the patient was evaluated for neurologic deficit, pain relief and side effects with results as below. Patient instructed to remain in the presence of a responsible adult to monitor for the next 72 hours. The patient was instructed to avoid excessive activity for the next 48 hours, including climbing and frequent use of stairs. Showers only for 48 hours. They were instructed not to drive or operate heavy machinery for 72 hours. They are to monitor for pruritus, sedation/confusion, severe headaches, fevers, chills, night sweats, erythema/swelling at the site or any other signs of infection, bleeding/bruising, bowel or bladder changes as well as new pain, weakness or numbness in the upper or lower extremity. Should they notice these changes, they are instructed to call our office immediately or report directly to the nearest Emergency Department if no answer or if after posted office hours. COMPLICATIONS: None COMMENTS: Total dose:1 mg Morphine. No side effects of nausea, pruritus, somnolence, hallucinations noted. None CONTRAST WASTED: 26mL Omnipaque 300. Complications No immediate complications Condition Stable Disposition Same day ( Extended stay greater than 1 hour.) [facility] Billing Surgery - Charge Forward: Surgery Billing
[2025-07-12 07:24] VITALS: BP 119/78; PULSE 82; RESP 20; TEMP 36.6; O2SAT 82
[2025-07-12 08:02] VITALS: BP 112/73; PULSE 81; RESP 16; O2SAT 97
[2025-07-12] MEDS: LIDOCAINE 1% LOCAL INJ 10 ML VIAL 5 ML INFILTRATE (08:03)
[2025-07-12 08:07] VITALS: BP 108/76; PULSE 81; RESP 14; O2SAT 96
[2025-07-12 08:12] VITALS: BP 108/62; PULSE 73; RESP 16
--- NOTE | 2025-07-12 09:41 | SUR.PHASEII ---
called to check on patient this RN spoke to patient who stated everything is good no problems
== END 2025-07-12 08:30 | disposition home or self-care (01) ==
PROVIDERS: PCP Family Medicine; Visit Provider Anesthesiology Pain Medicine
PROC: (CPT 62321; principal; 2025-07-12 08:00)
DX: G89.4 Chronic pain syndrome (principal); M54.6 Pain in thoracic spine; M54.2 Cervicalgia; M54.12 Radiculopathy, cervical region; M79.18 Myalgia, other site; M47.27 Other spondylosis with radiculopathy, lumbosacral region; M54.50 Low back pain, unspecified; M96.1 Postlaminectomy syndrome, not elsewhere classified
CPT/HCPCS: 62321; 99199; J2003

== ENCOUNTER 2025-07-21 15:10 | Observation (INO) | payer OTHER, MEDICARE, SELFPAY ==
[2025-07-21] VITALS (10 sets, daily range): BP systolic 110–154; BP diastolic 71–134; PULSE 63–97; RESP 12–20; TEMP 36.4; O2SAT 98–100; BMI 29.7
--- NOTE | ~2025-07-21 | CT_ITS ---
EXAMINATION: CTA chest PE protocol DATE: 07/21/2025 20:15 INDICATION: Shortness of breath. TECHNIQUE: Computed tomography angiography (CTA) of the chest was performed with 100 mL Omnipaque-350 intravenous contrast timed to evaluate the pulmonary arteries. Coronal maximum intensity projection 3D-reconstructions were created by the technologist. Automated exposure control and iterative reconstruction technique were employed. The dose-length product was 306.92 mGy-cm. COMPARISON: Chest x-ray dated 07/21/2025 FINDINGS: No acute pulmonary findings. No evidence of pulmonary emboli. Thoracic aorta shows no acute findings. IMPRESSION: 1. No evidence of pulmonary emboli. Thoracic aorta shows no acute findings. Reviewed, dictated and finalized at location T. THCARE ARCHITECT
--- NOTE | ~2025-07-21 | XR_ITS ---
EXAMINATION: XR chest 2V DATE: 07/21/2025 15:48 INDICATION: Shortness of breath. TECHNIQUE: Frontal and lateral views of the chest were obtained. COMPARISON: Chest x-ray dated 05/03/2025. FINDINGS: Heart size is normal. Lungs are clear of acute process. IMPRESSION: 1. No acute cardiopulmonary findings. Reviewed, dictated and finalized at location T. [place] LOAN OFFICER
--- NOTE | 2025-07-21 15:12 | ECG_ITS ---
Test Date: 2025-07-21 15:21:52 Measurements Intervals [place] Rate: 92 P: 71 NM: 159 QRS: 52 QRSD: 96 T: 126 QT: 355 QTc: 440 Interpretive Statements SINUS RHYTHM LEFT ATRIAL ENLARGEMENT LEFT VENTRICULAR HYPERTROPHY AND ST-T CHANGE CANNOT R/O SEPTAL INFARCT, AGE INDETERMINATE BORDERLINE T WAVE ABNORMALITY- ANT/INF LEADS BASELINE ARTIFACT- I, II, III, AVR, AVL, AVF, V1-V6 ABNORMAL ECG Compared to ECG 05/05/2025 02:50:57 HEART RATE HAS INCREASED Electronically Signed On 07-21-2025 16:19:57 PRODUCT SAFETY COORDINATOR by Quinten Renteria D.O.
[2025-07-21 15:36] LABS: Hematocrit 40.2 % (37.0-47.0); Hemoglobin 13.2 g/dL (12.0-15.0); Immature Granulocyte Percent A 0.5 % (0-0.5); Lymphocytes Absolute Auto 1.26 K/mm3 (0.9-3.2); Mean Corpuscular HGB Conc 32.8 g/dl (32-36); Mean Corpuscular Hemoglobin 29.5 pg (26-34); Mean Corpuscular Volume 89.7 fl (80-100); Nucleated Red Blood Cells Absolute Auto 0.000 K/mm3 (0.0-0.012); Nucleated Red Blood Cells Perc 0.0 % (0.0-0.2); Platelet Count Result 235 k/mm3 (150-375); Red Blood Count 4.48 M/mm3 (4.2-5.4); White Blood Count 7.8 K/mm3 (4.5-10.0)
[2025-07-21 15:46] LABS: INR 1.0; Prothrombin Time 12.7 Seconds (11.1-14.7)
[2025-07-21 15:47] LABS: Alanine Aminotransferase 27 U/L (6-35); Albumin Level 4.5 g/dL (3.5-5.1); Alkaline Phosphatase 92 U/L (38-126); Anion Gap 6 mmol/L (4-12); Aspartate Amino Transferase 34 U/L (14-36); Bilirubin,Total 0.6 mg/dL (0.2-1.3); Blood Urea Nitrogen 16 mg/dL (7-17); Calcium 9.7 mg/dL (8.4-10.2); Carbon Dioxide 21 mmol/L (22-30); Chloride 110 mmol/L (98-107); Estimated CRCL calculation 72 ml/min; Estimated Glomerular Filt Rate > 60; Glucose 140 mg/dL (65-110); Lipase 122 U/L (23-300); Partial Thromboplastin Time 26.2 Seconds (22.3-36.8); Potassium 3.8 mmol/L (3.4-5.0); Sodium 137 mmol/L (137-145); Total Protein 7.6 g/dL (6.3-8.2)
[2025-07-21 15:58] LABS: Troponin I < 0.012 ng/mL (0.000-0.034)
--- NOTE | 2025-07-21 18:45 | ECG_ITS ---
Test Date: 2025-07-21 21:02:19 Measurements Intervals [place] Rate: 71 P: 67 NC: 177 QRS: 14 QRSD: 97 T: 124 QT: 427 QTc: 466 Interpretive Statements SINUS RHYTHM WITH SINUS ARRHYTHMIA POSSIBLE LEFT ATRIAL ENLARGEMENT LEFT VENTRICULAR HYPERTROPHY WITH ST-T ARREGUIN BASELINE ARTIFACT- I, III, AVR, AVL, AVF BORDERLINE ECG Compared to ECG 07/21/2025 15:21:52 NO SIGNIFICANT CHANGE Electronically Signed On 07-22-2025 06:15:28 CREDIT FRONT OFFICE DEVELOPER by Quinten Renteria D.O.
[2025-07-21 19:04] LABS: Troponin I < 0.012 ng/mL (0.000-0.034)
--- NOTE | 2025-07-21 19:08 | ED.GENADULT ---
HPI - General Adult General Chief complaint: Chest Pain Stated complaint: Chest pain-shortness of breath since Friday Time Seen by Provider: 07/21/25 18:54 History of Present Illness HPI narrative: patient 52-year-old female presents emergency department with chief complaint chest pain. Patient reports that she has had a cardiac catheterization that required stent placement. Patient reports she has had musculoskeletal pain in her chest reports she perspective and also that she shortness of with present illness Related Data Home Medications ?Medication ?Instructions ?Recorded ?Confirmed ?Last Taken ?Type alprazolam 1 mg tablet 1 mg PO DAILY PRN Anxiety 04/09/24 07/12/25 07/12/25 06:30 History cholecalciferol (vitamin D3) 1,250 50,000 unit PO WEEKLY 04/09/24 07/12/25 07/11/25 History mcg (50,000 unit) capsule acetaminophen 500 mg tablet 1,000 mg PO Q4-6H PRN pain 07/05/25 07/12/25 07/11/25 History (Acetaminophen Extra Strength) celecoxib 200 mg capsule 200 mg PO Q12H PRN pain 07/05/25 07/12/25 07/05/25 History cyclobenzaprine 10 mg tablet 10 mg PO Q8H PRN spasms 07/05/25 07/12/25 07/11/25 History Allergies Allergy/AdvReac Type Severity Reaction Status Date / Time amoxicillin Allergy Intermediate Rash Verified 07/21/25 18:25 Cephalosporins Allergy Intermediate Rash Verified 07/21/25 18:25 Penicillins Allergy Intermediate Rash Verified 07/21/25 18:25 ketorolac AdvReac Intermediate Nausea and Verified 07/21/25 18:25 Vomiting clarithromycin AdvReac Mild GI Verified 07/21/25 18:25 Review of Systems Review of Systems: A 10 system review of systems was completed on the patient and is negative except for what is stated in the HPI. Nursing and ancillary documentation was reviewed. [facility] Past Medical History Medical History Nausea Fibromyalgia GERD (gastroesophageal reflux disease) Elevated glucose Bronchitis Folliculitis Non-cardiac chest pain Neck pain COVID-19 Back pain with history of spinal surgery SAMANTHA (obstructive sleep apnea) Tobacco abuse IBS (irritable bowel syndrome) Small bowel obstruction Anxiety Asthma Major depressive disorder, single episode, unspecified Ulnar neuropathy of both upper extremities Hypertension Surgical History Surgical History History of laparoscopy x 2 exploratory laparoscopy due to abdominal pain in her 20's with no reported significant findings. History of back surgery X3 (total 5 spinal surgeries) History of carpal tunnel release Bilaterally H/O section X3 H/O: hysterectomy Open partial hysterectomy followed by left salpingo-oophorectomy and eventually right salpingo-oophorectomy. Total of 3 surgeries. Family History Family History Mother Diabetes mellitus Hypertension Heart disease COVID-19 Lung cancer Father Diabetes mellitus Hypertension Heart disease COVID-19 S/P triple vessel bypass, Onset Age: 65 Sibling COVID-19 Social History Social History Social History: She is . She has 3 children. She is a full code and desires to have her to be her decision-maker if needed. She does not use alcohol marijuana or illicit drugs. Smoking packs per day: 0.5 Smoking cigarettes per day: 10.0 Years smoked: 20 Smoking pack-years: 10.00 Smoking status: Current every day smoker Tobacco type: cigarettes Second hand tobacco smoke exposure: No Smoking end date: 01/28/22 Alcohol intake: current Alcohol use details: 1 per month Substance use: current Substance use type: marijuana Other substance usage details: smokes few times a week Last use: 11-12 days ago Lack of Transportation: No Lack of Food: Never True Current Housing: I Have Housing Concerned About Future Housing: No Difficulty Paying Gas/Electric Bills: No Difficulty Paying for Meds: No Currently Unemployed: No Education: Trade/Vocational Certificate Difficulty w/ Childcare or Family Care: No Living arrangements: with family Occupation/Education: unemployed 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 Gender identity (if verbalized by the patient): Female Sexual Orientation (if Verbalized by the Patient): Straight or Heterosexual Spiritual care concerns: No Exam Narrative: GENERAL: Well-appearing, well-nourished, and in no acute distress. HEAD: Normocephalic, atraumatic. EYES: PERRLA and EOMI. ENT: Nares clear, no rhinorrhea or epistaxis. Mucous membranes moist. NECK: Supple. CHEST: Clear to auscultation. No respiratory distress. Chest wall is palpation sternal border HEART: Regular rate and rhythm. No murmur heard. Normal peripheral pulses. ABDOMEN: Soft, nontender, nondistended, normal active bowel sounds. EXTREMITIES: Normal range of motion. No edema. SKIN: Warm, dry, no rash. NEURO: No focal deficits. Alert and oriented x3. PSYCH: Normal mood and affect. Course Vital Signs Vital signs: Vital Signs Temperature 36.4 C 07/21/25 15:21 Pulse Rate 97 07/21/25 15:21 Respiratory Rate 20 07/21/25 15:21 Blood Pressure 112/73 07/21/25 15:21 Pulse Oximetry 100 07/21/25 15:21 Oxygen Delivery Room Air 07/21/25 15:21 Temperature 36.4 C 07/21/25 15:21 Pulse Rate 81 07/21/25 19:33 Respiratory Rate 18 07/21/25 19:33 Blood Pressure 110/71 07/21/25 19:19 Pulse Oximetry 98 07/21/25 19:19 Oxygen Delivery Room Air 07/21/25 18:15 MDM MDM Narrative Medical decision making narrative: Both troponins were negative on the patient. The patient was feeling better but still felt somewhat short of breath when the patient was ambulated her oxygen saturation dropped down into the 80s. A CT PE protocol was obtained that showed no evidence of PE Differential Diagnosis Differential Diagnosis: differential diagnosis includes ACS, noncardiac chest pain, reflux, pneumonia, hypoxic respiratory failure. Lab Data 07/21/25 15:29 07/21/25 15:29 Labs: Lab Results 07/21/25 07/21/25 07/21/25 Range/Units 15:29 18:37 21:19 WBC 7.8 (4.5-10.0) K/mm3 RBC 4.48 (4.2-5.4) M/mm3 Hgb 13.2 (12.0-15.0) g/dL Hct 40.2 (37.0-47.0) % MCV 89.7 (80-100) fl MCH 29.5 (26-34) pg MCHC 32.8 (32-36) g/dl RDW 12.2 (11.5-14.5) % Plt Count 235 (150-375) k/mm3 MPV 11.1 H (7.4-10.4) fl Immature Gran % (Auto) 0.5 (0-0.5) % Neut % (Auto) 82.1 H (45.5-73.1) % Lymph % (Auto) 16.2 L (18.3-44.2) % Garrett % (Auto) 0.9 L (2.6-8.5) % Eos % (Auto) 0.0 (0-4.4) % Baso % (Auto) 0.3 (0.2-1.2) % Lymph # (Auto) 1.26 (0.9-3.2) K/mm3 Garrett # (Auto) 0.1 (0.1-0.6) K/mm3 Eos # (Auto) 0.0 (0-0.3) K/mm3 Baso # (Auto) 0.0 (0.0-0.1) K/mm3 Abs Immat Gran (auto) 0.04 H (0.00-0.031) K/mm3 Absolute Neuts (auto) 6.4 (1.3-6.7) K/mm3 Absolute Nucleated RBC 0.000 (0.0-0.012) K/mm3 Nucleated RBC % 0.0 (0.0-0.2) % PT 12.7 (11.1-14.7) Seconds INR 1.0 APTT 26.2 (22.3-36.8) Seconds Sodium 137 (137-145) mmol/L Potassium 3.8 (3.4-5.0) mmol/L Chloride 110 H (98-107) mmol/L Carbon Dioxide 21 L (22-30) mmol/L Anion Gap 6 (4-12) mmol/L BUN 16 (7-17) mg/dL Creatinine 0.92 (0.7-1.0) mg/dL Estim Creat Clear Calc 72 ml/min Estimated GFR > 60 (59 - ) Glucose 140 H (65-110) mg/dL Calcium 9.7 (8.4-10.2) mg/dL Total Bilirubin 0.6 (0.2-1.3) mg/dL AST 34 (14-36) U/L ALT 27 (6-35) U/L Alkaline Phosphatase 92 (38-126) U/L Troponin I < 0.012 < 0.012 Pending (0.000-0.034) ng/mL Total Protein 7.6 (6.3-8.2) g/dL Albumin 4.5 (3.5-5.1) g/dL Lipase 122 (23-300) U/L Imaging Data Radiologist's impression: ITS Impressions Chest X-Ray 07/21/25 15:52 IMPRESSION: 1. No acute cardiopulmonary findings. Chest CTA 07/21/25 20:16 IMPRESSION: 1. No evidence of pulmonary emboli. Thoracic aorta shows no acute findings. Discharge Plan Discharge Clinical Impression: Chest pain, Dyspnea Patient Disposition: Still a Patient Condition: Stable Patient Language: Romanian Prescriptions: No Action Ubrelvy 50 mg tablet 50 mg PO DAILY PRN (Reason: Migraine Headache) Qty: 30 1RF nitroglycerin 0.4 mg tablet, sublingual 0.4 mg sublingual Q5M PRN (Reason: chest pain) Qty: 20 0RF Rx Instructions: do not exceed 3 doses per episode Qulipta 30 mg tablet 30 mg PO DAILY Qty: 90 1RF naloxone 4 mg/actuation spray,non-aerosol 4 mg intranasal Q2-3M PRN (Reason: opioid overdose) Qty: 2 0RF Rx Instructions: spray 1 dose into ONE nostril then call 911; repeat every 2-3 minutes until responsive, alternating nostrils w each dose until emergency help arrives famotidine 20 mg tablet 20 mg PO Q12H Qty: 180 1RF alprazolam 1 mg tablet 1 mg PO DAILY PRN (Reason: Anxiety) cholecalciferol (vitamin D3) 1,250 mcg (50,000 unit) capsule 50,000 unit PO WEEKLY Rx Instructions: takes on Friday cyclobenzaprine 10 mg tablet 10 mg PO Q8H PRN (Reason: spasms) celecoxib 200 mg capsule 200 mg PO Q12H PRN (Reason: pain) acetaminophen [Acetaminophen Extra Strength] 500 mg tablet 1,000 mg PO Q4-6H PRN (Reason: pain) fluticasone propion-salmeterol [Advair Diskus] 250-50 mcg/dose blister with device 1 inh inhalation DAILY Qty: 60 0RF albuterol sulfate 90 mcg/actuation HFA aerosol inhaler 2 puff INHALATION Q4H PRN (Reason: Shortness Of Breath) Qty: 8.5 1RF sumatriptan 20 mg/actuation spray,non-aerosol 20 mg intranasal ONCE Qty: 6 1RF Rx Instructions: into one nostril; if headache remains, may repeat dose into other nostril once after at least 2 hours tizanidine 4 mg capsule 4 mg PO TID PRN (Reason: muscle spasticity) Qty: 90 0RF semaglutide (weight loss) 1 mg/0.5 mL pen injector 1 mg subcut WEEKLY Qty: 2 3RF lisinopril-hydrochlorothiazide 20-12.5 mg tablet See Rx Instructions .ROUTE .COMPLEX Qty: 90 1RF Dose Instruction: TAKE 1 TABLET BY MOUTH EVERY DAY Rx Instructions: TAKE 1 TABLET BY MOUTH EVERY DAY Follow-up/Referrals: Miki Anderson MD [Primary Care Provider, Family Practice] Time of Disposition: 21:28
[2025-07-21] MEDS: NITROGLYCERIN SL 0.4 MG TABLET SUBLINGUAL (19:16)
[2025-07-21] MEDS: PANTOPRAZOLE SODIUM IV 40 MG VIAL IV PUSH (19:16)
[2025-07-21] MEDS: BELLADONNA ALK/PHENOB ELIX 10 ML, MAG HYDROX/ALUMINUM HYD/SIMETH 30 ML, LIDOCAINE 2% VI... PO (19:16)
[2025-07-21] MEDS: IPRATROPIUM 0.5 MG/ALBUTEROL SULFATE 2.5 MG (BASE) AMPUL.NEB 3 ML INHALATION (19:25)
--- NOTE | 2025-07-21 20:53 | ECG_ITS ---
Test Date: 2025-07-21 18:45:19 Measurements Intervals [place] Rate: 67 P: 65 VT: 168 QRS: 37 QRSD: 90 T: 166 QT: 440 QTc: 465 Interpretive Statements SINUS RHYTHM POSSIBLE LEFT ATRIAL ENLARGEMENT LEFT VENTRICULAR HYPERTROPHY AND ST-T CHANGE CANNOT R/O SEPTAL INFARCT, AGE INDETERMINATE BORDERLINE ST-T WAVE ABNORMALITY- ANT/INF LEADS BASELINE ARTIFACT- I, II, III, AVR, AVL BORDERLINE ECG Compared to ECG 07/21/2025 15:21:52 No significant changes Electronically Signed On 07-22-2025 07:56:17 PARTY PLAN DEMONSTRATOR by Quinten Renteria D.O.
[2025-07-21] MEDS: ACETAMINOPHEN 325 MG TABLET 650 MG PO (21:47)
[2025-07-21 21:48] LABS: Troponin I < 0.012 ng/mL (0.000-0.034)
[2025-07-21 22:31] LABS: Influenza A QL RT-PCR Negative (Negative); Influenza B QL RT-PCR Negative (Negative); RSV RNA, RT-PCR Negative (Negative); SARS-CoV-2 RNA PCR Negative (Negative)
--- NOTE | 2025-07-21 23:36 | WPCEDHO ---
ED Hand Off Checklist All vitals saved: Yes IV Site documented: Yes All med administrations documented: Yes Triage Note Triage Note Patient to the ED with 07/21/25 18:15 complaints of chest pain for a couple days. Patient states she has history of cardiac cath performed at this hospital in April that showed no blockages in her heart. Patient states the pain is in the center of her chest that sometimes radiates across her chest. Patient also states she is having SOB and has history of asthma. Patient in no distress in triage. RN agrees with this assessment. Pt states she can feel the pain in her ears a little bit. Allergies amoxicillin Allergy (Intermediate, Verified 07/21/25 18:25) Rash Cephalosporins Allergy (Intermediate, Verified 07/21/25 18:25) Rash Penicillins Allergy (Intermediate, Verified 07/21/25 18:25) Rash ketorolac Adverse Reaction (Intermediate, Verified 07/21/25 18:25) Nausea and Vomiting clarithromycin Adverse Reaction (Mild, Verified 07/21/25 18:25) GI Family History (Last Reviewed 07/21/25 @ 19:12 by Robin Monsivais MD) Mother Diabetes mellitus Hypertension Heart disease COVID-19 Lung cancer Father Diabetes mellitus Hypertension Heart disease COVID-19 S/P triple vessel bypass Sibling COVID-19 Active Medications including assessments/comments Acetaminophen (Acetaminophen 325 Mg Tablet) 650 mg PO Q4H PRN PRN Reason: Mild Pain (1-3) or Fever Last Admin: 07/21/25 21:47 Dose: 650 mg Documented By: BETINA MUSTAFA Pain Assessment Document 07/21/25 21:47 BETINA (Rec: 07/21/25 21:47 [facility] [id number]) Pain Evaluation Pain Evaluation Assessment Pain Scale Pain Scale Used Numeric (1 - 10) Self Report Pain Assessment Reported Pain Level 5 Pain Score Pain Score 5: Self Report Re-Assess: MOON Pain/Fever Reassessment Document 07/21/25 22:25 BETINA (Rec: 07/21/25 22:25 [facility] [id number]) Reason for Administratin Reason for Pain Administration Pain Scale Pain Scale Used Numeric (1 - 10) Self Report Pain Assessment Reported Pain Level 5 Pain Score Pain Score 5: Self Report Administered/Completed Medications Discontinued Medications Albuterol/Ipratropium (Ipratropium 0.5 Mg/Albuterol Sulfate 2.5 Mg (Base) Ampul.Neb 3 Ml) 3 ml INHALATION ONCE STA Stop: 07/21/25 19:13 Last Admin: 07/21/25 19:25 Dose: 3 ml Documented By: GEETA Belladonna Alkaloids/Phenobarbital 10 ml/ Al Hydrox /Mg Hydrox/Simethicone 30 ml/Lidocaine HCl 10 ml 0 ml PO ONCE STA Stop: 07/21/25 19:06 Last Admin: 07/21/25 19:16 Dose: 50 ml Documented By: BETINA Methylprednisolone Sodium Succinate (Methylprednisolone Sod Succ 40 Mg Vial) 60 mg IV PUSH ONCE STA Stop: 07/21/25 21:16 Last Admin: 07/21/25 21:37 Dose: 60 mg Documented By: BETINA Nitroglycerin (Nitroglycerin Sl 0.4 Mg Tablet) 0.4 mg SUBLINGUAL ONCE STA Stop: 07/21/25 19:07 Last Admin: 07/21/25 19:16 Dose: 0.4 mg Documented By: BETINA Pantoprazole Sodium (Pantoprazole Sodium Iv 40 Mg Vial) 40 mg IV PUSH ONCE STA Stop: 07/21/25 19:07 Last Admin: 07/21/25 19:16 Dose: 40 mg Documented By: BETINA Interventions/Assessments Cardiac Monitoring Start: 07/21/25 15:11 Freq: Status: Active Protocol: Document 07/21/25 18:51 BETINA (Rec: 07/21/25 18:51 [facility] [id number]) Store Planner Assessment Store Planner Yes Applied Pulse Rate (60-100) 69 EKG Rythm Sinus Rhythm IV / Saline Lock, Insert Start: 07/21/25 15:12 Freq: STAT Status: Active Protocol: Document 07/21/25 18:50 BETINA (Rec: 07/21/25 18:51 [facility] [id number]) IV Assessment Peripheral Access Left Wrist IV Catheter Access Initiated IV Insertion Date 07/21/25 IV Insertion Time 18:51 Catheter Gauge 20 IV Insertion 1 Attempts Ultrasound Used for No Placement IV Site Assessment WNL IV Care and WNL Maintenance PA: Cardiovascular Assessment Start: 07/21/25 15:11 Freq: Status: Active Protocol: Document 07/21/25 18:15 BETINA (Rec: 07/21/25 18:24 BETINA [id number]) Chest Pain Assessment Chest Pain Intensity 6 Chest Pain Location Midsternal Description and Ache,Dull,Sharp Symptoms Chest Pain Duration > 6 Hours Chest Pain Radiation Back,Left Arm,Left Shoulder,Neck,Right Arm,Right Shoulder Precipitating None Factors Jugular Vein None Distention PA: Respiratory Assessment Start: 07/21/25 15:11 Freq: Status: Active Protocol: Document 07/21/25 18:15 [facility] (Rec: 07/21/25 18:24 [facility] [id number]) Respiratory Assessment Symptoms Shortness of Breath at Rest,Shortness of Breath With Exertion Effort Normal Pattern Regular Depth Normal Posterior Right Middle Lobe Phase Inspiratory & Expiratory Lung Sounds Diminished Cough Description None Sputum Amount None Oxygen Delivery Oxygen Delivery Room Air Pulse Oximetry (90- 100 100) Last Vital Signs Temperature 97.6 F 07/21/25 15:21 Pulse Rate 68 07/21/25 23:31 Respiratory Rate 16 07/21/25 23:31 Pulse Oximetry 100 07/21/25 23:31 Blood Pressure 139/92 H 07/21/25 23:31 Blood Pressure Mean 106 07/21/25 23:31 Blood Pressure Position Supine 07/21/25 22:35 Oxygen Delivery Room Air 07/21/25 18:15 Weight 86.18 kg 07/21/25 18:15 Last Result - Abnormals Only MPV 11.1 fl (7.4-10.4) H 07/21/25 15:29 Neut % (Auto) 82.1 % (45.5-73.1) H 07/21/25 15:29 Lymph % (Auto) 16.2 % (18.3-44.2) L 07/21/25 15:29 [place] % (Auto) 0.9 % (2.6-8.5) L 07/21/25 15:29 Abs Immat Gran (auto) 0.04 K/mm3 (0.00-0.031) H 07/21/25 15:29 Chloride 110 mmol/L (98-107) H 07/21/25 15:29 Carbon Dioxide 21 mmol/L (22-30) L 07/21/25 15:29 Glucose 140 mg/dL (65-110) H 07/21/25 15:29 Most Recent Suicide Severity Rating Suicide Severity Rating NO RISK INDICATED 07/21/25 18:15
[2025-07-22] VITALS (17 sets, daily range): BP systolic 120–139; BP diastolic 75–92; PULSE 57–107; RESP 16–18; TEMP 36.3–36.7; O2SAT 98–100
--- NOTE | 2025-07-22 00:12 | ADMGEN ---
This patient, Lore Jacobs, was admitted to [facility] Surg Room 311-01. Patient/family oriented to hospital policies and general routines including ID bracelet, bed and alarms, visiting hours, pain management, procedures, bathroom and other care routines, personal items, smoking policy, room service/diet, and visiting hours. Information on how to activate the Rapid Response Team has been discussed. Patient/Family are encouraged to report perceived risks to care and to ask questions if they do not understand what they are told or what they should do.
[2025-07-22] MEDS: IPRATROPIUM 0.5 MG/ALBUTEROL SULFATE 2.5 MG (BASE) AMPUL.NEB 3 ML INHALATION ×2 (02:09→08:11)
[2025-07-22] MEDS: ACETAMINOPHEN 325 MG TABLET 650 MG PO (08:29)
[2025-07-22] MEDS: CYCLOBENZAPRINE HCL 10 MG TABLET PO (09:22)
--- NOTE | 2025-07-22 10:30 | P.HP_ITS ---
H&P: HPI History of Present Illness Date/Time: 07/22/25 10:30 [facility] Past Medical History Medical History Nausea Fibromyalgia GERD (gastroesophageal reflux disease) Elevated glucose Bronchitis Folliculitis Non-cardiac chest pain Neck pain COVID-19 Back pain with history of spinal surgery SAMANTHA (obstructive sleep apnea) Tobacco abuse IBS (irritable bowel syndrome) Small bowel obstruction Anxiety Asthma Major depressive disorder, single episode, unspecified Ulnar neuropathy of both upper extremities Hypertension Surgical History Surgical History History of laparoscopy x 2 exploratory laparoscopy due to abdominal pain in her 20's with no reported significant findings. History of back surgery X3 (total 5 spinal surgeries) History of carpal tunnel release Bilaterally H/O section X3 H/O: hysterectomy Open partial hysterectomy followed by left salpingo-oophorectomy and eventually right salpingo-oophorectomy. Total of 3 surgeries. Family History Family History Mother Diabetes mellitus Hypertension Heart disease COVID-19 Lung cancer Father Diabetes mellitus Hypertension Heart disease COVID-19 S/P triple vessel bypass, Onset Age: 65 Sibling COVID-19 Social History Social History Social History: She is . She has 3 children. She is a full code and desires to have her to be her decision-maker if needed. She does not use alcohol marijuana or illicit drugs. Smoking packs per day: 0.5 Smoking cigarettes per day: 10.0 Years smoked: 20 Smoking pack-years: 10.00 Smoking status: Current every day smoker Tobacco type: cigarettes Second hand tobacco smoke exposure: No Smoking end date: 01/28/22 Alcohol intake: current Alcohol use details: 1 per month Substance use: current Substance use type: marijuana Other substance usage details: smokes few times a week, FOR PAIN Last use: 11-12 days ago Lack of Transportation: No Lack of Food: Never True Current Housing: I Have Housing Concerned About Future Housing: No Difficulty Paying Gas/Electric Bills: No Difficulty Paying for Meds: No Currently Unemployed: No Education: Trade/Vocational Certificate Difficulty w/ Childcare or Family Care: No Living arrangements: with family Occupation/Education: unemployed Additional occupation/education 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 Gender identity (if verbalized by the patient): Female Sexual Orientation (if Verbalized by the Patient): Straight or Heterosexual Spiritual care concerns: No Meds Home Medications and Allergies Home Medications ?Medication ?Instructions ?Recorded ?Confirmed ?Type alprazolam 1 mg tablet 1 mg PO DAILY PRN Anxiety 07/21/25 History cholecalciferol (vitamin D3) 1,250 50,000 unit PO WEEK LY 04/09/24 07/21/25 History mcg (50,000 unit) capsule fluticasone 250 mcg-salmeterol 50 1 inh inhalation AKASH LY #60 ea 04/21/24 07/21/25 Rx mcg/dose blistr powdr for inhalation (Advair Diskus) ubrogepant 50 mg tablet (Ubrelvy) 50 mg PO DAILY PRN M igraine 05/19/24 07/21/25 Rx Headache #30 tabs nitroglycerin 0.4 mg sublingual 0.4 mg sublingual Q5M PRN chest 12/09/24 07/21/25 Rx tablet pain #20 tabs albuterol sulfate 90 mcg/actuation 2 puff inhalation Q 4H PRN 01/29/25 07/21/25 Rx aerosol inhaler Shortness Of Breath #8.5 gra ms atogepant 30 mg tablet (Qulipta) 30 mg PO DAILY #90 ta bs 03/21/25 07/21/25 Rx sumatriptan 20 mg/actuation nasal 20 mg intranasal ONC E #6 ea 03/21/25 07/21/25 Rx spray semaglutide (weight loss) 1 mg/0.5 1 mg (0.5 mL) subcu t WEEKLY #2 mL 04/15/25 07/21/25 Rx mL subcutaneous pen injector famotidine 20 mg tablet 20 mg PO Q12H #180 tabs 04/1207/21/25 Rx naloxone 4 mg/actuation nasal spray 4 mg intranasal Q2 -3M PRN opioid 06/13/25 07/21/25 Rx overdose #2 ea acetaminophen 500 mg tablet 1,000 mg PO Q4-6H PRN pain 07/05/25 07/21/25 History (Acetaminophen Extra Strength) celecoxib 200 mg capsule 200 mg PO Q12H PRN pain 06/1207/21/25 History cyclobenzaprine 10 mg tablet 10 mg PO Q8H PRN spasms 1 09/04/24 07/21/25 History lisinopril 20 See Rx Instructions .Route 1 09/06/24 07/21/25 Rx mg-hydrochlorothiazide 12.5 mg .COMPLEX #90 tabs tablet Allergies Allergy/AdvReac Type Severity Reaction Status Date / Time amoxicillin Allergy Intermediate Rash Verified 07/22/25 00:12 Cephalosporins Allergy Intermediate Rash Verified 07/22/25 00:12 Penicillins Allergy Intermediate Rash Verified 07/22/25 00:12 ketorolac AdvReac Intermediate Nausea and Verified 07/22/25 00:12 Vomiting clarithromycin AdvReac Mild GI Verified 07/22/25 00:12 Vital Signs Vital Signs - 24 hr 07/21/25 15:21 07/21/25 18:15 07/21/25 18:15 Temperature 97.6 F Pulse Rate 97 69 Respiratory Rate 20 15 Blood Pressure 112/73 110/71 Pulse Oximetry 100 100 100 Oxygen Delivery Room Air Room Air Room Air 07/21/25 18:51 07/21/25 19:19 07/21/25 19:28 Temperature Pulse Rate 69 72 68 Respiratory Rate 15 14 Blood Pressure 110/71 Pulse Oximetry 98 Oxygen Delivery 07/21/25 19:33 07/21/25 22:15 07/21/25 22:35 Temperature Pulse Rate 81 76 63 Respiratory Rate 18 12 12 Blood Pressure 125/79 125/79 Pulse Oximetry 100 100 Oxygen Delivery 07/21/25 23:09 07/21/25 23:31 07/22/25 00:00 Temperature Pulse Rate 78 68 71 Respiratory Rate 18 16 Blood Pressure 154/134 H 139/92 H Pulse Oximetry 100 100 Oxygen Delivery 07/22/25 00:21 07/22/25 00:39 07/22/25 01:15 Temperature 97.3 F L 98.0 F Pulse Rate 57 L 84 84 Respiratory Rate 18 18 18 Blood Pressure 128/88 139/92 H Pulse Oximetry 100 100 100 Oxygen Delivery Room Air 07/22/25 02:09 07/22/25 02:14 07/22/25 02:24 Temperature Pulse Rate 73 75 Respiratory Rate 18 18 Blood Pressure Pulse Oximetry 98 Oxygen Delivery Room Air 07/22/25 04:00 07/22/25 06:00 07/22/25 08:13 Temperature 98.1 F Pulse Rate 76 85 69 Respiratory Rate 16 18 Blood Pressure 120/75 Pulse Oximetry 100 Oxygen Delivery 07/22/25 08:19 07/22/25 08:20 07/22/25 08:20 Temperature Pulse Rate 72 72 Respiratory Rate 18 Blood Pressure Pulse Oximetry Oxygen Delivery Room Air Results Labs Labs: Short CBC 07/21/25 Range/Units 15:29 WBC 7.8 (4.5-10.0) K/mm3 Hgb 13.2 (12.0-15.0) g/dL Hct 40.2 (37.0-47.0) % Plt Count 235 (150-375) k/mm3 BMP 07/21/25 15:29 Sodium 137 Potassium 3.8 Chloride 110 H Carbon Dioxide 21 L BUN 16 Creatinine 0.92 Glucose 140 H Calcium 9.7 Cardiac Enzymes 07/21/25 07/21/25 07/21/25 Range/Units 15:29 18:37 21:19 Troponin I < 0.012 < 0.012 < 0.012 (0.000-0.034) ng/mL Liver Function 07/21/25 Range/Units 15:29 Total Bilirubin 0.6 (0.2-1.3) mg/dL AST 34 (14-36) U/L ALT 27 (6-35) U/L Alkaline Phosphatase 92 (38-126) U/L Albumin 4.5 (3.5-5.1) g/dL
--- NOTE | 2025-07-22 11:44 | HOMEO2EVAL ---
Evaluation was performed at [facility] Home Oxygen Evaluation RC: Home Oxygen (O2) Evaluation Start: 07/22/25 08:06 Freq: ONCE Status: Active Protocol: RPE Activity Type Activity Date Activity User E-sign Co-sign Detail Recorded Client Recorded Date Recorded By Document 07/22/25 11:30 BERNIE [email or web address] 07/22/25 11:44 BERNIE Document 07/22/25 11:35 BERNIE [email or web address] 07/22/25 11:44 BERNIE Document 07/22/25 11:40 BERNIE [email or web address] 07/22/25 11:44 BERNIE 07/22/25 07/22/25 07/22/25 11:30 11:35 11:40 Home O2 Evaluation [Oxygen] -Test Phase Resting Exercise Resting -Oxygen Delivery Room Air Room Air Room Air [Pulse Oximetry] -Pulse Oximetry (90-100 %) 100 99 100 [Pulse Rate] -Pulse Rate (60-100 beats/min) 89 107 H 93 [Comments] -Home Oxygen Evaluation Comments No Home O2 needed at this time. [Charges] -Evaluation Charges O2 Evaluation by Pulmonary
--- NOTE | 2025-07-22 11:44 | PCRCNOTE ---
Home O2 eval completed, no home O2 needed at this time
--- NOTE | 2025-07-22 12:50 | PM.SD2 ---
Same Day Admit/Disch: HPI History of Present Illness Chief complaint: dyspnea, hypoxia with exertion Narrative: Lore Jacobs is a 49 year old female with PMH of fibromyalgia, GERD, chronic back pain, asthma/COPD, HTN and MDD. Patient presented to the ER with complaints of chest pain with associated shortness of breath. Patient reported to the ER that she had a cardiac catheterization that required stent placement. On review of patient's records I only find a cardiac catheterization that was done on 05/05/2025 which showed no CAD and no interventions were performed. In the ER the patient's troponin's were negative. Labwork was essentially unremarkable. Patient was noted to desaturate to the low 80s with ambulation. CT chest PE was performed without acute findings. Patient was placed on oxygen via NC. Patient was given prednisone. Patient was admitted for further observation. [facility] Past Medical History Medical History Nausea Fibromyalgia GERD (gastroesophageal reflux disease) Elevated glucose Bronchitis Folliculitis Non-cardiac chest pain Neck pain COVID-19 Back pain with history of spinal surgery SAMANTHA (obstructive sleep apnea) Tobacco abuse IBS (irritable bowel syndrome) Small bowel obstruction Anxiety Asthma Major depressive disorder, single episode, unspecified Ulnar neuropathy of both upper extremities Hypertension Surgical History Surgical History History of laparoscopy x 2 exploratory laparoscopy due to abdominal pain in her 20's with no reported significant findings. History of back surgery X3 (total 5 spinal surgeries) History of carpal tunnel release Bilaterally H/O section X3 H/O: hysterectomy Open partial hysterectomy followed by left salpingo-oophorectomy and eventually right salpingo-oophorectomy. Total of 3 surgeries. Family History Family History Mother Diabetes mellitus Hypertension Heart disease COVID-19 Lung cancer Father Diabetes mellitus Hypertension Heart disease COVID-19 S/P triple vessel bypass, Onset Age: 65 Sibling COVID-19 Social History Social History Social History: She is . She has 3 children. She is a full code and desires to have her to be her decision-maker if needed. She does not use alcohol marijuana or illicit drugs. Smoking packs per day: 0.5 Smoking cigarettes per day: 10.0 Years smoked: 20 Smoking pack-years: 10.00 Smoking status: Current every day smoker Tobacco type: cigarettes Second hand tobacco smoke exposure: No Smoking end date: 01/28/22 Alcohol intake: current Alcohol use details: 1 per month Substance use: current Substance use type: marijuana Other substance usage details: smokes few times a week, FOR PAIN Last use: 11-12 days ago Lack of Transportation: No Lack of Food: Never True Current Housing: I Have Housing Concerned About Future Housing: No Difficulty Paying Gas/Electric Bills: No Difficulty Paying for Meds: No Currently Unemployed: No Education: Trade/Vocational Certificate Difficulty w/ Childcare or Family Care: No Living arrangements: with family Occupation/Education: unemployed 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 Gender identity (if verbalized by the patient): Female Sexual Orientation (if Verbalized by the Patient): Straight or Heterosexual Spiritual care concerns: No Same Day Admit/Disch: Med Pre-admit Medications Home Medications ?Medication ?Instructions ?Recorded ?Confirmed ?Type alprazolam 1 mg tablet 1 mg PO DAILY PRN Anxiety 04/09/24 07/21/25 History cholecalciferol (vitamin D3) 1,250 50,000 unit PO WEEKLY 04/09/24 07/21/25 History mcg (50,000 unit) capsule fluticasone 250 mcg-salmeterol 50 1 inh inhalation DAILY #60 ea 04/21/24 07/21/25 Rx mcg/dose blistr powdr for inhalation (Advair Diskus) ubrogepant 50 mg tablet (Ubrelvy) 50 mg PO DAILY PRN Migraine 05/19/24 07/21/25 Rx Headache #30 tabs nitroglycerin 0.4 mg sublingual 0.4 mg sublingual Q5M PRN chest 12/09/24 07/21/25 Rx tablet pain #20 tabs albuterol sulfate 90 mcg/actuation 2 puff inhalation Q4H PRN 01/29/25 07/21/25 Rx aerosol inhaler Shortness Of Breath #8.5 grams atogepant 30 mg tablet (Qulipta) 30 mg PO DAILY #90 tabs 03/21/25 07/21/25 Rx sumatriptan 20 mg/actuation nasal 20 mg intranasal ONCE #6 ea 03/21/25 07/21/25 Rx spray semaglutide (weight loss) 1 mg/0.5 1 mg (0.5 mL) subcut WEEKLY #2 mL 04/15/25 07/21/25 Rx mL subcutaneous pen injector famotidine 20 mg tablet 20 mg PO Q12H #180 tabs 05/02/25 07/21/25 Rx naloxone 4 mg/actuation nasal spray 4 mg intranasal Q2-3M PRN opioid 06/13/25 07/21/25 Rx overdose #2 ea acetaminophen 500 mg tablet 1,000 mg PO Q4-6H PRN pain 07/05/25 07/21/25 History (Acetaminophen Extra Strength) celecoxib 200 mg capsule 200 mg PO Q12H PRN pain 07/05/25 07/21/25 History cyclobenzaprine 10 mg tablet 10 mg PO Q8H PRN spasms 07/05/25 07/21/25 History lisinopril 20 See Rx Instructions .Route 07/07/25 07/21/25 Rx mg-hydrochlorothiazide 12.5 mg .COMPLEX #90 tabs tablet prednisone 20 mg tablet 40 mg (2 x 20 mg) PO DAILY@08 #8 07/22/25 Rx tabs Review of Systems Review of Systems All systems reviewed & are unremarkable except as noted in HPI and below Exam Const: General: comfortable and no acute distress HENMT: Face/Nose/Sinus: Normal nares present Mouth: Yes moist mucous membranes Eyes: General: appearance normal, both eyes and all related structures Sclera: sclerae normal Neck: Neck: supple Resp: Effort & Inspection: normal respiratory effort Auscultation: clear to auscultation bilaterally Cardio: Rate: regular rate Rhythm: regular rhythm GI: GI Palp: Yes Soft to palpation Auscultation: normal bowel sounds Skin: General skin exam: normal color and no rashes or lesions noted Neuro: General: gait normal Speech: normal speech Motor exam (neuro): 5/5 motor strength present throughout Sensory Exam: normal sensation Extrem: General: normal to inspection Psych: Mental Status: mental status grossly normal Affect: normal affect DS: Data Data Completed and Pending Labs on day of discharge: Labs from last 24 hours 07/21/25 07/21/25 07/21/25 21:51 21:19 18:37 WBC RBC Hgb Hct MCV MCH MCHC RDW Plt Count MPV Immature Gran % (Auto) Neut % (Auto) Lymph % (Auto) Lawrence % (Auto) Eos % (Auto) Baso % (Auto) Lymph # (Auto) Lawrence # (Auto) Eos # (Auto) Baso # (Auto) Abs Immat Gran (auto) Absolute Neuts (auto) Absolute Nucleated RBC Nucleated RBC % PT INR APTT Sodium Potassium Chloride Carbon Dioxide Anion Gap BUN Creatinine Estim Creat Clear Calc Estimated GFR Glucose Calcium Total Bilirubin AST ALT Alkaline Phosphatase Troponin I < 0.012 < 0.012 Total Protein Albumin Lipase Influenza A (RT-PCR) Negative Influenza B (RT-PCR) Negative RSV (RT-PCR) Negative SARS-CoV-2 RNA (RT-PCR) Negative 07/21/25 15:29 WBC 7.8 RBC 4.48 Hgb 13.2 Hct 40.2 MCV 89.7 MCH 29.5 MCHC 32.8 RDW 12.2 Plt Count 235 MPV 11.1 H Immature Gran % (Auto) 0.5 Neut % (Auto) 82.1 H Lymph % (Auto) 16.2 L Lawrence % (Auto) 0.9 L Eos % (Auto) 0.0 Baso % (Auto) 0.3 Lymph # (Auto) 1.26 Lawrence # (Auto) 0.1 Eos # (Auto) 0.0 Baso # (Auto) 0.0 Abs Immat Gran (auto) 0.04 H Absolute Neuts (auto) 6.4 Absolute Nucleated RBC 0.000 Nucleated RBC % 0.0 PT 12.7 INR 1.0 APTT 26.2 Sodium 137 Potassium 3.8 Chloride 110 H Carbon Dioxide 21 L Anion Gap 6 BUN 16 Creatinine 0.92 Estim Creat Clear Calc 72 Estimated GFR > 60 Glucose 140 H Calcium 9.7 Total Bilirubin 0.6 AST 34 ALT 27 Alkaline Phosphatase 92 Troponin I < 0.012 Total Protein 7.6 Albumin 4.5 Lipase 122 Influenza A (RT-PCR) Influenza B (RT-PCR) RSV (RT-PCR) SARS-CoV-2 RNA (RT-PCR) Imaging Radiologist's impression: Ordering Physician: Ward Monsivais MD Date of Service: 07/21/25 Procedure(s): CTA chest PE protocol Accession Number(s): [id number] cc: Ward Monsivais MD~ EXAMINATION: CTA chest PE protocol DATE: 07/21/2025 20:15 INDICATION: Shortness of breath. TECHNIQUE: Computed tomography angiography (CTA) of the chest was performed with 100 mL Omnipaque-350 intravenous contrast timed to evaluate the pulmonary arteries. Coronal maximum intensity projection 3D-reconstructions were created by the technologist. Automated exposure control and iterative reconstruction technique were employed. The dose-length product was 306.92 mGy-cm. COMPARISON: Chest x-ray dated 07/21/2025 FINDINGS: No acute pulmonary findings. No evidence of pulmonary emboli. Thoracic aorta shows no acute findings. IMPRESSION: 1. No evidence of pulmonary emboli. Thoracic aorta shows no acute findings. Reviewed, dictated and finalized at location T. TABOUT SUPERVISOR DS: Summary Hospital Course Reason for hospitalization: shortness of breath Hospital Course: Lore Jacobs is a 49 year old female with PMH of fibromyalgia, GERD, chronic back pain, asthma/COPD, HTN and MDD. Patient presented to the ER with complaints of chest pain with associated shortness of breath. Patient reported to the ER that she had a cardiac catheterization that required stent placement. On review of patient's records I only find a cardiac catheterization that was done on 05/05/2025 which showed no CAD and no interventions were performed. In the ER the patient's troponin's were negative. Labwork was essentially unremarkable. Patient was noted to desaturate to the low 80s with ambulation. CT chest PE was performed without acute findings. Patient was placed on oxygen via NC. Patient was given prednisone. Patient was admitted for further observation. Patient reported her chest pain was improving. Patient reports she does not take her inhalers as prescribed at home and we discussed the importance of using the Advair regularly and not just as needed. Patient completed an ambulatory oximetry study and maintained her saturations on room air for the entire study. Patient had 3 negative troponin levels. Patient recommended topical pain management strategies to try. Patient discharged home with her home medications. Patient agrees to take her inhalers as prescribed. Patient will complete 4 more days of PO prednisone 40 mg. Patient will follow up with her PCP within 1-2 weeks of discharge. Status at Discharge Overall status at discharge: patient is progressing back to baseline Time Spent with Patient Time attestation: Total time spent providing and/or coordinating discharge services: 25 Minutes DS: Admitting Diagnosis Discharge Date 07/22/2025 Admitting Diagnosis chest pain shortness of breath COPD exacerbation GERD tobacco abuse DS: Discharge Diagnosis Discharge Diagnosis (1) Chest pain: Code(s): R07.9 - Chest pain, unspecified Status: Acute Assessment and Plan: patient with history of NSTEMI s/p cardiac cath 05/05/2025 with no CAD and no intervention troponin x 3 negative EKG without acute findings s/p GI cocktail pain control patient will follow up with cardiology as an outpatient (2) Dyspnea: Code(s): R06.00 - Dyspnea, unspecified Status: Acute Assessment and Plan: patient reported dyspnea for multiple days denies other upper respiratory symptoms does not use her Advair regularly, education provided on why consistency is important PO prednisone 40 mg x 5 days continue inhalers duo nebs while in hospital per ER notes patient was hypoxic with ambulation and placed on oxygen overnight. This AM ambulatory oximetry was completed and patient does not need oxygen at rest or with ambulation (3) COPD exacerbation: Code(s): J44.1 - Chronic obstructive pulmonary disease with (acute) exacerbation Status: Acute Assessment and Plan: see above (4) GERD (gastroesophageal reflux disease): Qualifiers: Esophagitis presence: esophagitis presence not specified Qualified Code(s): K21.9 - Gastro-esophageal reflux disease without esophagitis Code(s): K21.9 - Gastro-esophageal reflux disease without esophagitis Status: Acute Assessment and Plan: continue home PPI (5) Tobacco dependence: Code(s): F17.200 - Nicotine dependence, unspecified, uncomplicated Status: Acute Assessment and Plan: patient counseled on smoking cessation Discharge Plan Discharge Attending physician on discharge: Shannen aCmpbell Discharging Clinician: Joey,Erna N. Patient Disposition: Home Activity: as tolerated Diet: heart healthy Discharge Instructions: Please take your medications as prescribed. Please complete the course of steroids even if your symptoms have improved. Patient Instructions: Antibiotic Form Patient Language: Austrian Stand Alone Forms: General Discharge Information Follow-up/Referrals: Miki Anderson MD [Primary Care Provider, [facility]] Referral Note: call for an appointment to be seen within 1-2 days of discharge Discharge Medications: New prednisone 20 mg Tablet 40 mg PO DAILY@08 Qty: 8 0RF Continued Ubrelvy 50 mg tablet 50 mg PO DAILY PRN (Reason: Migraine Headache) Qty: 30 1RF nitroglycerin 0.4 mg tablet, sublingual 0.4 mg sublingual Q5M PRN (Reason: chest pain) Qty: 20 0RF Rx Instructions: do not exceed 3 doses per episode Qulipta 30 mg tablet 30 mg PO DAILY Qty: 90 1RF naloxone 4 mg/actuation spray,non-aerosol 4 mg intranasal Q2-3M PRN (Reason: opioid overdose) Qty: 2 0RF Rx Instructions: spray 1 dose into ONE nostril then call 911; repeat every 2-3 minutes until responsive, alternating nostrils w each dose until emergency help arrives famotidine 20 mg tablet 20 mg PO Q12H Qty: 180 1RF alprazolam 1 mg tablet 1 mg PO DAILY PRN (Reason: Anxiety) cholecalciferol (vitamin D3) 1,250 mcg (50,000 unit) capsule 50,000 unit PO WEEKLY Rx Instructions: takes on Friday cyclobenzaprine 10 mg tablet 10 mg PO Q8H PRN (Reason: spasms) celecoxib 200 mg capsule 200 mg PO Q12H PRN (Reason: pain) acetaminophen [Acetaminophen Extra Strength] 500 mg tablet 1,000 mg PO Q4-6H PRN (Reason: pain) fluticasone propion-salmeterol [Advair Diskus] 250-50 mcg/dose blister with device 1 inh inhalation DAILY Qty: 60 0RF albuterol sulfate 90 mcg/actuation HFA aerosol inhaler 2 puff INHALATION Q4H PRN (Reason: Shortness Of Breath) Qty: 8.5 1RF sumatriptan 20 mg/actuation spray,non-aerosol 20 mg intranasal ONCE Qty: 6 1RF Rx Instructions: into one nostril; if headache remains, may repeat dose into other nostril once after at least 2 hours semaglutide (weight loss) 1 mg/0.5 mL pen injector 1 mg subcut WEEKLY Qty: 2 3RF lisinopril-hydrochlorothiazide 20-12.5 mg tablet See Rx Instructions .ROUTE .COMPLEX Qty: 90 1RF Dose Instruction: TAKE 1 TABLET BY MOUTH EVERY DAY Rx Instructions: TAKE 1 TABLET BY MOUTH EVERY DAY Date of admission: 07/21/25 21:26 Primary Care Provider: Miki Anderson Admitting Provider: Lisette Castellon Attending physician on admission: Lisette Castellon Condition: Stable Quality VTE Prophylaxis VTE prophylaxis: mechanical ordered
== END 2025-07-22 14:05 | disposition home or self-care (01) ==
LOC: ANHED 21:28 → ANH3MEDSUR 07-22 01:24
PROVIDERS: Emergency Medicine; Admitting Provider Internal Medicine; Emergency Provider Emergency Medicine; PCP Family Medicine; Visit Provider Internal Medicine
DX: R07.9 Chest pain, unspecified (principal); J44.1 Chronic obstructive pulmonary disease with (acute) exacerbation; K21.9 Gastro-esophageal reflux disease without esophagitis; G47.33 Obstructive sleep apnea (adult) (pediatric); I10 Essential (primary) hypertension; F17.210 Nicotine dependence, cigarettes, uncomplicated; M54.9 Dorsalgia, unspecified; G89.29 Other chronic pain; Z20.822 Contact with and (suspected) exposure to COVID-19
CPT/HCPCS: 36415; 71046; 71275; 80053; 83690; 84484; 85025; 85610; 85730; 87637; 93005; 94618; 94640; 96374; 96375; 99285; A9270; G0378; J2470; J2919; J7512; Q9967